=== PATIENT | female | born 1935 | race Hispanic/Latino ===

== ENCOUNTER 2019-05-05 21:36 | Observation (INO) | payer OTHER ==
--- OUTSIDE RECORDS SUMMARY | 2019-05-05 21:39 | XMS REPORT ---
:1935 Author Organization eClinicalWorks Care Team Providers Name Role Phone Jordan Butcher Provider Role Unavailable Allergies No Known Allergies Problems Problem Type Condition Code Onset Dates Condition Status Problem Glaucoma of right eye, unspecified H40.9 Active glaucoma type Problem Essential (primary) hypertension I10 Active Problem Bilateral hearing loss, unspecified H91.93 Active hearing loss type Assessment Bilateral impacted cerumen H61.23 Active Problem Mixed hyperlipidemia E78.2 Active Problem History of stroke Z86.73 Active Medications Medication Code Code Instructions Start End Status Dosage System Date Date Shirley Aspirin EC ND 38124701928 81 MG Orally Active 1 tablet Low Dose Once a day Lisinopril ND 21445533715 20 MG Orally Active 1 tablet Once a day Atorvastatin ND 24672194606 20 MG Orally Active 1 tablet Calcium Once a day Fluconazole [facility] 68753990899 150 MG Orally May 24May Active 1 tablet Once a day 2017 Results No Known Results Summary Purpose eClinicalWorks Submission
--- OUTSIDE RECORDS SUMMARY | 2019-05-05 21:39 | XMS REPORT ---
:1935 Author Organization eClinicalWorks Care Team Providers Name Role Phone Jordan Butcher Provider Role Unavailable Allergies, Adverse Reactions, Alerts Substance Reaction Event Type N.K.D.A. Info Not Available Non Drug Allergy Problems Problem Type Condition Code Onset Dates [...] Start End Status Dosage System Date Date Lomotil [facility] 12432187967 2.5-0.025 MG Oct 19, Oct 29, Active 1 tablet as Orally Four 2017 2017 needed times a day Acidophilus [facility] 01085814270 - Orally daily Oct 19, Dec 18, Active as directed Probiotic Blend 2017 2018 Lisinopril [facility] 77781572645 20 MG Orally Active 1 tablet Once a day Atorvastatin [facility] 68401269000 20 MG Orally Active 1 tablet Calcium Once a day Shirley Aspirin EC [facility] 58986978595 81 MG Orally Active 1 tablet Low Dose Once a day Results No Known Results Summary Purpose eClinicalWorks Submission
--- OUTSIDE RECORDS SUMMARY | 2019-05-05 21:39 | XMS REPORT ---
:1935 Author Organization eClinicalWorks Care Team Providers Name Role Phone Jordan Butcher Provider Role Unavailable Allergies, Adverse Reactions, Alerts Substance Reaction Event Type N.K.D.A. Info Not Available Non Drug Allergy Problems Problem Type Condition Code Onset Dates Condition Status Assessment Vaginal itching N89.8 Active Assessment Essential (primary) hypertension I10 Active Assessment Bilateral impacted cerumen H61.23 Active Problem Mixed hyperlipidemia E78.2 Active Problem History of stroke Z86.73 Active Problem Essential (primary) hypertension I10 Active Assessment History of stroke Z86.73 Active Assessment Mixed hyperlipidemia E78.2 Active Problem Glaucoma of right eye, unspecified H40.9 Active glaucoma type Medications Medication Code Code Instructions Start End Status Dosage System Date Date Atorvastatin [facility] 38470556794 20 MG Orally Active 1 tablet Calcium Once a day Shirley Aspirin EC ND 98315711690 81 MG Orally Active 1 tablet Low Dose Once a day Lisinopril ND 95375531545 20 MG Orally Active 1 tablet Once a day Fluconazole ND 83840915365 150 MG Orally May 24May Active 1 tablet Once a day 2017 Debrox [facility] 08465725719 6.5 % Otic May 24May Active 5 drops Twice a day 2017 affected ear Results No Known Results Summary Purpose eClinicalWorks Submission
--- OUTSIDE RECORDS SUMMARY | 2019-05-05 21:39 | XMS REPORT ---
:1935 Author Organization eClinicalWorks Care Team Providers Name Role Phone Jordan Butcher Provider Role Unavailable Allergies No Known Allergies Problems Problem Type Condition Code Onset Dates Condition Status Problem Mixed hyperlipidemia E78.2 Active Problem History of stroke Z86.73 Active Problem Essential (primary) hypertension I10 Active Assessment Viral upper respiratory tract J06.9 Active infection Problem Glaucoma of right eye, unspecified H40.9 Active glaucoma type Medications Medication Code Code Instructions Start End Status Dosage System Date Date Shirley Aspirin EC ND 73531922168 81 MG Orally Active 1 tablet Low Dose Once a day Lisinopril ND 89057236672 20 MG Orally Active 1 tablet Once a day Atorvastatin ND 24508430781 20 MG Orally Active 1 tablet Calcium Once a day Results No Known Results Summary Purpose eClinicalWorks Submission
--- OUTSIDE RECORDS SUMMARY | 2019-05-05 21:39 | XMS REPORT ---
[...] unspecified H91.93 Active hearing loss type Assessment Medicare annual wellness visit, Z00.00 Active initial Problem Mixed hyperlipidemia E78.2 Active Problem History of stroke Z86.73 Active Medications Medication Code Code Instructions Start End Status Dosage System Date Date Atorvastatin [facility] 62403145509 20 MG Orally Active 1 tablet Calcium Once a day Shirley Aspirin EC ND 74292447373 81 MG Orally Active 1 tablet Low Dose Once a day Lisinopril ND 36728926482 20 MG Orally Active 1 tablet Once a day Results No Known Results Summary Purpose eClinicalWorks Submission
--- OUTSIDE RECORDS SUMMARY | 2019-05-05 21:39 | XMS REPORT ---
:1935 Author Organization eClinicalWorks Care Team Providers Name Role Phone Jordan Butcher Provider Role Unavailable Allergies, Adverse Reactions, Alerts Substance Reaction Event Type N.K.D.A. Info Not Available Non Drug Allergy Problems Problem Type Condition Code Onset Dates Condition Status Assessment Mixed hyperlipidemia E78.2 Active Assessment Medicare annual wellness visit, Z00.00 Active subsequent Assessment Encounter for screening for Z13.820 Active osteoporosis Assessment Encounter for screening mammogram Z12.31 Active for breast cancer Assessment Essential (primary) hypertension I10 Active Problem Essential (primary) hypertension I10 Active Problem Mixed hyperlipidemia E78.2 Active Problem Bilateral hearing loss, unspecified H91.93 Active hearing loss type Problem Screening for osteoporosis Z13.820 Active Problem Screening for breast cancer Z12.31 Active Problem History of stroke Z86.73 Active Problem Glaucoma of right eye, unspecified H40.9 Active glaucoma type Medications Medication Code Code Instructions Start End Status Dosage System Date Date Shirley Aspirin EC ND 24429765355 81 MG Orally Active 1 tablet Low Dose Once a day Atorvastatin ND 92972749807 20 MG Orally Active 1 tablet Calcium Once a day Lisinopril ND 23043235738 20 MG Orally Active 1 tablet Once a day Results No Known Results Summary Purpose eClinicalWorks Submission
--- OUTSIDE RECORDS SUMMARY | 2019-05-05 21:39 | XMS REPORT ---
:1935 Author Organization eClinicalWorks Care Team Providers Name Role Phone Jordan Butcher Provider Role Unavailable Allergies No Known Allergies Problems Problem Type Condition Code Onset Dates Condition Status Assessment Bilateral hearing loss, unspecified H91.93 Active hearing loss type Assessment Mixed hyperlipidemia E78.2 Active Assessment Essential (primary) hypertension I10 Active Problem Glaucoma of right eye, unspecified H40.9 Active glaucoma type Problem Essential (primary) hypertension I10 Active Problem Bilateral hearing loss, unspecified H91.93 Active hearing loss type Assessment History of stroke Z86.73 Active Problem Mixed hyperlipidemia E78.2 Active Problem History of stroke Z86.73 Active Medications Medication Code Code Instructions Start End Status Dosage System Date Date Lisinopril [facility] 35085861033 20 MG Orally Active 1 tablet Once a day Atorvastatin [facility] 38822715625 20 MG Orally Active 1 tablet Calcium Once a day Shirley Aspirin EC [facility] 57722691829 81 MG Orally Active 1 tablet Low Dose Once a day Results No Known Results Summary Purpose eClinicalWorks Submission
--- OUTSIDE RECORDS SUMMARY | 2019-05-05 21:39 | XMS REPORT ---
[...] unspecified H91.93 Active hearing loss type Assessment Acute midline low back pain, with M54.5 Active sciatica presence unspecified Problem Mixed hyperlipidemia E78.2 Active Problem History of stroke Z86.73 Active Medications Medication Code Code Instructions Start End Status Dosage System Date Date Shirley Aspirin EC ND 79120205167 81 MG Orally Active 1 tablet Low Dose Once a day Atorvastatin ND 60259005014 20 MG Orally Active 1 tablet Calcium Once a day Acidophilus ND 60413860544 - Orally daily Oct 19, Dec 18, Active as directed Probiotic Blend 2017 2018 Diclofenac ND 07975445424 50 MG Orally Nov 28, Dec 28, Active 1 tablet Sodium Twice a day 2018 2018 with food or milk Lisinopril [facility] 17554240259 20 MG Orally Active 1 tablet Once a day Results Name Result Date Reference Range Unit Abnormality Flag Lumbar Spine 3 Views Summary Purpose eClinicalWorks Submission
--- OUTSIDE RECORDS SUMMARY | 2019-05-05 21:39 | XMS REPORT ---
[...] Start End Status Dosage System Date Date Acidophilus [facility] 97275399357 - Orally daily Oct 19Dec 18, Active as directed Probiotic Blend 2017 2018 Lisinopril [facility] 46594449041 20 MG Orally Active 1 tablet Once a day Cipro ND 54359363848 500 MG/5ML Oct 19Oct 24, Active 2.5 ml (10%) Orally 2017 2017 every 12 hrs Shirley Aspirin EC ND 61589794058 81 MG Orally Active 1 tablet Low Dose Once a day Lomotil ND 64973263722 2.5-0.025 MG Oct 19Oct 29, Active 1 tablet as Orally Four 2017 2017 needed times a day Atorvastatin ND 17325444080 20 MG Orally Active 1 tablet Calcium Once a day Debrox [facility] 70272177872 6.5 % Otic Oct 19Oct 23, Active 5 drops Twice a day 2017 2018 into affected ear Results No Known Results Summary Purpose eClinicalWorks Submission
--- OUTSIDE RECORDS SUMMARY | 2019-05-05 21:39 | XMS REPORT ---
:1935 Author Organization eClinicalWorks Care Team Providers Name Role Phone Jordan Butcher Provider Role Unavailable Allergies No Known Allergies Problems Problem Type Condition Code Onset Dates Condition Status Problem Mixed hyperlipidemia E78.2 Active Problem History of stroke Z86.73 Active Problem Essential (primary) hypertension I10 Active Assessment Bilateral impacted cerumen H61.23 Active Problem Glaucoma of right eye, unspecified H40.9 Active glaucoma type Medications Medication Code Code Instructions Start End Date Status Dosage System Date Debrox [facility] 65850306957 6.5 % Otic Twice May 24, May 28, Active 5 drops into a day 2017 2017 affected ear Results No Known Results Summary Purpose eClinicalWorks Submission
--- OUTSIDE RECORDS SUMMARY | 2019-05-05 21:39 | XMS REPORT ---
:1935 Author Organization eClinicalWorks Care Team Providers Name Role Phone Jordan Butcher Provider Role Unavailable Allergies No Known Allergies Problems Problem Type Condition Code Onset Dates Condition Status Problem Mixed hyperlipidemia E78.2 Active Problem History of stroke Z86.73 Active Problem Essential (primary) hypertension I10 Active Assessment Bilateral impacted cerumen H61.23 Active Assessment Vaginal itching N89.8 Active Problem Glaucoma of right eye, unspecified H40.9 Active glaucoma type Medications Medication Code Code Instructions Start End Date Status Dosage System Date Debrox [facility] 40633849526 6.5 % Otic Twice May 24, May 28, Active 5 drops a day 2017 2017 into affected ear Fluconazole ND 43348816789 150 MG Orally May 24, June 03, Active 1 tablet Once a day 2017 2017 Results No Known Results Summary Purpose eClinicalWorks Submission
--- OUTSIDE RECORDS SUMMARY | 2019-05-05 21:39 | XMS REPORT ---
:1935 Author Organization eClinicalWorks Care Team Providers Name Role Phone Jordan Butcher Provider Role Unavailable Allergies No Known Allergies Problems Problem Type Condition Code Onset Dates Condition Status Problem Essential (primary) hypertension I10 Active Problem [...] Dosage System Date Date Shirley Aspirin EC [facility] 19767471188 81 MG Orally Active 1 tablet Low Dose Once a day Lisinopril [facility] 53970412248 20 MG Orally Active 1 tablet Once a day Atorvastatin [facility] 13763865795 20 MG Orally Active 1 tablet Calcium Once a day Results No Known Results Summary Purpose eClinicalWorks Submission
[2019-05-05 22:42] LABS: Absolute Lymphocytes (CBC) 1.7 K/uL (0.7-4.9); Basophils % 0.7 % (0-1.3); Eosinophils % 5.1 % (0-4.4); Hematocrit 32.3 % (36.0-45.0); Lymphocytes % 24.4 % (15.3-44.8); MPV 9.1 fL (7.6-11.3); Monocytes % 10.2 % (3.3-12.3); RBC Red Blood Cell Count 3.72 M/uL (3.86-4.86)
[2019-05-05 22:46] LABS: Protime INR 0.99
--- NOTE | 2019-05-05 23:00 | ER ---
Nurse's Notes [facility] Name: Ramandeep Renner Age: 84 yrs Sex: Female : 1935 Arrival Date: 05/05/2019 Time: 21:37 Bed 16 Private MD: Ludy Herrera F Diagnosis: Other chest pain;Essential (primary) hypertension Presentation: 05/05 21:58 Presenting complaint: Patient states: she has been having chest pain all day which bb started earlier today and started radiating down her left arm and she was experiencing shortness of breath. Transition of care: patient was not received from another setting of care. Onset of symptoms was May 05, 2019. Risk Assessment: Do you want to hurt yourself or someone else? Patient reports no desire to harm self or others. Initial Sepsis Screen: Does the patient meet any 2 criteria? No. Patient's initial sepsis screen is negative. Does the patient have a suspected source of infection? No. Patient's initial sepsis screen is negative. Care prior to arrival: None. 21:58 Method Of Arrival: Ambulatory bb 21:58 Acuity: WILFRIDO 3 bb Triage Assessment: 22:00 General: Appears in no apparent distress. uncomfortable, slender, Behavior is calm, bb cooperative. Pain: Complains of pain in chest Pain radiates to left arm Pain currently is 5 out of 10 on a pain scale. Neuro: Level of Consciousness is awake, alert, obeys commands, Oriented to person, place, time, situation. Cardiovascular: Reports chest pain, shortness of breath, Heart tones S1 S2 present Capillary refill < 3 seconds Patient's skin is warm and dry. Pulses are all present. Edema is absent. Rhythm is sinus rhythm. Respiratory: Respiratory effort is even, unlabored, Respiratory pattern is regular, Breath sounds are clear bilaterally. GI: Abdomen is non-distended. Derm: Skin is fragile, is thin, Skin is dry, Skin is pink, Skin temperature is warm. Musculoskeletal: Circulation, motion, and sensation intact. Historical: - Allergies: 22:00 PENICILLINS; bb - Home Meds: 22:00 aspirin 81 mg Oral chew 1 tab once daily [Active]; lisinopril 20 mg Oral tab 1 tab once bb daily [Active]; atorvastatin 20 mg oral tab 1 tab once daily [Active]; - PMHx: 22:00 CVA; hemorrhoids; Hypertension; PE; RENAL CYST; bb - PSHx: 22:00 Cholecystectomy; perforated colon surgery; Hysterectomy; Knee surgery; bb - Immunization history:: Adult Immunizations up to date. - Social history:: Smoking status: Patient/guardian denies using tobacco. - Ebola Screening: : No symptoms or risks identified at this time. - Family history:: not pertinent. Screenin:03 Abuse screen: Denies threats or abuse. Nutritional screening: No deficits noted. bb Tuberculosis screening: No symptoms or risk factors identified. Fall Risk None identified. Assessment: 22:03 Reassessment: No changes from previously documented assessment. see triage assessment. bb 22:30 Pain: Pain began 10am this morning. ca1 23:30 Reassessment: Patient appears in no apparent distress at this time. Patient and/or ca1 family updated on plan of care and expected duration. Pain level reassessed. Patient is alert, oriented x 3, equal unlabored respirations, skin warm/dry/pink. 05/06 00:32 Reassessment: Patient appears in no apparent distress at this time. Patient is alert, ca1 oriented x 3, equal unlabored respirations, skin warm/dry/pink. Pain: Denies pain. Vital Signs: 05/05 22:00 BP 150 / 70; Pulse 68; Resp 14 S; Temp 98.3; Pulse Ox 100% on R/A; Weight 55.79 kg (R); bb Height 5 ft. 3 in. (160.02 cm) (R); Pain 5/10; 23:15 BP 143 / 72; Pulse 75; Resp 16 S; Temp 98.1(O); Pulse Ox 100% on R/A; ca1 05/06 00:30 BP 132 / 81; Pulse 75; Resp 17 S; Temp 98(O); Pulse Ox 100% on R/A; ca1 05/05 22:00 Body Mass Index 21.79 (55.79 kg, 160.02 cm) bb ED Course: 05/05 21:37 Patient arrived in ED. am2 21:38 John Jean Baptiste MD is Private Physician. am2 21:38 Ludy Herrera MD is Private Physician. am2 21:59 Triage completed. bb 22:00 Arm band placed on Patient placed in an exam room, on a stretcher, on equipment monitor phototypesetting, bb on pulse oximetry. EKG completed in triage. Results shown to MD. Family accompanied patient. 22:03 Patient has correct armband on for positive identification. Bed in low position. Call bb light in reach. Side rails up X 1. Adult w/ patient. site monitor on. Pulse ox on. NIBP on. Warm blanket given. 22:03 Patient maintains SpO2 saturation greater than 95% on room air. bb 22:12 Yonatan Smith MD is Attending Physician. [facility] 22:17 Bina Goodman, ANTONIO is Primary Nurse. ca1 22:30 Inserted saline lock: 20 gauge in left antecubital area, using aseptic technique. Blood ca1 collected. 22:46 XRAY Chest (1 view) In Process Unspecified. [facility] 22:59 Ludy Herrera MD is Hospitalizing Provider. [facility] 22:59 Notified ED physician of a critical lab result(s). D-dimer 718. Dr Smith notified. 05/06 00:30 No provider procedures requiring assistance completed. Patient admitted, IV remains in ca1 place. Administered Medications: 05/05 22:30 Drug: NS 0.9% 1000 ml Route: IV; Rate: 125 ml/hr; Site: left antecubital; ca1 05/06 00:41 Follow up: IV Status: Infusion continued upon admission ca1 05/05 22:30 Drug: Aspirin 162 mg Route: PO; ca1 05/06 00:40 Follow up: Response: No adverse reaction ca1 05/05 23:00 Drug: Lovenox 1 mg/kg Route: Sub-Q; Site: right lower abdomen; ca1 05/06 00:36 Follow up: Response: No adverse reaction ca1 05/05 23:00 Drug: Lopressor 25 mg Route: PO; ca1 05/06 00:36 Follow up: Response: No adverse reaction ca1 Outcome: 05/05 22:59 Decision to Hospitalize by Provider. [facility] 05/06 00:30 Admitted to Med/surg accompanied by nurse, via wheelchair, room 223, with chart, Report ca1 called to Kimberlee Chase RN Condition: stable Instructed on the need for admit. 00:43 Patient left the ED. ca1 Signatures: Dispatcher [employer] [facility] Yonatan Smith MD MD cha Ballard, Brenda, RN RN bb Patel, Bina Frias RN RN ca1 Corrections: (The following items were deleted from the chart) 00:33 00:31 Pain: Pain began ca1 ca1
--- NOTE | 2019-05-05 23:00 | EDPHYS ---
Physician Documentation [facility] Name: Ramandeep Renner Age: 84 yrs Sex: Female : 1935 Arrival Date: 05/05/2019 Time: 21:37 Bed 16 Private MD: Ludy Herrera F ED Physician Yonatan Smith HPI: 05/05 22:56 This 84 yrs old Female presents to ER via Ambulatory with complaints of Chest joe Pain > 30 y/o. 22:56 The patient or guardian reports chest pain that is located primarily in the substernal joe area, anterior chest wall, left. Onset: this morning. The pain radiates to Associated signs and symptoms: The patient has no apparent associated signs or symptoms. The chest pain is described as a heaviness, a pressure. Duration: The patient or guardian reports multiple episodes, with no pattern. Modifying factors: The symptoms are alleviated by nothing. the symptoms are aggravated by nothing. Severity of pain: At its worst the pain was mild in the emergency department the pain is unchanged. The patient has not experienced similar symptoms in the past. Historical: - Allergies: 22:00 PENICILLINS; bb - Home Meds: 22:00 aspirin 81 mg Oral chew 1 tab once daily [Active]; lisinopril 20 mg Oral tab 1 tab once bb daily [Active]; atorvastatin 20 mg oral tab 1 tab once daily [Active]; - PMHx: 22:00 CVA; hemorrhoids; Hypertension; PE; RENAL CYST; bb - PSHx: 22:00 Cholecystectomy; perforated colon surgery; Hysterectomy; Knee surgery; bb - Immunization history:: Adult Immunizations up to date. - Social history:: Smoking status: Patient/guardian denies using tobacco. - Ebola Screening: : No symptoms or risks identified at this time. - Family history:: not pertinent. ROS: 22:56 Constitutional: Negative for fever, chills, and weight loss, Eyes: Negative for injury, joe pain, redness, and discharge, ENT: Negative for injury, pain, and discharge, Neck: Negative for injury, pain, and swelling, Respiratory: Negative for shortness of breath, cough, wheezing, and pleuritic chest pain, Abdomen/GI: Negative for abdominal pain, nausea, vomiting, diarrhea, and constipation, Back: Negative for injury and pain, : Negative for injury, bleeding, discharge, and swelling, MS/Extremity: Negative for injury and deformity, Skin: Negative for injury, rash, and discoloration, Neuro: Negative for headache, weakness, numbness, tingling, and seizure, Psych: Negative for depression, anxiety, suicide ideation, homicidal ideation, and hallucinations, Allergy/Immunology: Negative for hives, rash, and allergies, Endocrine: Negative for neck swelling, polydipsia, polyuria, polyphagia, and marked weight changes, Hematologic/Lymphatic: Negative for swollen nodes, abnormal bleeding, and unusual bruising. 22:56 Cardiovascular: Positive for chest pain, of the chest. Exam: 22:56 Constitutional: This is a well developed, well nourished patient who is awake, alert, joe and in no acute distress. Head/Face: Normocephalic, atraumatic. Eyes: Pupils equal round and reactive to light, extra-ocular motions intact. Lids and lashes normal. Conjunctiva and sclera are non-icteric and not injected. Cornea within normal limits. Periorbital areas with no swelling, redness, or edema. ENT: Nares patent. No nasal discharge, no septal abnormalities noted. Tympanic membranes are normal and external auditory canals are clear. Oropharynx with no redness, swelling, or masses, exudates, or evidence of obstruction, uvula midline. Mucous membranes moist. Neck: Trachea midline, no thyromegaly or masses palpated, and no cervical lymphadenopathy. Supple, full range of motion without nuchal rigidity, or vertebral point tenderness. No Meningismus. Chest/axilla: Normal chest wall appearance and motion. Nontender with no deformity. No lesions are appreciated. Cardiovascular: Regular rate and rhythm with a normal S1 and S2. No gallops, murmurs, or rubs. Normal PMI, no JVD. No pulse deficits. Respiratory: Lungs have equal breath sounds bilaterally, clear to auscultation and percussion. No rales, rhonchi or wheezes noted. No increased work of breathing, no retractions or nasal flaring. Abdomen/GI: Soft, non-tender, with normal bowel sounds. No distension or tympany. No guarding or rebound. No evidence of tenderness throughout. Back: No spinal tenderness. No costovertebral tenderness. Full range of motion. Female : Normal external genitalia. Skin: Warm, dry with normal turgor. Normal color with no rashes, no lesions, and no evidence of cellulitis. MS/ Extremity: Pulses equal, no cyanosis. Neurovascular intact. Full, normal range of motion. Neuro: Awake and alert, GCS 15, oriented to person, place, time, and situation. Cranial nerves II-XII grossly intact. Motor strength 5/5 in all extremities. Sensory grossly intact. Cerebellar exam normal. Normal gait. Psych: Awake, alert, with orientation to person, place and time. Behavior, mood, and affect are within normal limits. Vital Signs: 22:00 BP 150 / 70; Pulse 68; Resp 14 S; Temp 98.3; Pulse Ox 100% on R/A; Weight 55.79 kg (R); bb Height 5 ft. 3 in. (160.02 cm) (R); Pain 5/10; 23:15 BP 143 / 72; Pulse 75; Resp 16 S; Temp 98.1(O); Pulse Ox 100% on R/A; ca1 05/06 00:30 BP 132 / 81; Pulse 75; Resp 17 S; Temp 98(O); Pulse Ox 100% on R/A; ca1 05/05 22:00 Body Mass Index 21.79 (55.79 kg, 160.02 cm) bb MDM: 05/05 22:12 Patient medically screened. [facility] 22:58 Data reviewed: vital signs, nurses notes, lab test result(s), EKG, radiologic studies. [facility] 05/05 22:13 Order name: Basic Metabolic Panel [facility] 05/05 22:13 Order name: CBC with Diff [facility] 05/05 22:13 Order name: LFT's; Complete Time: 23:11 [facility] 05/05 22:13 Order name: Magnesium; Complete Time: 23:11 [facility] 05/05 22:13 Order name: NT PRO-BNP; Complete Time: 23:11 [facility] 05/05 22:13 Order name: PT-INR; Complete Time: 22:55 [facility] 05/05 22:13 Order name: Troponin (emerg Dept Use Only); Complete Time: 23:11 [facility] 05/05 22:13 Order name: XRAY Chest (1 view) [facility] 05/05 22:13 Order name: Lipase; Complete Time: 23:11 [facility] 05/05 22:13 Order name: Urine Culture [facility] 05/05 22:13 Order name: D-Dimer; Complete Time: 22:55 [facility] 05/05 22:15 Order name: Basic Metabolic Panel; Complete Time: 23:11 [facility] 05/05 22:15 Order name: CBC with Automated Diff; Complete Time: 22:55 [facility] 05/05 22:55 Order name: US Extremity Venous W Compression Rod [facility] 05/05 22:13 Order name: EKG; Complete Time: 22:16 [facility] 05/05 22:13 Order name: Cardiac monitoring; Complete Time: 00:13 [facility] 05/05 22:13 Order name: EKG - Nurse/Tech; Complete Time: 00:13 [facility] 05/05 22:13 Order name: IV Saline Lock; Complete Time: 00:13 [facility] 05/05 22:13 Order name: Labs collected and sent; Complete Time: 00:13 [facility] 05/05 22:13 Order name: O2 Per Protocol; Complete Time: 00:13 [facility] 05/05 22:13 Order name: O2 Sat Monitoring; Complete Time: 00:13 [facility] 05/05 22:13 Order name: Urine Dipstick-Ancillary (obtain specimen); Complete Time: 00:41 [facility] 05/05 22:55 Order name: CT Chest For PE Angio [facility] 05/05 23:06 Order name: CONS Physician Consult EDMS Administered Medications: 22:30 Drug: NS 0.9% 1000 ml Route: IV; Rate: 125 ml/hr; Site: left antecubital; ca1 / 00:41 Follow up: IV Status: Infusion continued upon admission ca1 05/05 22:30 Drug: Aspirin 162 mg Route: PO; ca1 05/06 00:40 Follow up: Response: No adverse reaction [facility] 05/05 23:00 Drug: Lovenox 1 mg/kg Route: Sub-Q; Site: right lower abdomen; ca1 05/06 00:36 Follow up: Response: No adverse reaction [facility] 05/05 23:00 Drug: Lopressor 25 mg Route: PO; ca1 05/06 00:36 Follow up: Response: No adverse reaction ca1 Disposition: 05/05/19 22:59 Hospitalization ordered by Ludy Herrera for Observation. Preliminary diagnosis are Other chest pain, Essential (primary) hypertension. - Bed requested for Telemetry/MedSurg (observation). - Status is Observation. ca1 - Condition is Fair. - Problem is new. - Symptoms have improved. UTI on Admission? No Signatures: Dispatcher [employer] EDYonatan Hammer MD MD cha Ballard, Brenda, RN RN Gema Lopez, ANTONIO RN Bina Goodman RN RN ca1 Corrections: (The following items were deleted from the chart) 05/05 23:30 22:59 Hospitalization Ordered by Ludy Herrera MD for Observation. Preliminary cg diagnosis is Other chest pain; Essential (primary) hypertension. Bed requested for Telemetry/MedSurg (observation). Status is Observation. Condition is Fair. Problem is new. Symptoms have improved. UTI on Admission? No. [facility] 05/06 00:43 05/05 23:30 05/05/2019 22:59 Hospitalization Ordered by Ludy Herrera MD for ca1 Observation. Preliminary diagnosis is Other chest pain; Essential (primary) hypertension. Bed requested for Telemetry/MedSurg (observation). Status is Observation. Condition is Fair. Problem is new. Symptoms have improved. UTI on Admission? No. cg
[2019-05-05 23:01] LABS: ALT/SGPT 22 U/L (12-78); AST/SGOT 24 U/L (15-37); Albumin 3.3 g/dL (3.4-5.0); Alkaline Phosphatase 122 U/L (45-117); BUN Blood Urea Nitrogen 10 mg/dL (7-18); Bicarbonate 26 mmol/L (21-32); Bilirubin Direct < 0.1 mg/dL (0-0.2); Bilirubin Total 0.3 mg/dL (0.2-1.0); Glucose Level 104 mg/dL (74-106); Lipase 188 U/L (73-393); Magnesium 2.2 mg/dL (1.8-2.4); NT PRO-BNP 95 pg/mL (<450); Potassium 4.4 mmol/L (3.5-5.1); Protein, Total 7.1 g/dL (6.4-8.2); Sodium Level 140 mmol/L (136-145); Troponin (Emerg Dept Use Only) < 0.02 ng/mL (0.0-0.045)
[2019-05-05] MEDS ORDERED: ASPIRIN EC 81 MG TAB PO ONE (23:19)
[2019-05-05] MEDS ORDERED: ENOXAPARIN 60 MG/0.6 ML SQ ONE (23:20)
[2019-05-05] MEDS ORDERED: METOPROLOL TAR 25 MG TAB ONE (23:20)
[2019-05-05] MEDS ORDERED: NA CHLORIDE 0.9% 1,000 ML ONE (23:20)
[2019-05-06] MEDS ORDERED: ACETAMINOPHEN 500 MG TAB PO PRN (00:34)
[2019-05-06] MEDS ORDERED: ONDANSETRON 4 MG/2 ML VIAL IV PRN (00:34)
[2019-05-06] MEDS: METOPROLOL TAR 25 MG TAB PO SCH ×2 (06:22→17:17)
[2019-05-06 06:59] LABS: Absolute Lymphocytes (CBC) 1.5 K/uL (0.7-4.9); Basophils % 0.5 % (0-1.3); Eosinophils % 4.4 % (0-4.4); Hematocrit 32.1 % (36.0-45.0); Lymphocytes % 24.4 % (15.3-44.8); Monocytes % 9.1 % (3.3-12.3); RBC Red Blood Cell Count 3.67 M/uL (3.86-4.86)
[2019-05-06 07:21] LABS: BUN Blood Urea Nitrogen 10 mg/dL (7-18); Bicarbonate 27 mmol/L (21-32); Glucose Level 89 mg/dL (74-106); Potassium 4.2 mmol/L (3.5-5.1); Sodium Level 141 mmol/L (136-145); Troponin I < 0.02 ng/mL (0.0-0.045)
[2019-05-06] MEDS ORDERED: PNEUMOCOCCAL VACCINE 0.5 ML IMVAC ONE (08:00)
--- NOTE | 2019-05-06 08:24 | RAD REPORT ---
EXAM DESCRIPTION: Nuno Single View05/05/2019 10:45 pm CLINICAL HISTORY: Chest pain COMPARISON: 2017 FINDINGS: The lungs appear clear of acute infiltrate. The heart is borderline enlarged IMPRESSION: No acute abnormalities displayed
--- NOTE | 2019-05-06 08:24 | RAD REPORT ---
EXAM DESCRIPTION: Nuno Single View05/06/2019 6:28 am CLINICAL HISTORY: Chest pain COMPARISON: May 05, 2019 FINDINGS: The lungs appear clear of acute infiltrate. The heart is borderline enlarged IMPRESSION: No acute abnormalities displayed
--- NOTE | 2019-05-06 09:07 | EKG ---
Test Date: 2019-05-06 Test Time: 08:01:23 Web Manager: KAREN MEASUREMENT RESULTS: Intervals: Rate: 53 TN: 178 QRSD: 76 QT: 446 QTc: 418 [place]: P: 44 TN: 178 QRS: 25 T: 61 INTERPRETIVE STATEMENTS: Sinus bradycardia Otherwise normal ECG Compared to ECG 05/05/2019 21:49:03 Sinus rhythm no longer present Electronically Signed On 05-06-19 09:06:34 CDT by Silverio Bhatt
--- NOTE | 2019-05-06 09:08 | EKG ---
Test Date: 2019-05-05 Test Time: 21:49:03 Tongue Presser: COLT MEASUREMENT RESULTS: Intervals: Rate: 73 OK: 126 QRSD: 76 QT: 378 QTc: 416 [place]: P: 28 OK: 126 QRS: 12 T: 51 INTERPRETIVE STATEMENTS: Normal sinus rhythm Normal ECG Compared to ECG 07/08/2017 09:15:30 ST (T wave) deviation no longer present Electronically Signed On 05-06-19 09:07:18 CDT by Silverio Bhatt
[2019-05-06] MEDS: ASPIRIN EC 81 MG TAB PO SCH (09:09)
[2019-05-06] MEDS: LISINOPRIL 20 MG TAB PO SCH (09:10)
[2019-05-06] MEDS: ENOXAPARIN 60 MG/0.6 ML SQ SCH ×2 (09:10→21:13)
--- NOTE | 2019-05-06 10:28 | RAD REPORT ---
EXAM DESCRIPTION: CT - Chest For Pe Angio - 05/06/2019 12:12 am CLINICAL HISTORY: 84 years Female Chest pain; Dyspnea TECHNIQUE: Contiguous axial images obtained through the chest were obtained from the thoracic inlet to the level of the upper abdomen during the pulmonary arterial phase of intravenous contrast adminis tration. Coronal, sagittal, and bilateral oblique reformatted images provided. This CT exam was performed according to our departmental dose-optimization program, which includes on e or more of the following dose reduction techniques: automated exposure control, adjustment of the m A and/or kV according to patient size, and/or use of iterative reconstruction technique. COMPARISON: Comparison is made to the prior examination dated 09/21/2017. FINDINGS: There is no pulmonary embolus. The heart is normal in size without pericardial effusion. There is extensive atherosclerosis without thoracic aortic aneurysm or dissection. No mediastinal hemorrhage. No lymphadenopathy in the chest.. Again seen is nodular scarring in the lung apices. Patchy air trapping and atelectasis throughout bot h lungs. The central airways are patent. No pleural effusion or pneumothorax. Stable dystrophic calcification and cysts in the liver bilateral renal cysts again seen. Prior cholec ystectomy. No acute fracture or aggressive osseous lesion. IMPRESSION: No pulmonary embolus. No acute cardiopulmonary findings. Stable chronic findings as described. Electronically signed by: Jacklyn Mg MD 05/06/2019 12:09 AM CDT Due to temporary technical issues with the PACS/Fluency reporting system, reports are being signed by the in house radiologist as a courtesy to ensure prompt reporting. The interpreting radiologist is f ully responsible for the content of the report.
[2019-05-06] MEDS ORDERED: REGADENOSON 0.4 MG/5 ML SYR IV ONE (10:29)
--- NOTE | 2019-05-06 14:07 | CON ---
History Of Present Illness: Ms. Renner is 84. She came to the hospital because of chest pain. Th e chest pain was very atypical. She points to it with a finger and it lasted for 12 hours and since being here in the hospital, she has had normal enzymes and normal EKGs. The patient has never had my ocardial infarction before. Three years ago, she had a stroke. There was no vascular intervention a fter the stroke. Chest pain seemed to go away when she slept. She has a history of gallbladder surg maite, history of stroke. She does not have diabetes. She has hypertension and dyslipidemia. She shawn es lisinopril, atorvastatin, and aspirin. Allergies: SHE IS ALLERGIC TO PENICILLINS. Social History: She used tobacco until 3 years ago before that she has a sporadic smoker. Physical Examination: General: She is 5 feet 3 inches, 124 pounds. HEENT: Normal. Lungs: Clear. Cardiac exam: Normal. Abdomen: Soft. Extremities: Normal. Normal pulses. Electrocardiogram shows sinus rhythm. It is completely normal EKG. I will recommend the patient do a pharmacologic nuclear stress test and echo. MESFIN/KATELIN Voice ID: [id number] Report ID: [id number]
--- NOTE | 2019-05-06 14:44 | RAD REPORT ---
EXAM DESCRIPTION: NM - Rest Stress Cardiac Imaging - 05/06/2019 2:39 pm CLINICAL HISTORY: Chest pain. COMPARISON: None. TECHNIQUE: The patient was administered approximately 10mCi of Tc 99m Sestamibi prior to resting SPE CT imaging of the heart. The patient was then administered approximately 30 mCi of Tc 99m Sestamibi f ollowing exercise or pharmacologic stress. Multiplanar SPECT images were reviewed. FINDINGS: There is uniformity of radiotracer uptake involving the entire left ventricular myocardiu m on rest and stress images. The left ventricular ejection fraction equals 76% IMPRESSION: Negative for a myocardial perfusion defect
--- NOTE | 2019-05-06 16:01 | ECHO ---
HEIGHT: 5 ft 3 in WEIGHT: 124 lb 9.6 oz DATE OF STUDY: 05/06/[address]: Yonatan Smith MD 2-DIMENSIONAL: YES M.MODE: YES DOPPLER: YES COLOR FLOW: YES TDS: NO PORTABLE: NO DEFINITY: NO BUBBLE STUDY: NO DIAGNOSIS: CHEST PAIN CARDIAC HISTORY: CATHERIZATION: NO SURGERY: NO PROSTHETIC VALVE: NO PACEMAKER: NO MEASUREMENTS (cm) DIASTOLIC (NORMALS) SYSTOLIC (NORMALS) IVSd 1.0 (0.6-1.2) LA Diam 3.2 (1.9-4.0) LVEF 77% LVIDd 3.9 (3.5-5.7) LVIDs 2.1 (2.0-3.5) %FS 45% LVPWd 1.0 (0.6-1.2) Ao Diam 3.1 (2.0-3.7) 2 DIMENSIONAL ASSESSMENT: RIGHT ATRIUM: NORMAL LEFT ATRIUM: NORMAL RIGHT VENTRICLE: NORMAL LEFT VENTRICLE: NORMAL TRICUSPID VALVE: NORMAL MITRAL VALVE: NORMAL PULMONIC VALVE: NORMAL AORTIC VALVE: NORMAL PERICARDIAL EFFUSION: NONE AORTIC ROOT: NORMAL LEFT VENTRICULAR WALL MOTION: DOPPLER/COLOR FLOW: TRACE MITRAL AND TRICUSPID REGURGITATION. NORMAL RIGHT VENTRICULAR SYSTOLIC PRESSURE. COMMENTS: NORMAL 2D ECHOCARDIOGRAM. TRACE MITRAL AND TRICUSPID REGURGITATION. TECHNOLOGIST: Mani RODRIGUEZ
--- NOTE | 2019-05-06 16:42 | RAD REPORT ---
EXAM DESCRIPTION: US - Extrem Venous W Compress Rod - 05/06/2019 3:36 pm CLINICAL HISTORY: PAIN Bilateral leg edema and swelling. COMPARISON: <Comparisons> TECHNIQUE: Real-time sonographic interrogation of the left and right lower extremity deep venous sys tems was performed. FINDINGS: Normal compressibility, flow augmentation, phasic flow and spontaneous flow is identified in both the left and right lower extremity deep venous systems. IMPRESSION: No sonographic evidence of left or right lower extremity deep venous thrombosis.
--- NOTE | 2019-05-06 16:47 | TREADPHA ---
DX: CHEST PAIN Date of Study: 05/06/19 Ht: 5 3 Wt: 124 lb 9.6 oz Consulting Physician: DARINEL MEDICATIONS: TYLENOL, ASPIRIN, LIPITOR, LOVENOX, PRINIVIL, LOPRESSOR. HISTORY: 84 YEAR FEMALE WITH COMPLAINTS OF CHEST PAIN. HISTORY: CVA, PE, RENAL CYST, HYPERTENSION, HEMOROIDS, NON-SMOKER, NON-DRINKER. PHYSICIAL EXAMINATION: RESTING B.P.: 182/75 RESTING H.R.: 68 RESTING EKG: NORMAL PROTOCOL: LEXISCAN EXERCISE TIME: 3:30 B.P. AT PEAK STRESS: 170/60 IMPRESSION: LEXISCAN INJECTED, FOLLOWED BY CARDIOLITE PER PROTOCOL, SEE NUCLEAR MEDICINE REPORT. NO SUPRAVENTRICULAR TACHYCARDIA, NO VENTRICULAR TACHYCARDIA, NO PREMATURE ATRIAL COMPLEXS, AND NO PREMATURE VENTRICULAR COMPLEXS. PATIENT REPORTED NO CHEST PAIN. NON-DIAGNOSTIC ELECTROCARDIOGRAM WITH LEXISCAN STRESS.
[2019-05-06] MEDS ORDERED: ATORVASTATIN 20 MG TAB PO SCH (21:00)
[2019-05-07] MEDS: METOPROLOL TAR 25 MG TAB PO SCH (05:17)
--- NOTE | 2019-05-07 06:31 | DS ---
History Of Present Illness: An 84-year-old female who presented to the emergency room with a complai nt of chest pain in the substernal area that started with the patient at home. It was active for abo ut 12 hours and so she decided to come to the emergency room. Chest pain had no radiation. Not asso ciated with symptoms of nausea or vomiting. Review of Systems: Cardiovascular: No palpitations. No dizziness. Respiratory: No complaint. Gastrointestinal: No complaint. Skeletomuscular: No complaint. Genitourinary: No complaint. Neurological: No complaint. Past Medical History: 1.Severe pulmonary hypertension. 2. in the past. 3.History of pulmonary embolism. 4.Hemorrhagic adrenal cyst. 5.Cholecystectomy. 6.Perforated colon surgery. 7.Knee surgery. Social History: No smoking, alcohol, or IV drug abuse history. Family History: Noncontributory. Medications: Include aspirin 81 mg p.o. daily, Lipitor 20 mg p.o. daily, and lisinopril 20 mg p.o. d aily. Allergies: PENICILLIN. Physical Examination: Vital Signs: Blood pressure 135/65, pulse 60, temperature 97.2. Heart: Regular rate and rhythm. Chest: Clear to auscultation. Abdomen: Soft, nontender. No hepatosplenomegaly. Bowel sounds normoactive. Extremities: No edema. No cyanosis. Peripheral pulses are felt. Neurologic: Alert, oriented, nonfocal. Grossly intact. Imaging: The patient's chest x-ray showed no acute pathology. EKG in normal sinus rhythm. Chest CT , no pulmonary embolus. Labs: CBC in office with hemoglobin 10.7, hematocrit 32.1, and platelets 239. D-dimer 718. Client Support Associate ry had been noted; BUN 10, creatinine 0.84, and GFR 64. Assessment And Plan: Chest pain, atypical. The patient is being admitted. Draw serial cardiac enzy mes. Troponin second set was less than 0.02. We will put the patient also on aspirin and consult Ca rdiology. We will continue her home medicines for chronic medical illnesses. The patient also has b een put on metoprolol beta-lakia pending Cardiology assessment and recommendation. Continue above treatment. MFS/MODL Voice ID: [id number] Report ID: [id number]
[2019-05-07] MEDS: LISINOPRIL 20 MG TAB PO SCH (10:07)
[2019-05-07] MEDS: ENOXAPARIN 60 MG/0.6 ML SQ SCH (10:08)
[2019-05-07] MEDS: ASPIRIN EC 81 MG TAB PO SCH (10:08)
--- NOTE | 2019-05-07 12:20 | PN ---
Date of Progress Note: 05/07/2019 Ms. Renner was admitted by Dr. Herrera on 05/05/2019 for chest pain and hypertension. Echocardiogr am and Lexiscan were done yesterday. These were reviewed this morning. Echocardiogram reports addi l wall motion, normal ejection fraction and no effusion. Lexiscan showed no ischemia. There was no reported chest pain. No telemetry changes. Blood pressure is better controlled. She can go home wh enever it is okay with Dr. Herrera. We will be happy to see her in the office in the next 2-4 weeks. CHENCHO/KATELIN Voice ID: [id number] Report ID: [id number]
== END 2019-05-07 16:31 | disposition home or self-care (01) ==
LOC: ER 21:36 → ERHOLD 23:31 → 2ND 05-06 00:29
PROVIDERS: ADMIT Internal Medicine; ATTEND Internal Medicine
DX: R07.89 Other chest pain (principal); I10 Essential (primary) hypertension; I27.20 Pulmonary hypertension, unspecified; Z88.0 Allergy status to penicillin
CPT/HCPCS: 96361; 93005 ×2; 93017; 93306; 87088; 85025 ×2; 87086; 80048 ×2; 36415; 83735; 85610; 85379; 80076; 84484 ×3; 83690; 83880; 71275; 71045 ×2; 93970; 78452; 96360; 96372; 99285; Q9967; J1650 ×4; J2785; J7030; A9500; G0378 ×2; 90670

== ENCOUNTER 2019-10-24 22:07 | Emergency (ER) | payer OTHER ==
--- OUTSIDE RECORDS SUMMARY | 2019-10-24 22:08 | XMS REPORT ---
:1935 Author Organization [employer] Care Team Providers Name Role Phone Surjit Quinton Provider Role Unavailable Allergies, Adverse Reactions, Alerts Substance Reaction Event Type N.K.D.A. 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 08395026048 2.5 MG Orally Active 1 tablet Besylate Once a day Atorvastatin ND 91381732992 20 MG Orally Active 1 tablet Calcium Once a day Lisinopril [facility] 16863896756 20 MG Orally Active 1 tablet Once a day Shirley Aspirin EC [facility] 32302382796 81 MG Orally Active 1 tablet Low Dose Once a day Results No Known Results Summary Purpose [employer] Submission
[2019-10-24 23:10] LABS: Urine Appearance CLOUDY; Urine Bilirubin NEGATIVE (NEG); Urine Blood 3+ (NEG); Urine Color YELLOW; Urine Glucose NEGATIVE (NEG); Urine Protein 1+ (NEG); Urine Specific Gravity <=1.005 (1.005-1.030); Urine Urobilinogen 0.2 mg/dL (0.2-1.0)
[2019-10-24 23:33] LABS: Urine Bacteria <20 /HPF (<20); Urine Culture Reflex Order NOT NEEDED; Urine RBC 20-50 /HPF (NONE SEEN)
[2019-10-24 23:38] LABS: Absolute Lymphocytes (CBC) 1.5 K/uL (0.7-4.9); Basophils % 0.3 % (0-1.3); Hematocrit 32.4 % (36.0-45.0); Lymphocytes % 14.7 % (15.3-44.8); MPV 8.7 fL (7.6-11.3); RBC Red Blood Cell Count 3.68 M/uL (3.86-4.86)
[2019-10-24] MEDS ORDERED: CEFTRIAXONE/SWI 1gm 1 GM/10 ML SYR ONE (23:58)
[2019-10-24] MEDS ORDERED: NA CHLORIDE 0.9% 500 ML ONE (23:58)
[2019-10-24] MEDS ORDERED: MORPHINE 2 MG/ML SYR ONE (23:58)
[2019-10-24] MEDS ORDERED: ONDANSETRON 4 MG/2 ML VIAL ONE (23:58)
[2019-10-25 00:03] LABS: ALT/SGPT 21 U/L (12-78); AST/SGOT 20 U/L (15-37); Albumin 3.4 g/dL (3.4-5.0); Alkaline Phosphatase 118 U/L (45-117); BUN Blood Urea Nitrogen 12 mg/dL (7-18); Bicarbonate 28 mmol/L (21-32); Bilirubin Direct < 0.1 mg/dL (0-0.2); Bilirubin Total 0.3 mg/dL (0.2-1.0); Glucose Level 116 mg/dL (74-106); Lipase 162 U/L (73-393); Potassium 4.4 mmol/L (3.5-5.1); Protein, Total 7.3 g/dL (6.4-8.2); Sodium Level 141 mmol/L (136-145)
[2019-10-25] MEDS ORDERED: CIPROFLOXACIN HCL 500 MG TAB ONE (00:11)
--- NOTE | 2019-10-25 02:27 | EDPHYS ---
Physician Documentation [facility] Name: Ramandeep Renner Age: 84 yrs Sex: Female : 1935 Arrival Date: 10/24/2019 Time: 22:08 Bed 16 Private MD: LENORE Physician Yonatan Smith HPI: 10/24 23:15 This 84 yrs old Female presents to ER via Ambulatory with complaints of joe Urinary Problem. 23:15 The patient presents with abdominal pain in the lower abdomen. Onset: The joe symptoms/episode began/occurred 1 day(s) ago. The patient presents with pelvic pain, that is located in/on the pelvis, urinary symptoms, dysuria, frequency, hematuria, urgency. Onset: The symptoms/episode began/occurred 2 day(s) ago. Modifying factors: The symptoms are alleviated by nothing, the symptoms are aggravated by nothing. Associated signs and symptoms: The patient has no apparent associated signs or symptoms. Severity of symptoms: At their worst the symptoms were mild, in the emergency department the symptoms. 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 - Social history:: Smoking status: unknown. - Ebola Screening: : Patient negative for fever greater than or equal to 101.5 degrees Fahrenheit, and additional compatible Ebola Virus Disease symptoms. - Family history:: not pertinent. ROS: 23:15 Constitutional: Negative for fever, chills, and weight loss, Eyes: Negative for injury, joe pain, redness, and discharge, ENT: Negative for injury, pain, and discharge, Neck: Negative for injury, pain, and swelling, Cardiovascular: Negative for chest pain, palpitations, and edema, Respiratory: Negative for shortness of breath, cough, wheezing, and pleuritic chest pain, Back: Negative for injury and pain, MS/Extremity: Negative for injury and deformity, Skin: Negative for injury, rash, and discoloration, Neuro: Negative for headache, weakness, numbness, tingling, and seizure, Psych: Negative for depression, anxiety, suicide ideation, homicidal ideation, and hallucinations, Allergy/Immunology: Negative for hives, rash, and allergies, Endocrine: Negative for neck swelling, polydipsia, polyuria, polyphagia, and marked weight changes, Hematologic/Lymphatic: Negative for swollen nodes, abnormal bleeding, and unusual bruising. 23:15 Abdomen/GI: Positive for abdominal pain, of the suprapubic area, right lower quadrant and left lower quadrant. 23:15 : Positive for urinary symptoms, of the suprapubic area. Exam: 23:15 Constitutional: This is a well developed, well nourished patient who is awake, alert, joe and in no acute distress. Head/Face: Normocephalic, atraumatic. Eyes: Pupils equal round and reactive to light, extra-ocular motions intact. Lids and lashes normal. Conjunctiva and sclera are non-icteric and not injected. Cornea within normal limits. Periorbital areas with no swelling, redness, or edema. ENT: Nares patent. No nasal discharge, no septal abnormalities noted. Tympanic membranes are normal and external auditory canals are clear. Oropharynx with no redness, swelling, or masses, exudates, or evidence of obstruction, uvula midline. Mucous membranes moist. Neck: Trachea midline, no thyromegaly or masses palpated, and no cervical lymphadenopathy. Supple, full range of motion without nuchal rigidity, or vertebral point tenderness. No Meningismus. Chest/axilla: Normal chest wall appearance and motion. Nontender with no deformity. No lesions are appreciated. Cardiovascular: Regular rate and rhythm with a normal S1 and S2. No gallops, murmurs, or rubs. Normal PMI, no JVD. No pulse deficits. Respiratory: Lungs have equal breath sounds bilaterally, clear to auscultation and percussion. No rales, rhonchi or wheezes noted. No increased work of breathing, no retractions or nasal flaring. Back: No spinal tenderness. No costovertebral tenderness. Full range of motion. Skin: Warm, dry with normal turgor. Normal color with no rashes, no lesions, and no evidence of cellulitis. MS/ Extremity: Pulses equal, no cyanosis. Neurovascular intact. Full, normal range of motion. Neuro: Awake and alert, GCS 15, oriented to person, place, time, and situation. Cranial nerves II-XII grossly intact. Motor strength 5/5 in all extremities. Sensory grossly intact. Cerebellar exam normal. Normal gait. Psych: Awake, alert, with orientation to person, place and time. Behavior, mood, and affect are within normal limits. 23:15 Abdomen/GI: Inspection: distension, Bowel sounds: normal, Liver: no appreciated palpable abnormalities, Hernia: not appreciated. Vital Signs: 22:21 BP 184 / 71; Pulse 76; Resp 18; Temp 98.0; Pulse Ox 100% on R/A; Weight 61.69 kg; aa1 Height 5 ft. 3 in. (160.02 cm); Pain 10/; 10/25 02:30 BP 137 / 61; Pulse 72; Resp 19 S; Pulse Ox 98% on R/A; jd3 03:00 BP 126 / 58; Pulse 73; Resp 17 S; Pulse Ox 99% on R/A; jd3 10/24 22:21 Body Mass Index 24.09 (61.69 kg, 160.02 cm) aa1 MDM: 10/24 22:39 Patient medically screened. [facility] 23:18 Data reviewed: vital signs, nurses notes, lab test result(s), radiologic studies, CT joe scan. 10/24 22:26 Order name: Urine Culture ar5 10/24 23:07 Order name: Urinalysis W/Microscopic; Complete Time: 23:55 EDSD 10/24 23:14 Order name: Basic Metabolic Panel; Complete Time: 00:17 [facility] 10/24 23:14 Order name: CBC with Diff; Complete Time: 23:55 [facility] 10/24 23:14 Order name: Creatinine for Radiology; Complete Time: 00:17 [facility] 10/24 23:14 Order name: Hepatic Function; Complete Time: 00:17 [facility] 10/24 23:14 Order name: Lipase; Complete Time: 00:17 [facility] 10/24 23:19 Order name: CT Stone Protocol [facility] 10/24 23:14 Order name: IV Saline Lock; Complete Time: 23:27 [facility] 10/24 23:14 Order name: Labs collected and sent; Complete Time: 23:27 [facility] Administered Medications: 10/25 00:00 Drug: NS 0.9% 500 ml Route: IV; Rate: bolus; Site: left antecubital; 02:57 Follow up: Response: No adverse reaction; IV Status: Completed infusion jd3 00:03 Drug: morphine 2 mg Route: IVP; Site: left antecubital; 00:50 Follow up: Response: No adverse reaction jd3 00:05 Drug: Zofran 4 mg Route: IVP; Site: left antecubital; 00:50 Follow up: Response: No adverse reaction jd3 00:07 Drug: Rocephin 1 grams Route: IV; Rate: per protocol; Site: left antecubital; 00:10 Follow up: Response: No adverse reaction; IV Status: Completed infusion jd3 00:08 Drug: Cipro 500 mg Route: PO; 02:54 Follow up: Response: No adverse reaction jd3 Disposition: 10/25/19 02:25 Discharged to Home. Impression: Dysuria, Urinary tract infection, site not specified, Abdominal tenderness. - Condition is Stable. - Discharge Instructions: Abdominal Pain, Adult, Dysuria, Urinary Tract Infection, Adult, Urinary Tract Infection, Adult, [id number], Abdominal Pain, Adult, [id number]. - Prescriptions for Cipro 250 mg Oral Tablet - take 1 tablet by ORAL route every 12 hours; 14 tablet. Pyridium 200 mg Oral Tablet - take 1 tablet by ORAL route every 8 hours for 3 days; 9 tablet. Bactrim DS 800- 160 mg Oral Tablet - take 1 tablet by ORAL route every 12 hours for 3 days; 6 tablet. - Medication Reconciliation Form, Thank You Letter, Antibiotic Education, Prescription Opioid Use form. - Follow up: Private Physician; When: 48 Hours; Reason: Recheck today's complaints, Re-evaluation by your physician. - Problem is new. - Symptoms have improved. Signatures: Dispatcher [employer] Ciara Nelson, ANTONIO RN aa1 Yonatan Smith MD MD cha Habalo, Jerzy Roland RN RN jd3 Corrections: (The following items were deleted from the chart) 10/24 23:06 22:27 URINALYSIS+U.LAB.BRZ ordered. EDMS EDMS 23: 22:27 UA MICROSCOPIC+U.LAB.BRZ ordered. EDSD EDMS 10/25 03:01 02:25 10/25/2019 02:25 Discharged to Home. Impression: Dysuria; Urinary tract jd3 infection, site not specified; Abdominal tenderness. Condition is Stable. Discharge Instructions: Dysuria, Urinary Tract Infection, Adult, Urinary Tract Infection, Adult, [id number]. Prescriptions for Cipro 250 mg Oral Tablet - take 1 tablet by ORAL route every 12 hours; 14 tablet, Pyridium 200 mg Oral Tablet - take 1 tablet by ORAL route every 8 hours for 3 days; 9 tablet, Bactrim DS 800-160 mg Oral Tablet - take 1 tablet by ORAL route every 12 hours for 3 days; 6 tablet. and Forms are Medication Reconciliation Form, Thank You Letter, Antibiotic Education, Prescription Opioid Use. Follow up: Private Physician; When: 48 Hours; Reason: Recheck today's complaints, Re-evaluation by your physician. Problem is new. Symptoms have improved. joe
--- NOTE | 2019-10-25 02:27 | ER ---
Nurse's Notes [facility] Name: Ramandeep Renner Age: 84 yrs Sex: Female : 1935 Arrival Date: 10/24/2019 Time: 22:08 Bed 16 Private MD: Diagnosis: Dysuria;Urinary tract infection, site not specified;Abdominal tenderness Presentation: 10/24 22:18 Presenting complaint: Patient states: burning with urination this morning when she woke aa1 which had resolved during the day but then states this evening the pain came back when she went to go to the restroom. Transition of care: patient was not received from another setting of care. Onset of symptoms was October 24, 2019. Risk Assessment: Do you want to hurt yourself or someone else? Patient reports no desire to harm self or others. Initial Sepsis Screen: Does the patient meet any 2 criteria? No. Patient's initial sepsis screen is negative. Does the patient have a suspected source of infection? Yes: Dysuria/Frequency/Urgency/UTI. Care prior to arrival: None. 22:18 Method Of Arrival: Ambulatory aa1 22:18 Acuity: WILFRIDO 3 aa1 Triage Assessment: 22:21 General: Appears in no apparent distress. comfortable, Behavior is calm, cooperative, aa1 appropriate for age. 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 - Social history:: Smoking status: unknown. - Ebola Screening: : Patient negative for fever greater than or equal to 101.5 degrees Fahrenheit, and additional compatible Ebola Virus Disease symptoms. - Family history:: not pertinent. Screenin:29 Abuse screen: Denies threats or abuse. Nutritional screening: No deficits noted. jd3 Tuberculosis screening: No symptoms or risk factors identified. Fall Risk Ambulatory Aid- None/Bed Rest/Nurse Assist (0 pts). Gait- Normal/Bed Rest/Wheelchair (0 pts) Mental Status- Oriented to own ability (0 pts). Total Marcum Fall Scale indicates No Risk (0-24 pts). Assessment: 22:27 General: Appears in no apparent distress. uncomfortable, Behavior is calm, cooperative, jd3 appropriate for age. Pain: Complains of pain in burning with urination Quality of pain is described as burning. Neuro: Level of Consciousness is awake, alert, obeys commands, Oriented to person, place, time, situation. Cardiovascular: Capillary refill < 3 seconds Patient's skin is warm and dry. Respiratory: Airway is patent Respiratory effort is even, unlabored, Respiratory pattern is regular, symmetrical. GI: No signs and/or symptoms were reported involving the gastrointestinal system. Patient currently denies diarrhea, nausea, vomiting. : Reports burning with urination, urinary frequency. EENT: No signs and/or symptoms were reported regarding the EENT system. Derm: Skin is intact, Skin is dry, Skin is normal, Skin temperature is warm. Musculoskeletal: Circulation, motion, and sensation intact. Range of motion: intact in all extremities. 23:45 Reassessment: Patient appears in no apparent distress at this time. No changes from jd3 previously documented assessment. Patient and/or family updated on plan of care and expected duration. Pain level reassessed. Patient is alert, oriented x 3, equal unlabored respirations, skin warm/dry/pink. 12/06 00:50 Reassessment: Patient appears in no apparent distress at this time. No changes from jd3 previously documented assessment. Patient and/or family updated on plan of care and expected duration. Pain level reassessed. Patient is alert, oriented x 3, equal unlabored respirations, skin warm/dry/pink. 01:45 Reassessment: Patient appears in no apparent distress at this time. No changes from jd3 previously documented assessment. Patient and/or family updated on plan of care and expected duration. Pain level reassessed. Patient is alert, oriented x 3, equal unlabored respirations, skin warm/dry/pink. awaiting CT scan. 01:45 Reassessment: Patient appears in no apparent distress at this time. Patient and/or jd3 family updated on plan of care and expected duration. Pain level reassessed. Patient is alert, oriented x 3, equal unlabored respirations, skin warm/dry/pink. 03:00 Reassessment: Patient appears in no apparent distress at this time. Patient and/or jd3 family updated on plan of care and expected duration. Pain level reassessed. Patient is alert, oriented x 3, equal unlabored respirations, skin warm/dry/pink. Patient states feeling better. Vital Signs: 10/24 22:21 BP 184 / 71; Pulse 76; Resp 18; Temp 98.0; Pulse Ox 100% on R/A; Weight 61.69 kg; aa1 Height 5 ft. 3 in. (160.02 cm); Pain 10/10; 10/25 02:30 BP 137 / 61; Pulse 72; Resp 19 S; Pulse Ox 98% on R/A; jd3 03:00 BP 126 / 58; Pulse 73; Resp 17 S; Pulse Ox 99% on R/A; jd3 10/24 22:21 Body Mass Index 24.09 (61.69 kg, 160.02 cm) aa1 ED Course: 10/24 22:08 Patient arrived in ED. as 22:20 Triage completed. aa1 22:21 Arm band placed on right wrist. Patient placed in an exam room, on a stretcher. aa1 22:27 Jerzy Guzman, RN is Primary Nurse. jd3 22:30 Patient has correct armband on for positive identification. Bed in low position. Call jd3 light in reach. Side rails up X 1. Adult w/ patient. 22:39 Yonatan Smith MD is Attending Physician. joe 23:20 Inserted saline lock: 22 gauge in left antecubital area, using aseptic technique. Blood wh collected. 10/25 01:58 CT Stone Protocol In Process Unspecified. EDMS 02:30 No provider procedures requiring assistance completed. jd3 02:54 IV discontinued, intact, bleeding controlled, No redness/swelling at site. Pressure jd3 dressing applied. Administered Medications: 00:00 Drug: NS 0.9% 500 ml Route: IV; Rate: bolus; Site: left antecubital; wh 02:57 Follow up: Response: No adverse reaction; IV Status: Completed infusion jd3 00:03 Drug: morphine 2 mg Route: IVP; Site: left antecubital; wh 00:50 Follow up: Response: No adverse reaction jd3 00:05 Drug: Zofran 4 mg Route: IVP; Site: left antecubital; 00:50 Follow up: Response: No adverse reaction jd3 00:07 Drug: Rocephin 1 grams Route: IV; Rate: per protocol; Site: left antecubital; 00:10 Follow up: Response: No adverse reaction; IV Status: Completed infusion jd3 00:08 Drug: Cipro 500 mg Route: PO; 02:54 Follow up: Response: No adverse reaction jd3 Outcome: 02:25 Discharge ordered by MD. diaz 02:53 Discharged to home ambulatory, with family. jd3 02:53 Condition: stable 02:53 Discharge instructions given to patient, family, Instructed on discharge instructions, follow up and referral plans. medication usage, Demonstrated understanding of instructions, follow-up care, medications, Prescriptions given X 3. 03:01 Patient left the ED. jd3 Addendum: 10/28/2019 13:06 Addendum: Culture Results: Positive urine culture. No further action required. Bacteria b d sensitive to prescribed antibiotic. Signatures: Dispatcher [employer] EDMS Beverly Manning Alissa, RN RN aa1 Yonatan Smith MD MD cha Martinez, Amelia as Habalo, Winsy wh Davies, Jonathon RN RN jd3
[2019-10-25 04:32] VITALS: TEMP 98
[2019-10-25 04:35] VITALS: BP 126/58; O2SAT 99
--- NOTE | 2019-10-25 13:06 | RAD REPORT ---
EXAM DESCRIPTION: CT Abdomen and Pelvis Without Intravenous Contrast CLINICAL HISTORY: The patient is 84 years old and is Female; Abdominal distention;Abd pain TECHNIQUE: Axial computed tomography images of the abdomen and pelvis without intravenous contrast. Sagittal and coronal reformatted images were created and reviewed. This CT exam was performed usi ng one or more of the following dose reduction techniques: automated exposure control, adjustment o f the mA and/or kV according to patient size, and/or use of iterative reconstruction technique. COMPARISON: No relevant prior studies available. FINDINGS: LUNG BASES: Unremarkable. No mass. No consolidation. ABDOMEN: LIVER: Cysts are present within the liver, the largest of which measures approximately 3.2 cm. C oarse calcifications are present within the left hepatic lobe. GALLBLADDER AND BILE DUCTS: Surgical clips are present in the right upper quadrant, consistent w ith previous cholecystectomy. PANCREAS: The pancreas is atrophic. No ductal dilation. SPLEEN: Unremarkable. ADRENALS: Unremarkable. No mass. KIDNEYS AND URETERS: A large exophytic left renal cyst measuring 3 cm is present. There is no hy dronephrosis or hydroureter of either kidney. No obstructing renal or ureteral calculus is. STOMACH AND BOWEL: Stool is present throughout the colon. No evidence of bowel obstruction. No s ignificant bowel wall thickening. Colonic diverticulosis is noted, without associated inflammatory ch anges to suggest diverticulitis. The stomach is minimally distended with food contents. The small b owel is normal in caliber. PELVIS: APPENDIX: The appendix is normal in caliber without surrounding inflammation. BLADDER: The bladder is not well distended. REPRODUCTIVE: The patient is status post hysterectomy. ABDOMEN and PELVIS: INTRAPERITONEAL SPACE: Unremarkable. No free air. No significant fluid collection. BONES/JOINTS: Suggestion of multiple synovial cysts at the level of the sacrum are present. Th ere are degenerative changes of the bones. SOFT TISSUES: The soft tissues are normal. VASCULATURE: Extensive atherosclerosis of the vasculature is present. The vessels are normal in caliber. No abdominal aortic aneurysm. LYMPH NODES: Unremarkable. No enlarged lymph nodes. IMPRESSION: Colonic diverticulosis without evidence of diverticulitis. Electronically signed by: Sadie Webb MD 10/25/2019 2:17 AM [employer] Due to temporary technical issues with the PACS/Fluency reporting system, reports are being signed by the in house radiologist as a courtesy to ensure prompt reporting. The interpreting radiologist is elo ully responsible for the content of the report.
== END 2019-10-25 03:01 | disposition home or self-care (01) ==
LOC: ER 22:07
DX: N39.0 Urinary tract infection, site not specified (principal); R10.819 Abdominal tenderness, unspecified site; I10 Essential (primary) hypertension; Z79.82 Long term (current) use of aspirin; Z88.0 Allergy status to penicillin; Z86.73 Personal history of transient ischemic attack (TIA), and cerebral infarction without residual deficits
CPT/HCPCS: 96361; 87088; 85025; 81001; 87086; 80048; 36415; 80076; 87077; 87186; 83690; 76377; 74176; 96375; 96374; 99284; J2270; J0696; J7040; J2405

== ENCOUNTER 2019-10-27 13:08 | Emergency (ER) | payer OTHER ==
--- OUTSIDE RECORDS SUMMARY | 2019-10-27 13:10 | XMS REPORT ---
[...] End Status Dosage System Date Date Amlodipine [facility] 97367566444 2.5 MG Orally Active 1 tablet Besylate Once a day Atorvastatin ND 85490499390 20 MG Orally Active 1 tablet Calcium Once a day Lisinopril [facility] [id number] 20 MG Orally Active 1 tablet Once a day Shirley Aspirin EC [facility] [id number] 81 MG Orally Active 1 tablet Low Dose Once a day Results No Known Results Summary Purpose eClinicalWorks Submission
[2019-10-27] MEDS ORDERED: ONDANSETRON 4 MG/2 ML VIAL ONE ×2 (13:48→15:49)
[2019-10-27 14:03] LABS: Absolute Lymphocytes (CBC) 0.6 K/uL (0.7-4.9); Basophils % 0.4 % (0-1.3); Hematocrit 31.6 % (36.0-45.0); Lymphocytes % 8.9 % (15.3-44.8); MPV 8.9 fL (7.6-11.3); RBC Red Blood Cell Count 3.65 M/uL (3.86-4.86)
[2019-10-27 14:25] LABS: Albumin 3.6 g/dL (3.4-5.0); Bilirubin Direct 0.1 mg/dL (0-0.2); Bilirubin Total 0.3 mg/dL (0.2-1.0); Potassium 4.2 mmol/L (3.5-5.1); Protein, Total 7.3 g/dL (6.4-8.2)
[2019-10-27 15:04] LABS: Urine Blood TRACE (NEG); Urine Glucose TRACE (NEG); Urine Protein 1+ (NEG); Urine pH 5.5 (5.0-7.0)
[2019-10-27 15:07] LABS: Urine RBC <5 /HPF (NONE SEEN)
[2019-10-27 15:08] LABS: Urine Bacteria 20-50 /HPF (<20); Urine Culture Reflex Order NOT NEEDED
--- NOTE | 2019-10-27 16:03 | RAD REPORT ---
EXAM DESCRIPTION: RAD - Abdomen 1 View (KUB) - 10/27/2019 2:25 pm CLINICAL HISTORY: ABD PAIN COMPARISON: No comparisons FINDINGS: Moderately large stool volume fills but does not dilate the entire colon. No small bowel d ilatation. No free air or pneumatosis. Surgical clips are seen in the right mid abdomen with cholecys tectomy clips in the right upper quadrant. No significant bony findings IMPRESSION: Moderately large stool volume filling but not dilating the entire colon.
--- NOTE | 2019-10-27 16:30 | ER ---
Nurse's Notes [facility] Name: Ramandeep Renner Age: 84 yrs Sex: Female : 1935 Arrival Date: 10/27/2019 Time: 13:10 Bed 26 Private MD: Diagnosis: Constipation;Nausea and vomiting Presentation: 10/27 13:14 Presenting complaint: Patient states: Was seen a couple days ago for urinary problems, sg well now that I have that situated I have been having some problems going number 2. Transition of care: patient was not received from another setting of care. Onset of symptoms was October 27, 2019. Risk Assessment: Do you want to hurt yourself or someone else? Patient reports no desire to harm self or others. Initial Sepsis Screen: Does the patient meet any 2 criteria? No. Patient's initial sepsis screen is negative. Does the patient have a suspected source of infection? No. Patient's initial sepsis screen is negative. Care prior to arrival: None. 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 - Social history:: Smoking status: Patient/guardian denies using tobacco. - Ebola Screening: : Patient negative for fever greater than or equal to 101.5 degrees Fahrenheit, and additional compatible Ebola Virus Disease symptoms Patient denies exposure to infectious person Patient denies travel to an Ebola-affected area in the 21 days before illness onset No symptoms or risks identified at this time. Screenin:54 Abuse screen: Denies threats or abuse. Nutritional screening: No deficits noted. sr5 Tuberculosis screening: No symptoms or risk factors identified. Fall Risk No fall in past 12 months (0 pts). Secondary diagnosis (15 points) IV access (20 points). Ambulatory Aid- None/Bed Rest/Nurse Assist (0 pts). Gait- Normal/Bed Rest/Wheelchair (0 pts) Mental Status- Oriented to own ability (0 pts). Total Marcum Fall Scale indicates Low Risk Score (25-44 pts). Assessment: 17:00 General: Appears in no apparent distress. Pain: Denies pain. Neuro: No deficits noted. sr5 Cardiovascular: No deficits noted. Respiratory: No deficits noted. GI: Abdomen is flat, non-distended, Bowel sounds present X 4 quads. Abd is soft and non tender. : Reports urgency, urinary frequency. EENT: No signs and/or symptoms were reported regarding the EENT system. Derm: No signs and/or symptoms reported regarding the dermatologic system. Musculoskeletal: No signs and/or symptoms reported regarding the musculoskeletal system. Vital Signs: 13:54 BP 110 / 52; Pulse 73; Resp 16; Temp 97.9; Pulse Ox 96% on R/A; Weight 59.42 kg (R); sr5 Height 5 ft. 3 in. (160.02 cm) (R); Pain 0/10; 17:00 BP 123 / 55; Pulse 66; Resp 14; Temp 98.0; Pulse Ox 97% on R/A; Pain 0/10; sr5 13:54 Body Mass Index 23.21 (59.42 kg, 160.02 cm) sr5 ED Course: 13:10 Patient arrived in ED. mr 13:10 Dixon Hackett MD is Attending Physician. kdr 13:13 Cedric Mccray RN is Primary Nurse. sr5 13:15 Triage completed. sg 13:15 Arm band placed on. sg 13:51 Missed attempt(s): 22 gauge in right antecubital area. lt1 13:51 Initial lab(s) drawn, by me, sent to lab. Inserted saline lock: 20 gauge in left lt1 antecubital area, using aseptic technique. 13:54 Patient has correct armband on for positive identification. Placed in gown. Bed in low sr5 position. Call light in reach. Side rails up X 1. Pulse ox on. NIBP on. Warm blanket given. 14:25 Abdomen 1 View (KUB) XRAY In Process Unspecified. EDMS 14:45 Straight cath inserted, using sterile technique, 15 FR Returned carmita urine. Patient lt1 tolerated well. 15:04 Urine Microscopic Only Sent. lt1 15:04 Urine Culture Sent. lt1 17:00 No provider procedures requiring assistance completed. IV discontinued, intact, sr5 bleeding controlled, No redness/swelling at site. Pressure dressing applied. Administered Medications: 13:53 Drug: Zofran 4 mg Route: IVP; Site: left antecubital; sr5 14:50 Follow up: Response: Nausea is decreased sr5 15:37 Follow up: Response: Nausea is decreased sr5 15:51 Drug: Zofran 2 mg Route: IVP; Site: left antecubital; sr5 16:04 Follow up: Response: Nausea is decreased sr5 17:02 Follow up: Response: Nausea is decreased sr5 Outcome: 16:29 Discharge ordered by . kdr 17:00 Discharged to home with family. sr5 17:00 Condition: good 17:00 Discharge instructions given to patient, Instructed on discharge instructions, follow up and referral plans. medication usage, Demonstrated understanding of instructions, follow-up care, medications, Prescriptions given X 2. 17:03 Patient left the ED. sr5 Signatures: Dispatcher [employer] EDMS Dionte Bell RN RN sg Rittger, Kevin, MD MD kdr Rivera, Mary mr Resecker, Sam RN ANTONIO sr5 Zhanna Stevenson [facility]
--- NOTE | 2019-10-27 16:30 | EDPHYS ---
Physician Documentation [facility] Name: Ramandeep Renner Age: 84 yrs Sex: Female : 1935 Arrival Date: 10/27/2019 Time: 13:10 Bed 26 Private MD: ED Physician Dixon Hackett HPI: 10/27 16:04 This 84 yrs old Female presents to ER via Ambulatory with complaints of kdr Urinary Problem, Constipation. 16:04 The patient presents with. kdr 16:04 The patient presents with abdominal pain that is diffuse, Concerned that she may be kdr constipated. Was seen here two day ago and put on abx (Cipro/Bactrim) which she states she has been taking as directed. She still has minor UTI s/s. Onset: The symptoms/episode began/occurred gradually, 2 day(s) ago. The symptoms do not radiate. Associated signs and symptoms: Pertinent positives: nausea and vomiting, constipation. The symptoms are described as achy, crampy, vague, waxing/waning. Modifying factors: The symptoms are alleviated by nothing, the symptoms are aggravated by nothing. Severity of pain: At its worst the pain was mild in the emergency department the pain is unchanged. The patient has not experienced similar symptoms in the past. The patient has been recently seen at the [facility] Emergency Department, this week. 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 - Social history:: Smoking status: Patient/guardian denies using tobacco. - Ebola Screening: : Patient negative for fever greater than or equal to 101.5 degrees Fahrenheit, and additional compatible Ebola Virus Disease symptoms Patient denies exposure to infectious person Patient denies travel to an Ebola-affected area in the 21 days before illness onset No symptoms or risks identified at this time. ROS: 16:04 Constitutional: Negative for fever, chills, and weight loss, Eyes: Negative for injury, kdr pain, redness, and discharge, ENT: Negative for injury, pain, and discharge, Neck: Negative for injury, pain, and swelling, Cardiovascular: Negative for chest pain, palpitations, and edema, Respiratory: Negative for shortness of breath, cough, wheezing, and pleuritic chest pain, Back: Negative for injury and pain, MS/Extremity: Negative for injury and deformity, Skin: Negative for injury, rash, and discoloration, Neuro: Negative for headache, weakness, numbness, tingling, and seizure activity. Psych: Negative for depression, anxiety, suicide ideation, homicidal ideation, and hallucinations, Allergy/Immunology: Negative for hives, rash, and allergies, Endocrine: Negative for neck swelling, polydipsia, polyuria, polyphagia, and marked weight changes, Hematologic/Lymphatic: Negative for swollen nodes, abnormal bleeding, and unusual bruising. 16:04 Abdomen/GI: Positive for abdominal pain, nausea and vomiting, nausea, constipation, Negative for black/tarry stool, rectal pain, rectal bleeding, bowel incontinence. Exam: 16:04 Constitutional: This is a well developed, well nourished patient who is awake, alert, kdr and in no acute distress. Head/Face: Normocephalic, atraumatic. Eyes: Pupils equal round and reactive to light, extra-ocular motions intact. Lids and lashes normal. Conjunctiva and sclera are non-icteric and not injected. Cornea within normal limits. Periorbital areas with no swelling, redness, or edema. Neck: Trachea midline, no thyromegaly or masses palpated, and no cervical lymphadenopathy. Supple, full range of motion without nuchal rigidity, or vertebral point tenderness. No Meningismus. Chest/axilla: Normal chest wall appearance and motion. Nontender with no deformity. No lesions are appreciated. Cardiovascular: Regular rate and rhythm with a normal S1 and S2. No gallops, murmurs, or rubs. Normal PMI, no JVD. No pulse deficits. Respiratory: Lungs have equal breath sounds bilaterally, clear to auscultation and percussion. No rales, rhonchi or wheezes noted. No increased work of breathing, no retractions or nasal flaring. Abdomen/GI: Soft, non-tender, with normal bowel sounds. No distension or tympany. No guarding or rebound. No evidence of tenderness throughout. Back: No spinal tenderness. No costovertebral tenderness. Full range of motion. Skin: Warm, dry with normal turgor. Normal color with no rashes, no lesions, and no evidence of cellulitis. MS/ Extremity: Pulses equal, no cyanosis. Neurovascular intact. Full, normal range of motion. Neuro: Awake and alert, GCS 15, oriented to person, place, time, and situation. Cranial nerves II-XII grossly intact. Motor strength 5/5 in all extremities. Sensory grossly intact. Cerebellar exam normal. Normal gait. Psych: Awake, alert, with orientation to person, place and time. Behavior, mood, and affect are within normal limits. Vital Signs: 13:54 BP 110 / 52; Pulse 73; Resp 16; Temp 97.9; Pulse Ox 96% on R/A; Weight 59.42 kg (R); sr5 Height 5 ft. 3 in. (160.02 cm) (R); Pain 0/10; 17:00 BP 123 / 55; Pulse 66; Resp 14; Temp 98.0; Pulse Ox 97% on R/A; Pain 0/10; sr5 13:54 Body Mass Index 23.21 (59.42 kg, 160.02 cm) sr5 MDM: 16:04 Data reviewed: vital signs, lab test result(s), radiologic studies. Counseling: I had a kdr detailed discussion with the patient and/or guardian regarding: the historical points, exam findings, and any diagnostic results supporting the discharge/admit diagnosis, lab results, radiology results, the need for outpatient follow up. 16:29 Patient medically screened. [facility] 10/27 13:36 Order name: Basic Metabolic Panel; Complete Time: 14:42 [facility] 10/27 13:36 Order name: CBC with Diff; Complete Time: 14:42 [facility] 10/27 13:36 Order name: Creatinine for Radiology; Complete Time: 14:42 [facility] 10/27 13:36 Order name: Hepatic Function; Complete Time: 14:42 [facility] 10/27 13:36 Order name: Lipase; Complete Time: 14:42 [facility] 10/27 14:50 Order name: Urine Microscopic Only; Complete Time: 15:57 5 10/27 13:36 Order name: IV Saline Lock; Complete Time: 13:51 [facility] 10/27 13:36 Order name: Labs collected and sent; Complete Time: 13:51 [facility] 10/27 13:36 Order name: Urine Dipstick-Ancillary (obtain specimen); Complete Time: 15:04 [facility] 10/27 13:36 Order name: Abdomen 1 View (KUB) XRAY; Complete Time: 16:28 kdr 10/27 14:50 Order name: Urine Culture sr5 10/27 14:54 Order name: Urine Dipstick--Ancillary (enter results); Complete Time: 15:57 eb Administered Medications: 13:53 Drug: Zofran 4 mg Route: IVP; Site: left antecubital; sr5 14:50 Follow up: Response: Nausea is decreased sr5 15:37 Follow up: Response: Nausea is decreased sr5 15:51 Drug: Zofran 2 mg Route: IVP; Site: left antecubital; sr5 16:04 Follow up: Response: Nausea is decreased sr5 17:02 Follow up: Response: Nausea is decreased sr5 Disposition: 10/27/19 16:29 Discharged to Home. Impression: Constipation, Nausea and vomiting. - Condition is Stable. - Discharge Instructions: Constipation, Adult, [id number], Nausea and Vomiting, Adult, [id number]. - Prescriptions for Zofran 4 mg Oral Tablet - take 1 tablet by ORAL route every 12 hours As needed; 12 tablet. Miralax 17 gram/dose Oral - take 1 packet by ORAL route once daily As needed dilute powder in 8 ounces of water or juice; 1 box. - Medication Reconciliation Form, Thank You Letter form. - Follow up: Private Physician; When: 2 - 3 days; Reason: If symptoms return, Further diagnostic work-up, Recheck today's complaints, Continuance of care, Re-evaluation by your physician. - Problem is new. - Symptoms are unchanged. Signatures: Dispatcher [employer] EDNE Dionte Bell RN RN Dixon Hackett MD MD [facility] Cedric Mccray RN RN sr5 Corrections: (The following items were deleted from the chart) 17:03 16:29 10/27/2019 16:29 Discharged to Home. Impression: Constipation; Nausea and sr5 vomiting. Condition is Stable. Forms are Medication Reconciliation Form, Thank You Letter, Antibiotic Education, Prescription Opioid Use. Follow up: Private Physician; When: 2 - 3 days; Reason: If symptoms return, Further diagnostic work-up, Recheck today's complaints, Continuance of care, Re-evaluation by your physician. Problem is new. Symptoms are unchanged. kdr
[2019-10-27 18:43] VITALS: BP 123/55; TEMP 98; O2SAT 97
== END 2019-10-27 17:03 | disposition home or self-care (01) ==
LOC: ER 13:08
DX: K59.00 Constipation, unspecified (principal); R11.2 Nausea with vomiting, unspecified; I10 Essential (primary) hypertension; Z88.0 Allergy status to penicillin
CPT/HCPCS: 85025; 87086; 80048; 36415; 80076; 83690; 74018; 51702; 96374; 99284; J2405 ×2; 81003; 81015; 87088

== ENCOUNTER 2019-12-06 17:48 | Emergency (ER) | payer OTHER ==
--- OUTSIDE RECORDS SUMMARY | 2019-12-06 17:50 | XMS REPORT ---
:1935 Author Organization [employer] Care Team Providers Name Role Phone Surjit Quinton Provider Role Unavailable Allergies No Known Allergies [...] eye, unspecified H40.9 Active glaucoma type Medications No Known Medications Results No Known Results Summary Purpose [employer] Submission
--- OUTSIDE RECORDS SUMMARY | 2019-12-06 17:50 | XMS REPORT ---
[...] End Status Dosage System Date Date Amlodipine [facility] 24295641563 2.5 MG Orally Active 1 tablet Besylate Once a day Atorvastatin ND 51440657398 20 MG Orally Active 1 tablet Calcium Once a day Lisinopril [facility] 66107119255 20 MG Orally Active 1 tablet Once a day Sihrley Aspirin EC [facility] 84287263603 81 MG Orally Active 1 tablet Low Dose Once a day Results No Known Results Summary Purpose eClinicalWorks Submission
--- NOTE | 2019-12-06 19:06 | RAD REPORT ---
EXAM DESCRIPTION: CT - Head Brain Wo Cont - 12/06/2019 6:43 pm CLINICAL HISTORY: Right-sided face and hand numbness, dizziness, history of CVA COMPARISON: July 2017 TECHNIQUE: Axial 5 mm thick images of the head were obtained without IV contrast. All CT scans are performed using dose optimization technique as appropriate and may include automated exposure control or mA/KV adjustment according to patient size. FINDINGS: No intracranial hemorrhage, mass, edema or shift of mid-line structures. No acute cortical based infarction. No cortical edema or sulcal effacement. Atrophy and chronic ischemic changes match comparison. Arterial tree calcifications are present. No abnormal extra-axial fluid collections. Richard tricles are normal. Mastoid air cells and visualized portions of the paranasal sinuses are clear. No acute bony findings. IMPRESSION: Negative non-contrast CT head examination for acute findings. Mild to moderate atrophy and chronic ischemic changes are present similar to comparison. Chronic ischemic changes can mask nonhemorrhagic acute infarction. MR brain followup can be obtained if there is ongoing concern for acute ischemia.
[2019-12-06 19:12] LABS: Absolute Lymphocytes (CBC) 1.4 K/uL (0.7-4.9); Basophils % 0.3 % (0-1.3); Hematocrit 34.3 % (36.0-45.0); Lymphocytes % 16.6 % (15.3-44.8); MPV 8.7 fL (7.6-11.3); RBC Red Blood Cell Count 3.93 M/uL (3.86-4.86)
[2019-12-06 19:13] LABS: Protime INR 1.09
[2019-12-06 19:31] LABS: ALT/SGPT 21 U/L (12-78); AST/SGOT 21 U/L (15-37); Albumin 3.5 g/dL (3.4-5.0); Alkaline Phosphatase 119 U/L (45-117); BUN Blood Urea Nitrogen 6 mg/dL (7-18); Bicarbonate 25 mmol/L (21-32); Bilirubin Direct 0.1 mg/dL (0-0.2); Bilirubin Total 0.4 mg/dL (0.2-1.0); Glucose Level 102 mg/dL (74-106); Magnesium 2.1 mg/dL (1.8-2.4); NT PRO-BNP 159 pg/mL (<450); Potassium 3.8 mmol/L (3.5-5.1); Protein, Total 7.3 g/dL (6.4-8.2); Sodium Level 136 mmol/L (136-145); Troponin (Emerg Dept Use Only) < 0.02 ng/mL (0.0-0.045)
[2019-12-06 19:57] LABS: Urine Blood TRACE (NEG); Urine Glucose NEGATIVE (NEG); Urine Protein NEGATIVE (NEG); Urine Specific Gravity 1.015 (1.005-1.030); Urine pH 7.5 (5.0-7.0)
--- NOTE | 2019-12-06 20:29 | RAD REPORT ---
EXAM DESCRIPTION: CT - Head angio - 12/06/2019 7:53 pm CLINICAL HISTORY: DIZZINESSright hand and face numbness TECHNIQUE: During dynamic enhancement using nonionic IV contrast, axial 1 millimeter thick images of the head were obtained. Sagittal and axial reconstruction images were generated using MIP technique and reviewed. All CT scans are performed using dose optimization technique as appropriate and may include automated exposure control or mA/KV adjustment according to patient size. COMPARISON: CT head same date FINDINGS: No aneurysm or vascular malformation identified. Major venous sinuses are patent. No stenosis, named branch occlusion, vasculitis or other significant vascular finding identifiable. N o significant asymmetry between the right and left vascular distributions. IMPRESSION: Negative CT angio head examination for acute or significant finding.
--- NOTE | 2019-12-06 20:32 | RAD REPORT ---
EXAM DESCRIPTION: CT - Neck Angio - 12/06/2019 7:53 pm CLINICAL HISTORY: dizziness, right hand and face numbness TECHNIQUE: During dynamic enhancement using nonionic IV contrast, axial 2 mm thick images of the nec k were obtained. Sagittal and axial reconstruction images were generated using MIP technique and revi ewed. All CT scans are performed using dose optimization technique as appropriate and may include automated exposure control or mA/KV adjustment according to patient size. COMPARISON: CT head same date FINDINGS: No aneurysm or vascular malformation identified. No carotid or vertebral dissection. Aortic arch is bovine configuration. No origins stenosis. No vertebral artery origins stenoses. Verte bral arteries are codominant with no significant atherosclerotic change. Right common carotid artery is quite tortuous. Atherosclerotic changes are present in each carotid bulb. Approximately 20% stenos is seen at the left proximal internal carotid artery. No basilar artery abnormality. IMPRESSION: Mild atherosclerotic changes are present in the carotid vasculature. No loops significa nt stenosis, dissection or significant vascular finding.
--- NOTE | 2019-12-06 20:49 | RAD REPORT ---
EXAM DESCRIPTION: RAD - Chest Single View - 12/06/2019 6:41 pm CLINICAL HISTORY: Dizziness, shortness of breath COMPARISON: April 2019 TECHNIQUE: AP portable chest image was obtained 1835 hour . FINDINGS: Chronic interstitial lung disease is present. No focal infiltrate or consolidation. Mild e hieu or infiltrate can be masked. Heart and vasculature are normal. No measurable pleural effusion and no pneumothorax. No acute bony abnormality seen. No acute aortic findings suspected. IMPRESSION: Chronic interstitial lung disease potentially masking interstitial edema and infiltrate.
[2019-12-06] MEDS ORDERED: MECLIZINE HCL 12.5 MG TAB ONE (21:01)
[2019-12-06] MEDS ORDERED: ONDANSETRON 4 MG/2 ML VIAL ONE (21:01)
--- NOTE | 2019-12-06 21:45 | EDPHYS ---
Physician Documentation [facility] Name: Ramandeep Renner Age: 84 yrs Sex: Female : 1935 Arrival Date: 12/06/2019 Time: 17:48 Bed 26 Private MD: ED Physician Yonatan Smith HPI: 12/06 18:08 This 84 yrs old Female presents to ER via EMS with complaints of Dizziness. jmm 18:08 The patient presents with dizziness. Onset: The symptoms/episode began/occurred jm acutely, today. Context: occurred at home. Modifying factors: The symptoms are alleviated by holding head still, the symptoms are aggravated by movement of head, standing up, changing position. Associated signs and symptoms: Pertinent positives: tingling, Pertinent negatives: chest pain. This is an 84 year old female with a history of CVA, HTN, PE that presents to the ED with complaints of dizziness which began after standing up in her home around 10 am today. Symptoms resolved when the patient is not moving or ambulating. Patient states she is nausea during the episodes. Denies unilateral weakness. . Historical: - Allergies: 18:03 PENICILLINS; ls4 - Home Meds: 18:03 amlodipine 2.5 mg tab 1 tab once daily [Active]; aspirin 81 mg Oral chew 1 tab once ls4 daily [Active]; atorvastatin 20 mg Oral tab 1 tab once daily [Active]; lisinopril 20 mg Oral tab 1 tab once daily [Active]; - PMHx: 18:03 CVA; hemorrhoids; Hypertension; PE; RENAL CYST; ls4 - Immunization history:: Adult Immunizations up to date. - Social history:: Smoking status: Patient denies any tobacco usage or history of. - Ebola Screening: : No symptoms or risks identified at this time. ROS: 18:08 Constitutional: Negative for fever, chills, and weight loss, Eyes: Negative for injury, jmm pain, redness, and discharge, Cardiovascular: Negative for chest pain, palpitations, and edema, Respiratory: Negative for shortness of breath, cough, wheezing, and pleuritic chest pain. 18:08 Neuro: Positive for dizziness. 18:08 All other systems are negative. Exam: 18:08 Constitutional: This is a well developed, well nourished patient who is awake, alert, jmm and in no acute distress. Head/Face: atraumatic. Eyes: EOMI, no conjunctival erythema appreciated ENT: Moist Mucus Membranes Neck: Trachea midline, Supple Chest/axilla: Normal chest wall appearance and motion. Cardiovascular: Regular rate and rhythm. No edema appreciated Respiratory: Normal respirations, no respiratory distress appreciated Abdomen/GI: Non distended, soft Back: Normal ROM Skin: General appearance color normal MS/ Extremity: Moves all extremities, no obvious deformities appreciated, no edema noted to the lower extremities 18:08 Neuro: Orientation: is normal, Mentation: is normal, Memory: is normal, Cerebellar function: normal finger to nose testing, heel to ruffin testing is normal. 18:08 Psych: Behavior/mood is pleasant, cooperative. Vital Signs: 18:03 BP 172 / 81; Pulse 79; Resp 16; Temp 98.1; Pulse Ox 99% on R/A; Pain 3/10; ls4 20:00 BP 138 / 66; Pulse 67; Resp 14; Temp 98.0; Pulse Ox 99% on R/A; Pain 3/10; ls4 21:47 BP 133 / 60; Pulse 68; Resp 16; Pulse Ox 98% on R/A; Pain 3/10; ls4 MDM: 18:08 Patient medically screened. joe 21:42 Data reviewed: vital signs, nurses notes. Counseling: I had a detailed discussion with julia the patient and/or guardian regarding: the historical points, exam findings, and any diagnostic results supporting the discharge/admit diagnosis, lab results, radiology results, the need for outpatient follow up, to return to the emergency department if symptoms worsen or persist or if there are any questions or concerns that arise at home. ED course: Patient is able to ambulate in the ED after medication. CTA negative for acute changes. I do not currently suspect CVA or VBI. Patient advised to follow up with neuro and otherwise given strict return precautions. Patient understood and agrees with the plan of care. . 12/06 18:29 Order name: Basic Metabolic Panel; Complete Time: 19:35 [facility] 12/06 18:29 Order name: CBC with Diff; Complete Time: 19:15 [facility] 12/06 18:29 Order name: LFT's; Complete Time: 19:35 [facility] 12/06 18:29 Order name: Magnesium; Complete Time: 19:35 [facility] 12/06 18:29 Order name: NT PRO-BNP; Complete Time: 19:35 [facility] 12/06 18:29 Order name: PT-INR; Complete Time: 19:15 [facility] 12/06 18:29 Order name: Troponin (emerg Dept Use Only); Complete Time: 19:35 [facility] 12/06 18:29 Order name: XRAY Chest (1 view); Complete Time: 21:05 [facility] 12/06 18:29 Order name: CT Head Brain wo Cont; Complete Time: 19:15 [facility] 12/06 19:17 Order name: CT Head Angio; Complete Time: 20:47 [facility] 12/06 19:17 Order name: CT Neck Angio; Complete Time: 20:47 [facility] 12/06 19:55 Order name: Urine Dipstick--Ancillary (enter results) ar5 12/06 18:29 Order name: EKG; Complete Time: 18:31 [facility] 12/06 18:29 Order name: Cardiac monitoring; Complete Time: 19:09 [facility] 12/06 18:29 Order name: EKG - Nurse/Tech; Complete Time: 19:09 [facility] 12/06 18:29 Order name: IV Saline Lock; Complete Time: 19:09 [facility] 12/06 18:29 Order name: Labs collected and sent; Complete Time: 19:09 [facility] 12/06 18:29 Order name: O2 Per Protocol; Complete Time: 19:09 [facility] 12/06 18:29 Order name: O2 Sat Monitoring; Complete Time: 19:09 [facility] 12/06 21:03 Order name: Misc. Order: ambulate patient; Complete Time: 21:39 jmm Administered Medications: 20:30 Drug: Meclizine 25 mg Route: PO; ls4 21:00 Follow up: Response: No adverse reaction; Marked relief of symptoms ls4 21:45 Drug: Zofran 4 mg Route: IVP; Site: right antecubital; ls4 22:00 Follow up: Response: No adverse reaction; Marked relief of symptoms ls4 Disposition: 12/06/19 21:44 Discharged to Home. Impression: Vertigo. - Condition is Stable. - Discharge Instructions: Benign Positional Vertigo, Vertigo. - Prescriptions for Meclizine 25 mg Oral Tablet - take 1 tablet by ORAL route every 8 hours As needed; 30 tablet. - Medication Reconciliation Form, Thank You Letter, Antibiotic Education, Prescription Opioid Use form. - Follow up: Private Physician; When: 2 - 3 days; Reason: Recheck today's complaints, Continuance of care, Re-evaluation by your physician. Addendum: 12/08/2019 10:00 Co-signature as Attending Physician, Yonatan Smith MD I agree with the assessment and c ruffin plan of care. Signatures: Dispatcher [employer] EDYonatan Hammer MD MD cha Mickail, Joel, PA PA Fartun Renteria, RN RN ls4 Corrections: (The following items were deleted from the chart) 12/06 22:07 21:44 12/06/2019 21:44 Discharged to Home. Impression: Vertigo. Condition is Stable. ls4 Forms are Medication Reconciliation Form, Thank You Letter, Antibiotic Education, Prescription Opioid Use. Follow up: Private Physician; When: 2 - 3 days; Reason: Recheck today's complaints, Continuance of care, Re-evaluation by your physician. julia
--- NOTE | 2019-12-06 21:45 | ER ---
Nurse's Notes [facility] Name: Ramandeep Renner Age: 84 yrs Sex: Female : 1935 Arrival Date: 12/06/2019 Time: 17:48 Bed 26 Private MD: Diagnosis: Vertigo Presentation: 12/06 17:54 Presenting complaint: EMS states: PT DAUGHTER STATES THAT PATIENT HAD SOME DIZZINESS AT ls4 10 AM ABD AROUND 11 AM PT HAD SOME NUMBNESS OF HER FACE AND RIGHT HAND. PT SYMPTOMS ARE RESOLVED, BUT PATIENT WAS TIRED AND STAYED IN BED ALL DAY. Transition of care: patient was not received from another setting of care. Onset of symptoms was December 06, 2019 at 10:00. Risk Assessment: Do you want to hurt yourself or someone else? Patient reports no desire to harm self or others. Initial Sepsis Screen: Does the patient meet any 2 criteria? No. Patient's initial sepsis screen is negative. Does the patient have a suspected source of infection? No. Patient's initial sepsis screen is negative. Care prior to arrival: Medication(s) given: Normal saline infusion, 300 ML IV initiated. 20 GA, in the right antecubital area. 17:54 Method Of Arrival: EMS: [facility] ls4 17:54 Acuity: WILFRIDO 3 ls4 Triage Assessment: 18:03 General: Appears in no apparent distress. Behavior is calm, cooperative. Pain: Denies ls4 pain. 12/07 18:03 Neuro: Level of Consciousness is awake, alert, obeys commands, Oriented to person, ls4 place, time, situation, Appropriate for age Rn Embedded are equal bilaterally Moves all extremities. Gait is steady, Speech is normal, Facial symmetry appears normal, Pupils are PERRLA, Intact Reports Denies weakness blurred vision dizziness, difficulty swallowing, paresthesias numbness headache photophobia diplopia. Cardiovascular: No deficits noted. Respiratory: No deficits noted. GI: No deficits noted. : No deficits noted. Derm: No deficits noted. Musculoskeletal: No deficits noted. Historical: - Allergies: 12/06 18:03 PENICILLINS; ls4 - Home Meds: 18:03 amlodipine 2.5 mg tab 1 tab once daily [Active]; aspirin 81 mg Oral chew 1 tab once ls4 daily [Active]; atorvastatin 20 mg Oral tab 1 tab once daily [Active]; lisinopril 20 mg Oral tab 1 tab once daily [Active]; - PMHx: 18:03 CVA; hemorrhoids; Hypertension; PE; RENAL CYST; ls4 - Immunization history:: Adult Immunizations up to date. - Social history:: Smoking status: Patient denies any tobacco usage or history of. - Ebola Screening: : No symptoms or risks identified at this time. Screenin:22 Abuse screen: Denies threats or abuse. Denies injuries from another. Nutritional ls4 screening: No deficits noted. Tuberculosis screening: No symptoms or risk factors identified. Fall Risk None identified. Assessment: 18:07 General: Appears in no apparent distress. comfortable. Pain: Denies pain. Neuro: Level ls4 of Consciousness is awake, alert, obeys commands, Oriented to person, place, time, situation, Rn Embedded are equal bilaterally Moves all extremities. Gait is steady, Speech is normal, Facial symmetry appears normal, Pupils are PERRLA, Intact Reports dizziness, since 10 AM. Cardiovascular: Denies chest pain, diaphoresis, lightheadedness, nausea, palpitations, shortness of breath, syncope, vomiting, Heart tones S1 S2 Capillary refill < 3 seconds Clubbing of nail beds is absent JVD is absent Patient's skin is warm and dry. Chest pain is denied. Respiratory: Airway is patent Respiratory effort is even, unlabored, Respiratory pattern is regular, Breath sounds are clear. GI: No deficits noted. Derm: No deficits noted. Musculoskeletal: No deficits noted. 19:00 Reassessment: Patient appears in no apparent distress at this time. Patient is alert, ls4 oriented x 3, equal unlabored respirations, skin warm/dry/pink. 20:00 Reassessment: Patient appears in no apparent distress at this time. Patient is alert, ls4 oriented x 3, equal unlabored respirations, skin warm/dry/pink. 21:00 Reassessment: Patient appears in no apparent distress at this time. Patient is alert, ls4 oriented x 3, equal unlabored respirations, skin warm/dry/pink. Patient denies pain at this time. Vital Signs: 18:03 BP 172 / 81; Pulse 79; Resp 16; Temp 98.1; Pulse Ox 99% on R/A; Pain 3/10; ls4 20:00 BP 138 / 66; Pulse 67; Resp 14; Temp 98.0; Pulse Ox 99% on R/A; Pain 3/10; ls4 21:47 BP 133 / 60; Pulse 68; Resp 16; Pulse Ox 98% on R/A; Pain 3/10; ls4 ED Course: 17:48 Patient arrived in ED. rg4 17:54 Fartun Ashby, RN is Primary Nurse. ls4 18:00 Kenny Thompson PA is PHCP. jm 18:01 Yonatan Smith MD is Attending Physician. jm 18:01 Triage completed. ls4 18:03 Arm band placed on right wrist. ls4 18:22 Patient has correct armband on for positive identification. Placed in gown. Bed in low ls4 position. Call light in reach. Side rails up X 1. desk monitor on. Pulse ox on. NIBP on. Warm blanket given. Pillow given. Diet: Patient is NPO. 18:22 No provider procedures requiring assistance completed. Maintain EMS IV. Dressing ls4 intact. Good blood return noted. Site clean \T\ dry. Gauge \T\ site: 20 LEFT AC . 18:30 Initial lab(s) drawn, by me, sent to lab. ls4 18:43 XRAY Chest (1 view) In Process Unspecified. EDMS 18:44 CT Head Brain wo Cont In Process Unspecified. EDMS 19:53 CT Head Angio In Process Unspecified. EDMS 19:53 CT Neck Angio In Process Unspecified. EDMS 21:48 Assisted to bathroom. ls4 21:51 Patient did not have IV access during this emergency room visit. ls4 Administered Medications: 20:30 Drug: Meclizine 25 mg Route: PO; ls4 21:00 Follow up: Response: No adverse reaction; Marked relief of symptoms ls4 21:45 Drug: Zofran 4 mg Route: IVP; Site: right antecubital; ls4 22:00 Follow up: Response: No adverse reaction; Marked relief of symptoms ls4 Outcome: 21:44 Discharge ordered by . [facility] 21:49 Discharged to home ambulatory. ls4 21:49 Condition: good 21:49 Discharge instructions given to patient, family, Instructed on discharge instructions, follow up and referral plans. Demonstrated understanding of instructions, follow-up care, medications, Prescriptions given X 22:07 Patient left the ED. ls4 Signatures: Dispatcher [employer] EDMS Mickail, Kenny, PA PA jmm Dave, Delaney rg4 Fartun Ashby RN RN ls4 Corrections: (The following items were deleted from the chart) 12/07 21:00 Response: No adverse reaction; Marked relief of symptoms ls4 ls4 22:00 Response: No adverse reaction; Marked relief of symptoms ls4 ls4
[2019-12-06 23:34] VITALS: TEMP 98
[2019-12-06 23:35] VITALS: BP 133/60; O2SAT 98
--- NOTE | 2019-12-08 14:03 | EKG ---
Test Date: 2019-12-06 Test Time: 19:17:37 Processing Tech: LUL MEASUREMENT RESULTS: Intervals: Rate: 70 GA: 144 QRSD: 72 QT: 402 QTc: 434 [place]: P: 43 GA: 144 QRS: 8 T: 42 INTERPRETIVE STATEMENTS: Normal sinus rhythm Normal ECG Compared to ECG 05/06/2019 08:01:23 Sinus bradycardia no longer present Electronically Signed On 12-08-19 13:59:34 SLUICE TENDER by Peter Cope
== END 2019-12-06 22:07 | disposition home or self-care (01) ==
LOC: ER 17:48
DX: R42 Dizziness and giddiness (principal); I10 Essential (primary) hypertension; Z79.82 Long term (current) use of aspirin; Z88.0 Allergy status to penicillin; Z86.73 Personal history of transient ischemic attack (TIA), and cerebral infarction without residual deficits
CPT/HCPCS: 93005; 85025; 80048; 36415; 83735; 85610; 80076; 81003; 84484; 83880; 70450; 70496; 70498; 71045; 96374; 99284; Q9967; J2405; J8597

== ENCOUNTER 2020-03-30 14:18 | Emergency (ER) | payer OTHER ==
--- OUTSIDE RECORDS SUMMARY | 2020-03-30 14:54 | XMS REPORT ---
:1935 Author Organization eClinicalWorks Care Team Providers Name Role Phone Flor Eddyh Provider Role Unavailable Allergies, Adverse Reactions, Alerts Substance Reaction Event Type N.K.D.A. 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 Assessment Bilateral hearing loss, unspecified H91.93 Active hearing loss type Assessment History of stroke Z86.73 Active Problem Essential (primary) hypertension I10 Active Problem Mixed hyperlipidemia E78.2 Active Problem Bilateral hearing loss, unspecified H91.93 Active hearing loss type Problem Screening for osteoporosis Z13.820 A ctive Problem Screening for breast cancer Z12.31 Active Problem History of stroke Z86.73 Active Problem Glaucoma of right eye, 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
--- OUTSIDE RECORDS SUMMARY | 2020-03-30 14:54 | XMS REPORT ---
:1935 Author Organization [employer]Works Care Team Providers Name Role Phone Surjit Quinton Provider Role Unavailable Allergies No Known Allergies Problems Problem Type Condition Code Onset Dates Condition Statu s Problem Essential (primary) hypertension I10 Active Problem [...]
--- OUTSIDE RECORDS SUMMARY | 2020-03-30 14:54 | XMS REPORT ---
:1935 Author Organization [facility] t Address [address] [place] [address] Care Team Providers Name Role Phone Unavailable Unavailable Unavailable Problems Condition Condition Condition Status Onset Resolution Last Treatin g Comments Name Details Category Date Date Treatment Clinician Date Essential Essential Problem Active (primary) (primary) hypertensio hypertensio n n Mixed Mixed Diagnosis Active hyperlipide hyperlipide stuart stuart History of History of Diagnosis Active stroke stroke Glaucoma of Glaucoma of Diagnosis Active right eye, right eye, unspecified unspecified glaucoma glaucoma type type Bilateral Bilateral Diagnosis Active hearing hearing loss, loss, unspecified unspecified hearing hearing loss type loss type Screening Screening Problem Active for for osteoporosi osteoporosi s s Screening Screening Problem Active for breast for breast cancer cancer Constipatio Constipatio Diagnosis Active n, n, unspecified unspecified constipatio constipatio n type n type Medicare Medicare Diagnosis Active annual annual wellness wellness visit, visit, subsequent subsequent Allergies, Adverse Reactions, Alerts This patient has no known allergies or adverse reactions. Medications Ordered Filled Start Stop Current Ordering Indication Dosage Frequency Signature Comments Components Medication Medication Date Date Medication? Clinician (SIG) Name Name Shirley Shirley Yes Quinton 1 tablet Aspirin EC Aspirin EC Eddy Low Dose Low Dose Atorvastati Atorvastati Yes Quinton 1 table t n Calcium n Calcium Eddy Lisinopril Lisinopril Yes Quinton 1 tablet Eddy Amlodipine Amlodipine Yes Quinton 1 tablet Besylate Besylate Eddy Encounters Start End Encounter Admission Attending Care Care Encounter Date/Time Date/Time Type Type Clinicians Facility Department ID 2019-12-19 2019-12-19 [facility] [id number] 09:30:00 09:30:00 [facility] 2019-10-31 2019-10-31 [facility] [id number] 16:21:00 16:21:00 [facility] 2019-09-17 2019-09-17 [facility] [id number] 09:00:00 09:00:[address] [facility] 2019-08-06 2019-08-06 [facility] [id number] 09:30:00 09:30:00 [facility] 2019-02-04 2019-02-04 [facility] [id number] 10:00:00 10:00:00 [facility] 2019-02-04 2019-02-04 [facility] [id number] 09:45:00 09:45:00 [facility] 2018-11-28 2018-11-28 [facility] [id number] 13:15:00 13:15:00 [facility] 2018-10-26 2018-10-26 [facility] [id number] 15:00:00 15:00:00 [facility] 2018-10-22 2018-10-22 [facility] [id number] 15:00:00 15:00:00 [facility] 2018-06-26 2018-06-26 [facility] [id number] 09:00:00 09:00:00 [facility] 2018-06-13 2018-06-13 [facility] [id number] 14:45:00 14:45:00 [facility] 2018-06-04 2018-06-04 [facility] [id number] 13:00:00 13:00:00 [facility] 2018-06-01 2018-06-01 [facility] [id number] 13:30:00 13:30:00 [facility] 2018-05-28 2018-05-28 [facility] [id number] 13:23:00 13:23:00 [facility] 2018-05-28 2018-05-28 [facility] [id number] 08:40:00 08:40:00 [facility] 2018-05-24 2018-05-24 [facility] [id number] 10:30:00 10:30:00 [facility] Medicine
--- OUTSIDE RECORDS SUMMARY | 2020-03-30 14:54 | XMS REPORT ---
:1935 Author Organization eClinicalWorks Care Team Providers Name Role Phone Surjit Quinton Provider Role Unavailable Allergies, Adverse Reactions, Alerts Substance Reaction Event Type N.K.D.A. 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 Problem Screening for osteoporosis Z13.820 A ctive Problem Mixed hyperlipidemia E78.2 Active Problem History of stroke Z86.73 Active Assessment Bilateral hearing loss, unspecified H91.93 Active hearing loss type Assessment History of stroke Z86.73 Active Assessment Constipation, unspecified K59.00 Ac tive constipation type Assessment Mixed hyperlipidemia E78.2 Active Assessment Glaucoma of right eye, 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
[2020-03-30] MEDS ORDERED: NA CHLORIDE 0.9% 500 ML ONE (15:33)
[2020-03-30] MEDS ORDERED: MORPHINE 2 MG/ML SYR ONE (15:33)
[2020-03-30] MEDS ORDERED: ONDANSETRON 4 MG/2 ML VIAL ONE (15:33)
[2020-03-30 15:54] LABS: Urine Bacteria NONE SEEN /HPF (<20); Urine Culture Reflex Order NOT NEEDED
[2020-03-30 15:57] LABS: Albumin 3.6 g/dL (3.4-5.0); Bilirubin Direct 0.1 mg/dL (0-0.2); Bilirubin Total 0.4 mg/dL (0.2-1.0); Potassium 4.2 mmol/L (3.5-5.1); Protein, Total 8.3 g/dL (6.4-8.2)
[2020-03-30 16:02] LABS: Urine Blood 1+ (NEG); Urine Glucose NEGATIVE (NEG); Urine Protein 1+ (NEG); Urine pH 7.5 (5.0-7.0)
[2020-03-30 16:09] LABS: Absolute Lymphocytes (CBC) 1.2 K/uL (0.7-4.9); Basophils % 0.2 % (0-1.3); Hematocrit 34.5 % (36.0-45.0); Lymphocytes % 7.4 % (15.3-44.8); MPV 9.1 fL (7.6-11.3); RBC Red Blood Cell Count 3.93 M/uL (3.86-4.86)
--- NOTE | 2020-03-30 17:54 | RAD REPORT ---
EXAM DESCRIPTION: CT - Abdomen Pelvis W Contrast - 03/30/2020 5:16 pm CLINICAL HISTORY: Abdominal pain COMPARISON: 2016 TECHNIQUE: Computed axial tomography of the abdomen pelvis was obtained. 100 cc Isovue-300 was admin istered intravenously. Oral contrast was not requested which limits evaluation of bowel. All CT scans are performed using dose optimization technique as appropriate and may include automated exposure control or mA/KV adjustment according to patient size. FINDINGS: Hepatic cysts. Cholecystectomy. Duodenal diverticulum. Splenic granulomata. The pancreas and adrenals are unremarkable. Bilateral renal cysts. 4.7 centimeters cyst extending off of the upper pole has enlarged. Prominence of an extrarenal right renal pelvis unchanged. Colonic diverticulosis. Mild stranding adjacent to the distal sigmoid colon. 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
--- NOTE | 2020-03-30 18:05 | ER ---
Nurse's Notes [facility] Name: Ramandeep Renner Age: 85 yrs Sex: Female : 1935 Arrival Date: 03/30/2020 Time: 14:19 Bed 8 Private MD: Diagnosis: Diverticulitis of intestine, part unspecified, without perforation or abscess without bleeding Presentation: 03/30 14:30 Chief complaint: Patient states: Abdominal pain since yesterday, worse today. Pain ca1 radiating to the back. Denies N/V/diarrhea. Denies urinary symptoms. Coronavirus screen: Proceed with normal triage. Patient denies a cough. Patient denies shortness of breath or difficulty breathing. Patient denies measured and/or subjective temperature greater than 100.4F prior to today's visit. Patient denies travel on a cruise ship or to a country the [facility] currently lists as an affected area. Patient denies contact with known and/or suspected case of COVID-19. Ebola Screen: Patient negative for fever greater than or equal to 101.5 degrees Fahrenheit, and additional compatible Ebola Virus Disease symptoms Patient denies exposure to infectious person. Patient denies travel to an Ebola-affected area in the 21 days before illness onset. No symptoms or risks identified at this time. Initial Sepsis Screen: Does the patient meet any 2 criteria? No. Patient's initial sepsis screen is negative. Does the patient have a suspected source of infection? No. Patient's initial sepsis screen is negative. Risk Assessment: Do you want to hurt yourself or someone else? Patient reports no desire to harm self or others. Onset of symptoms was March 30, 2020. 14:30 Method Of Arrival: Wheelchair ca1 14:30 Acuity: WILFRIDO 3 ca1 Historical: - Allergies: 14:33 PENICILLINS; ca1 - PMHx: 14:33 CVA; hemorrhoids; Hypertension; PE; RENAL CYST; ca1 - Immunization history:: Adult Immunizations up to date, Pneumococcal vaccine is up to date. - Social history:: Smoking status: Patient denies any tobacco usage or history of. Screenin:15 Abuse screen: Denies threats or abuse. Denies injuries from another. Nutritional sv screening: No deficits noted. Tuberculosis screening: No symptoms or risk factors identified. Fall Risk None identified. Assessment: 15:15 General: Appears in no apparent distress. uncomfortable, Behavior is calm, cooperative, sv appropriate for age. Pain: Complains of pain in left lower quadrant and right lower quadrant and suprapubic area Pain currently is 8 out of 10 on a pain scale. Neuro: Level of Consciousness is awake, alert, obeys commands, Oriented to person, place, time, situation, Moves all extremities. Full function Gait is steady. Respiratory: Airway is patent Respiratory effort is even, unlabored, Respiratory pattern is regular, symmetrical. GI: Abdomen is round Abd is soft X 4 quads Abdomen is tender to palpation in right lower quadrant and left lower quadrant. Derm: Skin is normal. 16:00 Reassessment: Patient appears in no apparent distress at this time. No changes from sv previously documented assessment. Patient and/or family updated on plan of care and expected duration. Pain level reassessed. Patient is alert, oriented x 3, equal unlabored respirations, skin warm/dry/pink. 17:05 Reassessment: Patient appears in no apparent distress at this time. No changes from sv previously documented assessment. Patient and/or family updated on plan of care and expected duration. Pain level reassessed. Patient is alert, oriented x 3, equal unlabored respirations, skin warm/dry/pink. 19:23 Reassessment: Patient and/or family updated on plan of care and expected duration. Pain ea level reassessed. Patient is alert, oriented x 3, equal unlabored respirations, skin warm/dry/pink. Discharge instruction given to patient, verbalized the understanding of instruction. Pt left ED via wheelchair, assisted to private vehicle with family per ED staff Patient states feeling better. Vital Signs: 14:30 BP 137 / 93; Pulse 95; Resp 17 S; Temp 98.7(TE); Pulse Ox 97% on R/A; Weight 54.43 kg ca1 (R); Height 5 ft. 3 in. (160.02 cm) (R); Pain 8/10; 15:35 BP 136 / 64; Pulse 75; Resp 16; Pulse Ox 98% ; sv 16:00 Pain 3/10; sv 16:09 BP 131 / 59; Pulse 72; Resp 16; Pulse Ox 96% ; sv 16:30 BP 142 / 63; Pulse 75; Resp 16; Pulse Ox 98% ; sv 19:20 BP 160 / 66; Pulse 83; Resp 18; Pulse Ox 99% on R/A; ea 19:20 Temp 97.8; rr5 14:30 Body Mass Index 21.26 (54.43 kg, 160.02 cm) ca1 ED Course: 14:19 Patient arrived in ED. as 14:32 Triage completed. ca1 14:33 Arm band placed on right wrist. ca1 14:46 Patient has correct armband on for positive identification. Placed in gown. Bed in low ca1 position. Call light in reach. Side rails up X 1. Pulse ox on. NIBP on. Warm blanket given. 14:54 Laura Guillen, ANTONIO is Primary Nurse. sv 14:57 Lizbeth Tavera FNP-C is PHCP. kb 14:57 Yonatan Smith MD is Attending Physician. kb 15:05 Inserted saline lock: 20 gauge in right forearm, using aseptic technique. Blood sv collected. Flushed right forearm with 5 ml normal saline. 16:[address] Scan. sv 17:17 CT Abd/Pelvis - IV Contrast Only In Process Unspecified. EDMS 19:09 Primary Nurse role handed off by Laura Guillen RN sv 19:19 No provider procedures requiring assistance completed. IV discontinued, intact, ea bleeding controlled, No redness/swelling at site. Pressure dressing applied. Administered Medications: 15:34 Drug: morphine 2 mg {Note: rass1.} Route: IVP; Site: right forearm; sv 16:00 Follow up: Pain 3/10 Adult; Response: No adverse reaction; Pain is decreased; RASS: sv Alert and Calm (0) 15:34 Drug: Zofran (Ondansetron) 4 mg Route: IVP; Site: right forearm; sv 16:00 Follow up: Response: No adverse reaction sv 15:35 Drug: NS 0.9% 500 ml Route: IV; Rate: bolus; Site: right forearm; sv 16:30 Follow up: Response: No adverse reaction; IV Status: Completed infusion; IV Intake: sv 500ml 18:55 Drug: Flagyl 500 mg Route: PO; bp 19:21 Follow up: Response: No adverse reaction ea 18:55 Drug: Cipro 500 mg Route: PO; bp 19:21 Follow up: Response: No adverse reaction ea Intake: 16:30 IV: 500ml; Total: 500ml. sv Outcome: 18:04 Discharge ordered by . kb 19:22 Condition: stable ea 19:22 Discharge instructions given to patient, Instructed on discharge instructions, follow up and referral plans. medication usage, Demonstrated understanding of instructions, follow-up care, medications, Prescriptions given X 2. 19:23 Discharged to home via wheelchair, with family. ea 19:24 Patient left the ED. ea Signatures: Dispatcher [employer] EDNC Lizbeth Tavera, NAJMA-C AVIAN KEEPER-Laura Pickering, RN RN Bernie Giang Elena RN RN Maverick Wright, RN RN Alfredo Summers, RN RN rr5 Bina Goodman RN RN ca1
--- NOTE | 2020-03-30 18:05 | EDPHYS ---
Physician Documentation [facility] Name: Ramandepe Renner Age: 85 yrs Sex: Female : 1935 Arrival Date: 03/30/2020 Time: 14:19 Bed 8 Private MD: ED Physician Yonatan Smith HPI: 03/30 15:06 This 85 yrs old Female presents to ER via Wheelchair with complaints of kb Abdominal Pain, Back Pain. 15:06 The patient presents with abdominal pain in the lower abdomen. Onset: The kb symptoms/episode began/occurred yesterday. The symptoms radiate to back. Associated signs and symptoms: Pertinent negatives: nausea, vomiting, and diarrhea, dysuria, fever. The symptoms are described as constant. Modifying factors: The symptoms are alleviated by nothing, the symptoms are aggravated by pressure. Severity of pain: At its worst the pain was moderate in the emergency department the pain is unchanged. The patient has not experienced similar symptoms in the past. The patient has not recently seen a physician. Pt reports she woke up yesterday morning with lower abd pain. States pain has been constant. Denies n/v/d. Able to tolerate PO intake. Denies fever. . Historical: - Allergies: 14:33 PENICILLINS; ca1 - PMHx: 14:33 CVA; hemorrhoids; Hypertension; PE; RENAL CYST; ca1 - Immunization history:: Adult Immunizations up to date, Pneumococcal vaccine is up to date. - Social history:: Smoking status: Patient denies any tobacco usage or history of. ROS: 15:04 Constitutional: Negative for fever, chills, and weight loss, Neck: Negative for injury, kb pain, and swelling, Cardiovascular: Negative for chest pain, palpitations, and edema, Respiratory: Negative for shortness of breath, cough, wheezing, and pleuritic chest pain, Back: Negative for injury and pain, MS/Extremity: Negative for injury and deformity, Skin: Negative for injury, rash, and discoloration, Neuro: Negative for headache, weakness, numbness, tingling, and seizure. 15:04 Abdomen/GI: Positive for abdominal pain, Negative for nausea, vomiting, and diarrhea. Exam: 15:04 Constitutional: This is a well developed, well nourished patient who is awake, alert, kb and in no acute distress. Head/Face: Normocephalic, atraumatic. Chest/axilla: Normal chest wall appearance and motion. Nontender with no deformity. No lesions are appreciated. Cardiovascular: Regular rate and rhythm with a normal S1 and S2. No gallops, murmurs, or rubs. Normal PMI, no JVD. No pulse deficits. Respiratory: Lungs have equal breath sounds bilaterally, clear to auscultation and percussion. No rales, rhonchi or wheezes noted. No increased work of breathing, no retractions or nasal flaring. Back: No spinal tenderness. No costovertebral tenderness. Full range of motion. Skin: Warm, dry with normal turgor. Normal color with no rashes, no lesions, and no evidence of cellulitis. MS/ Extremity: Pulses equal, no cyanosis. Neurovascular intact. Full, normal range of motion. Neuro: Awake and alert, GCS 15, oriented to person, place, time, and situation. Cranial nerves II-XII grossly intact. Motor strength 5/5 in all extremities. Sensory grossly intact. Cerebellar exam normal. Normal gait. 15:04 Abdomen/GI: Inspection: abdomen appears normal, Bowel sounds: normal, in all quadrants, Palpation: soft, in all quadrants, moderate abdominal tenderness, in the suprapubic area, right lower quadrant and left lower quadrant. Vital Signs: 14:30 BP 137 / 93; Pulse 95; Resp 17 S; Temp 98.7(TE); Pulse Ox 97% on R/A; Weight 54.43 kg ca1 (R); Height 5 ft. 3 in. (160.02 cm) (R); Pain 8/10; 15:35 BP 136 / 64; Pulse 75; Resp 16; Pulse Ox 98% ; sv 16:00 Pain 3/10; sv 16:09 BP 131 / 59; Pulse 72; Resp 16; Pulse Ox 96% ; sv 16:30 BP 142 / 63; Pulse 75; Resp 16; Pulse Ox 98% ; sv 19:20 BP 160 / 66; Pulse 83; Resp 18; Pulse Ox 99% on R/A; ea 19:20 Temp 97.8; rr5 14:30 Body Mass Index 21.26 (54.43 kg, 160.02 cm) ca1 MDM: 14:58 Patient medically screened. kb 15:04 Data reviewed: vital signs, nurses notes. Data interpreted: Pulse oximetry: on room air kb is 97 %. Interpretation: normal. 18:02 Counseling: I had a detailed discussion with the patient and/or guardian regarding: the kb historical points, exam findings, and any diagnostic results supporting the discharge/admit diagnosis, lab results, radiology results, the need for outpatient follow up, a family practitioner, to return to the emergency department if symptoms worsen or persist or if there are any questions or concerns that arise at home. ED course: Pt able to tolerate po intake. Educated to take antibiotics as prescribed and to follow up with PCP. Educated to return if symptoms worsen or if she is unable to tolerate antibiotics. Verbal understanding received. . 03/30 14:58 Order name: Basic Metabolic Panel; Complete Time: 16:01 kb 03/30 14:58 Order name: CBC with Diff; Complete Time: 16:12 kb 03/30 14:58 Order name: Hepatic Function; Complete Time: 16:01 kb 03/30 14:58 Order name: Lipase; Complete Time: 16:01 kb 03/30 15:02 Order name: Urine Microscopic Only; Complete Time: 15:56 kb 03/30 15:23 Order name: Urine Dipstick--Ancillary (enter results); Complete Time: 16:04 em1 03/30 14:58 Order name: IV Saline Lock; Complete Time: 15:23 kb 03/30 14:58 Order name: Labs collected and sent; Complete Time: 15:23 kb 03/30 16:01 Order name: CT Abd/Pelvis - IV Contrast Only; Complete Time: 17:59 kb 03/30 15:02 Order name: Urine Dipstick-Ancillary (obtain specimen); Complete Time: 15:22 kb Administered Medications: 15:34 Drug: morphine 2 mg {Note: rass1.} Route: IVP; Site: right forearm; sv 16:00 Follow up: Pain 3/10 Adult; Response: No adverse reaction; Pain is decreased; RASS: sv Alert and Calm (0) 15:34 Drug: Zofran (Ondansetron) 4 mg Route: IVP; Site: right forearm; sv 16:00 Follow up: Response: No adverse reaction sv 15:35 Drug: NS 0.9% 500 ml Route: IV; Rate: bolus; Site: right forearm; sv 16:30 Follow up: Response: No adverse reaction; IV Status: Completed infusion; IV Intake: sv 500ml 18:55 Drug: Flagyl 500 mg Route: PO; bp 19:21 Follow up: Response: No adverse reaction ea 18:55 Drug: Cipro 500 mg Route: PO; bp 19:21 Follow up: Response: No adverse reaction ea Disposition: 20:12 Co-signature as Attending Physician, Yonatan Smith MD I agree with the assessment and joe plan of care. Disposition: 03/30/20 18:04 Discharged to Home. Impression: Diverticulitis of intestine, part unspecified, without perforation or abscess without bleeding. - Condition is Stable. - Discharge Instructions: Diverticulitis, [id number]. - Prescriptions for Flagyl 500 mg Oral Tablet - take 1 tablet by ORAL route every 8 hours for 10 days; 30 tablet. Cipro 500 mg Oral Tablet - take 1 tablet by ORAL route every 12 hours for 10 days; 20 tablet. - Medication Reconciliation Form, Thank You Letter, Antibiotic Education, Prescription Opioid Use form. - Follow up: Emergency Department; When: As needed; Reason: Worsening of condition. Follow up: Private Physician; When: 2 - 3 days; Reason: Recheck today's complaints, Continuance of care, Re-evaluation by your physician. Signatures: Dispatcher [employer] EDMS Lizbeth Tavera, NAJMA-C PROJECT SUPERINTENDENT-Laura Pickering, RN Yonatan Donald MD MD cha Antunez, Elena, RN Maverick Bernal ea, RN Bina Snow RN ANTONIO ca1 Corrections: (The following items were deleted from the chart) 19:24 18:04 03/30/2020 18:04 Discharged to Home. Impression: Diverticulitis of intestine, ea part unspecified, without perforation or abscess without bleeding. Condition is Stable. Forms are Medication Reconciliation Form, Thank You Letter, Antibiotic Education, Prescription Opioid Use. Follow up: Emergency Department; When: As needed; Reason: Worsening of condition. Follow up: Private Physician; When: 2 - 3 days; Reason: Recheck today's complaints, Continuance of care, Re-evaluation by your physician. kb
[2020-03-30] MEDS ORDERED: metroNIDAZOLE 500 MG TABLET ONE (19:01)
[2020-03-30] MEDS ORDERED: CIPROFLOXACIN HCL 500 MG TAB ONE (19:01)
[2020-03-30 19:48] VITALS: BP 160/66; TEMP 97.8; O2SAT 99
== END 2020-03-30 19:24 | disposition home or self-care (01) ==
LOC: ER 14:18
DX: K57.92 Diverticulitis of intestine, part unspecified, without perforation or abscess without bleeding (principal); I10 Essential (primary) hypertension; Z88.0 Allergy status to penicillin; Z86.73 Personal history of transient ischemic attack (TIA), and cerebral infarction without residual deficits
CPT/HCPCS: 96361; 85025; 80048; 36415; 80076; 83690; 74177; 96375; 96374; 99284; Q9967; J2270; J7040; J2405; 81003; 81015

== ENCOUNTER 2020-09-29 13:36 | Emergency (ER) | payer OTHER ==
--- OUTSIDE RECORDS SUMMARY | 2020-09-29 13:38 | XMS REPORT | Continuity of Care Document ---
:1935 Author Organization [facility] t Address [address] 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 Rupali kes - emia emia [facility] History of History of Diagnosis Active [facility] stroke stroke [facility] Glaucoma 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, eye, Memoria unspecifie unspecifie l d glaucoma d glaucoma Ou tpati type type ent Clinics Bilateral Bilateral Diagnosis Active [facility] hearing hearing [facility] - loss, loss, Memoria unspecifie unspecifie l d hearing d hearing Outp ati loss type loss type ent Clinics Screening Screening Problem Active [facility] for for [facility] - osteoporos osteoporos Me moria is is l Outpati ent Clinics Screening Screening Problem Active [facility] for breast for breast Rupali kes - cancer cancer [facility] Outpat[facility] ent Clinics Constipati Constipati Diagnosis Active [facility] on, on, [facility] - unspecifie unspecifie Me moria d d l constipati constipati Ou tpati on type on type ent Clinics Anemia, Anemia, Diagnosis Active [facility] unspecifie unspecifie Rupali kes - d type d type [facility] Allergies, Adverse Reactions, Alerts This patient has no known allergies or adverse reactions. Medications Ordered Filled Start Stop Current Ordering Indication Dosage Frequency Signature Comments Components Source Medication Medication Date Date Medication? Clinician (SIG) Name Name Shirley Shirley Yes [place] [address] [facility] Aspirin EC Aspirin EC Eddy Rupali kes - Low Dose Low Dose [facility]ics Atorvastati Atorvastati Yes [place] [address] [facility] n Calcium n Calcium [facility] Outpati ent Clinics Lisinopril Lisinopril Yes [place] [address] [facility] Outpati ent Clinics Amlodipine Amlodipine Yes [place] [address] [facility] Besylate Besylate [facility] Outpat[facility] ent Clinics Prilosec Prilosec Yes [place] not [facility] OTC OTC [facility] defined [facility] Procedures This patient has no known procedures. Encounters Start End Encounter Admission Attending Care Care Encounter Source Date/Time Date/Time Type Type Clinicians Facility Department ID 2020-06-17 2020-06-17 [facility] [id number] [facility] 09:30:00 09:30:00 [employer] [facility] Clin[facility] 2020-03-30 2020-03-30 [facility] [id number] [facility] 13:58:00 13:58:00 [employer] [facility] Out[facility] Clin[facility] 2019-12-19 2019-12-19 [facility] [id number] [facility] 09:30:00 09:30:00 [employer] [facility] Out[facility] Clin[facility] 2019-10-31 2019-10-31 [facility] [id number] [facility] 16:21:00 16:21:00 [employer] [facility] Out[facility] Clin[facility] 2019-09-17 2019-09-17 [facility] [id number] [facility] 09:00:00 09:00:00 [employer] [facility] Out[facility] Clinics 2019-08-06 2019-08-06 [facility] [id number] [facility] 09[facility]30:00 09:30:00 [employer] [facility] Medicine Outpati ent Clinics 2019-02-04 2019-02-04 [facility] [id number] [facility] 10[facility]00:00 10:00:00 [facility] [employer] [facility] Outpat[facility] ent Clinics 2019-02-04 2019-02-04 [facility] [id number] [facility] 09:45:00 09:45:00 [facility] Medicine l Medicine Outpati ent Clinics 2018-11-28 2018-11-28 [facility] [id number] [facility] 13[facility]15:00 13:15:00 [facility] Medicine l Medicine Outpati ent Clinics 2018-10-26 2018-10-26 [facility] [id number] [facility] 15[facility]00:00 15:00:00 [facility] Medicine l Medicine Outpati ent Clinics 2018-10-22 2018-10-22 [facility] [id number] [facility] 15[facility]00:00 15:00:00 t [facility] Medicine l Medicine Outpati ent Clinics 2018-06-26 2018-06-26 [facility] [id number] [facility] 09:00:00 09:00:00 [facility] Medicine l Medicine Outpati ent Clinics 2018-06-13 2018-06-13 [facility] [id number] [facility] 14:45:00 14:45:00 t [facility] Medicine l Medicine Outpati ent Clinics 2018-06-04 2018-06-04 [facility] [id number] [facility] 13:00:00 13:00:00 [facility] Medicine l Medicine Outpati ent Clinics 2018-06-01 2018-06-01 [facility] [id number] [facility] 13:30:00 13:30:00 [facility] Medicine l Medicine Outpati ent Clinics 2018-05-28 2018-05-28 [facility] [id number] [address] 13:23:00 13:23:00 [facility] Medicine l Medicine Outpati ent Clinics 2018-05-28 2018-05-28 [facility] [id number] [facility] 08:40:00 08:40:00 [facility] 2018-05-24 2018-05-24 Outpatient Keyla Montoya [id number] [facility] 10:30:00 10:30:00 [facility] ent Clinics Results This patient has no known results.
[2020-09-29] MEDS ORDERED: HYDROCODONE/APAP 5/325 MG TAB ONE (14:06)
[2020-09-29] MEDS ORDERED: MECLIZINE HCL 12.5 MG TAB ONE (14:07)
--- NOTE | 2020-09-29 15:15 | RAD REPORT ---
EXAM DESCRIPTION: RAD - Wrist Right 2 View - 09/29/2020 2:33 pm CLINICAL HISTORY: Right wrist pain status post injury FINDINGS: Comminuted fracture involves distal radius with marked displacement of fracture fragments. Fracture line extends into proximal radial diaphysis. Ulnar styloid fracture
[2020-09-29] MEDS ORDERED: FENTANYL CITR 100 MCG/2 ML ONE (15:24)
[2020-09-29] MEDS ORDERED: MIDAZOLAM HCL 2 MG/2 ML INJ ONE (15:40)
[2020-09-29] MEDS ORDERED: ETOMIDATE 20 MG/10 ML VIAL IV ONE (15:41)
[2020-09-29] MEDS ORDERED: NA CHLORIDE 0.9% 1,000 ML ONE (16:34)
--- NOTE | 2020-09-29 17:43 | RAD REPORT ---
EXAM DESCRIPTION: RAD - Wrist Right 2 View - 09/29/2020 5:18 pm CLINICAL HISTORY: Radial fracture FINDINGS: A splint immobilizes previously described fractures distal radius ulna. Much better alignm ent of the fracture fragments
--- NOTE | 2020-09-29 17:55 | ER ---
Nurse's Notes [facility] Name: Ramandeep Renner Age: 85 yrs Sex: Female : 1935 Arrival Date: 09/29/2020 Time: 13:37 Bed 8 Private MD: Diagnosis: Displaced Comminuted fracture distal right radius;Displaced fracture of right ulna styloid process;Fall on same level from slipping, tripping and stumbling Presentation: 09/29 13:43 Chief complaint: Patient states: I got dizzy and fell, I tried to catch myself with my ca1 R hand. 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 Pain, swelling and obvious deformity on R wrist. States, "I have been having this dizzy spells for a long time". Denies LOC. Denies hitting head. Coronavirus screen: Client denies travel out of the [place] in the last 14 days. At this time, the client does not indicate any symptoms associated with coronavirus-19. Coronavirus screen: Client denies travel out of the [place] in the last 14 days. Ebola Screen: Patient negative for fever greater than or equal to 101.5 degrees Fahrenheit, and additional compatible Ebola Virus Disease symptoms Patient denies exposure to infectious person. Patient denies travel to an Ebola-affected area in the 21 days before illness onset. No symptoms or risks identified at this time. Initial Sepsis Screen: Does the patient meet any 2 criteria? No. Patient's initial sepsis screen is negative. Does the patient have a suspected source of infection? No. Patient's initial sepsis screen is negative. Risk Assessment: Do you want to hurt yourself or someone else? Patient reports no desire to harm self or others. Onset of symptoms was September 29, 2020. 13:43 Method Of Arrival: Wheelchair ca1 13:43 Acuity: WILFRIDO 3 ca1 15:17 Care prior to arrival: None. Mechanism of Injury: Fall from standing position. Trauma ph event details: Injury occurred in the [facility], Injury occurred: at home. 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 - Social history:: Smoking status: Patient denies any tobacco usage or history of. - Immunization history: Last tetanus immunization: unknown. Screenin:15 Abuse screen: Denies threats or abuse. Denies injuries from another. Nutritional ph screening: No deficits noted. Tuberculosis screening: No symptoms or risk factors identified. Fall Risk Fall in past 12 months (25 points). No secondary diagnosis (0 pts). IV access (20 points). Ambulatory Aid- None/Bed Rest/Nurse Assist (0 pts). Gait- Normal/Bed Rest/Wheelchair (0 pts) Mental Status- Oriented to own ability (0 pts). Total Marcum Fall Scale indicates High Risk Score (45 or more points). Fall prevention measures have been instituted. Side Rails Up X 2 Placed Close to Nursing Station Frequent Obs/Assessments Occuring As available patient and family educated on Fall Prevention Program and Strategies. Primary Survey: 15:15 NO uncontrolled hemorrhage observed. A: The patient is alert. Airway: patent, No ph supplemental oxygen in use on arrival. Oral cavity: clear, Trachea midline. Breathing/Chest: Respiratory pattern: no respiratory pattern noted, Respiratory effort: spontaneous, unlabored, Breath sounds: clear, Chest inspection: symmetrical rise and fall of the chest. Circulation: Skin color: pink, Skin temperature: warm, dry. Disability Alert. Exposure/Environment: All clothing and personal items were removed. Forensic evidence collection is not deemed to be indicated at this time. Items placed in patient belonging bag. 18:35 Reassessment Airway Airway Patent Breathing/Chest Respiratory pattern Regular ph Respiratory effort Spontaneous Unlabored Circulation Color [place] Temperature Warm Dry Disability Alert. Assessment: 15:14 General: Appears in no apparent distress. uncomfortable, well groomed, Behavior is ph calm, cooperative, appropriate for age. Pain: Complains of pain in dorsal aspect of right forearm and right wrist. Neuro: Level of Consciousness is awake, alert, obeys commands, Oriented to person, place, time, situation. Cardiovascular: Capillary refill < 3 seconds in bilateral fingers Patient's skin is warm and dry. Respiratory: Airway is patent Respiratory effort is even, unlabored, Respiratory pattern is regular, symmetrical. Derm: Skin is intact, Skin is pink, warm \\T\\ dry. Musculoskeletal: Circulation, motion, and sensation intact. Range of motion: intact in all extremities. 16:25 Reassessment: Dr Smith and Yonatan Quiñones at bedside for conscious sedation and ph reduction of R wrist fx, see flowsheet for vitals. 17:20 Reassessment: Patient appears in no apparent distress at this time. Patient and/or ph family updated on plan of care and expected duration. Pain level reassessed. Patient is alert, oriented x 3, equal unlabored respirations, skin warm/dry/pink. Pt awake and alert, awaiting repeat xray, daughter at bedside. 18:32 Reassessment: Patient appears in no apparent distress at this time. Patient and/or ph family updated on plan of care and expected duration. Pain level reassessed. Patient is alert, oriented x 3, equal unlabored respirations, skin warm/dry/pink. Pt d/c home w/ daughter, instructed to follow up w/ orthopedic doctor. Vital Signs: 13:43 BP 134 / 90; Pulse 72; Resp 16 S; Temp 97.3(TE); Pulse Ox 100% on R/A; Weight 54.43 kg ca1 (R); Height 5 ft. 2 in. (157.48 cm) (R); Pain 8/10; 16:30 BP 123 / 56; Pulse 75; Resp 18; Pulse Ox 98% on R/A; ph 17:30 BP 132 / 57; Pulse 69; Resp 16; Pulse Ox 100% on R/A; ph 18:30 BP 127 / 53; Pulse 69; Resp 16; Temp 97.1; Pulse Ox 100% on R/A; ph 13:43 Body Mass Index 21.95 (54.43 kg, 157.48 cm) ca1 Switchback Coma Score: 15:17 Eye Response: spontaneous(4). Verbal Response: oriented(5). Motor Response: obeys ph commands(6). Total: 15. 16:30 Eye Response: spontaneous(4). Verbal Response: oriented(5). Motor Response: obeys ph commands(6). Total: 15. 17:30 Eye Response: spontaneous(4). Verbal Response: oriented(5). Motor Response: obeys ph commands(6). Total: 15. Trauma Score (Adult): 15:17 Eye Response: spontaneous(1); Verbal Response: oriented(1); Motor Response: obeys ph commands(2); Systolic BP: > 89 mm Hg(4); Respiratory Rate: 10 to 29 per min(4); Bc Score: 15; Trauma Score: 12 16:30 Eye Response: spontaneous(1); Verbal Response: oriented(1); Motor Response: obeys ph commands(2); Systolic BP: > 89 mm Hg(4); Respiratory Rate: 10 to 29 per min(4); Switchback Score: 15; Trauma Score: 12 17:30 Eye Response: spontaneous(1); Verbal Response: oriented(1); Motor Response: obeys ph commands(2); Systolic BP: > 89 mm Hg(4); Respiratory Rate: 10 to 29 per min(4); Switchback Score: 15; Trauma Score: 12 ED Course: 13:37 Patient arrived in ED. mr 13:46 Triage completed. ca1 13:47 Arm band placed on. Affected limb iced. Affected limb elevated. ca1 14:32 Wrist Right 2 View In Process Unspecified. EDMS 14:57 Yonatan Quiñones PA is PHCP. cp 14:57 Yonatan Smith MD is Attending Physician. cp 15:01 Maverick Olsen, RN is Primary Nurse. bp 15:16 Patient maintains SpO2 saturation greater than 95% on room air. Thermoregulation: warm ph blanket given to patient. 15:18 Patient has correct armband on for positive identification. Bed in low position. Call ph light in reach. Side rails up X 1. public speaking professor on. Pulse ox on. NIBP on. 15:34 Dorothea Colbert, RN is Primary Nurse. ph 16:40 Assist provider with fracture care of right wrist Fracture is closed. Obvious deformity jp3 is noted. Performed by Yonatan Smith MD Reduced with physical manipulation. Immobilized with preformed splint. 17:18 Wrist Right 2 View In Process Unspecified. EDMS 17:51 Russ Rajan MD is Referral Physician. cp 18:36 IV discontinued, intact, bleeding controlled, No redness/swelling at site. Pressure ph dressing applied. Administered Medications: 13:53 Drug: Meclizine 25 mg Route: PO; ca1 15:07 Follow up: Response: No adverse reaction ph 13:55 Drug: [place] 5 mg-325 mg 1 tabs {Note: rass 0.} Route: PO; ca1 15:07 Follow up: Response: No adverse reaction ph 15:14 Drug: fentaNYL (PF) 25 mcg Route: IVP; Site: left forearm; ph 15:45 Follow up: Response: No adverse reaction; Pain is decreased; RASS: Alert and Calm (0) ph 16:23 Drug: Versed 2 mg Route: IVP; Site: left forearm; ph 16:35 Follow up: Response: No adverse reaction; RASS: Moderate sedation (-3) ph 16:23 Drug: Versed 2 mg Route: IVP; Site: left forearm; ph 16:35 Follow up: Response: No adverse reaction; RASS: Moderate sedation (-3) ph 16:25 Drug: Etomidate 10 mg {Note: per Dr Smith.} Route: IVP; Site: left forearm; ph 16:45 Follow up: Response: No adverse reaction; RASS: Moderate sedation (-3) ph Intake: 15:17 PO: 0ml; Total: 0ml. ph Output: 15:17 Urine: 0ml; Total: 0ml. ph Outcome: 17:54 Discharge ordered by MD. cp 18:36 Discharged to home via wheelchair, with family. ph 18:36 Condition: good 18:36 Discharge instructions given to patient, family, Instructed on discharge instructions, follow up and referral plans. medication usage, Demonstrated understanding of instructions, follow-up care, medications, Prescriptions given X 2. 18:36 Patient's length of stay was not longer than 2 hours. ph 18:38 Patient left the ED. ph Signatures: Dispatcher [employer] Maurene Mcmahon Patricia, RN RN ph Yonatan Quiñones PA PA cp Peltier, Brian, RN RN Brandon Salazar jp3 Bina Goodman RN RN ca1
--- NOTE | 2020-09-29 17:55 | EDPHYS ---
Physician Documentation [facility] Name: Ramandeep Renner Age: 85 yrs Sex: Female : 1935 Arrival Date: 09/29/2020 Time: 13:37 Bed 8 Private MD: ED Physician Yonatan Smith HPI: 09/29 15:00 This 85 yrs old Female presents to ER via Wheelchair with complaints of Fall cp Injury, Wrist Injury. 15:00 Details of fall: The patient fell from an upright position, while walking. Onset: The cp symptoms/episode began/occurred just prior to arrival. Associated injuries: The patient sustained right wrist, decreased range of motion, deformity, painful injury. Patient reports becoming dizzy and losing her balance while walking which caused her to fall with outstretched right hand to ground. Historical: - Allergies: 13:47 PENICILLINS; ca1 - Home Meds: 13:47 aspirin 81 mg Oral chew 1 tab once daily [Active]; ca1 - PMHx: 13:47 CVA; hemorrhoids; Hypertension; PE; RENAL CYST; ca1 - PSHx: 13:47 Colon Surgery; ca1 - Immunization history:: Adult Immunizations up to date, Flu vaccine is not up to date. - Social history:: Smoking status: Patient denies any tobacco usage or history of. - Immunization history: Last tetanus immunization: unknown. ROS: 15:05 Constitutional: Negative for body aches, chills, fever, poor PO intake. cp 15:05 Eyes: Negative for injury, pain, redness, and discharge. cp 15:05 Neck: Negative for pain with movement, pain at rest, stiffness. 15:05 Cardiovascular: Negative for chest pain, edema, palpitations. 15:05 Respiratory: Negative for cough, shortness of breath, wheezing. 15:05 Abdomen/GI: Negative for abdominal pain, nausea, vomiting, and diarrhea. 15:05 Back: Negative for pain at rest, pain with movement. 15:05 MS/extremity: Positive for injury or acute deformity, decreased range of motion, pain, swelling, tenderness, of the right wrist. 15:05 Neuro: Negative for altered mental status, headache, loss of consciousness, syncope, near syncope, weakness. 15:05 All other systems are negative. Exam: 15:10 Constitutional: The patient appears in no acute distress, alert, awake, cp non-diaphoretic, non-toxic, well developed, well nourished, uncomfortable. 15:10 Head/Face: Normocephalic, atraumatic. cp 15:10 Eyes: Periorbital structures: appear normal, Conjunctiva: normal, no exudate, no injection, Lids and lashes: appear normal, bilaterally. 15:10 ENT: External ear(s): are unremarkable, Nose: is normal, Mouth: Lips: moist, Oral mucosa: moist, Posterior pharynx: Airway: no evidence of obstruction, patent. 15:10 Neck: ROM/movement: is normal, is supple, without pain, no range of motions limitations. 15:10 Chest/axilla: Inspection: normal, Palpation: is normal, no crepitus, no tenderness. 15:10 Cardiovascular: Rate: normal, Rhythm: regular, Pulses: Pulses are 2+ in right radial artery and left radial artery. Edema: is not appreciated, JVD: is not appreciated. 15:10 Respiratory: the patient does not display signs of respiratory distress, Respirations: normal, no use of accessory muscles, no retractions, labored breathing, is not present, Breath sounds: are clear throughout, no decreased breath sounds. 15:10 Abdomen/GI: Inspection: abdomen appears normal, Palpation: abdomen is soft and non-tender, in all quadrants. 15:10 Back: pain, is absent, ROM is normal. 15:10 Musculoskeletal/extremity: Extremities: grossly normal except: noted in the right wrist: decreased ROM, deformity, pain, swelling, tenderness, the right wrist and right wrist Sensation intact. 15:10 Neuro: Orientation: to person, place \T\ time. Mentation: is normal. Vital Signs: 13:43 BP 134 / 90; Pulse 72; Resp 16 S; Temp 97.3(TE); Pulse Ox 100% on R/A; Weight 54.43 kg ca1 (R); Height 5 ft. 2 in. (157.48 cm) (R); Pain 8/10; 16:30 BP 123 / 56; Pulse 75; Resp 18; Pulse Ox 98% on R/A; ph 17:30 BP 132 / 57; Pulse 69; Resp 16; Pulse Ox 100% on R/A; ph 18:30 BP 127 / 53; Pulse 69; Resp 16; Temp 97.1; Pulse Ox 100% on R/A; ph 13:43 Body Mass Index 21.95 (54.43 kg, 157.48 cm) ca1 Bc Coma Score: 15:17 Eye Response: spontaneous(4). Verbal Response: oriented(5). Motor Response: obeys ph commands(6). Total: 15. 16:30 Eye Response: spontaneous(4). Verbal Response: oriented(5). Motor Response: obeys ph commands(6). Total: 15. 17:30 Eye Response: spontaneous(4). Verbal Response: oriented(5). Motor Response: obeys ph commands(6). Total: 15. Trauma Score (Adult): 15:17 Eye Response: spontaneous(1); Verbal Response: oriented(1); Motor Response: obeys ph commands(2); Systolic BP: > 89 mm Hg(4); Respiratory Rate: 10 to 29 per min(4); [place] Score: 15; Trauma Score: 12 16:30 Eye Response: spontaneous(1); Verbal Response: oriented(1); Motor Response: obeys ph commands(2); Systolic BP: > 89 mm Hg(4); Respiratory Rate: 10 to 29 per min(4); [place] Score: 15; Trauma Score: 12 17:30 Eye Response: spontaneous(1); Verbal Response: oriented(1); Motor Response: obeys ph commands(2); Systolic BP: > 89 mm Hg(4); Respiratory Rate: 10 to 29 per min(4); [place] Score: 15; Trauma Score: 12 Procedures: 17:45 Reduction: of the right wrist, using manipulation, Immobilized with sling, Patient cp tolerated well. Post reduction film - reveals improved alignment. 17:45 Moderate sedation: Pre-procedure assessment: Airway assessment: able to hyperextend cp neck, able to maintain airway, can open mouth without difficulty, Monitoring during procedure: cardiac cath rn, continuous pulse oximetry, nurse at bedside at all times, Medications employed: Etomidate, 10 mg(s), Versed, 4 mg(s), Post-procedure assessment: the patient is moderately sedated, a reversal agent was not used. MDM: 14:58 Patient medically screened. cp 15:00 Differential diagnosis: contusion, fracture, multiple trauma. cp 17:53 Data reviewed: vital signs, nurses notes, radiologic studies, plain films, I have cp discussed the patient's presentation/case with the attending Emergency Department Physician; and as a result, I will discharge patient. 09/29 14:29 Order name: Wrist Right 2 View; Complete Time: 17:50 EDMS 09/29 17:16 Order name: Wrist Right 2 View; Complete Time: 17:50 EDMS 09/29 14:59 Order name: IV; Complete Time: 15:14 cp 09/29 17:13 Order name: Sling; Complete Time: 17:55 cp Administered Medications: 13:53 Drug: Meclizine 25 mg Route: PO; ca1 15:07 Follow up: Response: No adverse reaction ph 13:55 Drug: [place] 5 mg-325 mg 1 tabs {Note: rass 0.} Route: PO; ca1 15:07 Follow up: Response: No adverse reaction ph 15:14 Drug: fentaNYL (PF) 25 mcg Route: IVP; Site: left forearm; ph 15:45 Follow up: Response: No adverse reaction; Pain is decreased; RASS: Alert and Calm (0) ph 16:23 Drug: Versed 2 mg Route: IVP; Site: left forearm; ph 16:35 Follow up: Response: No adverse reaction; RASS: Moderate sedation (-3) ph 16:23 Drug: Versed 2 mg Route: IVP; Site: left forearm; ph 16:35 Follow up: Response: No adverse reaction; RASS: Moderate sedation (-3) ph 16:25 Drug: Etomidate 10 mg {Note: per Dr Smith.} Route: IVP; Site: left forearm; ph 16:45 Follow up: Response: No adverse reaction; RASS: Moderate sedation (-3) ph Disposition: 09/30 06:58 Co-signature as Attending Physician, Yonatan Smith MD I agree with the assessment and joe plan of care. Disposition: 09/29/20 17:54 Discharged to Home. Impression: Displaced Comminuted fracture distal right radius, Displaced fracture of right ulna styloid process, Fall on same level from slipping, tripping and stumbling. - Condition is Stable. - Discharge Instructions: Fall Prevention in the Home, Wrist Fracture Treated With Immobilization. - Prescriptions for Tylenol- Codeine #3 300-30 mg Oral Tablet - take 2 tablets by ORAL route every 6 hours As needed; 20 tablet. - Medication Reconciliation Form, Thank You Letter, Antibiotic Education, Prescription Opioid Use form. - Follow up: Russ Rajan MD; When: 2 - 3 days; Reason: right wrist fracture. - Problem is new. - Symptoms have improved. Signatures: Dispatcher [employer] EDYonatan Hammer MD MD cha Hall, Patricia RN RN Yonatan Leggett PA PA cp Acob, Cheryl, RN RN ca1 Corrections: (The following items were deleted from the chart) 09/29 14:29 13:51 Forearm Right+RAD.RAD.BRZ ordered. EDTX EDMS 14:29 13:52 Wrist Right 3 View+RAD.RAD.BRZ ordered. EDTX EDMS 17:16 16:34 Wrist Right 3 View+RAD.RAD.BRZ ordered. EDTX EDMS 18:38 17:54 09/29/2020 17:54 Discharged to Home. Impression: Displaced Comminuted fracture ph distal right radius; Displaced fracture of right ulna styloid process; Fall on same level from slipping, tripping and stumbling. Condition is Stable. Forms are Medication Reconciliation Form, Thank You Letter, Antibiotic Education, Prescription Opioid Use. Follow up: Dr. Russ Rajan; When: 2 - 3 days; Reason: right wrist fracture. Problem is new. Symptoms have improved. cp
[2020-09-29 20:49] VITALS: O2SAT 100
[2020-09-29 20:50] VITALS: BP 127/53; TEMP 97.1
== END 2020-09-29 18:38 | disposition home or self-care (01) ==
LOC: ER 13:36
PROC: 0PSHXZZ Reposition Right Radius, External Approach (ICD-10-PCS; principal; 2020-09-29)
PROC: 0PSKXZZ Reposition Right Ulna, External Approach (ICD-10-PCS; 2020-09-29)
DX: S52.501A Unspecified fracture of the lower end of right radius, initial encounter for closed fracture (principal); S52.611A Displaced fracture of right ulna styloid process, initial encounter for closed fracture; W01.0XXA Fall on same level from slipping, tripping and stumbling without subsequent striking against object, initial encounter; Y93.01 Activity, walking, marching and hiking; Y92.009 Unspecified place in unspecified non-institutional (private) residence as the place of occurrence of the external cause; I10 Essential (primary) hypertension; Z86.73 Personal history of transient ischemic attack (TIA), and cerebral infarction without residual deficits
CPT/HCPCS: 73100 ×2; 96375; 96374; 99285; 25415; J2250; J3010; J7030

== ENCOUNTER 2021-06-27 10:51 | Emergency (ER) | payer OTHER ==
--- OUTSIDE RECORDS SUMMARY | 2021-06-27 10:53 | XMS REPORT | Continuity of Care Document ---
:1935 Author Organization [facility] t Address [address] [place] [address] Care Team Providers Name Role Phone Esteban ALVAREZ, L Attending Clinician Unavailable Kenneth TAVARES, S Attending Clinician Lida TAVARES Attending Clinician Mary TAVARES Attending Clinician Lida TAVARES Admitting Clinician Problems This patient has no known problems. Allergies, Adverse Reactions, Alerts This patient has no known allergies or adverse reactions. Medications Ordered Filled Start Stop Current Ordering Indication Dosage Frequency Signature Comments Components Source Medication Medication Date Date Medication? Clinician (SIG) Name Name Shirley Shirley Yes [place] [address] [facility] Asp[facility]in EC Aspirin EC Edd[facility] Rupali kes - Low Dose [facility] Atorvastati Atorvastati Yes [place] [address] [facility] n Calcium n Calcium [facility] Lisinopril Lisinopril Yes [place] [address] [facility] Amlodipine Amlodipine Yes [place] [address] [facility] Besylate Besylate [facility] Prilosec Prilosec Yes [facility] not [facility] Procedures This patient has no known procedures. Encounters Start End Encounter Admission Attending Care Care Encounter Source Date/Time Date/Time Type Type Clinicians Facility Department ID 2021-06-22 2021-06-22 Outpatient [facility] [id number] 2021-06-07 2021-06-07 [facility] [id number] [facility] 2021-02-23 2021-02-23 [facility] [id number] [facility] 2021-01-28 2021-01-28 [facility] [id number] [facility] 2021-01-19 2021-01-19 [facility] [id number] [facility] 2020-12-17 2020-12-17 [facility] [id number] [facility] 2020-12-14 2020-12-14 [facility] [id number] [facility] 2020-11-25 2020-11-25 [facility] [id number] [facility] 2020-11-25 2020-11-25 [facility] [id number] [facility] 2020-11-16 2020-11-16 [facility] [id number] [facility] 2020-10-29 2020-10-29 [facility] [id number] [facility] 2020-10-22 2020-10-22 [facility] [id number] [facility] 2020-10-13 2020-10-13 [facility] [id number] [facility] 2020-10-12 2020-10-12 Transition Nader Orellana [id number] 00:00:00 00:00:00 of Care Nataliya Gamboay [id number] [place] [id number] [facility] 2020-10-05 2020-10-10 [facility] [id number] 23:37:00 12:00:00 Encounter [facility] [id number] EzFrank paulino Clear [id number] [place] [id number] [place] [address] ([facility]) 2020-10-05 2020-10-05 Outpatient [facility] [id number] [facility] 2020-06-17 2020-06-17 [facility] [id number] [facility] 09[facility]30:00 09:30:00 [place] - [facility] Outpat[facility] ent Clinics 2020-03-30 2020-03-30 [facility] [id number] [facility] 13:58:00 13:58:[address] [employer] s - Drive [facility] Outpat[facility] ent Clinics 2019-12-19 2019-12-19 [facility] [id number] [facility] 09:30:00 09:30:[address] [employer] [address] - Drive [facility] Medicine Outpat[facility] ent Clinics 2019-10-31 2019-10-31 [facility] [id number] [address] 16:21:00 16:21:[address] Luke [address] - Drive [facility] Medicine Medicine Outpati ent Clinics 2019-09-17 2019-09-17 [facility] [id number] [address] 09:00:00 09:00:[address] Luke [address] - Drive [facility] Medicine l Medicine Outpati ent Clinics 2019-08-06 2019-08-06 [facility] [id number] 09:30:00 09:30:[address] [facility] [address] [facility] [address] [facility] Medicine l Medicine Outpati ent Clinics 2019-02-04 2019-02-04 [facility] [id number] [address] 10:00:00 10:00:[address] [facility] [facility] [address] [facility] Medicine Medicine Outpati ent Clinics 2019-02-04 2019-02-04 [facility] [id number] 09:45:00 09:45:[address] [facility] Medicine Medicine Outpati ent Clinics 2018-11-28 2018-11-28 [facility] [id number] [facility] 13:15:00 13:15:[address] [facility] Medicine Medicine Outpati ent Clinics 2018-10-26 2018-10-26 [facility] [id number] [address] 15:00:00 15:00:[address] [facility] Medicine Medicine Outpati ent Clinics 2018-10-22 2018-10-22 [facility] [id number] [address] 15:00:00 15:00:00 t [facility] [address] [facility] Medicine l Medicine Outpati ent Clinics 2018-06-26 2018-06-26 [facility] [id number] [address] 09:00:00 09:00:00 [facility] Medicine l Medicine Outpati ent Clinics 2018-06-13 2018-06-13 [facility] [id number] 14:45:00 14:45:[address] [facility] Medicine l Medicine Outpati ent Clinics 2018-06-04 2018-06-04 [facility] [id number] 13:00:00 13:00:00 [facility] Medicine Outpati ent Clinics 2018-06-01 2018-06-01 [facility] [id number] 13:30:00 13:30:00 [facility] Medicine Outpati ent Clinics 2018-05-28 2018-05-28 [facility] [id number] [address] 13:23:00 13:23:00 [facility] Medicine Outpati ent Clinics 2018-05-28 2018-05-28 [facility] [id number] 08:40:00 08:40:00 [facility] Medicine Outpati ent Clinics 2018-05-24 2018-05-24 [facility] [id number] 10:30:00 10:30:00 [facility] Medicine Outpat[facility] Clinics Results This patient has no known results.
[2021-06-27 11:51] LABS: Urine Blood 3+ (Negative); Urine Glucose Negative (Negative); Urine Protein Trace (Negative); Urine Specific Gravity 1.015 (1.005-1.030); Urine pH 7.5 (5.0-7.0)
--- NOTE | 2021-06-27 12:29 | ER ---
Nurse's Notes [facility] Name: Ramandeep Renner Age: 86 yrs Sex: Female : 1935 Arrival Date: 06/27/2021 Time: 10:54 Bed 7 Private MD: Diagnosis: UTI/ Urinary tract infection, site not specified Presentation: 06/27 11:36 Chief complaint: Patient states: has a urine infection, has urinary frequency started iw yesterday , no vomiting or fever. Coronavirus screen: At this time, the client does not indicate any symptoms associated with coronavirus-19. Ebola Screen: Patient negative for fever greater than or equal to 101.5 degrees Fahrenheit, and additional compatible Ebola Virus Disease symptoms Patient denies exposure to infectious person. Patient denies travel to an Ebola-affected area in the 21 days before illness onset. No symptoms or risks identified at this time. Initial Sepsis Screen: Does the patient meet any 2 criteria? No. Patient's initial sepsis screen is negative. Does the patient have a suspected source of infection? No. Patient's initial sepsis screen is negative. Risk Assessment: Do you want to hurt yourself or someone else? Patient reports no desire to harm self or others. Onset of symptoms was June 26, 2021. 11:36 Method Of Arrival: Ambulatory iw 11:36 Acuity: WILFRIDO 4 iw Triage Assessment: 12:50 General: Behavior is calm. zb Historical: - Allergies: 11:37 PENICILLINS; iw - Home Meds: 11:37 amlodipine 2.5 mg tab 1 tab once daily [Active]; aspirin 81 mg Oral chew 1 tab once iw daily [Active]; atorvastatin 20 mg Oral tab 1 tab once daily [Active]; lisinopril 20 mg Oral tab 1 tab once daily [Active]; - PMHx: 11:37 CVA; hemorrhoids; Hypertension; PE; RENAL CYST; iw - Immunization history:: Client reports having NOT received the Covid vaccine. - Social history:: Smoking status: Patient denies any tobacco usage or history of. Screenin:50 Abuse screen: Denies threats or abuse. Denies injuries from another. Nutritional zb screening: No deficits noted. Tuberculosis screening: No symptoms or risk factors identified. Fall Risk None identified. Assessment: 12:49 General: Appears in no apparent distress. Pain: Complains of pain in pelvis Pain zb currently is 8 out of 10 on a pain scale. Quality of pain is described as burning, aching. Neuro: Level of Consciousness is awake, alert, obeys commands, Oriented to person, place, time, situation. Cardiovascular: Patient's skin is warm and dry. Respiratory: Airway is patent Respiratory effort is even, unlabored, Respiratory pattern is regular, symmetrical. : Reports burning with urination, since yesterday urgency, urinary frequency. Derm: Skin is normal. Musculoskeletal: Range of motion: intact in all extremities. Vital Signs: 11:36 BP 140 / 56; Pulse 81; Resp 16; Temp 97.4; Pulse Ox 100% on R/A; iw ED Course: 10:54 Patient arrived in ED. as 11:37 Triage completed. iw 11:37 Arm band placed on. iw 12:20 Krystal Peralta RN is Primary Nurse. zb 12:22 Lizbeth Tavera [facility]-C [facility] kb 12:23 Yonatan Smith MD is Attending Physician. kb 12:50 Patient has correct armband on for positive identification. zb 12:50 No provider procedures requiring assistance completed. Patient did not have IV access zb during this emergency room visit. Administered Medications: 12:48 Drug: Pyridium (phenazopyridine) 100 mg Route: PO; zb 12:48 Follow up: Response: Medication administered at discharge. zb 12:48 Drug: Bactrim (trimethoprim-sulfamethoxazole) (160 mg-800 mg (DS) 1 tablet Route: PO; zb 12:48 Follow up: Response: Medication administered at discharge. zb Outcome: 12:29 Discharge ordered by . kb 12:50 Discharged to home ambulatory. zb 12:50 Condition: stable 12:50 Discharge instructions given to patient, Instructed on discharge instructions, follow up and referral plans. medication usage, Demonstrated understanding of instructions, follow-up care, medications, Prescriptions given X 2. 12:50 Patient left the ED. zb Signatures: Lizbeth Tavera FNP-C FNP-Bernie Padgett Irene, RN RN iw Krystal Peralta RN RN zb
--- NOTE | 2021-06-27 12:29 | EDPHYS ---
Physician Documentation [facility] Name: Ramandeep Renner Age: 86 yrs Sex: Female : 1935 Arrival Date: 06/27/2021 Time: 10:54 Bed 7 Private MD: ED Physician Yonatan Smith HPI: 06/27 13:39 This 86 yrs old Female presents to ER via Ambulatory with complaints of kb Urinary Problem. 13:39 The patient presents with urinary symptoms, dysuria, frequency. Modifying factors: The kb symptoms are alleviated by nothing, the symptoms are aggravated by urinating. The patient has not experienced similar symptoms in the past. The patient has not recently seen a physician. 13:43 Onset: The symptoms/episode began/occurred yesterday. Associated signs and symptoms: kb Pertinent positives: dysuria, urinary frequency, Pertinent negatives: constipation, cramping, diarrhea, dyspareunia, fever, hematuria, nausea, vaginal bleeding, vaginal discharge, vomiting. Severity of symptoms: At their worst the symptoms were mild, moderate, in the emergency department the symptoms are unchanged. Patient complains of dysuria, frequency, small amounts at a time.. Historical: - Allergies: 11:37 PENICILLINS; iw - Home Meds: 11:37 amlodipine 2.5 mg tab 1 tab once daily [Active]; aspirin 81 mg Oral chew 1 tab once iw daily [Active]; atorvastatin 20 mg Oral tab 1 tab once daily [Active]; lisinopril 20 mg Oral tab 1 tab once daily [Active]; - PMHx: 11:37 CVA; hemorrhoids; Hypertension; PE; RENAL CYST; iw - Immunization history:: Client reports having NOT received the Covid vaccine. - Social history:: Smoking status: Patient denies any tobacco usage or history of. ROS: 13:37 Constitutional: Negative for fever, chills, and weight loss. kb 13:37 : Positive for urinary symptoms, urinary frequency, small amounts, burning with urination. 13:37 All other systems are negative. Exam: 13:37 Constitutional: This is a well developed, well nourished patient who is awake, alert, kb and in no acute distress. Head/Face: Normocephalic, atraumatic. ENT: Moist Mucous membranes Cardiovascular: Regular rate and rhythm with a normal S1 and S2. No gallops, murmurs, or rubs. No pulse deficits. Respiratory: Respirations even and unlabored. No increased work of breathing, no retractions or nasal flaring. Abdomen/GI: Soft, non-tender. No distention Skin: Warm, dry with normal turgor. Normal color. MS/ Extremity: Pulses equal, no cyanosis. Neurovascular intact. Full, normal range of motion. Neuro: Awake and alert, GCS 15, oriented to person, place, time, and situation. Moves all extremities. Normal gait. Psych: Awake, alert, with orientation to person, place and time. Behavior, mood, and affect are within normal limits. Vital Signs: 11:36 BP 140 / 56; Pulse 81; Resp 16; Temp 97.4; Pulse Ox 100% on R/A; iw MDM: 12:23 Patient medically screened. kb 13:37 Data reviewed: vital signs, nurses notes. Data interpreted: Pulse oximetry: on room air kb is 100 %. Interpretation: normal. Counseling: I had a detailed discussion with the patient and/or guardian regarding: the historical points, exam findings, and any diagnostic results supporting the discharge/admit diagnosis, lab results, the need for outpatient follow up, a family practitioner, to return to the emergency department if symptoms worsen or persist or if there are any questions or concerns that arise at home. 06/27 11:51 Order name: Urine Dipstick-Ancillary; Complete Time: 12:10 EDWI 06/27 11:51 Order name: Urine Microscopic Only; Complete Time: 12:50 06/27 11:37 Order name: Urine Dipstick-Ancillary (obtain specimen); Complete Time: 11:51 06/27 12:49 Order name: Urine Culture EDMS Administered Medications: 12:48 Drug: Pyridium (phenazopyridine) 100 mg Route: PO; zb 12:48 Follow up: Response: Medication administered at discharge. zb 12:48 Drug: Bactrim (trimethoprim-sulfamethoxazole) (160 mg-800 mg (DS) 1 tablet Route: PO; zb 12:48 Follow up: Response: Medication administered at discharge. zb Disposition: 06/28 07:32 Co-signature as Attending Physician, Yonatan Smith MD I agree with the assessment and joe plan of care. Disposition Summary: 06/27/21 12:29 Discharge Ordered Location: Home kb Condition: Stable kb Diagnosis - UTI/ Urinary tract infection, site not specified kb Followup: kb - With: Emergency Department - When: As needed - Reason: Worsening of condition Followup: kb - With: Private Physician - When: 2 - 3 days - Reason: Recheck today's complaints, Continuance of care, Re-evaluation by your physician Discharge Instructions: - Discharge Summary Sheet kb - Urinary Tract Infection, Adult, [id number] kb Forms: - Medication Reconciliation Form kb - Thank You Letter kb - Antibiotic Education kb - Prescription Opioid Use kb Prescriptions: - Bactrim DS 800-160 mg Oral Tablet - take 1 tablet by ORAL route every 12 hours for 7 days; 14 tablet; Refills: 0, kb Product Selection Permitted - Pyridium 200 mg Oral Tablet - take 1 tablet by ORAL route every 8 hours for 3 days; 9 tablet; Refills: 0, kb Product Selection Permitted Signatures: Dispatcher [employer] Lizbeth Black FNP-C FNP-Yonatan Meyer MD MD cha Williams, Irene, RN Krystal Sanchez RN RN kim
[2021-06-27 12:48] LABS: Urine RBC <5 /HPF (NONE SEEN)
[2021-06-27 12:49] LABS: Urine Bacteria <20 /HPF (<20)
[2021-06-27] MEDS ORDERED: SMZ./TMP. 800/160 MG TABLET ONE (13:00)
[2021-06-27] MEDS ORDERED: PHENAZOPYRIDINE 100MG TAB PO ONE (13:00)
[2021-06-27 13:01] VITALS: BP 140/56; TEMP 97.4; O2SAT 100
== END 2021-06-27 12:50 | disposition home or self-care (01) ==
LOC: ER 10:51
DX: N39.0 Urinary tract infection, site not specified (principal); I10 Essential (primary) hypertension; Z79.82 Long term (current) use of aspirin; Z88.0 Allergy status to penicillin; Z86.711 Personal history of pulmonary embolism; Z86.73 Personal history of transient ischemic attack (TIA), and cerebral infarction without residual deficits
CPT/HCPCS: 81003; 81015; 87077; 87086; 87088; 87186; 99283

== ENCOUNTER 2021-07-22 15:09 | Emergency (ER) | payer OTHER ==
--- OUTSIDE RECORDS SUMMARY | 2021-07-22 15:12 | XMS REPORT | Continuity of Care Document ---
:1935 Author Organization [facility] t Address [address] [place] [address] Care Team Providers Name Role Phone Esteban [...] Date Date Medication? Clinician (SIG) Name Name Lisinopril Lisinopril Yes [place] [address] [facility] Amlodipine Amlodipine Yes [place] [address] [facility] Besylate Bes[facility] Prilosec Prilosec Yes [place] not [facility] Shirley Shirley Yes Qu[place] [address] [facility] Aspirin EC Aspirin EC Eddy Rupali kes - Low Dose Low Dose [facility] Atorvastati Atorvastati Yes [place] [address] [facility] n Calcium n Calcium [facility] Procedures This patient has no known procedures. Encounters Start End Encounter Admission Attending Care Care Encounter Source Date/Time Date/Time Type Type Clinicians Facility Department ID 2021-06-22 2021-06-22 Outpatient [facility] [id number] [facility] 2021-06-07 2021-06-07 Outpatient [facility] [id number] [facility] 2021-02-23 2021-02-23 Outpatient [facility] [id number] [facility] 2021-01-28 2021-01-28 Out[facility] [id number] [facility] 2021-01-19 2021-01-19 Outpatient [facility] [id number] [facility] 2020-12-17 2020-12-17 [facility] [id number] [facility] 2020-12-14 2020-12-14 Out[facility] [id number] [facility] 2020-11-25 2020-11-25 Outpatient [facility] [id number] [facility] 2020-11-25 2020-11-25 Outpatient [facility] [id number] [facility] 2020-11-16 2020-11-16 Out[facility] [id number] [facility] 2020-10-29 2020-10-29 Outpatient [facility] [id number] [facility] 2020-10-22 2020-10-22 Outpatient [facility] [id number] [facility] 2020-10-13 2020-10-13 Outpatient [facility] [id number] [facility] 2020-10-12 2020-10-12 Transition Nader Orellana [id number] 00:00:00 00:00:00 of Care Nataliya Gamboay [id number] [place] [id number] [facility] 2020-10-05 2020-10-10 [facility] [id number] 23:37:00 12:00:00 Encounter [facility] [id number] EzFrank paulino Clear [id number] [place] [id number] [place] [address] ([facility]) 2020-10-05 2020-10-05 Outpatient [facility] [id number] [facility] 2020-06-17 2020-06-17 [facility] [id number] [facility] 09:30:00 09:30:00 t Ashley Saf[address] s - Drive [facility] Medicine Outpati ent Clinics 2020-03-30 2020-03-30 [facility] [id number] [facility] 13:58:00 13:58:[address] [employer] s - Drive [facility] Medicine Outpati ent Clinics 2019-12-19 2019-12-19 [facility] [id number] [facility] 09:30:00 09:30:[address] [employer] s - Drive [facility] Medicine Outpati ent Clinics 2019-10-31 2019-10-31 [facility] [id number] [facility] 16:21:00 16:21:[address] Luke s - Drive [facility] Medicine Medicine Outpati ent Clinics 2019-09-17 2019-09-17 [facility] [id number] 09:00:00 09:00:[address] Luke s - Drive [facility] Medicine l Medicine Outpati ent Clinics 2019-08-06 2019-08-06 [facility] [id number] 09:30:00 09:30:[address] [facility] [address] [facility] [address] [facility] Medicine l Medicine Outpati ent Clinics 2019-02-04 2019-02-04 [facility] [id number] 10:00:00 10:00:[address] [facility] [address] [facility] [address] [facility] Medicine Medicine Outpati ent Clinics 2019-02-04 2019-02-04 [facility] [id number] 09:45:00 09:45:00 t [facility] Medicine Medicine Outpati ent Clinics 2018-11-28 2018-11-28 [facility] [id number] [facility] 13:15:00 13:15:00 t [facility] Medicine Medicine Outpati ent Clinics 2018-10-26 2018-10-26 [facility] [id number] [facility] 15:00:00 15:00:00 t [facility] Medicine Medicine Outpati ent Clinics 2018-10-22 2018-10-22 [facility] [id number] [facility] 15:00:00 15:00:00 t [facility] [address] [facility] Medicine l Medicine Outpati ent Clinics 2018-06-26 2018-06-26 [facility] [id number] 09:00:00 09:00:00 t [facility] Medicine l Medicine Outpati ent Clinics 2018-06-13 2018-06-13 [facility] [id number] 14:45:00 14:45:00 t [facility] Medicine l Medicine Outpati ent Clinics 2018-06-04 2018-06-04 [facility] [id number] 13:00:00 13:00:00 [facility] Medicine Outpati ent Clinics 2018-06-01 2018-06-01 [facility] [id number] [facility] 13:30:00 13:30:00 [facility] Medicine Outpati ent Clinics 2018-05-28 2018-05-28 [facility] [id number] 13:23:00 13:23:00 [facility] Medicine Outpati ent Clinics 2018-05-28 2018-05-28 [facility] [id number] 08:40:00 08:40:00 [facility] Medicine Outpati ent Clinics 2018-05-24 2018-05-24 [facility] [id number] [facility] 10:30:00 10:30:00 [facility] Medicine Outpati ent Clinics Results This patient has no known results.
--- NOTE | 2021-07-22 19:35 | ER ---
[facility]urse's Notes [facility] Name: Ramandeep Renner Age: 86 yrs Sex: Female : 1935 Arrival Date: 07/22/2021 Time: 15:14 Bed DIS11 Private MD: Diagnosis: Coronavirus infection, unspecified Presentation: 07/22 16:23 Chief complaint: Patient states: Headache, cough, abdominal pain x 1 day. Coronavirus kg screen: Vaccine status: Patient reports being unvaccinated. Client denies travel out of the [place] in the last 14 days. At this time, unable to obtain information related to travel outside the [place] cough unrelated to allergies, headache, Client presents with at least one sign or symptom that may indicate coronavirus-19. Standard/surgical mask placed on the client. Provider contacted for isolation considerations. Ebola Screen: Patient negative for fever greater than or equal to 101.5 degrees Fahrenheit, and additional compatible Ebola Virus Disease symptoms Patient denies exposure to infectious person. Patient denies travel to an Ebola-affected area in the 21 days before illness onset. Initial Sepsis Screen: Does the patient meet any 2 criteria? No. Patient's initial sepsis screen is negative. Does the patient have a suspected source of infection? No. Patient's initial sepsis screen is negative. Risk Assessment: Do you want to hurt yourself or someone else? Patient reports no desire to harm self or others. Onset of symptoms was July 21, 2021. 16:23 Method Of Arrival: Ambulatory kg 16:23 Acuity: WILFRIDO 4 kg Historical: - Allergies: 16:27 PENICILLINS; kg - Home Meds: 16:27 amlodipine 2.5 mg tab 1 tab once daily [Active]; aspirin 81 mg Oral chew 1 tab once kg daily [Active]; atorvastatin 20 mg Oral tab 1 tab once daily [Active]; lisinopril 20 mg Oral tab 1 tab once daily [Active]; - PMHx: 16:27 CVA; hemorrhoids; Hypertension; PE; RENAL CYST; kg - PSHx: 16:27 None; kg - Immunization history:: Adult Immunizations not up to date, Client reports having NOT received the Covid vaccine. - Social history:: Smoking status: . Screenin:28 Abuse screen: Denies threats or abuse. Denies injuries from another. Nutritional kg screening: No deficits noted. Tuberculosis screening: No symptoms or risk factors identified. Fall Risk None identified. Assessment: 19:12 Reassessment: Patient appears in no apparent distress at this time. No changes from ms4 previously documented assessment. Patient and/or family updated on plan of care and expected duration. Pain level reassessed. General: Appears in no apparent distress. Behavior is calm, cooperative. Pain: Denies pain. Neuro: No deficits noted. Cardiovascular: No deficits noted. Respiratory: Reports shortness of breath cough that is. GI: Reports lower abdominal pain. 19:24 General: Appears in no apparent distress. comfortable, Behavior is calm, cooperative. vg1 Pain: Denies pain. Neuro: Level of Consciousness is awake, alert, obeys commands, Oriented to person, place, time, situation. Respiratory: Reports cough that is dry, Airway is patent Respiratory effort is even, unlabored, Breath sounds are clear bilaterally. EENT: No signs and/or symptoms were reported regarding the EENT system. Derm: Skin is intact, is healthy with good turgor. Musculoskeletal: Circulation, motion, and sensation intact. Vital Signs: 16:23 BP 145 / 65; Pulse 90; Resp 17; Temp 98.1(TE); Pulse Ox 98% ; Weight 54.43 kg; Height 5 kg ft. 3 in. (160.02 cm); Pain 0/10; 19:25 BP 141 / 53; Pulse 88; Resp 18; Temp 98.9(O); Pulse Ox 100.% ; vg1 16:23 Body Mass Index 21.26 (54.43 kg, 160.02 cm) kg ED Course: 15:14 Patient arrived in ED. mr 16:27 Triage completed. kg 16:28 Patient has correct armband on for positive identification. kg 16:28 No provider procedures requiring assistance completed. kg 18:51 Kenny Thompson PA is PHCP. [facility] 18:51 Yonatan Smith MD is Attending Physician. jm 19:18 Vernell Acosta, ANTONIO is Primary Nurse. vg1 19:25 Arm band placed on. vg1 Administered Medications: No medications were administered Outcome: 19:35 Discharge ordered by MD. [facility] 19:45 Discharged to home ambulatory. vg1 19:45 Condition: stable 19:45 Discharge instructions given to patient, Instructed on discharge instructions, follow up and referral plans. medication usage, Demonstrated understanding of instructions, follow-up care, medications, Prescriptions given X 1. 19:45 Patient left the ED. vg1 Signatures: Kenny Thompson PA PA jmm Rivera, Mary mr Garcia, Vernell, RN RN vg1 Amirah Gross, RN RN kg Melanie Muhammad RN RN ms4
--- NOTE | 2021-07-22 19:36 | EDPHYS ---
Physician Documentation [facility] Name: Ramandeep Renner Age: 86 yrs Sex: Female : 1935 Arrival Date: 07/22/2021 Time: 15:14 Bed DIS11 Private MD: Yonatan Randall HPI: 07/22 19:33 This 86 yrs old Female presents to ER via Ambulatory with complaints of Cough, jmm Fever, Headache. 19:33 Onset: The symptoms/episode began/occurred gradually, 1 day(s) ago. Modifying factors: jmm The symptoms are alleviated by nothing, the symptoms are aggravated by nothing. Associated signs and symptoms: Pertinent positives: fever. 6-year-old female with a history of lung cancer, hypertension the presents emerged part with complaints of cough, congestion, fatigue beginning approximately 1 day ago. Patient states she is not immunized for coronavirus.. Historical: - Allergies: 16:27 PENICILLINS; kg - Home Meds: 16:27 amlodipine 2.5 mg tab 1 tab once daily [Active]; aspirin 81 mg Oral chew 1 tab once kg daily [Active]; atorvastatin 20 mg Oral tab 1 tab once daily [Active]; lisinopril 20 mg Oral tab 1 tab once daily [Active]; - PMHx: 16:27 CVA; hemorrhoids; Hypertension; PE; RENAL CYST; kg - PSHx: 16:27 None; kg - Immunization history:: Adult Immunizations not up to date, Client reports having NOT received the Covid vaccine. - Social history:: Smoking status: . ROS: 19:33 Constitutional: Positive for body aches, chills, fever. jmm 19:33 Respiratory: Positive for cough. 19:33 All other systems are negative. Exam: 19:33 Constitutional: This is a well developed, well nourished patient who is awake, alert, jmm and in no acute distress. Head/Face: atraumatic. Eyes: EOMI, no conjunctival erythema appreciated ENT: Moist Mucus Membranes Neck: Trachea midline, Supple Chest/axilla: Normal chest wall appearance and motion. Cardiovascular: Regular rate and rhythm. No edema appreciated Respiratory: Normal respirations, no respiratory distress appreciated Abdomen/GI: Non distended, soft Back: Normal ROM Skin: General appearance color normal MS/ Extremity: Moves all extremities, no obvious deformities appreciated, no edema noted to the lower extremities Neuro: Awake and alert, normal gait Psych: Behavior is normal, Mood is normal, Patient is cooperative and pleasant Vital Signs: 16:23 BP 145 / 65; Pulse 90; Resp 17; Temp 98.1(TE); Pulse Ox 98% ; Weight 54.43 kg; Height 5 kg ft. 3 in. (160.02 cm); Pain 0/10; 19:25 BP 141 / 53; Pulse 88; Resp 18; Temp 98.9(O); Pulse Ox 100.% ; vg1 16:23 Body Mass Index 21.26 (54.43 kg, 160.02 cm) kg MDM: 19:33 Patient medically screened. [facility] 19:33 Data reviewed: vital signs, nurses notes. Counseling: I had a detailed discussion with julia the patient and/or guardian regarding: the historical points, exam findings, and any diagnostic results supporting the discharge/admit diagnosis, lab results, the need for outpatient follow up, to return to the emergency department if symptoms worsen or persist or if there are any questions or concerns that arise at home. ED course: Patient is alert nontoxic in appearance in the ED. No signs of respiratory distress. Patient was offered monoclonal antibodies and currently has declined. Patient will consult further with her family and return to the ED if symptoms worsen.. 07/22 18:36 Order name: SARS-COV-2 RT PCR; Complete Time: 19:36 EDMS Administered Medications: No medications were administered Disposition: 07/23 08:19 Co-signature as Attending Physician, Yonatan Smith MD I agree with the assessment and joe plan of care. Disposition Summary: 07/22/21 19:35 Discharge Ordered Location: Home [facility] Condition: Stable [facility] Diagnosis - Coronavirus infection, unspecified [facility] Followup: [facility] - With: Private Physician - When: 2 - 3 days - Reason: Recheck today's complaints, Continuance of care, Re-evaluation by your physician Discharge Instructions: - Discharge Summary Sheet [facility] - COVID-19 [facility] Forms: - Medication Reconciliation Form [facility] - Thank You Letter [facility] - Antibiotic Education [facility] - Prescription Opioid Use [facility] Prescriptions: - ivermectin 3 mg Oral tablet - take 6 tablet by ORAL route as directed; 12 tablet; Refills: 0, Product [facility] Selection Permitted Signatures: Dispatcher [employer] EDMS Yonatan Smith MD MD cha Mickail, Joel, PA PA jmm Graham, Kristen, ANTONIO RN kg Corrections: (The following items were deleted from the chart) 07/22 17:35 16:29 CORONAVIRUS+BRZ ordered. EDMS EDMS
[2021-07-22 20:01] VITALS: O2SAT 98
[2021-07-22 20:03] VITALS: BP 141/53; TEMP 98.9
== END 2021-07-22 19:45 | disposition home or self-care (01) ==
LOC: ER 15:09
DX: U07.1 COVID-19 (principal); I10 Essential (primary) hypertension; Z79.82 Long term (current) use of aspirin; Z88.0 Allergy status to penicillin; Z86.73 Personal history of transient ischemic attack (TIA), and cerebral infarction without residual deficits
CPT/HCPCS: 99282; U0003

== ENCOUNTER 2021-07-30 14:08 | Emergency (ER) | payer OTHER ==
--- OUTSIDE RECORDS SUMMARY | 2021-07-30 14:11 | XMS REPORT | Continuity of Care Document ---
:1935 Author Organization [facility] t Address [address] [place] [address] Care Team Providers Name Role Phone Esteban [...] Date Date Medication? Clinician (SIG) Name Name Amlodipine Amlodipine Yes [place] [address] [facility] Besylate Besylate [facility] Prilosec Prilosec Yes [place] not [facility] Shirley Shirley Yes [place] [address] [facility] Aspirin EC Aspirin EC Eddy Rupali kes - Low Dose Low Dose [facility] Atorvastati Atorvastati Yes [place] 1 [...] Clinicians Facility Department ID 2021-06-22 2021-06-[address] [facility] [id number] [facility] 2021-06-07 2021-06-07 [facility] [id number] [facility] 2021-02-23 2021-02-23 [facility] [id number] [facility] 2021-01-28 2021-01-28 [facility] [id number] [facility] 2021-01-19 2021-01-19 [facility] [id number] [facility] 2020-12-17 2020-12-17 [facility] [id number] [facility] 2020-12-14 2020-12-14 [facility] [id number] [facility] 2020-11-25 2020-11-25 [facility] [id number] [facility] 2020-11-25 2020-11-25 [facility] [id number] [facility] 2020-11-16 2020-11-16 [facility] [id number] [facility] 2020-10-29 2020-10-[address] [facility] [id number] [facility] 2020-10-22 2020-10-[address] [facility] [id number] [facility] 2020-10-13 2020-10-[address] [facility] [id number] [facility] 2020-10-12 2020-10-12 Transition Nader Orellana [id number] 00:00:00 00:00:00 of Care Nataliya Gamboay [id number] [place] [id number] [facility] 2020-10-05 2020-10-10 [facility] [id number] 23:37:00 12:00:00 Encounter [facility] [id number] EzFrank paulino Clear [id number] [place] [id number] [place] [address] ([facility]) 2020-10-05 2020-10-05 Outpatient [facility] [id number] [facility] 2020-06-17 2020-06-17 [facility] [id number] [facility] 09[facility]30:00 09:30:00 [place] [facility] Outpati [facility] Clinics 2020-03-30 2020-03-30 [facility] [id number] [address] 13:58:00 13:58:[address] [place] - Drive [facility]pat[facility] Clinics 2019-12-19 2019-12-19 [facility] [id number] [facility] 09:30:00 09:30:[address] [place] - Drive [facility] Outpat[facility] Clinics 2019-10-31 2019-10-31 [facility] [id number] [facility] 16:21:00 16:21:[address] [place] [address] - Drive [facility] Medicine Medicine Outpati ent Clinics 2019-09-17 2019-09-17 [facility] [id number] [facility] 09:00:00 09:00:[address] [place] - Drive [facility] Medicine l Medicine Outpati ent Clinics 2019-08-06 2019-08-06 [facility] [id number] 09:30:00 09:30:[address] [facility] [address] [facility] [address] [facility] Medicine l Medicine Outpati ent Clinics 2019-02-04 2019-02-04 [facility] [id number] [address] 10[facility]00:00 10:00:[address] [facility] [address] [facility] [address] [facility] Medicine Medicine Outpati ent Clinics 2019-02-04 2019-02-04 [facility] [id number] 09[facility]45:00 09:45:00 t [facility] Medicine Medicine Outpati ent Clinics 2018-11-28 2018-11-28 [facility] [id number] 13:15:00 13:15:00 t [facility] Medicine Medicine Outpati ent Clinics 2018-10-26 2018-10-26 [facility] [id number] 15:00:00 15:00:00 t [facility] Medicine Medicine Outpati ent Clinics 2018-10-22 2018-10-22 [facility] [id number] [address] 15:00:00 15:00:[address] [facility] [address] [facility] Medicine l Medicine Outpati ent Clinics 2018-06-26 2018-06-26 [facility] [id number] 09:00:00 09:00:[address] [facility] [address] [facility] Medicine l Medicine Outpati ent Clinics 2018-06-13 2018-06-13 [facility] [id number] [address] 14:45:00 14:45:00 t [facility] Medicine l Medicine Outpati ent Clinics 2018-06-04 2018-06-04 [facility] [id number] 13:00:00 13:00:00 [facility] Medicine Outpati ent Clinics 2018-06-01 2018-06-01 [facility] [id number] 13:30:00 13:30:00 [facility] Medicine Outpati ent Clinics 2018-05-28 2018-05-28 [facility] [id number] 13:23:00 13:23:00 [facility] Medicine Outpati ent Clinics 2018-05-28 2018-05-28 [facility] [id number] 08:40:00 08:40:00 [facility] Medicine Outpati ent Clinics 2018-05-24 2018-05-24 [facility] [id number] 10:30:00 10:30:00 [facility] Medicine Outpati [facility] Clinics Results This patient has no known results.
[2021-07-30 15:08] LABS: Absolute Lymphocytes (CBC) 0.5 K/uL (0.7-4.9); Basophils % 0.4 % (0-1.3); Hematocrit 31.7 % (36.0-45.0); Lymphocytes % 16.4 % (15.3-44.8); MPV 8.1 fL (7.6-11.3); RBC Red Blood Cell Count 3.78 M/uL (3.86-4.86)
[2021-07-30 15:13] LABS: Protime INR 0.97
[2021-07-30 15:26] LABS: ALT/SGPT 62 U/L (12-78); AST/SGOT 82 U/L (15-37); Albumin 3.1 g/dL (3.4-5.0); Alkaline Phosphatase 110 U/L (45-117); BUN Blood Urea Nitrogen 10 mg/dL (7-18); Bicarbonate 23 mmol/L (21-32); Bilirubin Direct 0.1 mg/dL (0-0.2); Bilirubin Total 0.3 mg/dL (0.2-1.0); Ferritin 329.9 ng/mL (8-388); Glucose Level 155 mg/dL (74-106); Lipase 281 U/L (73-393); Potassium 4.4 mmol/L (3.5-5.1); Sodium Level 128 mmol/L (136-145); Troponin (Emerg Dept Use Only) < 0.02 ng/mL (0.0-0.045)
--- NOTE | 2021-07-30 15:52 | RAD REPORT ---
EXAM DESCRIPTION: RAD - Chest Single View - 07/30/2021 3:23 pm CLINICAL HISTORY: MALAISE COMPARISON: Portable November 2019 TECHNIQUE: AP portable chest image was obtained 07/30/2021 3:23 pm . FINDINGS: No peripheral mass or consolidation. Chronic interstitial lung pattern is noted. Findings are not substantially different. Severity of chronic disease could mask early superimposed edema or i nfiltrate. Failure or volume overload are not suspected. Heart and vasculature are normal. No measura ble pleural effusion and no pneumothorax. No acute bony abnormality seen. No acute aortic findings up spected. IMPRESSION: Chronic interstitial lung disease is present not substantially different from comparison . Severity of chronic disease could mask early edema or infiltrate.
[2021-07-30] MEDS ORDERED: ONDANSETRON 4 MG/2 ML VIAL ONE (19:23)
--- NOTE | 2021-07-30 21:02 | RAD REPORT ---
EXAM DESCRIPTION: CT - Chest For Pe Angio - 07/30/2021 8:42 pm CLINICAL HISTORY: DYSPNEA COMPARISON: Thorax W/ Con dated 07/19/2021; Chest Single View dated 07/30/2021 TECHNIQUE: Dynamically enhanced 3 mm thick images of the chest were obtained during administration o f approximately 150mL Isovue 370 IV contrast. Coronal and oblique MIP reconstruction images were gene rated and reviewed. Exam utilizes a protocol to evaluate the pulmonary arterial tree. All CT scans are performed using dose optimization technique as appropriate and may include automated exposure control or mA/KV adjustment according to patient size. FINDINGS: No pulmonary emboli are identified. The aorta as imaged shows no acute or suspicious finding. Patient has prominent aortic arterial wall atherosclerotic calcifications. No displaced calcification. No pericardial thickening or effusion. Subpleural biapical scarring changes are present similar to July 19. Small spiculated nodularity in the right middle lobe has not changed. Since the prior study the patient has developed bilateral lower lobe peripheral ground-glass opacitie s. Right middle lobe ground-glass opacification is present as well. There are minimal ground-glass op acities in each upper lobe. Pattern is well described in COVID-19 pneumonia. Non COVID viral infiltra pato and organizing pneumonia can have this appearance. No pleural effusion or pleural thickening. No mediastinal or hilar suspicious masses. No chest wall masses or abnormal axillary lymphadenopathy. IMPRESSION: No pulmonary emboli identified. Bilateral ground-glass lung parenchymal opacification suspicious for COVID-19 pneumonia.
[2021-07-30] MEDS ORDERED: NA CHLORIDE 0.9% 250 ML ONE (22:09)
[2021-07-30] MEDS ORDERED: CASIRIVIMAB/IMDEVIMAB 10 ML VIAL ONE ×2 (22:10→22:51)
[2021-07-31 00:54] LABS: Urine Blood Negative (Negative); Urine Glucose Negative (Negative); Urine Protein Negative (Negative)
--- NOTE | 2021-07-31 01:28 | ER ---
Nurse's Notes [facility] Name: Ramandeep Renner Age: 86 yrs Sex: Female : 1935 Arrival Date: 07/30/2021 Time: 14:13 Bed 30 Private MD: Diagnosis: Pneumonia due to SARS-associated coronavirus;SARS-associated coronavirus as the cause of diseases classified elsewhere Presentation: 07/30 14:24 Chief complaint: EMS states: COVID + X 6 days, today was feeling weak, no cough or iw fever, no SOB. Coronavirus screen: Client presents with at least one sign or symptom that may indicate coronavirus-19. Client reports previous positive COVID test result. Ebola Screen: Patient negative for fever greater than or equal to 101.5 degrees Fahrenheit, and additional compatible Ebola Virus Disease symptoms Patient denies exposure to infectious person. Patient denies travel to an Ebola-affected area in the 21 days before illness onset. No symptoms or risks identified at this time. Initial Sepsis Screen: Does the patient meet any 2 criteria? No. Patient's initial sepsis screen is negative. Does the patient have a suspected source of infection? No. Patient's initial sepsis screen is negative. Risk Assessment: Do you want to hurt yourself or someone else? Patient reports no desire to harm self or others. Onset of symptoms was July 30, 2021. 14:24 Method Of Arrival: EMS: [facility] iw 14:24 Acuity: WILFRIDO 3 iw 14:48 Note pt states she is feeling very weak, her legs are tingly and fells like she's going iw to fall. has been taking tylenol every 4 hours for fever, had diarrhea and vomited last night. Triage Assessment: 16:22 General: Appears in no apparent distress. comfortable, Behavior is calm, cooperative, kh1 appropriate for age. Pain: Complains of pain in generalized body aches. Historical: - Allergies: 14:25 PENICILLINS; iw - Home Meds: 14:25 amlodipine 2.5 mg tab 1 tab once daily [Active]; aspirin 81 mg Oral chew 1 tab once iw daily [Active]; atorvastatin 20 mg Oral tab 1 tab once daily [Active]; lisinopril 20 mg Oral tab 1 tab once daily [Active]; - PMHx: 14:25 CVA; hemorrhoids; Hypertension; PE; RENAL CYST; iw - Immunization history:: Adult Immunizations up to date, Client reports having NOT received the Covid vaccine. - Social history:: Patient/guardian denies using alcohol, street drugs, IV drugs, tobacco products, Smoking status: Patient denies any tobacco usage or history of. Screenin:24 Abuse screen: Denies threats or abuse. Nutritional screening: No deficits noted. kh1 Tuberculosis screening: No symptoms or risk factors identified. Fall Risk IV access (20 points). Assessment: 16:24 Neuro: No deficits noted. Cardiovascular: Reports shortness of breath, vomiting. kh1 Respiratory: Reports shortness of breath cough that is non-productive. GI: Reports diarrhea, nausea, vomiting, since yesterday. 22:00 Reassessment: Patient appears in no apparent distress at this time. cc4 22:15 Reassessment: Patient appears in no apparent distress at this time. cc4 23:10 Reassessment: Patient appears in no apparent distress at this time. No changes from cc4 previously documented assessment. 07/31 00:10 Reassessment: No changes from previously documented assessment. cc4 02:33 Reassessment: Patient appears in no apparent distress at this time. No changes from cc4 previously documented assessment. General: Appears in no apparent distress. Pain: Denies pain. Respiratory: Airway is patent. Vital Signs: 07/30 14:48 BP 103 / 83; Pulse 74; Resp 16; Temp 97.9; Pulse Ox 96% on R/A; Weight 55.34 kg; iw 16:22 BP 125 / 57; Pulse 70; Resp 20; Temp 98.0; Pulse Ox 96% on R/A; kh1 17:43 BP 156 / 60; Pulse 80; Resp 28; Temp 98.4(O); Pulse Ox 99% on R/A; 5 20:42 BP 128 / 61; Pulse 75; Resp 20; Temp 99; Pulse Ox 98% ; wr 20:52 BP 138 / 67; Pulse 87; Resp 18; Pulse Ox 93% on R/A; wr 22:00 BP 124 / 67; Pulse 85; Resp 12; Pulse Ox 98% on R/A; wr 22:15 BP 131 / 57; Pulse 82; Resp 16; Pulse Ox 97% on R/A; wr 23:10 BP 103 / 84; Pulse 78; Resp 18; Temp 99.4(O); Pulse Ox 97% on R/A; cc4 23:10 BP 103 / 84; Pulse 78; Resp 18; Temp 99.4; cc4 07/31 00:10 BP 119 / 54; Pulse 77; Resp 18; Temp 99.2(O); Pulse Ox 96% on R/A; cc4 00:10 BP 119 / 54; Pulse 78; Resp 16; Temp 99.2(O); Pulse Ox 96% on R/A; cc4 00:25 BP 116 / 58; Pulse 85; Resp 24; Temp 99.3; Pulse Ox 98% on R/A; cc4 01:40 BP 132 / 57; Pulse 85; Resp 22; Temp 100.0; Pulse Ox 97% on R/A; cc4 Vitals: 07/30 16:24 Cardiac Rhythm Assessment Regular Sinus rhythm. [facility] ED Course: 14:13 Patient arrived in ED. ja2 14:25 Triage completed. iw 14:49 Arm band placed on. iw 15:23 CXR XRAY In Process Unspecified. EDMS 16:11 Dixon Hackett MD is Attending Physician. kdr 16:22 Linnette Bhatt is Primary Nurse. kh1 16:24 Patient has correct armband on for positive identification. Bed in low position. Call [facility] light in reach. Side rails up X 1. 16:24 No provider procedures requiring assistance completed. [facility] 17:44 156/60 80 28 99% RA 98.4 oral V.S after walking. 5 20:41 CT Chest For PE Angio In Process Unspecified. EDMS 07/31 00:33 BMP Sent. cc4 01:25 Attending Physician role handed off by Dixon Hackett MD tw4 01:25 Placido Emery MD is Attending Physician. tw4 02:36 IV discontinued. cc4 Administered Medications: 07/30 22:00 Drug: Casirivimab ([id number]) (1 of 2) (EUA) 1200 mg Route: IV; Rate: calculated rate; cc4 Site: left antecubital; 23:10 Follow up: BP 103 / 84; Pulse 78 bpm; Resp 18 bpm; Temp 99.4 cc4 07/31 00:10 Follow up: BP 119 / 54; Pulse 78 bpm; Resp 16 bpm; Temp 99.2 Oral; Pulse Ox 96% RA cc4 01:40 Drug: Decadron - Dexamethasone 10 mg Route: IVP; Site: left antecubital; cc4 01:45 Drug: Acetaminophen 1000 mg Route: PO; cc4 Outcome: 07/30 20:42 Condition: stable wr 07/31 01:28 Discharge ordered by . tw4 02:35 Discharged to home with family. cc4 02:35 Condition: good 02:35 Discharge instructions given to Instructed on discharge instructions, follow up and referral plans. medication usage, Demonstrated understanding of instructions, medications. 02:38 Patient left the ED. cc4 Signatures: Dispatcher [employer] EDMS Dixon Hackett MD MD [facility] Patrizia Renner RN RN Andrews, Kimberlee Placido Garcia MD MD tw4 Miller, Linnette 1 Maria Dolores Izaguirre Christie cc4 Anna Erwin
--- NOTE | 2021-07-31 01:29 | EDPHYS ---
Physician Documentation [facility] Name: Ramandeep Renner Age: 86 yrs Sex: Female : 1935 Arrival Date: 07/30/2021 Time: 14:13 Bed 30 Private MD: ED Physician Placido Emery HPI: 07/30 16:50 This 86 yrs old Female presents to ER via EMS with complaints of Weakness, kdr COVID+. 16:51 Patient was diagnosed with Covid a week ago this last . The last 24 to 48 kdr hours, she has become increasingly weak and short of breath. On arrival her oxygen saturation was in the mid to high 90s on room air. Vital signs presently appear stable.. Onset: The symptoms/episode began/occurred gradually, 1 week(s) ago. Severity of symptoms: At their worst the symptoms were mild moderate in the emergency department the symptoms are unchanged. The patient has experienced a previous episode. The patient has been recently seen by a physician:. Historical: - Allergies: 14:25 PENICILLINS; iw - Home Meds: 14:25 amlodipine 2.5 mg tab 1 tab once daily [Active]; aspirin 81 mg Oral chew 1 tab once iw daily [Active]; atorvastatin 20 mg Oral tab 1 tab once daily [Active]; lisinopril 20 mg Oral tab 1 tab once daily [Active]; - PMHx: 14:25 CVA; hemorrhoids; Hypertension; PE; RENAL CYST; iw - Immunization history:: Adult Immunizations up to date, Client reports having NOT received the Covid vaccine. - Social history:: Patient/guardian denies using alcohol, street drugs, IV drugs, tobacco products, Smoking status: Patient denies any tobacco usage or history of. ROS: 16:51 Constitutional: Negative for fever, chills, and weight loss, Eyes: Negative for injury, kdr pain, redness, and discharge, ENT: Negative for injury, pain, and discharge, Neck: Negative for injury, pain, and swelling, Cardiovascular: Negative for chest pain, palpitations, and edema, Back: Negative for injury and pain, : Negative for injury, bleeding, discharge, and swelling, MS/Extremity: Negative for injury and deformity, Skin: Negative for injury, rash, and discoloration, Neuro: Negative for headache, weakness, numbness, tingling, and seizure activity. Psych: Negative for depression, anxiety, suicide ideation, homicidal ideation, and hallucinations, Allergy/Immunology: Negative for hives, rash, and allergies, Endocrine: Negative for neck swelling, polydipsia, polyuria, polyphagia, and marked weight changes, Hematologic/Lymphatic: Negative for swollen nodes, abnormal bleeding, and unusual bruising. 16:51 Respiratory: Positive for cough, with no reported sputum, dyspnea on exertion, shortness of breath, on exertion. 16:51 Abdomen/GI: Positive for nausea and vomiting, nausea, vomiting, and diarrhea. Exam: 16:51 Constitutional: This is a well developed, well nourished patient who is awake, alert, kdr and in no acute distress. Head/Face: Normocephalic, atraumatic. Eyes: Pupils equal round and reactive to light, extra-ocular motions intact. Lids and lashes normal. Conjunctiva and sclera are non-icteric and not injected. Cornea within normal limits. Periorbital areas with no swelling, redness, or edema. Neck: Trachea midline, no thyromegaly or masses palpated, and no cervical lymphadenopathy. Supple, full range of motion without nuchal rigidity, or vertebral point tenderness. No Meningismus. Chest/axilla: Normal chest wall appearance and motion. Nontender with no deformity. No lesions are appreciated. Cardiovascular: Regular rate and rhythm with a normal S1 and S2. No gallops, murmurs, or rubs. Normal PMI, no JVD. No pulse deficits. Abdomen/GI: Soft, non-tender, with normal bowel sounds. No distension or tympany. No guarding or rebound. No evidence of tenderness throughout. Back: No spinal tenderness. No costovertebral tenderness. Full range of motion. Skin: Warm, dry with normal turgor. Normal color with no rashes, no lesions, and no evidence of cellulitis. MS/ Extremity: Pulses equal, no cyanosis. Neurovascular intact. Full, normal range of motion. Neuro: Awake and alert, GCS 15, oriented to person, place, time, and situation. Cranial nerves II-XII grossly intact. Motor strength 5/5 in all extremities. Sensory grossly intact. Cerebellar exam normal. Normal gait. Psych: Awake, alert, with orientation to person, place and time. Behavior, mood, and affect are within normal limits. 16:51 Respiratory: the patient does not display signs of respiratory distress, Respirations: normal, Breath sounds: rales, that are mild, are heard in the left posterior lower lobe. Vital Signs: 14:48 BP 103 / 83; Pulse 74; Resp 16; Temp 97.9; Pulse Ox 96% on R/A; Weight 55.34 kg; iw 16:22 BP 125 / 57; Pulse 70; Resp 20; Temp 98.0; Pulse Ox 96% on R/A; kh1 17:43 BP 156 / 60; Pulse 80; Resp 28; Temp 98.4(O); Pulse Ox 99% on R/A; mh5 20:42 BP 128 / 61; Pulse 75; Resp 20; Temp 99; Pulse Ox 98% ; wr 20:52 BP 138 / 67; Pulse 87; Resp 18; Pulse Ox 93% on R/A; wr 22:00 BP 124 / 67; Pulse 85; Resp 12; Pulse Ox 98% on R/A; wr 22:15 BP 131 / 57; Pulse 82; Resp 16; Pulse Ox 97% on R/A; wr 23:10 BP 103 / 84; Pulse 78; Resp 18; Temp 99.4(O); Pulse Ox 97% on R/A; cc4 23:10 BP 103 / 84; Pulse 78; Resp 18; Temp 99.4; cc4 07/31 00:10 BP 119 / 54; Pulse 77; Resp 18; Temp 99.2(O); Pulse Ox 96% on R/A; cc4 00:10 BP 119 / 54; Pulse 78; Resp 16; Temp 99.2(O); Pulse Ox 96% on R/A; cc4 00:25 BP 116 / 58; Pulse 85; Resp 24; Temp 99.3; Pulse Ox 98% on R/A; cc4 01:40 BP 132 / 57; Pulse 85; Resp 22; Temp 100.0; Pulse Ox 97% on R/A; cc4 MDM: 07/30 16:51 Data reviewed: vital signs, nurses notes, lab test result(s), EKG, radiologic studies. kdr Counseling: I had a detailed discussion with the patient and/or guardian regarding: the historical points, exam findings, and any diagnostic results supporting the discharge/admit diagnosis, lab results, radiology results. 07/31 01:28 Patient medically screened. tw4 07/30 14:51 Order name: BMP; Complete Time: 00:55 07/30 14:51 Order name: C-Reactive Protein; Complete Time: 16:48 07/31 00:55 Interpretation: Abnormal: C-REACTIVE PROT 17.10. tw4 07/30 14:51 Order name: CBC with Diff; Complete Time: 16:48 07/30 21:56 Interpretation: Normal except: WBC 3.20; RBC 3.78; HGB 10.7; MCV 83.8; HCT 31.7; MN% tw4 12.6. 07/30 14:51 Order name: D-Dimer; Complete Time: 16:48 07/30 14:51 Order name: Ferritin; Complete Time: 16:48 07/30 14:51 Order name: LFT's; Complete Time: 16:48 07/30 14:51 Order name: Lipase; Complete Time: 16:48 07/30 14:51 Order name: PT-INR; Complete Time: 16:48 07/30 14:51 Order name: Procalcitonin; Complete Time: 16:48 07/30 14:51 Order name: Ptt, Activated; Complete Time: 16:48 07/30 14:51 Order name: Troponin (emerg Dept Use Only); Complete Time: 16:48 07/30 14:51 Order name: CXR XRAY; Complete Time: 16:48 07/30 14:51 Order name: Basic Metabolic Panel; Complete Time: 16:48 EDTX 07/31 00:53 Order name: Urine Dipstick-Ancillary; Complete Time: 00:55 EDTX 07/30 14:51 Order name: EKG; Complete Time: 14:51 07/30 14:51 Order name: IV Start; Complete Time: 00:32 07/30 14:51 Order name: Labs collected and sent; Complete Time: 00:32 07/30 14:51 Order name: O2 Sat Monitoring; Complete Time: 00:32 07/30 14:51 Order name: Urine Dipstick-Ancillary (obtain specimen) 07/30 16:50 Order name: Misc. Order: Ambulates the patient as vigorously as possible and record kdr vital signs ; Complete Time: 19:03 07/30 19:06 Order name: CT Chest For PE Angio; Complete Time: 21:53 kdr Administered Medications: 07/30 22:00 Drug: Casirivimab ([id number]) (1 of 2) (EUA) 1200 mg Route: IV; Rate: calculated rate; cc4 Site: left antecubital; 23:10 Follow up: BP 103 / 84; Pulse 78 bpm; Resp 18 bpm; Temp 99.4 cc4 07/31 00:10 Follow up: BP 119 / 54; Pulse 78 bpm; Resp 16 bpm; Temp 99.2 Oral; Pulse Ox 96% RA cc4 01:40 Drug: Decadron - Dexamethasone 10 mg Route: IVP; Site: left antecubital; cc4 01:45 Drug: Acetaminophen 1000 mg Route: PO; cc4 Disposition Summary: 07/31/21 01:28 Discharge Ordered Location: Home tw4 Problem: new tw4 Symptoms: have improved tw4 Condition: Stable tw4 Diagnosis - Pneumonia due to SARS-associated coronavirus tw4 - SARS-associated coronavirus as the cause of diseases classified elsewhere tw4 Followup: tw4 - With: Private Physician - When: Upon discharge from the Emergency Department - Reason: Recheck today's complaints, Continuance of care, Re-evaluation by your physician Discharge Instructions: - COVID-19 tw4 - Things to Know about the COVID-19 Pandemic - [facility] tw4 - Discharge Summary Sheet wr - 10 Things You Can Do to Manage Your COVID-19 Symptoms at Home - [facility] tw4 - COVID-19: Quarantine vs. Isolation - [facility] tw4 - Prevent the Spread of COVID-19 if You Are Sick - [place] [id number] Forms: - Medication Reconciliation Form tw4 - Thank You Letter tw4 - Antibiotic Education tw4 - Prescription Opioid Use tw4 - SBAR form wr Prescriptions: - NEBULIZER - inhale 1 application by INHALATION route 4 times per day; 1 Device; Refills: 0, tw4 Product Selection Permitted - Albuterol Sulfate 2.5 mg /3 mL (0.083 %) Inhalation Solution for Nebulization - inhale 1 unit by NEBULIZATION route every 8 hours As needed; 1 box; Refills: 0, tw4 Product Selection Permitted - Zithromax Z-Stan 250 mg Oral Tablet - take 1 tablet by ORAL route as directed for 5 days Day 1 - take two (2) tablets tw4 one time. Day 2, 3, 4 , 5 take one (1) tablet once daily.; 6 tablet; Refills: 0, Product Selection Permitted - Medrol (Stan) 4 mg Oral Tablets, Dose Pack - take 1 tablet by ORAL route as directed - follow package instructions; 1 packet; Refills: 0, Product Selection Permitted Signatures: Dispatcher [employer] Dixon Hussein MD MD kdr Patrizia Renner RN RN iw Placido Emery MD MD tw4 Linnette Bhatt [facility] Cathie Ho 4 Corrections: (The following items were deleted from the chart) 00:56 07/30 21:55 Abnormal. tw4 tw
[2021-07-31] MEDS ORDERED: dexAMETHasone 10 MG/ML VIAL ONE (01:59)
[2021-07-31] MEDS ORDERED: ACETAMINOPHEN 500 MG TAB ONE (02:04)
[2021-07-31 02:58] VITALS: BP 132/57; TEMP 100; O2SAT 97
== END 2021-07-31 02:38 | disposition home or self-care (01) ==
LOC: ER 14:08
DX: U07.1 COVID-19 (principal); J12.82 Pneumonia due to coronavirus disease 2019; I10 Essential (primary) hypertension; Z79.82 Long term (current) use of aspirin; Z88.0 Allergy status to penicillin; Z86.73 Personal history of transient ischemic attack (TIA), and cerebral infarction without residual deficits
CPT/HCPCS: 85025; 80048; 36415; 85610; 85379; 80076; 85730; 81003; 84484; 82728; 83690; 84145; 86140; 71275; 71045; 96375; 96374; 99284; Q9967; J1100; J7050; J2405

== ENCOUNTER 2021-08-03 14:51 | Emergency (ER) | payer OTHER ==
--- NOTE | 2021-08-03 15:07 | ER ---
Nurse's Notes [facility] Name: Ramandeep Renner Age: 86 yrs Sex: Female : 1935 Arrival Date: 08/03/2021 Time: 14:55 Bed 16 Private MD: Diagnosis: Coronavirus infection, unspecified Presentation: 08/03 15:08 Chief complaint: Patient states: states not feelin well per EMS. Coronavirus screen: [facility] Client presents with at least one sign or symptom that may indicate coronavirus-19. Standard/surgical mask placed on the client. Provider contacted for isolation considerations. Client reports previous positive COVID test result. Ebola Screen: No symptoms or risks identified at this time. Initial Sepsis Screen: Does the patient meet any 2 criteria? No. Patient's initial sepsis screen is negative. Risk Assessment: Do you want to hurt yourself or someone else? Patient reports no desire to harm self or others. Onset of symptoms is unknown. 15:08 Method Of Arrival: EMS: [place] [id number] 15:08 Acuity: WIL[facility]O 2 [facility] 15:21 Initial Sepsis Screen: Does the patient have a suspected source of infection? Yes: No. [facility] Patient's initial sepsis screen is negative. Triage Assessment: 15:17 General: Appears in no apparent distress. Behavior is calm, cooperative. Pain: Denies [facility] pain. - Immunization history:: Adult Immunizations up to date, Client reports having NOT received the Covid vaccine. - Social history:: Smoking status: Patient denies any tobacco usage or history of. Patient/guardian denies using alcohol, street drugs, tobacco products. Screenin:20 Abuse screen: Denies threats or abuse. Nutritional screening: No deficits noted. [facility] Tuberculosis screening: No symptoms or risk factors identified. Fall Risk IV access (20 points). Gait- Weak (10 pts.). Assessment: 15:19 Pain: Denies pain. Neuro: No deficits noted. Cardiovascular: Reports fast heart beat. [facility] 16:30 Reassessment: Patient appears in no apparent distress at this time. No changes from [facility] previously documented assessment. Patient and/or family updated on plan of care and expected duration. Pain level reassessed. Patient is alert, oriented x 3, equal unlabored respirations, skin warm/dry/pink. 17:30 Reassessment: Patient appears in no apparent distress at this time. No changes from kh1 previously documented assessment. Patient and/or family updated on plan of care and expected duration. Pain level reassessed. Patient is alert, oriented x 3, equal unlabored respirations, skin warm/dry/pink. Vital Signs: 15:08 BP 156 / 67; Pulse 93; Resp 18 S; Temp 98.0; Pulse Ox 96% ; kh1 15:17 BP 156 / 67; Pulse 93; Resp 18; Temp 98.0; Pulse Ox 96% on R/A; kh1 17:00 BP 132 / 69; Pulse 71; Resp 20; Temp 98.2; Pulse Ox 99% on R/A; kh1 19:36 BP 169 / 84; Pulse 89; Resp 15; Pulse Ox 96% on R/A; Pain 0/10; bc5 21:06 BP 158 / 79; Pulse 81; Resp 14; Pulse Ox 100% on R/A; Pain 1/10; bc5 ED Course: 14:55 Patient arrived in ED. ds1 15:02 Linnette Bhatt is Primary Nurse. kh1 15:04 Estrada Aguirre NP is PHCP. pm1 15:04 Yonatan Smith MD is Attending Physician. pm1 15:07 Primary Nurse role handed off by Linnette Bhatt jl7 15:07 Linnette Bahtt is Primary Nurse. kh1 15:10 Triage completed. kh1 15:11 Inserted saline lock: 20 gauge in right antecubital area, using aseptic technique. ap3 Blood collected. 15:19 Arm band placed on right wrist. Patient placed in an exam room. kh1 15:20 No provider procedures requiring assistance completed. kh1 15:21 Patient has correct armband on for positive identification. Placed in gown. Bed in low kh1 position. Call light in reach. Side rails up X 1. 15:37 XRAY Chest (1 view) In Process Unspecified. EDMS 15:39 Liver (Hepatic) Function Sent. kh1 15:39 CBC with Automated Diff Sent. kh1 15:39 Basic Metabolic Panel Sent. kh1 15:39 Ferritin Sent. kh1 15:39 CRP Sent. kh1 15:40 Magnesium Sent. kh1 15:40 NT PRO-BNP Sent. kh1 15:40 PT-INR Sent. kh1 15:40 Troponin (emerg Dept Use Only) Sent. kh1 16:15 Liver (Hepatic) Function Sent. ap3 16:15 CBC with Automated Diff Sent. ap3 16:15 Basic Metabolic Panel Sent. ap3 16:15 Ferritin Sent. ap3 16:15 CRP Sent. ap3 16:15 Magnesium Sent. ap3 16:15 NT PRO-BNP Sent. ap3 16:15 PT-INR Sent. ap3 16:15 Troponin (emerg Dept Use Only) Sent. ap3 18:39 Basic Metabolic Panel Sent. kh1 18:39 CBC with Diff Sent. kh1 18:39 LFT's Sent. kh1 21:06 IV discontinued, intact, No redness/swelling at site. bc5 Administered Medications: No medications were administered Outcome: 15:07 Discharge ordered by MD. kh1 15:07 Patient left the ED. kh1 19:36 Discharge ordered by MD. pm1 21:05 Discharged to home ambulatory, via wheelchair, with family. bc5 21:05 Condition: good 21:05 Discharge instructions given to patient, Instructed on discharge instructions, follow up and referral plans. Demonstrated understanding of instructions, follow-up care. 21:07 Patient left the ED. bc5 Signatures: Dispatcher [employer] [facility] Rene Amaris Estrada Gupta, POLICY OFFICER POLICY OFFICER pm1 Gurpreet Clemente, RN RN [email or web address] Tameka Walters RN RN [email or web address] Linnette Bhatt 1 Saranya Barrett, RN RN bc5
--- NOTE | 2021-08-03 15:50 | RAD REPORT ---
EXAM DESCRIPTION: RAD - Chest Single View - 08/03/2021 3:37 pm CLINICAL HISTORY: Weakness COMPARISON: Chest Single View dated 07/30/2021; Chest Single View dated 12/06/2019; Abdomen 1 View (KU B) dated 10/27/2019; Chest Single View dated 05/06/2019Chest Single View dated 07/30/2021; Chest Single View dated 12/06/2019; Abdomen 1 View (KUB) dated 10/27/2019; Chest Single View dated 05/06/2019; Chest For Pe Angio dated 07/30/2021 FINDINGS: Lines: None. Lungs: Mild increased ill-defined bilateral opacities. Pleural: No significant pleural effusions or pneumothorax. Cardiac: The heart size is within normal limits. Atherosclerosis . Bones: No acute fractures. Other: IMPRESSION: Mild increased airspace disease which remains concerning for multifocal pneumonia, inclu ding Covid-19.
[2021-08-03 15:59] LABS: ALT/SGPT 87 U/L (12-78); AST/SGOT 82 U/L (15-37); Albumin 3.3 g/dL (3.4-5.0); Alkaline Phosphatase 102 U/L (45-117); BUN Blood Urea Nitrogen 18 mg/dL (7-18); Bicarbonate 22 mmol/L (21-32); Bilirubin Direct 0.2 mg/dL (0-0.2); Bilirubin Total 0.5 mg/dL (0.2-1.0); Ferritin 339.6 ng/mL (8-388); Glucose Level 110 mg/dL (74-106); Magnesium 2.2 mg/dL (1.8-2.4); NT PRO-BNP 513 pg/mL (<450); Potassium 4.3 mmol/L (3.5-5.1); Protein, Total 7.5 g/dL (6.4-8.2); Sodium Level 133 mmol/L (136-145); Troponin (Emerg Dept Use Only) < 0.02 ng/mL (0.0-0.045)
[2021-08-03 16:09] LABS: Protime INR 0.92
[2021-08-03 16:21] LABS: C-Reactive Protein < 2.90 mg/L (<3.00)
[2021-08-03 16:39] LABS: Absolute Lymphocytes (CBC) 0.4 K/uL (0.7-4.9); Basophils % 0.1 % (0-1.3); Hematocrit 35.4 % (36.0-45.0); Lymphocytes % 3.8 % (15.3-44.8); MPV 7.9 fL (7.6-11.3); RBC Red Blood Cell Count 4.16 M/uL (3.86-4.86)
[2021-08-03 19:34] LABS: Urine Blood 1+ (Negative); Urine Glucose Negative (Negative); Urine Protein 2+ (Negative); Urine Specific Gravity 1.015 (1.005-1.030)
--- NOTE | 2021-08-03 19:37 | EDPHYS ---
Physician Documentation [facility] Name: Ramandeep Renner Age: 86 yrs Sex: Female : 1935 Arrival Date: 08/03/2021 Time: 14:55 Bed 16 Private MD: ED Physician Yonatan Smith HPI: 08/03 15:26 This 86 yrs old Female presents to ER via EMS with complaints of Generalized pm1 weakness. 15:26 The patient presents to the emergency department with weakness of the entire body, pm1 generalized weakness. Onset: The symptoms/episode began/occurred 1 week(s) ago. Context: Patient with diagnoses of Covid on 07/22/2021. Reevaluated on 07/30/2021 for generalized weakness and shortness of breath for 2 days. Patient was stable for discharge and was given Regeneron. Today the patient presents with generalized weakness and elevated blood pressure. Due to the elevated blood pressure patient states concern for possible heart attack. Patient without shortness of breath, chest pain, dizziness, headache, nausea, vomiting, and diaphoresis. Severity of symptoms: Pain is currently a 0 / 10. Patient's baseline: Neuro: alert and fully oriented, Motor: no deficits, Ambulation: walks without assistance. Current symptoms: Currently, the patient is not experiencing any symptoms. The patient has been recently seen by a physician: with similar presenting complaints, Diagnosed with continued Covid symptoms and given Regeneron and discharged home. - Immunization history:: Adult Immunizations up to date, Client reports having NOT received the Covid vaccine. - Social history:: Smoking status: Patient denies any tobacco usage or history of. Patient/guardian denies using alcohol, street drugs, tobacco products. ROS: 15:26 Constitutional: Negative for fever, chills, and weight loss, Eyes: Negative for injury, pm1 pain, redness, and discharge, ENT: Negative for injury, pain, and discharge, Neck: Negative for injury, pain, and swelling, Cardiovascular: Negative for chest pain, palpitations, and edema, Respiratory: Negative for shortness of breath, cough, wheezing, and pleuritic chest pain, Abdomen/GI: Negative for abdominal pain, nausea, vomiting, diarrhea, and constipation, Back: Negative for injury and pain, : Negative for injury, bleeding, discharge, and swelling, MS/Extremity: Negative for injury and deformity, Skin: Negative for injury, rash, and discoloration. 15:26 Neuro: Positive for Generalized weakness, Negative for dizziness, headache, numbness, tingling, Focal weakness. 15:26 All other systems are negative. Exam: 15:26 Constitutional: This is a well developed, well nourished patient who is awake, alert, pm1 and in no acute distress. Head/Face: Normocephalic, atraumatic. 15:26 Skin: Warm, dry with normal turgor. Normal color with no rashes, no lesions, and no evidence of cellulitis. MS/ Extremity: Pulses equal, no cyanosis. Neurovascular intact. Full, normal range of motion. 15:26 Eyes: Exam is negative for acute changes, Extraocular movements: intact throughout, Conjunctiva: no acute changes, no injection, Sclera: no acute changes, icterus, is not appreciated. 15:26 ENT: Mouth: no acute changes, Lips: normal, moist, Oral mucosa: normal, pink and intact, moist. 15:26 Cardiovascular: Exam negative for acute changes, Rate: normal, Rhythm: regular, Pulses: no pulse deficits are appreciated. 15:26 Respiratory: Exam negative for acute changes, respiratory distress, shortness of breath, Breath sounds: are clear throughout, no decreased breath sounds, no rales, rhonchi, no wheezing. 15:26 Abdomen/GI: Inspection: abdomen appears normal, Palpation: abdomen is soft and non-tender, in all quadrants. 15:26 Neuro: Exam negative for acute changes, Orientation: is normal, Mentation: is normal, Motor: is normal, moves all fours. Vital Signs: 15:08 BP 156 / 67; Pulse 93; Resp 18 S; Temp 98.0; Pulse Ox 96% ; kh1 15:17 BP 156 / 67; Pulse 93; Resp 18; Temp 98.0; Pulse Ox 96% on R/A; kh1 17:00 BP 132 / 69; Pulse 71; Resp 20; Temp 98.2; Pulse Ox 99% on R/A; kh1 19:36 BP 169 / 84; Pulse 89; Resp 15; Pulse Ox 96% on R/A; Pain 0/10; bc5 21:06 BP 158 / 79; Pulse 81; Resp 14; Pulse Ox 100% on R/A; Pain 1/10; bc5 MDM: 15:06 Patient medically screened. joe 18:03 Data reviewed: vital signs. Data interpreted: Pulse oximetry: on room air is 96 %. pm1 Interpretation: normal. Counseling: I had a detailed discussion with the patient and/or guardian regarding: the historical points, exam findings, and any diagnostic results supporting the discharge/admit diagnosis, lab results, radiology results. 18:03 ED course: Would like urine sample tested. pm1 18:03 ED course: Nontoxic-appearing patient with vital signs within normal limits diagnosed pm1 with Covid on 07/22/2021 and discharged home. Patient was given monoclonal antibodies on subsequent visit for similar complaints on 07/30/2021. Patient presenting today with complaints of elevated blood pressure and generalized weakness. No cough fever or shortness of breath. Chest x-ray shows shows mild Covid pneumonia. Patient made aware of this however she is not symptomatic or requiring any supplemental oxygen therapy and patient received Regeneron 4 days ago. Patient can therefore be discharged home and educated on recurrent precautions for Covid. 08/03 15:28 Order name: Basic Metabolic Panel pm1 08/03 15:28 Order name: CBC with Diff pm1 08/03 15:28 Order name: LFT's pm1 08/03 15:28 Order name: Magnesium; Complete Time: 17:02 pm1 08/03 15:28 Order name: NT PRO-BNP; Complete Time: 17:02 pm1 08/03 15:28 Order name: PT-INR; Complete Time: 17:02 pm1 08/03 15:28 Order name: Troponin (emerg Dept Use Only); Complete Time: 17:02 pm1 08/03 15:28 Order name: XRAY Chest (1 view); Complete Time: 15:53 pm1 08/03 15:28 Order name: CRP; Complete Time: 17:02 pm1 08/03 15:28 Order name: Ferritin; Complete Time: 17:02 pm1 08/03 15:28 Order name: Basic Metabolic Panel; Complete Time: 17:02 EDMS 08/03 15:28 Order name: CBC with Automated Diff; Complete Time: 17:02 EDMS 08/03 15:28 Order name: Liver (Hepatic) Function; Complete Time: 17:02 EDMS 08/03 19:34 Order name: Urine Dipstick-Ancillary; Complete Time: 19:36 EDVA 08/03 15:28 Order name: EKG; Complete Time: 15:29 pm1 08/03 15:28 Order name: Cardiac monitoring; Complete Time: 15:40 pm1 08/03 15:28 Order name: EKG - Nurse/Tech; Complete Time: 16:08 pm1 08/03 15:28 Order name: IV Saline Lock; Complete Time: 15:39 pm1 08/03 15:28 Order name: Labs collected and sent; Complete Time: 15:39 pm1 08/03 15:28 Order name: O2 Per Protocol; Complete Time: 15:40 pm1 08/03 15:28 Order name: O2 Sat Monitoring; Complete Time: 15:40 pm1 08/03 18:03 Order name: Urine Dipstick-Ancillary (obtain specimen) pm1 Administered Medications: No medications were administered Disposition: 08/04 06:43 Co-signature as Attending Physician, Yonatan Smith MD I agree with the assessment and jeo plan of care. Disposition Summary: 08/03/21 19:36 Discharge Ordered Location: Home(08/03/21 19:36) pm1 Problem: new pm1 Symptoms: have improved pm1 Condition: Stable(08/03/21 19:36) pm1 Diagnosis - Coronavirus infection, unspecified pm1 Followup: pm1 - With: Emergency Department - When: As needed - Reason: Worsening of condition Followup: pm1 - With: Private Physician - When: 2 - 3 days - Reason: Recheck today's complaints, Continuance of care, Re-evaluation by your physician Discharge Instructions: - Discharge Summary Sheet pm1 - COVID-19 pm1 - COVID-19 Frequently Asked Questions pm1 - 10 Things You Can Do to Manage Your COVID-19 Symptoms at Home - [facility] pm1 - COVID-19: Quarantine vs. Isolation - [facility] pm1 Forms: - Medication Reconciliation Form pm1 - Thank You Letter pm1 - Antibiotic Education pm1 - Prescription Opioid Use pm1 Signatures: Dispatcher [employer] Yonatan Frederick MD MD cha Marinas, Patrick, [employer] pm1 Linnette Bhatt [facility] Corrections: (The following items were deleted from the chart) 08/03 15:09 15:07 Home [facility] [email or web address] 15:09 15:07 Stable [facility]7 15:09 15:07 Chest pain, unspecified kh1 [email or web address]
[2021-08-03 21:44] VITALS: TEMP 98.2
[2021-08-03 21:47] VITALS: BP 158/79; O2SAT 100
--- NOTE | 2021-08-04 14:39 | EKG ---
Test Date: 2021-08-03 Test Time: 15:48:15 Software Quality Manager: NEENA MEASUREMENT RESULTS: Intervals: Rate: 84 [place]: 128 QRSD: 72 QT: 348 QTc: 411 [place]: P: 51 [place]: 128 QRS: 25 T: 57 INTERPRETIVE STATEMENTS: Normal sinus rhythm Normal ECG Compared to ECG 12/06/2019 19:17:37 No significant changes Electronically Signed On 08-04-21 14:38:27 CDT by Peter Cope
== END 2021-08-03 21:07 | disposition home or self-care (01) ==
LOC: ER 14:51
DX: U07.1 COVID-19 (principal)
CPT/HCPCS: 36415; 71045; 80048; 80076; 81003; 82728; 83735; 83880; 84484; 85025; 85610; 86140; 93005; 99284

== ENCOUNTER 2022-01-04 14:27 | Emergency (ER) | payer OTHER ==
--- OUTSIDE RECORDS SUMMARY | 2022-01-04 14:33 | XMS REPORT | Continuity of Care Document ---
:1935 Author Organization [facility] t Address [address] [place] [address] Care Team Providers Name Role Phone Tesha Eddy Attending Clinician Unavailable Wilda EDDY Attending Clinician Unavailable Esteban ALVAREZ, L Attending Clinician Unavailable Kenneth TAVARES S Attending Clinician Lida TAVARES Attending Clinician Mary TAVARES Attending Clinician Lida TAVARES Admitting Clinician Payers Payer Name Policy Type Policy Number Effective Date Expiration Date S priti [facility] [id number] 2020 DUAL COMPLETE HMO 00:00:00 [facility] [id number] 2016 MEDICAID 00:00:00 MEDICARE PART A \\T\\ [id number] 1999 B 00:00:00 MEDICAID [facility] [id number] 2011 00:00:00 Problems Condition Condition Condition Status Onset Resolution Last Treating Co mments Source Name Details Category Date Date Treatment Clinician Date NSTEMI NSTEMI Disease Active 2019-11 Univers (non-ST (non-ST 1-17 ity of elevated elevated 00:00: [place] myocardial myocardial 00 Me dical infarction infarction Br anch ) ) CVA CVA Disease Active 2019-11 Univers (cerebral (cerebral 1-17 ity of vascular vascular 00:00: [place] accident) accident) [address] [place] [address] HTN HTN Disease Active 2019-11 Univers (hypertens (hypertens 1-17 it y of ion) ion) 00:00: [place] 00 [facility] HLD HLD Disease Active 2019-11 Univers (hyperlipi (hyperlipi 1-17 it y of demia) demia) 00:00: [place] 00 [facility] Fever Fever Disease Active 2019-11 Univers 1-17 ity of 00:00: [place] 00 [facility] Urinary Urinary Disease Active 2019-11 Univers tract tract 1-17 ity of infection, infection, [place] site not site not 00 Medica l specified specified Bran ch Pulmonary Pulmonary Disease Active Uni vers emboli emboli 2-05 ity of 00:00: [place] 00 [facility] Chest pain Chest pain Disease Active U nivers 2-04 ity of 00:00: [address] Allergies, Adverse Reactions, Alerts Allergy Allergy Status Severity Reaction(s) Onset Inactive Treating Comm ents Source Name Type Date Date Clinician NO KNOWN Drug Active [facility] ALLERGIE Class ity of S [facility] Social History Social Habit Start Date Stop Date Quantity Comments Source [facility] Exposure to Not sure [facility] SARS-CoV-2 (event) [facility] Alcohol intake 2017-05-23 2017-05-23 Current University of 00:00:00 00:00:00 non-drinker of [facility] alcohol Branch (finding) Cigarettes smoked 2017-05-23 2017-05-23 Univers ity of current (pack per 00:00:00 00:00:00 [place] ) - Reported Branch Cigarette 2017-05-23 2017-05-23 University of pack-years 00:00:00 00:00:00 [facility] History of tobacco 2016-05-24 Smoker Univer sity of use 00:00:00 [facility] Smoking Status Start Date Stop Date Source Former smoker 2017-05-23 00:00:00 2017-05-23 00:00:00 Universi ty of [facility] Medications Ordered Filled Start Stop Current Ordering Indication Dosage Frequency Signature Comments Components Source Medication Medication Date Date Medication? Clinician (SIG) Name Name Psyllium 2019-11 Yes Take by Unive rs (METAMUCIL, -21 mouth. ity of SUGAR,) 1.7 18:27: [place] g Wafr 17 Medical Branch LATANOPROST 2019-[address] in U nivers OPHTHALMIC -21 each eye. ity of 18:27: [place] [address] Medical Branch rivaroxaban 2019-11 Yes Take by Un lillina (XARELTO) -21 mouth. ity of 20 mg 18:27: [place] tablet 17 Medical Branch OMEPRAZOLE 2019-11 Yes 20mg Take 20 mg U nivers MAGNESIUM -21 by mouth ity of (PRILOSEC 18:27: daily. [place] OTC ORAL) 17 Medical Branch Psyllium 2019-11 Yes Take by Unive rs (METAMUCIL, -21 mouth. ity of SUGAR,) 1.7 18:27: [place] g Hifr 17 Medical Branch LATANOPROST 2019-[address] in U nivers OPHTHALMIC -21 each eye. ity of 18:27: [place] [address] Medical Branch rivaroxaban 2019-11 Yes Take by Un lillian (XARELTO) -21 mouth. ity of 20 mg 18:27: [place] tablet Medical Branch OMEPRAZOLE 2019-11 Yes 20mg Take 20 mg U nivers MAGNESIUM -21 by mouth ity of (PRILOSEC 18:27: daily. [place] OTC ORAL) 17 Medical Branch cefdinir 2019-11 2020- No 300mg 300 mg, Univ ers (OMNICEF) 12-10 Oral, BID, ity of capsule 300 15:30: 13:59 10 doses, [place] mg 00 :00 First dose Medical on Sat Branch 10/10/20 at 0930, Last dose on Mon10/14/20 at 2000, FERMIN
Re ason for Anti-Infec tive: Documented Infection< br>Documen dagoberto Infection Site: Respirator y
Durat ion of Therapy: Other (see Comments) aspirin 81 2019-11 Yes [id number] 81mg Take 1 U nivers mg chewable 1-21 tablet by ity of tablet 00:00: mouth [place] 00 daily. Medical Branch cefdinir 2019-11 Yes [id number] 300mg Take 1 Un lillian 300 mg 1-21 capsule by ity of capsule 00:00: mouth 2 00 (two) Medical times Branch daily. azithromyci 2019- Yes [id number] 250mg Take 1 Univers n 250 mg 1-21 tablet by ity of tablet 00:00: mouth [place] 00 daily. Medical Take 500 Branch mg day 1, then 250 mg days 2 to 5. aspirin 81 2019- Yes [id number] 81mg Take 1 U nivers mg chewable 1-21 tablet by ity of tablet 00:00: mouth [place] 00 daily. Medical Branch cefdinir 2019-11 Yes [id number] 300mg Take 1 Un lillian 300 mg 1-21 capsule by ity of capsule 00:00: mouth 2 00 (two) Medical times Branch daily. azithromyci 2019-11 Yes [id number] 250mg Take 1 Univers n 250 mg 1-21 tablet by ity of tablet 00:00: mouth [place] 00 daily. Medical Take 500 Branch mg day 1, then 250 mg days 2 to 5. azithromyci 2019-11 2020- No [id number] 250mg Take 1 Univers n 250 mg 1-21 11-21 tablet by ity o f tablet 00:00: 00:00 mouth [place] 00 :00 daily. Medical Take 500 Branch mg day 1, then 250 mg days 2 to 5. tc 2019- 2020- No 42mCi 42 Univers 99m-tetrofo 1-20 11-20 millicurie i ty of smin 20:15: 18:10 , [place] ([facility]) 00 :00 Intravenou Medi macrina injection s, ONCE, 1 Bran ch 42 dose, Fri millicurie 10/09/20 at 1415, Routine tc 2019-11 2020- No 14mCi 14 Univers 99m-tetrofo 1-20 -20 millicurie i ty of smin 20:15: 16:50 , [place] ([facility]) 00 :00 Intravenou Medi macrina injection s, ONCE, 1 Bran ch 14 dose, Fri millicurie 10/09/20 at 1415, Routine Regadenoson 2019-11 2020- No .4mg 0.4 mg, Un lillian (LEXISCAN) 1-20 -20 Slow IV ity o f injection 19:30: 18:10 Push, [place] 0.4 mg 00 :00 ONCE, 1 Medical dose, Fri Branch 10/09/20 at 1330, Routine
city council member approving Restricted medication : GUILLERMO MICHAELSDWAYNE dexMEDEtomi 2019-11 Yes .2ug/kg 0.2-1.5 Univers dine 200 1-20 /h mcg/kg/hr ity of mcg in 0.9 17:13: ?49.9 kg Supa as % NaCl 50 42 (2.495-18. Medi macrina mL 7125 Branch (PRECEDEX) mL/hr, RTU IV rounded to infusion 2.5-18.71 mL/hr), IV Infusion, TITRATE, Sedation-R ASS score (0 to -1), Starting Mon10/09/20 at 1113
In itiate infusion at 0.2 mcg/kg/hr and titrate by 0.1 mcg/kg/hr every 30 minutes to goal sedation score. Maximum dose = 1.5 mcg/kg/hr. If goal not maintained at maximum allowed dose, contact prescriber .
atorvastati 2019-11 Yes [id number] 20mg Take 1 Univers n 20 mg 1-20 tablet by ity of tablet 00:00: mouth at [place] 00 bedtime. Medical Branch metoprolol 2019-11 Yes [id number] 25mg Take 1 U nivers tartrate 25 1-20 tablet by ity of mg tablet 00:00: mouth 2 [place] 00 (two) Medical times [place] daily. atorvastati 2019- Yes [id number] 20mg Take 1 Univers n 20 mg 1-20 tablet by ity of tablet 00:00: mouth at [place] 00 bedtime. Medical Branch metoprolol 2019-11 Yes [id number] 25mg Take 1 U nivers tartrate 25 1-20 tablet by ity of mg tablet 00:00: mouth 2 [place] 00 (two) Medical times [place] daily. azithromyci 2019- 2020- No [id number] 250mg Take 1 Univers n 250 mg 1-20 11-21 tablet by ity o f tablet 00:00: 00:00 mouth [place] 00 :00 daily. Medical Take 500 Branch mg day 1, then 250 mg days 2 to 5. atorvastati 2019-11 2020- No [id number] 20mg Take 1 Univers n 20 mg 1-20 11-20 tablet by ity of tablet 00:00: 00:00 mouth at [place] 00 :00 bedtime. Medical Branch metoprolol 2019-11 2020- No [id number] 25mg Take 1 Univers tartrate 25 12-09 tablet by it y of mg tablet 00:00: 00:00 mouth 2 [place] 00 :00 (two) Medical times Branch daily. metoprolol 2019-11 Yes 25mg 25 mg, Unive rs tartrate 1-19 Oral, BID, ity o f (LOPRESSOR) 19:00: First dose [place] tablet 25 00 on [place] Medical mg 10/08/20 Branch at 1300, Until Discontinu ed, Routine diltiazem 2019-11 Yes 2.5mg/h 2.5-15 Uni vers (CARDIZEM 1-19 mg/hr ity of IV) 125 mg 02:31: (2.5-15 [place] in D5W 18 mL/hr), IV Medical infusion Infusion, Branch TITRATE, Heart Rate less than 100, Starting Mon10/07/20 at 2030
In itiate infusion at 2.5 mg/hr. Titrate by 2.5 mg/hr every 5 minutes to 15 minutes as needed to achieve and maintain goal heart rate. Maximum dose = 15 mg/hr. If goal not maintained at maximum allowed dose, contact prescriber .
aspirin 2019-11 Yes 81mg 81 mg, Univers chewable 12-07 Oral, ity of tablet 81 15:00: DAILY, [place] mg 00 First dose Medical (after Branch last modificati on) on Mon10/07/20 at 0900, Until Discontinu ed, Routine azithromyci 2019-11- No 250mg 250 mg, U nivers n 12-07 Oral, ity of (ZITHROMAX) 15:00: 14:38 DAILY, 4 [place] tablet 250 00 :00 doses, Medical mg First dose Branch on Mon10/07/20 at 0900, Last dose on Mon10/10/20 at 0900, FERMIN
Re ason for Anti-Infec tive: Documented Infection< br>Documen dagoberto Infection Site: Respirator y
Durat ion of Therapy: Other (see Comments) cefTRIAXone 2019-11- No 2000mg 2,000 mg, Univers (ROCEPHIN) 18 - IV ity of 2,000 mg in 06:00: 15:24 Piggyback, [place] NaCl 0.9% 00 :27 Q24H ABX, Medic al (NS) 100 mL First dose Br anch MINI-BAG on Mon10/07/20 at 0000, Until Discontinu ed, 100 mL
Reas on for Anti-Infec tive: Documented Infection< br>Documen dagoberto Infection Site: Respirator y
Du ration of Therapy: 7 days atorvastati 2019-11 Yes 20mg 20 mg, Univ ers n (LIPITOR) 18 Oral, QHS, it y of tablet 20 03:00: [place] mg 00 on Medical 10/06/20 Branch at 2100, Until Discontinu ed, Routine latanoprost 2019-11 Yes 1[drp] 1 Drop, U nivers (XALATAN) 12-07 Both Eyes, ity of 0.005 % 03:00: QHS, First [place] ophthalmic 00 dose on Medica l drops 1 Mon Branch Drop 10/06/20 at 2100, Until Discontinu ed enoxaparin 2019-11- No 1mg/kg 50 mg Uni vers (LOVENOX) 12-06 (rounded ity o f injection 17:30: 17:30 [place] 49.9 [place] 50 mg 00 :00 mg = 1 Medical mg/kg Branch ?49.9 kg), Subcutaneo us, Q24H, 1 dose, First dose on Mon10/06/20 at 1130, Routine ondansetron 2019-11 Yes 4mg 4 mg, Slow Univers (ZOFRAN 12-06 IV Push, ity of (PF)) 15:14: Q6HPRN, [place] injection 4 22 Starting Medi macrina mg [facility] Branch 10/06/20 at 0914, Until Discontinu ed, Routine, Nausea and Vomiting (N/V) acetaminoph 2019-11 Yes 650mg 650 mg, Un lillian en 12-06 Oral, ity of (TYLENOL) 15:14: Q6HPRN, [place] tablet 650 13 Starting Medic al mg [facility] Branch 10/06/20 at 0914, Until Discontinu ed, Routine, Pain (scale 1-3) iohexol 2019-11 2020- No 100mL 100 mL, Unive rs (OMNIPAQUE 12-06 Intravenou it y of 350 10:15: 10:15 s, ONCE, 1 [place] BULK-100 00 :00 dose, Tue Medica l mL) 10/06/20 Branch injection at 0415, 100 mL Routine NaCl 0.9% 2019-11- No 500mL at 999 Univ ers (NS) bolus 12-06 mL/hr, 500 it y of infusion 10:15: 13:01 mL, IV [place] 500 mL 00 :00 Piggyback, Medical ONCE, 1 Branch dose, 10/06/20 at 0415, STAT pantoprazol 2019-11- No 40mg 40 mg, IV Univers e 12-06 Piggyback, ity of (PROTONIX) 09:45: 08:58 ONCE, 1 Supa as 40 mg in 00 :00 dose, Tue Medica l NaCl 0.9% 10/06/20 Branch (NS) 100 mL at 0345, MINI-BAG 100 mL ondansetron 2019-11- No 4mg 4 mg, Slow Univers (ZOFRAN 12-06 IV Push, ity of (PF)) 09:45: 08:44 ONCE, 1 [place] injection 4 00 :00 dose, Tue Med ical mg 10/06/20 Branch at 0345, FERMIN aspirin 81 2017-0 Yes 81mg Take 81 mg U nivers mg chewable 7-10 by mouth ity of tablet 00:00: weekly. [address] aspirin 81 2017-0 Yes 81mg Take 81 mg U nivers mg chewable 7-10 by mouth ity of tablet 00:00: weekly. [address] [place] Shirley Yes [place] 1 tablet [facility] [...] Besylate Besylate Eddy [facility] Prilosec Prilosec Yes [place] not [facility] OTC OTC Eddy defined [facility] Immunizations Ordered Filled Immunization Date Status Comments Sour e Immunization Name Name Td 2016-09-16 Completed University of 00:00:00 [place] [facility] Td 2016-09-16 Completed University 00:00:00 [facility] Vital Signs Vital Name Observation Time Observation Value Comments Source Systolic blood 2020-10-10 13:09:00 129 mm[Hg] Univer sity of pressure [facility] Branch Diastolic blood 2020-10-10 13:09:00 66 mm[Hg] Unive rsity of pressure [place] [facility] Heart rate 2020-10-10 13:09:00 82 /min Universi ty of [place] [facility] Body temperature 2020-10-10 13:09:00 36.94 Marleni Univ ersity of [facility] Branch Respiratory rate 2020-10-10 13:09:00 18 /min Univ ersity of [place] [facility] Oxygen saturation in 2020-10-10 13:09:00 97 /min University of Arterial blood by [place] [employer] macrina Pulse oximetry Branch Body weight 2020-10-10 10:00:00 55.611 kg Universi ty of [place] [facility] BMI 2020-10-10 10:00:00 21.72 kg/m2 Universi ty of [place] [facility] Body height 2020-10-06 05:46:00 160 cm Universi ty of [place] [facility] Systolic blood 2020-10-10 13:09:00 129 mm[Hg] Univer sity of pressure [facility] Branch Diastolic blood 2020-10-10 13:09:00 66 mm[Hg] Unive rsity of pressure [place] [facility] Heart rate 2020-10-10 13:09:00 82 /min Universi ty of [place] [facility] Body temperature 2020-10-10 13:09:00 36.94 Marleni Univ ersity of [place] [facility] Respiratory rate 2020-10-10 13:09:00 18 /min Univ ersity of [place] [facility] Oxygen saturation in 2020-10-10 13:09:00 97 /min University of Arterial blood by [place] [employer] macrina Pulse oximetry Branch Body weight 2020-10-10 10:00:00 55.611 kg Universi ty of [place] [facility] BMI 2020-10-10 10:00:00 21.72 kg/m2 Universi ty of [place] [facility] Body height 2020-10-06 05:46:00 160 cm Universi ty of [place] [facility] Procedures Procedure Date / Time Performing Clinician Source Performed NM MYOCARDIUM PERFUSION 2020-10-09 19:08:14 Cari Haider [facility] STRESS AND REST Medical Branch MAGNESIUM 2020-10-09 10:24:00 [facility] BASIC METABOLIC PANEL 2020-10-09 10:24:00 Mary [facility] (NA, K, CL, CO2, GLUCOSE, Medica l Branch BUN, CREATININE, CA) CBC WITH DIFF 2020-10-09 10:24:00 [facility] MAGNESIUM 2020-10-08 10:36:00 Carmelita, [facility] TROPONIN I 2020-10-08 10:36:00 Carmelita, [facility] BASIC METABOLIC PANEL 2020-10-08 10:36:00 brandee [facility] (NA, K, CL, CO2, GLUCOSE, Medica l Branch BUN, CREATININE, CA) CBC WITH DIFF 2020-10-08 10:36:00 Carmelita [facility] MRSA / MSSA SCREEN BY 2020-10-08 02:10:00 Carmelita [facility] PCR, NARES [facility] MAGNESIUM 2020-10-08 02:05:00 Carmelita, [facility] IONIZED CALCIUM 2020-10-08 02:05:00 Carmelita [facility] PNEUMOCOCCAL ANTIGEN 2020-10-07 16:51:00 [facility] 2020-10-07 11:18:00 [facility] BASIC METABOLIC PANEL 2020-10-07 11:18:[address] [facility] (NA, K, CL, CO2, GLUCOSE, Medica l Branch BUN, CREATININE, CA) CBC WITH DIFF 2020-10-07 11:18:00 Elliott [facility] TROPONIN I 2020-10-07 03:59:00 Elliott [facility] TROPONIN I 2020-10-06 21:44:00 Elliott [facility] COVID-19 (MOLECULAR 2020-10-06 19:02:00 Mason Zambrano [facility] TESTING [facility] NUCLEIC ACID AMPLIFICATION) LAB ONLY COVID 2020-10-06 19:02:00 Juan Manuel Mason [facility] INTERPRETATION [facility] TROPONIN I 2020-10-06 18:42:00 Elliott [facility] THYROID STIMULATING 2020-10-06 18:42:00 Elliott [facility] HORMONE [facility] LIPID PANEL ([id number])(TOTAL 2020-10-06 18:42:00 Elliott [facility] CHOLESTEROL, [facility] TRIGLYCERIDES, HDL) ECHO ROUTINE W/DOPPLER 2020-10-06 16:58:[address] [facility] COLOR [facility] URINALYSIS 2020-10-06 16:38:00 Elliott [facility] TROPONIN I 2020-10-06 12:41:00 Wally Cooper [facility] CT CHEST PULMONARY 2020-10-06 10:11:56 Wally Cooper [facility] ANGIOGRAM Medical Branch HB ECG ROUTINE & RHYTHM 2020-10-06 08:36:44 Wally Cooper [facility] URINALYSIS 2020-10-06 08:08:00 Wally Cooper [facility] URINE CULTURE 2020-10-06 08:08:00 Wally Cooper [facility] XR CHEST 1 VW 2020-10-06 07:40:24 Wally Cooper [facility] COVID-19 (ID NOW RAPID 2020-10-06 06:01:00 Wally Cooper [facility] TESTING) Medical Branch LAB ONLY COVID 2020-10-06 06:01:00 Wally Cooper [facility] INTERPRETATION [facility] LACTIC ACID WHOLE BLOOD 2020-10-06 05:57:00 Wally Cooper Uni [facility] BLOOD CULTURE SCREEN 2020-10-06 05:56:00 Wally Cooper [facility] TROPONIN I 2020-10-06 05:56:00 Wally Cooper [facility] COMP. METABOLIC PANEL 2020-10-06 05:56:00 Wally Cooper [facility] ([id number]) Medical Branch CBC WITH DIFF 2020-10-06 05:56:00 Wally Cooper [facility] PROTHROMBIN TIME / INR 2020-10-06 05:56:00 Wally Cooper [facility] ACTIVATED PARTIAL 2020-10-06 05:56:00 Wally Cooper [facility] THRMPLAS [facility] N-TERMINAL PRO-BNP 2020-10-06 05:56:00 Wally Cooper [facility] HB ECG ROUTINE & RHYTHM 2020-10-06 05:40:52 Wally Cooper [facility] NOTICE OF PRIVACY 2020-10-06 05:33:54 Doctor Soniya, [facility] PRACTICES [place] [facility] CONSENT/REFUSAL FOR 2020-10-06 05:33:27 Doctor Soniya, [facility] DIAGNOSIS AND TREATMENT [place] [facility] [place] EMERGENCY DEPARTMENT 2020-10-05 06:01:00 Doctor Soniya, [facility] DOCUMENTS [place] [facility] AGREEMENTS AUTHORIZATIONS 2020-10-05 06:01:00 Doctor Soniya, [facility] AND IRREVOCABLE [place] [facility] ASSIGNMENTS (FORM 2001) Encounters Start End Encounter Admission Attending Care Care Encounter Source Date/Time Date/Time Type Type Clinicians Facility Department ID 2021-12-15 Outpatient Eddy, [facility] 14:30:35 [place] [facility] 2021-12-15 [facility] 13[facility]33:18 [place] [facility] 2021-12-15 Outpatient Eddy, [facility] 13:27:45 [place] [id number] [facility] 2021-12-15 Outpatient Eddy, [facility] 13:19:20 [place] [id number] [facility] 2021-12-15 Outpatient Eddy, [facility] 12[facility]48:15 [place] [id number] [facility] 2021-12-15 Outpatient Eddy, [facility] 12:46:21 [place] [id number] [facility] 2021-12-15 Outpatient Eddy, [facility] 12:45:42 [place] [id number] [facility] 2021-12-15 Outpatient Eddy, [facility] 12:36:51 [place] [id number] [facility] 2021-12-15 Outpatient Eddy, [facility] 12:07:42 [place] [id number] [facility] 2021-12-15 Outpatient Eddy, [facility] 12:06:14 [place] [id number] [facility] 2021-12-15 Outpatient Eddy, [facility] 12:05:19 [place] [id number] [facility] 2021-12-15 Outpatient Eddy, [facility] 11:04:18 [place] [id number] [facility] 2021-12-15 Outpatient Eddy, [facility] 11:04:05 [place] [id number] [facility] 2021-12-15 Outpatient Eddy, [facility] 11:02:37 [place] [id number] [facility] 2021-11-23 2021-11-23 ambulatory [facility] [id number] [facility] 2021-11-23 2021-11-23 ambulatory [facility] [id number] [facility] 2021-09-17 2021-09-17 ambulatory [facility] [id number] [facility] 2021-09-16 2021-09-16 Outpatient [facility] [id number] [facility] 2021-07-31 2021-07-31 Outpatient Karlee [facility] [id number] Univers 11:00:00 11:00:00 SHUN miguel a [facility] 2021-06-22 2021-06-22 Outpatient [facility] [id number] [facility] 2021-06-07 2021-06-07 Outpatient [facility] [id number] [facility] 2021-02-23 2021-02-23 Outpatient [facility] [id number] [facility] 2021-01-28 2021-01-28 Outpatient [facility] [id number] [facility] 2021-01-19 2021-01-19 Outpatient [facility] [id number] [facility] 2020-12-17 2020-12-17 Outpatient [facility] [id number] [facility] 2020-12-14 2020-12-14 Outpatient [facility] [id number] [facility] 2020-11-25 2020-11-25 Outpatient [facility] [id number] [facility] 2020-11-25 2020-11-25 Outpatient [facility] [id number] [facility] 2020-11-16 2020-11-16 Outpatient [facility] [id number] [facility] 2020-10-29 2020-10-29 Outpatient [facility] [id number] [facility] 2020-10-22 2020-10-22 Outpatient [facility] [id number] [facility] 2020-10-13 2020-10-13 Outpatient [facility] [id number] [facility] 2020-10-12 2020-10-12 Transition Nader Orellana [id number] [facility] 00:00:00 00:00:00 of Care Nataliya L Reddy [id number] i ty [place] [id number] [place] [id number] [facility] 403 Branch 2020-10-12 2020-10-12 Transition Naedr Orellana [id number] 00:00:00 00:00:00 of Care Nataliya L Reddy [id number] [place] [id number] [facility] 2020-10-05 2020-10-10 [facility] [id number] [facility] 23:37:00 12:00:00 Encounter Lida, [facility] [id number] ity of [place] [id number] [place] [id number] [facility] 113 Branch ([facility]) 2020-10-05 2020-10-10 [facility] [id number] 23:37:00 12:00:00 Encounter [facility] [id number] Frank Hernandez [id number] [place] [id number] [facility] 113 ([facility]) 2020-10-05 2020-10-05 Emergency X [facility] ERT [id number] Univers 23:32:00 23:32:00 ity [facility] 2020-10-05 2020-10-05 Outpatient STLMLC STLMLC [id number] [facility] 2020-06-17 2020-06-17 [facility] [id number] [facility] 09:30:00 09:30:00 [place] [employer] s - Drive [facility] Medicine Outpati ent Clinics 2020-03-30 2020-03-30 [facility] [id number] 13:58:00 13:58:00 t [place] [employer] s - Drive [facility] Medicine Outpati ent Clinics 2019-12-19 2019-12-19 [facility] [id number] 09:30:00 09:30:00 [place] [employer] s - Drive [facility] Medicine Outpati ent Clinics 2019-10-31 2019-10-31 [facility] [id number] 16:21:00 16:21:00 t [place] [employer] s - Drive [facility] Medicine Outpati ent Clinics 2019-09-17 2019-09-17 [facility] [id number] [address] 09:00:00 09:00:00 t [place] [employer] s - Drive [facility] Medicine Outpati ent Clinics 2019-08-06 2019-08-06 [facility] [id number] [address] 09:30:00 09:30:[address] [facility] [address] Luke s - Road [facility] Medicine Outpati ent Clinics 2019-02-04 2019-02-04 [facility] [id number] [address] 10:00:00 10:00:[address] [facility] [address] [employer] s - Road [facility] Medicine l Medicine Outpati ent Clinics 2019-02-04 2019-02-04 [facility] [id number] 09:45:00 09:45:00 t [facility] Medicine Outpati ent Clinics 2018-11-28 2018-11-28 [facility] [id number] [address] 13:15:00 13:15:00 t [facility] Medicine Outpati ent Clinics 2018-10-26 2018-10-26 [facility] [id number] 15:00:00 15:00:00 t [facility] Medicine Outpati ent Clinics 2018-10-22 2018-10-22 [facility] [id number] 15:00:00 15:00:00 t [facility] Medicine Outpati ent Clinics 2018-06-26 2018-06-26 [facility] [id number] [address] 09:00:00 09:00:00 t [facility] Medicine Outpati ent Clinics 2018-06-13 2018-06-13 [facility] [id number] 14:45:00 14:45:00 t [facility] Medicine Outpati ent Clinics 2018-06-04 2018-06-04 [facility] [id number] 13:00:00 13:00:00 [facility] Medicine Outpati ent Clinics 2018-06-01 2018-06-01 [facility] [id number] [address] 13:30:00 13:30:00 t [facility] Medicine Outpati ent Clinics 2018-05-28 2018-05-28 [facility] [id number] [address] 13:23:00 13:23:00 t [facility] Medicine Outpati ent Clinics 2018-05-28 2018-05-28 [facility] [id number] 08:40:00 08:40:00 t [facility] Medicine Outpati ent Clinics 2018-05-24 2018-05-24 [facility] [id number] 10:30:00 10:30:00 [facility] Results Test Description Test Test Results Result Source Time Comments Comments LAB ONLY COVID 2020-09- COVID DMT [place] [address] InterpretationInterpre [facility] 20:53:00 tation/Recommendations Br anch : Molecular NAAT Test Results for Active Infection by SARS-CoV-2 Virus: This patient has tested negative for the SARS-CoV-2 virus that causes COVID-19 illness on two occasions. For approximately two-thirds of patients with a negative test result who were tested only once, the patient is truly negative and has not been infected with the SARS-CoV-2 virus. However, for those tested using a nasopharyngeal sample, each time the PCR test is performed there is approximately a [id number]-[id number] chance the patient had been infected and the result of the test is a "false negative". This occurs because the virus is predominantly in the lung and out of reach of the nasopharyngeal swab. Importantly, this patient has tested negative twice. Especially if there were minimal or no symptoms of the infection, this makes a false negative result less likely for this patient and much more likely that the patient has not been infected with the SARS-CoV-2 virus. If the patient continues to have persistent or worsening symptoms, a repeat NAAT test (PCR, Rapid ID Now, etc.) should be performed. Tests for IgM and/or IgG Antibodies to SARS-CoV-2 Virus: Testing for IgM and IgG antibodies 1-3 weeks after illness onset will indicate whether the patient has produced antibodies to the virus. At this time, it is not known if the production of antibodies indicates whether the patient is immune to future infections with the SARS-CoV-2 virus. ------ Interpretation Result Comments:These interpretation comments are based upon aggregate COVID-19 test results in [facility]. They apply to the following tests offered at [facility] and assume the acceptable specimen type(s) were used: A. Tests for the Identification of SARS-CoV-2 RNA (Molecular NAAT Tests): ? ? ?- SARS-CoV-2 PCR assays including Barrington Aptima, Barrington Fusion, Castillo RealTime, and Twiigg Xpert Xpress. ? ? ?- SARS-CoV-2 Rapid ID NOW by the ID NOW assay. ? B. Tests for the Identification of SARS-CoV-2 Antibodies: ? ? ?- Chemiluminescent immunoassays including Access SARS-CoV-2 IgM (DXI 600), SIM DigitalS Gibq-UYFB-DnN-2 IgG (Vitros 5600 and Vitros 3600), and Castillo SARS-CoV-2 IgG (ABSTRACTOR ?I System). These interpretations are autopopulated into [employer] based on computerized algorithms matching an interpretation code to the patient's set of test results, and a clinical pathologist evaluates the comments for accuracy. However, these comments do not consider testing a patient may have had outside of the [facility] system. If results for COVID-19 infection continue to be negative in the context of a suspected viral respiratory illness, it is possible the patient may have an infection with another respiratory virus. Influenza testing and a respiratory pathogen panel if clinically indicated may be beneficial in this setting. [facility] LABORATORY SERVICESCOVID [id number] NAAT (no units) ? ? Date ? Value ? 10/06/2020 ? Not Detected ? SARS-CoV-2 Rapid ID NOW (no units) ? ? Date ? Value ? 10/06/2020 ? Not Detected ? [facility] NM MYOCARDIUM 2020-09- Impression: Myocardial [employer] [facility] PERFUSION STRESS 20 perfusion imaging is [facility] AND REST 19:18:08 normal with no Branch inducible ischemia. Overallleft ventricular systolic function was normal without regional wall motionabnormalities. Jennifer Peoples MD Pharmacological myocardial perfusion imaging report Type: Technetium 99 labeled tetrofosmin rest/stress single isotope SPECTimaging with Ragadenoson pharmacological stress and gated SPECT imaging. Indication: 85 yo woman with shortness of breath, elevated troponin andparoxysmal atrial fibrillation. Procedure: Pharmacological stress test was performed with a bolus dose of 0.4 mg ofRagadenoson. The heart rate was 72 bpm at baseline and increased to 88 bpmduring the Regadenoson infusion. The blood pressure was 139/63 mmHg at restand remained stable to 134/55 mmHg, which is a normal response. Resting EKGrevealed NSR. There are no ST segment changes consistent with myocardialischemia. Gated myocardial perfusion imaging was performed at rest following theinjection of 14.00 millicuries of technetium labeled tetrofosmin. At peakpharmacologic effect, the patient was injected with 42.00 millicuries oftechnetium labeled tetrofosmin. Gated posted-stress tomographic imaging wasperformed. Findings: The overall quality of the study was adequate. SPECT images demonstrate homogeneous tracer distribution throughout themyocardium both at rest and stress. No perfusion defects are noted. Gated SPECT images demonstrate normal wall motion and myocardialthickening. Left ventricular ejection fraction was calculated to be 71% post-stress. [facility] [place] Results Inft User - 10/09/2020 1:19 PM CSTPharmacological myocardial perfusion imaging reportType: Technetium 99 labeled tetrofosmin rest/stress single isotope SPECTimaging with Ragadenoson pharmacological stress and gated SPECT imaging.Indication: 85 yo woman with shortness of breath, elevated troponin andparoxysmal atrial fibrillation. Procedure:Pharmacologi macrina stress test was performed with a bolus dose of 0.4 mg ofRagadenoson. The heart rate was 72 bpm at baseline and increased to 88 bpmduring the Regadenoson infusion. The blood pressure was 139/63 mmHg at restand remained stable to 134/55 mmHg, which is a normal response. Resting EKGrevealed NSR. There are no ST segment changes consistent with myocardialischemia.Gat ed myocardial perfusion imaging was performed at rest following theinjection of 14.00 millicuries of technetium labeled tetrofosmin. At peakpharmacologic effect, the patient was injected with 42.00 millicuries oftechnetium labeled tetrofosmin. Gated posted-stress tomographic imaging wasperformed.Findings: The overall quality of the study was adequate.SPECT images demonstrate homogeneous tracer distribution throughout themyocardium both at rest and stress. No perfusion defects are noted.Gated SPECT images demonstrate normal wall motion and myocardialthickening.L eft ventricular ejection fraction was calculated to be 71% post-stress.IMPRESSION Impression: Myocardial perfusion imaging is normal with no inducible ischemia. Overallleft ventricular systolic function was normal without regional wall motionabnormalities.Ra rolf Peoples MD BASIC METABOLIC PANEL (NA, K, CL, CO2, GLUCOSE, BUN, 2020-09 10:49:00 CREATININE, CA) Test Item Value Reference Range Interpretation Comme nts NA (test code = 1670013334) 133 mmol/L 135-145 L K (test code = 4563608266) 4.0 mmol/L 3.5-5 CL (test code = 3817747369) 102 mmol/L 98-108 CO2 TOTAL (test code = 0639958958) 23 mmol/L 23-31 AGAP (test code = 0351197458) 2-16 BUN (test code = 9375570176) 10 mg/dL 7-23 GLUCOSE (test code = 3604206472) 103 mg/dL 70-110 CREATININE (test code = 0.60 mg/dL 0.5-1.04 0470533068) CALCIUM (test code = 2096480427) 8.4 mg/dL 8.6-10.6 L eGFR Calculation (Non- mL/min/1.73m2 Cypriot) (test code = 6334255440) eGFR Calculation ( mL/min/1.73m2 Cypriot) (test code = 2231075700) ANI (test code = ANI) Association of Glomerular Filtration Rate (GFR) and Staging of Kidney Disease* + +-------- + ------+| GFR (mL/min/1.73 m2) ?| With Kidney Damage ?| ?Without Kidney Damage+ +-- + +| ?>90 ?| ?Stage one ?| ? Normal ?+ +------- + -------+| ?60-89 ?| ?Stage two ?| ? Decreased GFR ? + +-------- + ------+| ?30-59 ?| ?Stage three ?| ? Stage three ? + +-------- + ------+| ?15-29 ?| ?Stage four ? | ? Stage four ?+ +------- + -------+| ?<15 (or dialysis) ? ?| ?Stage five ? | ? Stage five ?+ +------- + -------+ *Each stage assumes the associated GFR level has been in effect for at least three months. ?Stages 1 to 5, with or without kidney disease, indicate chronic kidney disease. Notes: Determination of stages one and two (with eGFR >59mL/min/1.73 m2) requires estimation of kidney damage for at least three months as defined by structural or functional abnormalities of the kidney, manifested by either:Pathological abnormalities or Markers of kidney damage (including abnormalities in the composition of the blood or urine or abnormalities in imaging tests). Lab Interpretation (test code = Abnormal 41399-5) [facility] Test Item Value Reference Range Interpretation Comments MAGNESIUM (test code = 4264646883) 2.0 mg/dL 1.7-2.4 Lab Interpretation (test code = Normal 67221-3) [facility] WITH [id number] 10:32:00 Test Item Value Reference Range Interpretation Comments WBC (test code = See_Comment H [Automated 6690-2) message] The sy stem which generated this result transmitted reference range : 4.30 - 11.10 10*3/?L. The reference range was not used to interpret this result as normal/abnormal . RBC (test code = See_Comment L [Automated 789-8) message] The sy stem which generated this result transmitted reference range : 3.93 - 5.25 10*6/?L. The reference range was not used to interpret this result as normal/abnormal . HGB (test code = 8.9 g/dL 11.6-15 L 718-7) HCT (test code = 26.9 % 35.7-45.2 L 4544-3) MCV (test code = 82.3 fL 80.6-95.5 787-2) MCH (test code = 27.2 pg 25.9-32.8 785-6) MCHC (test code = 33.1 g/dL 31.6-35.1 786-4) RDW-SD (test code = 40.0 fL 39-49.9 98057-6) RDW-CV (test code = 13.2 % 12-15.5 788-0) PLT (test code = See_Comment [Automated 777-3) message] The sy stem which generated this result transmitted reference range : 166 - 358 10*3/ ?L. The reference r claudine was not used to interpret this result as normal/abnormal . MPV (test code = 9.9 fL 9.5-12.9 79833-4) NRBC/100 WBC (test See_Comment [Automat ed code = 4221682993) message] The system which generated this result transmitted reference range : 0.0 - 10.0 /100 WBCs. The refer ence range was not u sed to interpret th is result as normal/abnormal . NRBC x10^3 (test code <0.01 See_Comment [Auto mated = 3348264625) message] The s ystem which generated this result transmitted reference range : 10*3/?L. The reference range was not used to interpret this result as normal/abnormal . GRAN MAT (NEUT) % 75.4 % (test code = 770-8) IMM GRAN % (test code 0.40 % = 4159416024) LYMPH % (test code = 11.8 % 736-9) MONO % (test code = 11.6 % 5905-5) EOS % (test code = 0.7 % 713-8) BASO % (test code = 0.1 % 706-2) GRAN MAT x10^3(ANC) 8.46 10*3/uL 1.88-7.09 H (test code = 4105609135) IMM GRAN x10^3 (test 0.05 10*3/uL 0-0.06 code = 9737710050) LYMPH x10^3 (test code 1.32 10*3/uL 1.32-3.29 = 731-0) MONO x10^3 (test code 1.30 10*3/uL 0.33-0.92 H = 742-7) EOS x10^3 (test code = 0.08 10*3/uL 0.03-0.39 711-2) BASO x10^3 (test code <0.03 0.01-0.07 = 704-7) Lab Interpretation Abnormal (test code = 19029-5) [facility], [id number] 18:57:00 Test Item Value Reference Range Interpretation Comments MSSA Screen by PCR, Positive Negative A Nares (test code = 71665-8) MRSA/MSSA Positive? Yes No A (test code = 8712945323) ANI (test code = ANI) A positive test result does not necessarily indicate the presence of viable organism. Lab Interpretation (test Abnormal code = 70109-8) [facility] 14:26:00 Test Item Value Reference Range Interpretation Comments MAGNESIUM (test code = 7700955883) 2.0 mg/dL 1.7-2.4 Lab Interpretation (test code = Normal 95651-7) [facility] [id number] 11:05:00 Test Item Value Reference Range Interpretation Comments TROPONIN I (test 0.283 ng/mL See_Comment H [Automated code = 8679750074) message] The system which generated this result transmitted reference range : <=0.034. The reference range was not used to interpret this result as normal/abnormal . ANI (test code = Equal or Less than ANI) 0.034 ng/ml---Normal ?Note: Cardiac troponin begins to rise 3-4 hours after the onset of ischemia. Repeat in 4-6 hours if the sample was drawn within 3-4 hours of the onset of the symptom and found normal. Between 0.035 and 0.120 ng/mL--- Borderline. Questionable myocardial injury or necrosis ? ?Note: Serial measurement may be necessary to confirm or exclude the diagnosis of myocardial injury or necrosis; Clinical correlation (symptoms, EKGs, imaging studies, and others) required; Repeat in 4-6 hours if clinically indicated. ? Equal or Higher than 0.121 ng/mL---Abnormal. Myocardial Injury or Necrosis Likely ? Biotin has been reported to cause a negative bias, interpret results relative to patient's use of biotin. ? Lab Interpretation Abnormal (test code = 12704-4) [facility] (NA, K, CL, CO2, GLUCOSE, BUN, CREATININE, CA)2020-10-08 10:54:00 Test Item Value Reference Range Interpretation Comments NA (test code = 134 mmol/L 135-145 L 0749584996) K (test code = 3.9 mmol/L 3.5-5 2031527518) CL (test code = 102 mmol/L 98-108 6229518266) CO2 TOTAL (test code = 24 mmol/L 23-31 4563121652) AGAP (test code = 2-16 1837745665) BUN (test code = 8 mg/dL 7-23 6608824033) GLUCOSE (test code = 116 mg/dL 70-110 H 0961595103) CREATININE (test code = 0.58 mg/dL 0.5-1.04 0523122605) CALCIUM (test code = 8.2 mg/dL 8.6-10.6 L 9582575314) eGFR Calculation mL/min/1.73m2 (Non-) (test code = 4408858339) eGFR Calculation mL/min/1.73m2 () (test code = 5665147256) ANI (test code = ANI) Association of Glomerular Filtration Rate (GFR) and Staging of Kidney Disease* + --+ --+ ------+| GFR (mL/min/1.73 m2) ?| With Kidney Damage ?| ?Without Kidney Damage+ --------+ --------+ +| ?>90 ?| ?Stage one ?| ? Normal ?+ ---+ ---+ -------+| ?60-89 ?| ?Stage two ?| ? Decreased GFR ? + --+ --+ ------+| ?30-59 ?| ?Stage three ?| ? Stage three ? + --+ --+ ------+| ?15-29 ?| ?Stage four ? | ? Stage four ?+ ---+ ---+ -------+| ?<15 (or dialysis) ? ?| ?Stage five ? | ? Stage five ?+ ---+ ---+ -------+ *Each stage assumes the associated GFR level has been in effect for at least three months. ?Stages 1 to 5, with or without kidney disease, indicate chronic kidney disease. Notes: Determination of stages one and two (with eGFR >59mL/min/1.73 m2) requires estimation of kidney damage for at least three months as defined by structural or functional abnormalities of the kidney, manifested by either:Pathological abnormalities or Markers of kidney damage (including abnormalities in the composition of the blood or urine or abnormalities in imaging tests). Lab Interpretation Abnormal (test code = 58378-4) [facility] WITH [id number] 10:44:00 Test Item Value Reference Range Interpretation Comments WBC (test code = See_Comment H [Automated 6690-2) message] The sy stem which generated this result transmitted reference range : 4.30 - 11.10 10*3/?L. The reference range was not used to interpret this result as normal/abnormal . RBC (test code = See_Comment L [Automated 789-8) message] The sy stem which generated this result transmitted reference range : 3.93 - 5.25 10*6/?L. The reference range was not used to interpret this result as normal/abnormal . HGB (test code = 8.6 g/dL 11.6-15 L 718-7) HCT (test code = 26.2 % 35.7-45.2 L 4544-3) MCV (test code = 83.2 fL 80.6-95.5 787-2) MCH (test code = 27.3 pg 25.9-32.8 785-6) MCHC (test code = 32.8 g/dL 31.6-35.1 786-4) RDW-SD (test code = 40.4 fL 39-49.9 89539-4) RDW-CV (test code = 13.4 % 12-15.5 788-0) PLT (test code = See_Comment [Automated 777-3) message] The sy stem which generated this result transmitted reference range : 166 - 358 10*3/ ?L. The reference r claudine was not used to interpret this result as normal/abnormal . MPV (test code = 9.8 fL 9.5-12.9 33270-8) NRBC/100 WBC (test See_Comment [Automat ed code = 2261774148) message] The system which generated this result transmitted reference range : 0.0 - 10.0 /100 WBCs. The refer ence range was not u sed to interpret th is result as normal/abnormal . NRBC x10^3 (test code <0.01 See_Comment [Auto mated = 3030189302) message] The s ystem which generated this result transmitted reference range : 10*3/?L. The reference range was not used to interpret this result as normal/abnormal . GRAN MAT (NEUT) % 79.6 % (test code = 770-8) IMM GRAN % (test code 0.40 % = 0427871537) LYMPH % (test code = 7.5 % 736-9) MONO % (test code = 11.8 % 5905-5) EOS % (test code = 0.5 % 713-8) BASO % (test code = 0.2 % 706-2) GRAN MAT x10^3(ANC) 9.06 10*3/uL 1.88-7.09 H (test code = 5924949189) IMM GRAN x10^3 (test 0.05 10*3/uL 0-0.06 code = 2024945501) LYMPH x10^3 (test code 0.86 10*3/uL 1.32-3.29 L = 731-0) MONO x10^3 (test code 1.35 10*3/uL 0.33-0.92 H = 742-7) EOS x10^3 (test code = 0.06 10*3/uL 0.03-0.39 711-2) BASO x10^3 (test code <0.03 0.01-0.07 = 704-7) Lab Interpretation Abnormal (test code = 95355-7) [facility] [id number] 02:46:00 Test Item Value Reference Range Interpretation Comments IONIZED CA (test code = 4.50 mg/dL 4.5-5.3 6983007967) PH SERUM (test code = 9423517181) 7.35-7.45 Lab Interpretation (test code = Normal 11782-0) [facility] 02:34:00 Test Item Value Reference Range Interpretation Comments MAGNESIUM (test code = 0692291938) 2.0 mg/dL 1.7-2.4 Lab Interpretation (test code = Normal 23575-7) [facility] COVID-19 [id number] 00:48:00 Test Item Value Reference Range Interpretation Comments SARS-CoV-2 NAAT (test Not Detected Not Detected code = 73629-3) ANI (test code = ANI) Victrix Aptima SARS-CoV-2 Assay is a nucleic acid amplification test intended for the qualitative detection of RNA from SARS-CoV-2 from nasopharyngeal (ANTIQUE DEALER) specimens. ?It is used under Emergency Use Authorization (EUA) by FDA. A positive result is indicative of the presence of SARS-CoV-2 RNA. ?Clinical correlation with patient history and other diagnostic information is necessary to determine patient infection status. A negative (Not Detected) result does not preclude SARS-CoV-2 infection. ?Clinical correlation with patient history and other diagnostic information should be used in patient management decisions. Invalid: Unable to generate a valid test result on this specimen. ?Please submit a new specimen for repeat testing if clinically indicated. Lab Interpretation Normal (test code = 40758-8) [facility] URIN[facility] ANTIGEN [id number] 22:36:00 Test Item Value Reference Range Interpretation Comments Legionella Urinary Negative Negative Antigen (test code = 9546091569) ANI (test code = ANI) Negative for L. pneumophilia serogroup I antigen in urine suggesting no recent or current infection. Infection due to Legionella cannot be ruled out since other serogroups and species may cause disease. Furthermore, antigens may not be present in urine during early stage of infection, or the level of antigen present in urine may be below the detection limit of the test. Lab Interpretation (test Normal code = 09387-2) [facility] CenterPNEUMOCOCCAL [id number] 22:36:00 Test Item Value Reference Range Interpretation Comments S. pneumoniae antigen (test code = Negative Negative 4506353344) Lab Interpretation (test code = Normal 60495-8) [facility] Center[facility]rine [id number] 14:42:00 Test Item Value Reference Range Interpretation Comments URINE CULTURE (test 10,000 - 100,000 CFU/mL code = 630-4) mixed aerobic organisms - suggests endogenous microbial contamination [facility] [id number] 11:50:00 Test Item Value Reference Range Interpretation Comments TROPONIN I (test 0.721 ng/mL See_Comment H [Automated code = 2994489659) message] The system which generated this result transmitted reference range : <=0.034. The reference range was not used to interpret this result as normal/abnormal . ANI (test code = Equal or Less than ANI) 0.034 ng/ml---Normal ?Note: Cardiac troponin begins to rise 3-4 hours after the onset of ischemia. Repeat in 4-6 hours if the sample was drawn within 3-4 hours of the onset of the symptom and found normal. Between 0.035 and 0.120 ng/mL--- Borderline. Questionable myocardial injury or necrosis ? ?Note: Serial measurement may be necessary to confirm or exclude the diagnosis of myocardial injury or necrosis; Clinical correlation (symptoms, EKGs, imaging studies, and others) required; Repeat in 4-6 hours if clinically indicated. ? Equal or Higher than 0.121 ng/mL---Abnormal. Myocardial Injury or Necrosis Likely ? Biotin has been reported to cause a negative bias, interpret results relative to patient's use of biotin. ? Lab Interpretation Abnormal (test code = 94741-8) [facility] [facility] [id number] 11:39:00COVID DMT InterpretationInterpretation/Recommendations: Molecular NAAT Test Results for Active Infection by SARS-CoV-2 Virus: This result indicates that the patient has tested negative on one occasion for the SARS-CoV-2 virus that causes COVID-19 illness. The most likely interpretation for approximately two-thirds of patients with a negative test is that the patient is truly negative and has not beeninfected with the SARS-CoV-2 virus. However, for those tested using a nasopharyngeal sample, there is approximately a [id number] chance that the patient was infected and the result of the first test is a "false" negative. This occurs because the virus is predominantly in the lung and out of reach ofthe nasopharyngeal swab. If the patient continues to have persistent or worsening symptoms, a repeatNAAT test (PCR, Rapid ID Now, etc.) should be performed. Tests for IgM and/or IgG Antibodies to SARS-CoV-2 Virus: Testing for IgM and IgG antibodies 1-3 weeks after illness onset will indicate whetherthe patient has produced antibodies to the virus. At this time, it is not known if the production ofantibodies indicates whether the patient is immune to future infections with the SARS-CoV-2 virus.? ? Interpretation Result Comments:These interpretation comments are based upon aggregate COVID-19 test results pooled from [facility].They apply to the following tests offered at [facility] and assume the acceptable specimen type(s) were used: A. Tests for the Identification of SARS-CoV-2 RNA (Molecular NAAT Tests):SARS-CoV-2 PCR assays including Barrington Aptima, Barrington Fusion, Castillo RealTime, and Twiigg Xpert Xpress. SARS-CoV-2 Rapid ID NOW by the ID NOW assay.? B. Tests for the Identification of SARS-CoV-2 Antibodies: Chemiluminescent immunoassays including Access SARS-CoV-2 IgM (DXI 600), SIM DigitalS Wihc-SKPI-IxD-2 IgG (Vitros 5600 andVitros 3600), and Castillo SARS-CoV-2 IgG (ABSTRACTOR I System). ?These interpretations are autopopulated into [facility] based on computerized algorithms matching an interpretation code to the patient's set oftest results, and a clinical pathologist evaluates the comments for accuracy. However, these comments do not consider testing a patient may have had outside of the [facility] system. If results for COVID-19 infection continue to be negative in the context of a suspected viral respiratory illness, it is possible the patient may have an infection with another respiratory virus. Influenza testing and a respiratory pathogen panel if clinically indicated may be beneficial in this setting. If there continues torito a high degree of clinical suspicion for COVID-19 illness despite multiple negative tests on nasopharyngeal specimens, then it may be necessary to test the patient for the SARS-CoV-2 virus using lower respiratory tract samples (such as sputum, bronchoalveolar lavage fluid (BAL), tracheal aspirate, etc.). ?[facility] LABORATORY SERVICESCOVID YhmpnjtOUPN-NaZ-6 Rapid ID NOW (no units) ? ? Date ? Value ? 10/06/2020 ? Not Detected ? [facility] (NA, K, CL, CO2, GLUCOSE, BUN, CREATININE, CA)2020-10-07 11:37:00 Test Item Value Reference Range Interpretation Comments NA (test code = 133 mmol/L 135-145 L 3492820450) K (test code = 3.9 mmol/L 3.5-5 1959641054) CL (test code = 103 mmol/L 98-108 2132806247) CO2 TOTAL (test code = 21 mmol/L 23-31 L 5955553982) AGAP (test code = 2-16 1261741383) BUN (test code = 12 mg/dL 7-23 7653141720) GLUCOSE (test code = 89 mg/dL 70-110 7398214242) CREATININE (test code = 0.79 mg/dL 0.5-1.04 5813916992) CALCIUM (test code = 8.2 mg/dL 8.6-10.6 L 9424169242) eGFR Calculation mL/min/1.73m2 (Non-) (test code = 4083413349) eGFR Calculation mL/min/1.73m2 () (test code = 7038327521) ANI (test code = ANI) Association of Glomerular Filtration Rate (GFR) and Staging of Kidney Disease* + --+ --+ ------+| GFR (mL/min/1.73 m2) ?| With Kidney Damage ?| ?Without Kidney Damage+ --------+ --------+ +| ?>90 ?| ?Stage one ?| ? Normal ?+ ---+ ---+ -------+| ?60-89 ?| ?Stage two ?| ? Decreased GFR ? + --+ --+ ------+| ?30-59 ?| ?Stage three ?| ? Stage three ? + --+ --+ ------+| ?15-29 ?| ?Stage four ? | ? Stage four ?+ ---+ ---+ -------+| ?<15 (or dialysis) ? ?| ?Stage five ? | ? Stage five ?+ ---+ ---+ -------+ *Each stage assumes the associated GFR level has been in effect for at least three months. ?Stages 1 to 5, with or without kidney disease, indicate chronic kidney disease. Notes: Determination of stages one and two (with eGFR >59mL/min/1.73 m2) requires estimation of kidney damage for at least three months as defined by structural or functional abnormalities of the kidney, manifested by either:Pathological abnormalities or Markers of kidney damage (including abnormalities in the composition of the blood or urine or abnormalities in imaging tests). Lab Interpretation Abnormal (test code = 04811-1) [facility] with [id number] 11:30:00 Test Item Value Reference Range Interpretation Comments WBC (test code = See_Comment [Automated 3590-2) message] The sy stem which generated this result transmitted reference range : 4.30 - 11.10 10*3/?L. The reference range was not used to interpret this result as normal/abnormal . RBC (test code = See_Comment L [Automated 159-8) message] The sy stem which generated this result transmitted reference range : 3.93 - 5.25 10*6/?L. The reference range was not used to interpret this result as normal/abnormal . HGB (test code = 8.0 g/dL 11.6-15 L 718-7) HCT (test code = 25.0 % 35.7-45.2 L 4544-3) MCV (test code = 85.6 fL 80.6-95.5 787-2) MCH (test code = 27.4 pg 25.9-32.8 785-6) MCHC (test code = 32.0 g/dL 31.6-35.1 786-4) RDW-SD (test code = 41.6 fL 39-49.9 33354-1) RDW-CV (test code = 13.3 % 12-15.5 788-0) PLT (test code = See_Comment [Automated 777-3) message] The sy stem which generated this result transmitted reference range : 166 - 358 10*3/ ?L. The reference r claudine was not used to interpret this result as normal/abnormal . MPV (test code = 10.2 fL 9.5-12.9 76393-1) NRBC/100 WBC (test See_Comment [Automat ed code = 1508969961) message] The system which generated this result transmitted reference range : 0.0 - 10.0 /100 WBCs. The refer ence range was not u sed to interpret th is result as normal/abnormal . NRBC x10^3 (test code <0.01 See_Comment [Auto mated = 5281168305) message] The s ystem which generated this result transmitted reference range : 10*3/?L. The reference range was not used to interpret this result as normal/abnormal . GRAN MAT (NEUT) % 77.3 % (test code = 770-8) IMM GRAN % (test code 0.40 % = 2423371916) LYMPH % (test code = 9.9 % 736-9) MONO % (test code = 12.0 % 5905-5) EOS % (test code = 0.2 % 713-8) BASO % (test code = 0.2 % 706-2) GRAN MAT x10^3(ANC) 7.19 10*3/uL 1.88-7.09 H (test code = 7155416782) IMM GRAN x10^3 (test 0.04 10*3/uL 0-0.06 code = 6512089275) LYMPH x10^3 (test code 0.92 10*3/uL 1.32-3.29 L = 731-0) MONO x10^3 (test code 1.12 10*3/uL 0.33-0.92 H = 742-7) EOS x10^3 (test code = <0.03 0.03-0.39 L 711-2) BASO x10^3 (test code <0.03 0.01-0.07 = 704-7) Lab Interpretation Abnormal (test code = 32771-0) [facility] CenterSatnam [id number] 04:46:00 Test Item Value Reference Range Interpretation Comments TROPONIN I (test 0.943 ng/mL See_Comment H [Automated code = 6916379349) message] The system which generated this result transmitted reference range : <=0.034. The reference range was not used to interpret this result as normal/abnormal . ANI (test code = Equal or Less than ANI) 0.034 ng/ml---Normal ?Note: Cardiac troponin begins to rise 3-4 hours after the onset of ischemia. Repeat in 4-6 hours if the sample was drawn within 3-4 hours of the onset of the symptom and found normal. Between 0.035 and 0.120 ng/mL--- Borderline. Questionable myocardial injury or necrosis ? ?Note: Serial measurement may be necessary to confirm or exclude the diagnosis of myocardial injury or necrosis; Clinical correlation (symptoms, EKGs, imaging studies, and others) required; Repeat in 4-6 hours if clinically indicated. ? Equal or Higher than 0.121 ng/mL---Abnormal. Myocardial Injury or Necrosis Likely ? Biotin has been reported to cause a negative bias, interpret results relative to patient's use of biotin. ? Lab Interpretation Abnormal (test code = 99037-1) [facility] CenterTrjuan josé [id number] 22:17:00 Test Item Value Reference Range Interpretation Comments TROPONIN I (test 0.741 ng/mL See_Comment H [Automated code = 0432478999) message] The system which generated this result transmitted reference range : <=0.034. The reference range was not used to interpret this result as normal/abnormal . ANI (test code = Equal or Less than ANI) 0.034 ng/ml---Normal ?Note: Cardiac troponin begins to rise 3-4 hours after the onset of ischemia. Repeat in 4-6 hours if the sample was drawn within 3-4 hours of the onset of the symptom and found normal. Between 0.035 and 0.120 ng/mL--- Borderline. Questionable myocardial injury or necrosis ? ?Note: Serial measurement may be necessary to confirm or exclude the diagnosis of myocardial injury or necrosis; Clinical correlation (symptoms, EKGs, imaging studies, and others) required; Repeat in 4-6 hours if clinically indicated. ? Equal or Higher than 0.121 ng/mL---Abnormal. Myocardial Injury or Necrosis Likely ? Biotin has been reported to cause a negative bias, interpret results relative to patient's use of biotin. ? Lab Interpretation Abnormal (test code = 70704-6) [facility] CenterThyroid Stimulating Hormone (TSH)2020-10-06 19:34:00 Test Item Value Reference Range Interpretation Comments TSH (test code = See_Comment [Automated message] 5485869932) The system [employer] generated this result transmitted ref erence range: 0.45 - 4 .70 mIU/L. The refe rence range was not u sed to interpret this result as normal/abnor mal. Lab Interpretation (test Normal code = 77721-3) [facility] CenterTroponin [id number] 19:15:00 Test Item Value Reference Range Interpretation Comments TROPONIN I (test 0.621 ng/mL See_Comment H [Automated code = 5815964698) message] The system which generated this result transmitted reference range : <=0.034. The reference range was not used to interpret this result as normal/abnormal . ANI (test code = Equal or Less than ANI) 0.034 ng/ml---Normal ?Note: Cardiac troponin begins to rise 3-4 hours after the onset of ischemia. Repeat in 4-6 hours if the sample was drawn within 3-4 hours of the onset of the symptom and found normal. Between 0.035 and 0.120 ng/mL--- Borderline. Questionable myocardial injury or necrosis ? ?Note: Serial measurement may be necessary to confirm or exclude the diagnosis of myocardial injury or necrosis; Clinical correlation (symptoms, EKGs, imaging studies, and others) required; Repeat in 4-6 hours if clinically indicated. ? Equal or Higher than 0.121 ng/mL---Abnormal. Myocardial Injury or Necrosis Likely ? Biotin has been reported to cause a negative bias, interpret results relative to patient's use of biotin. ? Lab Interpretation Abnormal (test code = 45442-6) [facility] CenterLipid Panel (Total Cholesterol, Triglycerides, HDL)2020-10-06 19:03:00 Test Item Value Reference Range Interpretation Comments CHOL (test code = 99 mg/dL 120-200 L 6065656876) HDL (test code = 41 mg/dL >50 L 5148272985) HDLC RATIO (test code = See_Comment [Au tomated message] 4807971845) The system [employer] generated this result transmitted ref erence range: <=4.5. T he reference range was not used to int erpret this result as normal/abnormal . TRIG (test code = 64 mg/dL 30-170 7994388477) LDL CHOL (test code = 45 mg/dL See_Comment [Auto mated message] 77502-9) The system [employer] generated this result transmitted ref erence range: <=160. T he reference range was not used to int erpret this result as normal/abnormal . VLDL (test code = 13 mg/dL 5-60 5894196236) Lab Interpretation (test Abnormal code = 22428-3) [facility] CenterURINALYSIS2020-11-17 17:58:00 Test Item Value Reference Range Interpretation Comments APPEARANCE (test code = Clear Clear 3569837426) COLOR (test code = Straw Yellow A 9667053090) PH (test code = 4.8-8.0 7220116198) SP GRAVITY (test code = 1.003-1.030 6271419581) GLU U QUAL (test code = Normal Normal 8486759863) BLOOD (test code = 2+ Negative A 5178622010) KETONES (test code = Negative Negative 3950766731) PROTEIN (test code = Negative Negative 2887-8) UROBILIN (test code = Normal Normal 5562268302) BILIRUBIN (test code = Negative Negative 5975438734) NITRITE (test code = Negative Negative 5770170098) LEUK RAFY (test code = Negative Negative 3380028309) RBC/HPF (test code = See_Comment [Autom ated message] 2892966551) The system [employer] generated this result transmitted ref erence range: 0 - 3 HP F. The reference range was not used to int erpret this result as normal/abnormal . WBC/HPF (test code = <1 See_Comment [Autom ated message] 5562586773) The system [employer] generated this result transmitted ref erence range: 0 - 5 HP F. The reference range was not used to int erpret this result as normal/abnormal . BACTERIA (test code = Negative Negative 2755507629) SQ EPITH (test code = <1 See_Comment [Auto mated message] 7762513597) The system [employer] generated this result transmitted ref erence range: <=2 HPF. The reference range was not used to int erpret this result as normal/abnormal . Lab Interpretation (test Abnormal code = 39150-4) [facility] CenterCT CHEST PULMONARY [id number] 14:06:55 No acute pulmonary embolism Right middle lobe pulmonary nodules measuring up to 1 cm, new from priorexam and concerning for a neoplastic etiology. Recommend additionalinvestigation including CT PET imaging. Ill- defined right thyroid nodules measuring up to 1.5 cm, can be furtherevaluated with a thyroid ultrasound. Preliminary Report Dictated by Resident: Juancarlos Donis ?MD. Dylan, have reviewed this study and agree with theabove report. PROCEDURE: CT ANGIO CHEST WITH CONTRAST - PE PROTOCOL CLINICAL INDICATION: Shortness of breath Cough, Fever ?COMPARISON: 05/23/2017. TECHNIQUE: ?Helical CT was performed and reconstructed at 1.25 mm slicethickness from lung base to apices after the administration of 100 mLOmnipaque-350 intravenous contrast, without complication. ?Display field ofview: 40 cm. FINDINGS: PULMONARY ARTERIES:Enhancement is adequate, and there is no acute or chronic pulmonaryembolism. CHEST:Lower neck/thyroid: Ill-defined hypodensities throughout the right thyroidlobe measure up to 1.5 cm. Lungs: A spiculated 1 x 1 cm nodule in the right middle lobe is new fromprior exam (4:150). An adjacent noncalcified nodule measures 5 mm (4:147),also new from prior exam. Subpleural nodularities in the left upper lobemeasure up to 4 mm, close unchanged. Central airway: Unremarkable. Pleura: No pleural effusion, thickening or pneumothorax. T horacic aorta and great vessels: Normal in diameter. Common origin of thebrachiocephalic and left common carotid arteries. Moderate atheroscleroticdisease in the form of calcific and soft plaques are visualized throughoutthe aorta and its branches, with grossly unchanged plaque ulceration in thedescending aorta. Heart and pericardium: No detectable coronary arterial calcification.Unremarkable cardiacmorphology and pericardium. Lymph nodes: No enlarged thoracic lymph nodes. Mediastinum: Mediastinal lymph nodes are mildly prominent but measurewithin normal limits. Thoracic spine and chest wall: Unrem arkable, with normal thoracic vertebralbody heights. Other Lines/Tubes/Devices/Hardware: None Visualized upper abdomen: Stable, simple left hepatic cysts measuring up to3 cm. Multiple bilateral simple attenuating renal cysts measure up to 4.9cm in the left superior pole. A 1.7 cm cyst in the right interpolar regiondemonstrates increased attenuation and could represent a hemorrhagic orproteinaceous cysts. Diverticulosis of the hepatic flexure is seen withoutacute diverticulitis. The remainder of the visualized abdomen isunremarkable within the limitations of a CT PE protocol. [facility], Radiant Results Inft User - 10/06/2020 8:08 AM CSTPROCEDURE: CT ANGIO CHEST WITH CONTRAST - PE PROTOCOLCLINICAL INDICATION: Shortness of breath Cough, Fever COMPARISON: 05/23/2017.TECHNIQUE: Helical CT was performed and reconstructed at 1.25 mm slicethickness from lung base to apices after the administration of 100 mLOmnipaque-350 intravenous contrast, without complication. Display field ofview: 40 cm.FINDINGS:PULMONARY ARTERIES:Enhancement is adequate, and there is no acute or chronic pulmonaryembolism.CHEST:Lower neck/thyroid: Ill-defined hypodensities throughout the right thyroidlobe measure up to 1.5 cm.Lungs: A spiculated 1 x 1 cm nodule in the right middle lobe is new fromprior exam (4:150). An adjacent noncalcified nodule measures 5 mm (4:147),also new from prior exam. Subpleural nodularities in the left upper lobemeasure up to 4 mm, close unchanged.Central airway: Unremarkable.Pleura: No pleural effusion, thickening or pneumothorax.Thoracic aorta and great vessels: Normal in diameter. Common origin of thebrachiocephalic and left common carotid arteries. Moderate atheroscleroticdisease in the form of calcific and soft plaques are visualized throughoutthe aorta and its branches, with grossly unchanged plaque ulceration in thedescending aorta.Heart and pericardium: No detectable coronary arterial calcification.Unremarkable cardiac morphology and pericardium.Lymph nodes: No enlarged thoracic lymph nodes.Mediastinum: Mediastinal lymph nodes are mildly prominent but measurewithin normal limits.Thoracic spine and chest wall: Unremarkable, with normal thoracic vertebralbody heights.Other Lines/Tubes/Devices/Hardware: NoneVisualized upper abdomen: Stable, simple left hepatic cysts measuring up to3 cm. Multiple bilateral simple attenuating renal cysts measure up to 4.9cm in the left superior pole. A 1.7 cm cyst in the right interpolar regiondemonstrates increased attenuation and could represent a hemorrhagic orproteinaceous cysts. Diverticulosis of the hepatic flexure is seen withoutacute diverticulitis. The remainder of the visualized abdomen isunremarkable within thelimitations of a CT PE protocol. IMPRESSIONNo acute pulmonary embolismR ight middle lobe pulmonary nodules measuring up to 1 cm, new from priorexam and concerning for a neoplastic etiology. Recommend additionalinvestigation including CT PET imaging.Ill-defined right thyroid nodules measuring up to 1.5 cm, can be furtherevaluated with a thyroid ultrasound. Preliminary Report Dictated by Resident: Juancarlos Amador MD., have reviewed this study and agree with theabove report.[facility] 1 [id number] 13:59:33 No acute cardiopulmonary process. Preliminary Report Dictated by Resident: Lily Gudino Thisstudy was reviewed by Dr. Richardson in the morning. Minimal congestion issuspected in both lungs with underlying chronic changes of obstructive lungdisease. Findings could be secondary to bronchitis. I, Mauricio endrakumar ?Richardson, MD., have reviewed this study and agree with theabove report. EXAM: XR CHEST 1 VWHISTORY: Fever, Cough, SOB TECHNIQUE: AP view of the chest COMPARISON: 05/23/2017 FINDINGS: Mild vascular crowding is likely due to underinflation. The lungs areotherwise clear without focal consolidation. No pleural effusion or pneumothorax is identified. The heart size is normal. Calcifications of the aortic arch are noted. No acute bony abnormality. [facility], Radiant Results Inft User - 10/06/2020 8:00 AM CSTEXAM: XR CHEST 1 VWHISTORY: Fever, Cough, SOB TECHNIQUE: AP view of the chestCOMPARISON: 02/2017FINDINGS:Mild vascular crowding is likely due to underinflation. The lungs areotherwise clearwithout focal consolidation.No pleural effusion or pneumothorax is identified.The heart size is normal. Calcifications of the aortic arch are noted.No acute bony abnormality.IMPRESSIONNo acute cardiopul monary process.Preliminary Report Dictated by Resident: Lily Denney study was reviewed byDr. Richardson in the morning. Minimal congestion issuspected in both lungs with underlying chronic changes of obstructive lungdisease. Findings could be secondary to bronchitis.I, Juancarlos Richardson MD., have reviewed this study and agree with theabove report.[facility] TROPONIN [id number] 13:12:00 Test Item Value Reference Range Interpretation Comments TROPONIN I (test 0.718 ng/mL See_Comment H [Automated code = 3033296732) message] The system which generated this result transmitted reference range : <=0.034. The reference range was not used to interpret this result as normal/abnormal . ANI (test code = Equal or Less than ANI) 0.034 ng/ml---Normal ?Note: Cardiac troponin begins to rise 3-4 hours after the onset of ischemia. Repeat in 4-6 hours if the sample was drawn within 3-4 hours of the onset of the symptom and found normal. Between 0.035 and 0.120 ng/mL--- Borderline. Questionable myocardial injury or necrosis ? ?Note: Serial measurement may be necessary to confirm or exclude the diagnosis of myocardial injury or necrosis; Clinical correlation (symptoms, EKGs, imaging studies, and others) required; Repeat in 4-6 hours if clinically indicated. ? Equal or Higher than 0.121 ng/mL---Abnormal. Myocardial Injury or Necrosis Likely ? Biotin has been reported to cause a negative bias, interpret results relative to patient's use of biotin. ? Lab Interpretation Abnormal (test code = 78310-1) [facility] CenterUrinalysis2020-11-17 08:31:00 Test Item Value Reference Range Interpretation Comments APPEARANCE (test code = Clear Clear 8442490377) COLOR (test code = Yellow Yellow 4770689400) PH (test code = 4.8-8.0 3466602984) SP GRAVITY (test code = 1.003-1.030 4070238730) GLU U QUAL (test code = Normal Normal 4278366646) BLOOD (test code = 2+ Negative A 4162586851) KETONES (test code = Negative Negative 5737360526) PROTEIN (test code = 100 mg/dL Negative A 2887-8) UROBILIN (test code = Normal Normal 5568293959) BILIRUBIN (test code = Negative Negative 2621390094) NITRITE (test code = Negative Negative 3598829898) LEUK RAFY (test code = Negative Negative 6517450934) RBC/HPF (test code = See_Comment H [Autom ated message] 2586580099) The system [employer] generated this result transmit dagoberto reference range : 0 - 3 HPF. The refe rence range was not u sed to interpret th is result as normal/abnormal . WBC/HPF (test code = See_Comment [Autom ated message] 8926664172) The system [employer] generated this result transmit dagoberto reference range : 0 - 5 HPF. The refe rence range was not u sed to interpret th is result as normal/abnormal . BACTERIA (test code = Moderate Negative A 5555022222) MUCOUS (test code = Slight Negative LPF A 5689722404) SQ EPITH (test code = HPF 9724510387) Lab Interpretation (test Abnormal code = 75054-6) [facility] CenterN-TERMINAL [id number] 07:31:00 Test Item Value Reference Range Interpretation Comments NT-proBNP (test code 352 pg/mL See_Comment [Autom ated = 9112917400) message] The system which generated this result transmitted reference range : <=450. The reference range was not used to interpret this result as normal/abnormal . ANI (test code = ANI) Biotin has been reported to cause a negative bias, interpret results relative to patient's use of biotin. Lab Interpretation Normal (test code = 32218-0) [facility] CenteraPTT2020-11-17 07:17:00 Test Item Value Reference Range Interpretation Comments APTT Patient (test See_Comment H [Automat ed code = 3173-2) message] The system which generated this result transmitted reference range : 23 - 38 Seconds . The reference range was not used to interpr et this result as normal/abnormal . ANI (test code = ANI) The [facility] patient population mean normal value for aPTT is 30 seconds. Lab Interpretation Abnormal (test code = 82607-3) [facility] / [id number] 07:15:00 Test Item Value Reference Range Interpretation Comments PROTIME PATIENT (test See_Comment [Auto mated message] code = 5964-2) The system wh ich generated this result transmitted ref erence range: 12.0 - 1 4.7 Seconds. The re ference range was not u sed to interpret this result as normal/abnor mal. INR (test code = 6301-6) Nor mal INR <1.1; Warfarin Therap eutic range 2.0 to 3. 0 or 2.5 to 3.5, dep ending upon the indica tions. Lab Interpretation (test Normal code = 48908-7) [facility] ([facility] NOW RAPID TESTING)2020-10-06 06:51:00 Test Item Value Reference Range Interpretation Comments SARS-CoV-2 Rapid ID NOW Not Detected Not Detected (test code = 50969-8) ANI (test code = ANI) ID NOW COVID-19 Assay is an isothermal nucleic acid amplification test intended for the qualitative detection of nucleic acid from SARS-CoV-2 viral RNA in nasopharyngeal ([employer]) specimens. It is used under Emergency Use Authorization (EUA) by FDA. The limit of detection (LOD) of the assay is 125 Genome Equivalents/mL. A positive result is indicative of the presence of SARS-CoV-2 RNA. ?Clinical correlation with patient history and other diagnostic information is necessary to determine patient infection status. A negative (Not Detected) result does not preclude SARS-CoV-2 infection. In patients with clinical symptoms and other tests that are consistent with SARS-CoV-2 infection, negative results should be treated as presumptive negative and a new specimen should be tested with alternative PCR molecular test. Invalid: Please collect a new specimen for repeat patient testing if clinically indicated. Lab Interpretation Normal (test code = 89839-4) [facility]TR[facility] [id number] 06:46:00 Test Item Value Reference Range Interpretation Comments TROPONIN I (test 0.122 ng/mL See_Comment H [Automated code = 2697937253) message] The system which generated this result transmitted reference range : <=0.034. The reference range was not used to interpret this result as normal/abnormal . ANI (test code = Equal or Less than ANI) 0.034 ng/ml---Normal ?Note: Cardiac troponin begins to rise 3-4 hours after the onset of ischemia. Repeat in 4-6 hours if the sample was drawn within 3-4 hours of the onset of the symptom and found normal. Between 0.035 and 0.120 ng/mL--- Borderline. Questionable myocardial injury or necrosis ? ?Note: Serial measurement may be necessary to confirm or exclude the diagnosis of myocardial injury or necrosis; Clinical correlation (symptoms, EKGs, imaging studies, and others) required; Repeat in 4-6 hours if clinically indicated. ? Equal or Higher than 0.121 ng/mL---Abnormal. Myocardial Injury or Necrosis Likely ? Biotin has been reported to cause a negative bias, interpret results relative to patient's use of biotin. ? Lab Interpretation Abnormal (test code = 63028-1) [facility]COM[facility] (20450)2020-10-06 06:34:00 Test Item Value Reference Range Interpretation Comments NA (test code = 123 mmol/L 135-145 L 4349507635) K (test code = 4.7 mmol/L 3.5-5 7289841741) CL (test code = 92 mmol/L 98-108 L 5842479973) CO2 TOTAL (test code = 23 mmol/L 23-31 1671971359) AGAP (test code = 2-16 0846850629) BUN (test code = 11 mg/dL 7-23 3289525716) GLUCOSE (test code = 125 mg/dL 70-110 H 9677639582) CREATININE (test code = 0.78 mg/dL 0.5-1.04 1516480853) TOTAL BILI (test code = 0.7 mg/dL 0.1-1.6 9684521369) CALCIUM (test code = 8.3 mg/dL 8.6-10.6 L 8670706926) T PROTEIN (test code = 6.7 g/dL 6.3-8.2 9272779063) ALBUMIN (test code = 3.6 g/dL 3.5-5 3258951060) ALK PHOS (test code = 107 U/L 34-122 5170662864) ALTv (test code = 21 U/L 5-35 1742-6) AST(SGOT) (test code = 32 U/L 13-40 8227234035) eGFR Calculation mL/min/1.73m2 (Non-) (test code = 5929026443) eGFR Calculation mL/min/1.73m2 () (test code = 8173769428) ANI (test code = ANI) Association of Glomerular Filtration Rate (GFR) and Staging of Kidney Disease* + --+ --+ ------+| GFR (mL/min/1.73 m2) ?| With Kidney Damage ?| ?Without Kidney Damage+ --------+ --------+ +| ?>90 ?| ?Stage one ?| ? Normal ?+ ---+ ---+ -------+| ?60-89 ?| ?Stage two ?| ? Decreased GFR ? + --+ --+ ------+| ?30-59 ?| ?Stage three ?| ? Stage three ? + --+ --+ ------+| ?15-29 ?| ?Stage four ? | ? Stage four ?+ ---+ ---+ -------+| ?<15 (or dialysis) ? ?| ?Stage five ? | ? Stage five ?+ ---+ ---+ -------+ *Each stage assumes the associated GFR level has been in effect for at least three months. ?Stages 1 to 5, with or without kidney disease, indicate chronic kidney disease. Notes: Determination of stages one and two (with eGFR >59mL/min/1.73 m2) requires estimation of kidney damage for at least three months as defined by structural or functional abnormalities of the kidney, manifested by either:Pathological abnormalities or Markers of kidney damage (including abnormalities in the composition of the blood or urine or abnormalities in imaging tests). Lab Interpretation Abnormal (test code = 60979-9) [facility] with [id number] 06:12:00 Test Item Value Reference Range Interpretation Comments WBC (test code = See_Comment H [Automated 9690-2) message] The system which generated this result transmit dagoberto reference range : 4.30 - 11.10 10*3/?L. The reference range was not used to interpret this result as normal/abnormal . RBC (test code = See_Comment L [Automated 789-8) message] The system which generated this result transmit dagoberto reference range : 3.93 - 5.25 10*6/?L. The reference range was not used to interpret this result as normal/abnormal . HGB (test code = 8.3 g/dL 11.6-15 L 718-7) HCT (test code = 25.5 % 35.7-45.2 L 4544-3) MCV (test code = 83.3 fL 80.6-95.5 787-2) MCH (test code = 27.1 pg 25.9-32.8 785-6) MCHC (test code = 32.5 g/dL 31.6-35.1 786-4) RDW-SD (test code = 38.7 fL 39-49.9 L 97441-1) RDW-CV (test code = 12.7 % 12-15.5 788-0) PLT (test code = See_Comment [Automated 777-3) message] The system which generated this result transmit dagoberto reference range : 166 - 358 10*3/ ?L. The reference range was not u sed to interpret th is result as normal/abnormal . MPV (test code = 10.3 fL 9.5-12.9 74665-9) NRBC/100 WBC (test See_Comment [Automat ed code = 4955761874) message] The system which generated this result transmit dagoberto reference range : 0.0 - 10.0 /100 WBCs. The reference range was not used to interpret this result as normal/abnormal . NRBC x10^3 (test code <0.01 See_Comment [Auto mated = 2255718847) message] The system which generated this result transmit dagoberto reference range : 10*3/?L. The reference range was not used to interpret this result as normal/abnormal . GRAN MAT (NEUT) % 93.9 % (test code = 770-8) IMM GRAN % (test code 0.70 % = 6931011166) LYMPH % (test code = 2.2 % 736-9) MONO % (test code = 3.0 % 5905-5) EOS % (test code = 0.1 % 713-8) BASO % (test code = 0.1 % 706-2) GRAN MAT x10^3(ANC) 13.92 10*3/uL 1.88-7.09 H (test code = 2101362399) IMM GRAN x10^3 (test 0.10 10*3/uL 0-0.06 H code = 0650934499) LYMPH x10^3 (test code 0.32 10*3/uL 1.32-3.29 L = 731-0) MONO x10^3 (test code 0.44 10*3/uL 0.33-0.92 = 742-7) EOS x10^3 (test code = <0.03 0.03-0.39 L 711-2) BASO x10^3 (test code <0.03 0.01-0.07 = 704-7) Lab Interpretation Abnormal (test code = 62466-0) [facility] CenterL[facility] Acid Whole [id number] 06:05:00 Test Item Value Reference Range Interpretation Comments LACTIC ACID (test code = 1.81 mmol/L 3530577695) [facility]
[2022-01-04 15:35] LABS: Urine Blood 2+ (Negative); Urine Glucose Negative (Negative); Urine Protein Trace (Negative); Urine pH 6.5 (5.0-7.0)
[2022-01-04 15:44] LABS: Absolute Lymphocytes (CBC) 1.5 K/uL (0.7-4.9); Hematocrit 35.8 % (36.0-45.0); Lymphocytes % 22.3 % (15.3-44.8); MPV 8.2 fL (7.6-11.3); Protime INR 1.05; RBC Red Blood Cell Count 4.21 M/uL (3.86-4.86)
[2022-01-04 16:05] LABS: Albumin 3.4 g/dL (3.4-5.0); Bilirubin Direct 0.1 mg/dL (0-0.2); Bilirubin Total 0.3 mg/dL (0.2-1.0); Magnesium 2.1 mg/dL (1.8-2.4); Potassium 3.7 mmol/L (3.5-5.1); Troponin High Sensitivity 6.3 pg/mL (<58.9)
--- NOTE | 2022-01-04 16:05 | RAD REPORT ---
EXAM DESCRIPTION: Nuno Single View01/04/2022 3:39 pm CLINICAL HISTORY: Chest pain COMPARISON: July 21, 2021 FINDINGS: Moderate patchy opacities right lung. Mild left lung opacities. Heart is normal size IMPRESSION: Moderate patchy predominantly right lung opacities probably pneumonia
[2022-01-04 16:10] LABS: Urine Bacteria <20 /HPF (<20)
--- NOTE | 2022-01-04 17:17 | RAD REPORT ---
EXAM DESCRIPTION: CT - Chest For Pe Angio - 01/04/2022 5:01 pm CLINICAL HISTORY: Chest pain COMPARISON: 2020 TECHNIQUE: Dynamically enhanced axial 3 mm thick images of the chest were obtained during administra tion of <100> mL Isovue 370 IV contrast. Coronal and oblique reconstruction images were generated and reviewed. Exam utilizes a protocol for optimal evaluation of pulmonary arterial tree. Maximum intensity projections 3D imaging was utilized All CT scans are performed using dose optimization technique as appropriate and may include automated exposure control or mA/KV adjustment according to patient size. FINDINGS: A pulmonary embolus is not seen. A thoracic aortic aneurysm is not noted. A pleural effusion is not seen. A pericardial effusion is not seen. Mild to moderate patchy right lung opacities. Ulcerating plaque descending thoracic aorta IMPRESSION: Negative for a pulmonary embolism. Mild to moderate patchy right right lung opacities may represent pneumonitis or pneumonia
[2022-01-04] MEDS ORDERED: KETOROLAC 30 MG/ML INJ ONE (17:50)
--- NOTE | 2022-01-04 18:07 | EDPHYS ---
Physician Documentation [facility] Name: Ramandeep Renner Age: 86 yrs Sex: Female : 1935 Arrival Date: 01/04/2022 Time: 14:32 Bed 11 Private MD: Quinton Eddy ED Physician Jadiel Lux HPI: 01/04 15:15 This 86 yrs old Female presents to ER via Ambulatory with complaints of Rib cp pain. 15:15 The patient or guardian reports chest pain that is located primarily in the anterior cp chest wall, right side below right breast. Onset: yesterday, and became worse this morning. The pain does not radiate. Duration: The patient or guardian reports a single episode, that is still ongoing, and worsening. Modifying factors: the symptoms are aggravated by deep breath, movement. 15:15 Associated signs and symptoms: Pertinent negatives: abdominal pain, cough, diaphoresis, cp dizziness, lower extremity pain, lower extremity swelling, shortness of breath, vomiting, fever. 15:15 The chest pain is described as sharp. cp Historical: - Allergies: 14:46 No Known Allergies; ap3 - Home Meds: 14:46 list not available at this time [Active]; ap3 - PMHx: 14:46 stroke; Hypertensive disorder; Hypercholesterolemia; ap3 14:48 lung cancer-June 2021; ap3 - Immunization history:: Client reports receiving the 2nd dose of the Covid vaccine, Pneumococcal vaccine is not up to date, Flu vaccine is not up to date. - Social history:: Smoking status: Patient denies any tobacco usage or history of. ROS: 15:20 Constitutional: Negative for body aches, chills, fever, poor PO intake. cp 15:20 Eyes: Negative for injury, pain, redness, and discharge. cp 15:20 Cardiovascular: Positive for chest pain, of the right anterior chest wall below right breast, Negative for edema, palpitations. 15:20 Respiratory: Negative for cough, shortness of breath, wheezing. 15:20 Abdomen/GI: Negative for abdominal pain, nausea, vomiting, and diarrhea. 15:20 Back: Negative for pain at rest, pain with movement. Exam: 15:25 Constitutional: The patient appears in no acute distress, alert, awake, cp non-diaphoretic, non-toxic, well developed, well nourished. 15:25 Head/Face: Normocephalic, atraumatic. cp 15:25 Eyes: Periorbital structures: appear normal, Conjunctiva: normal, no exudate, no injection, Sclera: no appreciated abnormality, Lids and lashes: appear normal, bilaterally. 15:25 ENT: External ear(s): are unremarkable, Nose: is normal, Mouth: Lips: moist, Oral mucosa: moist, Posterior pharynx: Airway: no evidence of obstruction, patent. 15:25 Neck: ROM/movement: is normal, is supple, without pain, no range of motions limitations. 15:25 Chest/axilla: Inspection: normal, Palpation: crepitus, is not appreciated, tenderness, that is moderate, of the right lower anterior chest wall below right breast. 15:25 Cardiovascular: Rate: normal, Rhythm: regular, Edema: is not appreciated, JVD: is not appreciated. 15:25 Respiratory: the patient does not display signs of respiratory distress, Respirations: normal, no use of accessory muscles, no retractions, labored breathing, is not present, Breath sounds: bronchial sounds, that are mild, are heard diffusely, decreased breath sounds, are not appreciated, stridor, is not appreciated, wheezing: is not appreciated. 15:25 Abdomen/GI: Inspection: abdomen appears normal, Palpation: abdomen is soft and non-tender, in all quadrants, rebound tenderness, is not appreciated, voluntary guarding, is not appreciated, involuntary guarding, is not appreciated. 15:25 Back: pain, is absent, ROM is normal. 15:28 ECG was reviewed by the Attending Physician. cp Vital Signs: 14:43 BP 136 / 61; Pulse 86; Resp 16; Temp 98.0; Pulse Ox 98% on R/A; Weight 58.97 kg; Height ap3 5 ft. (152.40 cm); Pain 4/10; 15:11 BP 147 / 65 RA; Pulse 84; Resp 18 S; Pulse Ox 97% on R/A; jg9 16:30 BP 147 / 64; Pulse 73 RA; Resp 17; Pulse Ox 99% on R/A; jg9 17:15 BP 150 / 63; Pulse 80; Resp 20 S; Pulse Ox 98% on R/A; jg9 18:20 BP 150 / 67; Pulse 73; Resp 17 S; Pulse Ox 97% on R/A; jg9 19:30 BP 148 / 53; Pulse 78; Resp 18; Pulse Ox 99% on R/A; mk 14:43 Body Mass Index 25.39 (58.97 kg, 152.40 cm) ap3 Bc Coma Score: 19:30 Eye Response: spontaneous(4). Verbal Response: oriented(5). Motor Response: obeys mk commands(6). Total: 15. MDM: 15:10 Patient medically screened. cp 15:45 Differential diagnosis: acute pericarditis, chest wall pain, cholecystitis, cp Cholelithiasis costochondritis, pancreatitis, pericarditis, pleurisy, pneumonia, pneumothorax, pulmonary embolus, stable angina, unstable angina. 18:05 Data reviewed: vital signs, nurses notes, lab test result(s), radiologic studies, CT cp scan, plain films, and as a result, I will discharge patient. 18:05 Test interpretation: by ED physician or midlevel provider: ECG, plain radiologic cp studies. 18:05 Data interpreted: Pulse oximetry: on room air is 98 %. Interpretation: normal. ED cp course: VSS. Patient appears nontoxic and no signs of respiratory distress. Will discharge to home for continued monitoring. 01/04 15:12 Order name: Basic Metabolic Panel cp 01/04 15:12 Order name: CBC with Diff cp 01/04 15:12 Order name: LFT's; Complete Time: 16:30 cp 01/04 16:30 Interpretation: Normal except: ALK 146; GLOB 4.6; A/G 0.7. cp 01/04 15:12 Order name: Magnesium; Complete Time: 16:30 cp 01/04 15:12 Order name: NT PRO-BNP; Complete Time: 16:30 cp 01/04 15:12 Order name: PT-INR; Complete Time: 16:30 cp 01/04 15:12 Order name: Troponin HS; Complete Time: 16:30 cp 01/04 15:12 Order name: XRAY Chest (1 view); Complete Time: 16:30 cp 01/04 15:12 Order name: Lipase; Complete Time: 16:30 cp 01/04 15:12 Order name: Urine Microscopic Only; Complete Time: 16:30 cp 01/04 17:18 Interpretation: Normal except: URBC 5-10. cp 02/15 15:12 Order name: Basic Metabolic Panel; Complete Time: 16:30 EDMS 01/04 17:18 Interpretation: Normal except: CL 108; GLUC 112; GFR 62. cp 01/04 15:12 Order name: CBC with Automated Diff; Complete Time: 16:30 EDMS 01/04 17:37 Interpretation: Normal except: HGB 11.6; HCT 35.8. cp 01/04 15:34 Order name: Urine Dipstick-Ancillary; Complete Time: 16:30 EDMS 01/04 16:33 Order name: COVID-19/FLU A+B (Document "Date of Onset" if Symptomatic) cp 01/04 15:12 Order name: EKG; Complete Time: 15:13 cp 01/04 15:12 Order name: Cardiac monitoring; Complete Time: 15:35 cp 01/04 15:12 Order name: EKG - Nurse/Tech; Complete Time: 15:35 cp 01/04 15:12 Order name: IV Saline Lock; Complete Time: 15:35 cp 01/04 15:12 Order name: Labs collected and sent; Complete Time: 15:35 cp 01/04 15:12 Order name: O2 Sat Monitoring; Complete Time: 15:35 cp 01/04 15:12 Order name: Urine Dipstick-Ancillary (obtain specimen); Complete Time: 15:35 cp 01/04 16:31 Order name: CT Chest For PE Angio; Complete Time: 17:36 cp EC:28 Rate is 81 beats/min. Rhythm is regular. DE interval is normal. QRS interval is normal. cp QT interval is normal. T waves are Inverted in lead aVR. Interpreted by me. Reviewed by me. Administered Medications: 17:52 Drug: Ketorolac 15 mg {Note: RASS-0.} Route: IVP; Site: right forearm; jg9 18:22 Follow up: Response: No adverse reaction; Pain is decreased; RASS: Alert and Calm (0) j9 18:12 Drug: LevaQUIN (levofloxacin) 500 mg Route: PO; jg9 18:22 Follow up: Response: No adverse reaction jg9 Disposition Summary: 01/04/22 18:06 Discharge Ordered Location: Home cp Problem: new cp Symptoms: have improved cp Condition: Stable cp Diagnosis - Other pneumonia, unspecified organism cp Followup: cp - With: Private Physician - When: 2 - 3 days - Reason: Recheck today's complaints Discharge Instructions: - Discharge Summary Sheet cp - Community-Acquired Pneumonia, Adult cp Forms: - Medication Reconciliation Form cp - Thank You Letter cp - Antibiotic Education cp - Prescription Opioid Use cp Prescriptions: - levofloxacin 500 mg Oral Tablet - take 1 tablet by ORAL route once daily for 7 days start evening of 01-05-2022; 6 cp tablet; Refills: 0, Product Selection Permitted - Ibuprofen 600 mg Oral Tablet - take 1 tablet by ORAL route every 8 hours As needed take with food; 30 tablet; cp Refills: 0, Product Selection Permitted Addendum: 01/07/2022 07:03 Co-signature as Attending Physician, Jadiel Lux MD I agree with the assessment and r n plan of care. Attestation: The patient's history, exam findings, diagnostics, and a summary of any interventions or procedures was reviewed in detail with Yonatan DOMINGUEZ. Signatures: Dispatcher [employer] EDJadiel Mendiola MD MD rn Page, Corey, PA PA cp Prokisch, Amanda RN RN ap3 Kristie Carroll RN RN jg9
--- NOTE | 2022-01-04 18:07 | ER ---
Nurse's Notes [facility] Name: Ramandeep Renner Age: 86 yrs Sex: Female : 1935 Arrival Date: 01/04/2022 Time: 14:32 Bed 11 Private MD: Quinton Eddy Diagnosis: Other pneumonia, unspecified organism Presentation: 01/04 14:43 Chief complaint: Patient states: she began having right sided rib pain yesterday. At ap3 first it was intermittent, however today she reports it being more constant. Patient denies having this feeling before. Coronavirus screen: At this time, the client does not indicate any symptoms associated with coronavirus-19. Ebola Screen: No symptoms or risks identified at this time. Initial Sepsis Screen: Does the patient meet any 2 criteria? No. Patient's initial sepsis screen is negative. Does the patient have a suspected source of infection? No. Patient's initial sepsis screen is negative. Risk Assessment: Do you want to hurt yourself or someone else? Patient reports no desire to harm self or others. Onset of symptoms was January 03, 2022. 14:43 Method Of Arrival: Ambulatory ap3 14:43 Acuity: WILFRIDO 3 ap3 Triage Assessment: 14:49 General: Appears in no apparent distress. uncomfortable, Behavior is calm, cooperative, ap3 appropriate for age. Pain: Complains of pain in ribs area under right breast Pain began 1 day ago. Neuro: Level of Consciousness is awake, alert, obeys commands, Oriented to person, place, time, situation, Appropriate for age Speech is normal. Cardiovascular: Patient's skin is warm and dry. Respiratory: Airway is patent Respiratory effort is even, unlabored, Respiratory pattern is regular, symmetrical. Historical: - Allergies: 14:46 No Known Allergies; ap3 - Home Meds: 14:46 list not available at this time [Active]; ap3 - PMHx: 14:46 stroke; Hypertensive disorder; Hypercholesterolemia; ap3 14:48 lung cancer-June 2021; ap3 - Immunization history:: Client reports receiving the 2nd dose of the Covid vaccine, Pneumococcal vaccine is not up to date, Flu vaccine is not up to date. - Social history:: Smoking status: Patient denies any tobacco usage or history of. Screenin:49 Abuse screen: Denies threats or abuse. Nutritional screening: No deficits noted. ap3 Tuberculosis screening: No symptoms or risk factors identified. 15:12 Fall Risk None identified. 9 Assessment: 15:09 General: Appears uncomfortable, Behavior is calm. Pain: Complains of pain in abdomen-r jg9 rib area. Respiratory: Reports cough that is non-productive, intermittent. 15:10 Reassessment: Patient reports hx of lung ca in r lobe, last radiation tx was in June j9 2020, patient pain started yesterday at 0600 and it was intermittent but today the pain is constant, worse with breathing. 15:40 Musculoskeletal: Reports pain in chest-r rib pain since 0600 on 01/03/2022 worsening jg9 since onset Pain is 4 out of 10 on a pain scale. Denies. 16:38 Reassessment: No changes from previously documented assessment. 9 18:57 Reassessment: called lab about pending COVID test results, advised that the [place] [facility] and they were re-running the test and it would be about another 45 min for the results. 19:38 General: Appears in no apparent distress. Behavior is calm, cooperative. Pain: Denies mk pain. Neuro: Level of Consciousness is awake, alert, obeys commands, Oriented to person, place, time, situation, Moves all extremities. Gait is steady, Speech is normal, Facial symmetry appears normal. Cardiovascular: Heart tones S1 S2 Pulses are 3+ in right radial artery, right dorsalis pedis artery, left radial artery and left dorsalis pedis artery Rhythm is sinus rhythm. Respiratory: Airway is patent Trachea midline Respiratory effort is even, unlabored, Respiratory pattern is regular, symmetrical, Breath sounds are clear in right upper lobe, left upper lobe, left posterior upper lobe, right posterior upper lobe, left posterior lower lobe, right posterior middle lobe and right posterior lower lobe. GI: Abdomen is flat, non-distended, Bowel sounds present X 4 quads. : No signs and/or symptoms were reported regarding the genitourinary system. Derm: Skin is intact, is healthy with good turgor, Skin is dry, Skin is pink, warm \T\ dry. Skin temperature is warm. Musculoskeletal: Circulation, motion, and sensation intact. Capillary refill < 3 seconds, in bilateral fingers. toes. Range of motion: intact in all extremities. Vital Signs: 14:43 BP 136 / 61; Pulse 86; Resp 16; Temp 98.0; Pulse Ox 98% on R/A; Weight 58.97 kg; Height ap3 5 ft. (152.40 cm); Pain 4/10; 15:11 BP 147 / 65 RA; Pulse 84; Resp 18 S; Pulse Ox 97% on R/A; jg9 16:30 BP 147 / 64; Pulse 73 RA; Resp 17; Pulse Ox 99% on R/A; jg9 17:15 BP 150 / 63; Pulse 80; Resp 20 S; Pulse Ox 98% on R/A; jg9 18:20 BP 150 / 67; Pulse 73; Resp 17 S; Pulse Ox 97% on R/A; jg9 19:30 BP 148 / 53; Pulse 78; Resp 18; Pulse Ox 99% on R/A; mk 14:43 Body Mass Index 25.39 (58.97 kg, 152.40 cm) ap3 Bc Coma Score: 19:30 Eye Response: spontaneous(4). Verbal Response: oriented(5). Motor Response: obeys mk commands(6). Total: 15. ED Course: 14:32 Patient arrived in ED. mr 14:32 Quinton Eddy DO is Private Physician. mr 14:46 Triage completed. ap3 14:50 Arm band placed on right wrist. ap3 14:56 Yonatan Quiñones PA is PHCP. cp 14:56 Jadiel Lux MD is Attending Physician. cp 15:02 Kristie Carroll, ANTONIO is Primary Nurse. jg9 15:12 Patient has correct armband on for positive identification. Call light in reach. jg9 15:25 Inserted saline lock: 22 gauge in right forearm, using aseptic technique. Blood jg9 collected. 15:38 XRAY Chest (1 view) In Process Unspecified. EDMS 16:08 Basic Metabolic Panel Sent. jg9 16:08 CBC with Diff Sent. jg9 16:09 No apparent distress. Resting quietly. Awaiting lab results. jg9 16:38 No apparent distress. Resting quietly. Awaiting radiology results. Awaiting disposition.jg9 17:01 CT Chest For PE Angio In Process Unspecified. EDMS 17:18 No apparent distress. Resting quietly. reading a book. Awaiting radiology results. jg9 18:12 No apparent distress. Awaiting: Patient is discharged but wants to want on the results jg9 of her COVID test. 19:03 Primary Nurse role handed off by Kristie Carroll, RN mw2 19:07 Deanne Samano, RN is Primary Nurse. 19:46 No provider procedures requiring assistance completed. IV discontinued, intact, mk bleeding controlled, No redness/swelling at site. Pressure dressing applied. Administered Medications: 17:52 Drug: Ketorolac 15 mg {Note: RASS-0.} Route: IVP; Site: right forearm; jg9 18:22 Follow up: Response: No adverse reaction; Pain is decreased; RASS: Alert and Calm (0) jg9 18:12 Drug: LevaQUIN (levofloxacin) 500 mg Route: PO; jg9 18:22 Follow up: Response: No adverse reaction jg9 Outcome: 18:06 Discharge ordered by . trish 19:47 Discharged to home 19:47 Condition: stable 19:47 Discharge instructions given to patient, Instructed on discharge instructions, Prescriptions given X 2. 19:55 Patient left the ED. Signatures: Dispatcher [employer] EDTX Donato Maureen galdamez Yonatan Quiñones PA PA cp Prokisch, Amanda, RN RN [email or web address] Severiano Patel mw2 Kristie Carroll, RN RN jg9 Deanne Samano, ANTONIO ALVAREZ
[2022-01-04] MEDS ORDERED: levoFLOXacin 500 MG TAB ONE (18:10)
[2022-01-04 19:33] LABS: SARS-COV-2 RT PCR NEGATIVE (NEGATIVE)
[2022-01-04 20:52] VITALS: TEMP 98
[2022-01-04 21:01] VITALS: BP 148/53; O2SAT 99
--- NOTE | 2022-01-05 11:16 | EKG ---
Test Date: 2022-01-04 Test Time: 15:20:21 Channel Program Manager: JANIS MEASUREMENT RESULTS: Intervals: Rate: 81 PA: 140 QRSD: 78 QT: 366 QTc: 425 [place]: P: 43 PA: 140 QRS: -3 T: 25 INTERPRETIVE STATEMENTS: Normal sinus rhythm Minimal voltage criteria for LVH, may be normal variant Inferior infarct, age undetermined Abnormal ECG Compared to ECG 08/03/2021 15:48:15 Left ventricular hypertrophy now present Myocardial infarct finding now present Electronically Signed On 01-05-22 11:13:46 TIN WORKER by Peter Cope
== END 2022-01-04 19:55 | disposition home or self-care (01) ==
LOC: ER 14:27
DX: J18.9 Pneumonia, unspecified organism (principal); I10 Essential (primary) hypertension; Z86.73 Personal history of transient ischemic attack (TIA), and cerebral infarction without residual deficits; Z20.822 Contact with and (suspected) exposure to COVID-19
CPT/HCPCS: 93005; 85025; 80048; 36415; 83735; 85610; 80076; 84484; 83690; 83880; 0240U; 71275; 71045; 96374; 99284; Q9967; 81003; 81015

== ENCOUNTER 2022-01-22 10:00 | Emergency (ER) | payer OTHER ==
--- OUTSIDE RECORDS SUMMARY | 2022-01-22 10:05 | XMS REPORT | Continuity of Care Document ---
:1935 Author Organization [facility] t Address [address] [place] [address] Care Team Providers Name Role Phone Tesha Eddy Attending Clinician Unavailable HOWARD, Wilda Attending Clinician Unavailable Esteban ALVAREZ, L Attending Clinician Unavailable Kenneth TAVARES, S Attending Clinician Lida TAVARES Attending Clinician Mary TAVARES Attending Clinician Lida TAVARES Admitting Clinician Payers Payer Name Policy Type Policy Number Effective Date Expiration Date [facility] [id number] 2020 DUAL COMPLETE HMO 00:00:00 [facility] [id number] 2016 MEDICAID 00:00:00 MEDICARE PART A \\T\\ [id number] 1999 B 00:00:00 MEDICAID [facility] [id number] 2011 00:00:00 Problems Condition Condition Condition Status Onset Resolution Last Treating Co mments Source Name Details Category Date Date Treatment Clinician Date NSTEMI NSTEMI Disease Active 2019-11 Univers (non-ST (non-ST 1-17 ity of elevated elevated 00:00: [place] myocardial myocardial 00 Me dical infarction infarction Br anch ) ) CVA CVA Disease Active 2019-11 Univers (cerebral (cerebral 1-17 ity of vascular vascular 00:00: [place] accident) accident) [address] [place] [address] HTN HTN Disease Active 2019-11 Univers (hypertens (hypertens 1-17 it y of ion) ion) 00:00: [place] 00 [facility] HLD HLD Disease Active 2019-11 Univers (hyperlipi (hyperlipi -17 it y of demia) demia) 00:00: [place] 00 [facility] Fever Fever Disease Active 2019-11 Univers 1-17 ity of 00:00: [place] 00 [facility] Urinary Urinary Disease Active 2019-11 Univers tract tract -17 ity of infection, [place], [place] site [place] site not 00 Medica l specified specified Bran ch Pulmonary Pulmonary Disease Active Uni vers emboli emboli 2-05 ity of 00:00: [place] 00 [facility] Chest pain Chest pain Disease Active U nivers 2-04 ity of 00:00: [address] Allergies, Adverse Reactions, Alerts Allergy Allergy Status Severity Reaction(s) Onset Inactive Treating Comm ents Source Name Type Date Date Clinician NO KNOWN Drug Active [facility] ALLERGIE Class ity of S [facility] Social History Social Habit Start Date Stop Date Quantity Comments Source Sex Assigned At Universit y of [facility] Exposure to Not sure [facility] SARS-CoV-2 (event) [facility] Alcohol intake 2017-05-23 2017-05-23 Current University of 00:00:00 00:00:00 non-drinker of [facility] alcohol Branch (finding) Cigarettes smoked 2017-05-23 2017-05-23 [facility] ity of current (pack per 00:00:00 00:00:00 ) - Reported Branch Cigarette 2017-05-23 2017-05-23 University of pack-years 00:00:00 00:00:00 [facility] History of tobacco 2016-05-24 Smoker Univer sity of use 00:00:00 [facility] Smoking Status Start Date Stop Date Source Former smoker 2017-05-23 00:00:00 2017-05-23 00:00:[address] [facility] Medications Ordered Filled Start Stop Current Ordering Indication Dosage Frequency Signature Comments Components Source Medication Medication Date Date Medication? Clinician (SIG) Name Name Psyllium 2019-11 Yes Take by Unive rs (METAMUCIL, 1-21 mouth. ity of SUGAR,) 1.7 18:27: [place] g Wafr 17 Medical Branch LATANOPROST 2019-[address] in U nivers OPHTHALMIC 1-21 each eye. ity of 18:27: [place] [address] Medical Branch rivaroxaban 2019-11 Yes Take by Un lillian (XARELTO) -21 mouth. ity of 20 mg 18:27: [place] tablet 17 Medical Branch OMEPRAZOLE 2019-11 Yes 20mg Take 20 mg U nivers MAGNESIUM -21 by mouth ity of (PRILOSEC 18:27: daily. [place] OTC ORAL) 17 Medical Branch Psyllium 2019-11 Yes Take by Unive rs (METAMUCIL, 1-21 mouth. ity of SUGAR,) 1.7 18:27: [place] g Wafr 17 [facility] Branch LATANOPROST 2019-[address] in U nivers OPHTHALMIC -21 each eye. ity of 18:27: [address] Branch rivaroxaban 2019-11 Yes Take by Un lillian (XARELTO) 1-21 mouth. ity of 20 mg 18:27: [place] tablet Medical Branch OMEPRAZOLE 2019-11 Yes 20mg Take 20 mg U nivers MAGNESIUM -21 by mouth ity of (PRILOSEC 18:27: daily. [place] OTC ORAL) [address] [place] [address] Branch cefdinir 2019-11 2020- No 300mg 300 mg, Univ ers (OMNICEF) 12-10 Oral, BID, ity of capsule 300 15:30: 13:59 10 doses, [place] mg 00 :00 First dose Medical on [facility] Branch 10/10/20 at 0930, Last dose on 10/14/20 at 2000, FERMIN
Re ason for Anti-Infec tive: Documented Infection< br>Documen dagoberto Infection Site: Respirator y
Durat ion of Therapy: Other (see Comments) aspirin 81 2019-11 Yes [id number] 81mg Take 1 U nivers mg chewable 1-21 tablet by ity of tablet 00:00: mouth [place] 00 daily. Medical Branch cefdinir 2019-11 Yes [id number] 300mg Take 1 Un lillian 300 mg 1-21 capsule by ity of capsule 00:00: mouth 2 [place] 00 (two) Medical times Branch daily. azithromyci 2019-11 Yes [id number] 250mg Take 1 Univers n 250 mg 1-21 tablet by ity of tablet 00:00: mouth [place] 00 daily. Medical Take 500 Branch mg day 1, then 250 mg days 2 to 5. aspirin 81 2019- Yes [id number] 81mg Take 1 U nivers mg chewable 1-21 tablet by ity of tablet 00:00: mouth [place] 00 daily. Medical Branch cefdinir 2019-11 Yes [id number] 300mg Take 1 Un lillian 300 mg 1-21 capsule by ity of capsule 00:00: mouth 2 [place] 00 (two) Medical times Branch daily. azithromyci 2019-11 Yes [id number] 250mg Take 1 Univers n 250 mg 1-21 tablet by ity of tablet 00:00: mouth [place] 00 daily. Medical Take 500 Branch mg day 1, then 250 mg days 2 to 5. azithromyci 2019-11 2020- No [id number] 250mg Take 1 Univers n 250 mg 1-21 11-21 tablet by ity o f tablet 00:00: 00:00 mouth [place] 00 :00 daily. Medical Take 500 Branch mg day 1, then 250 mg days 2 to 5. tc 2019-2019- No 42mCi 42 Univers 99m-tetrofo 1-20 11-20 millicurie i ty of smin 20:15: 18:10 , [place] ([facility]) 00 :00 Intravenou Medi macrina injection s, ONCE, 1 Bran ch 42 dose, Fri millicurie 10/09/20 at 1415, Routine tc 2019-11 2020- No 14mCi 14 Univers 99m-tetrofo 1-20 11-20 millicurie i ty of smin 20:15: 16:50 , [place] ([facility]) 00 :00 Intravenou Medi macrina injection s, ONCE, 1 Bran ch 14 dose, Fri millicurie 10/09/20 at 1415, Routine Regadenoson 2019-11- No .4mg 0.4 mg, Un lillian (LEXISCAN) 1-20 -20 Slow IV ity o f injection 19:30: 18:10 Push, [place] 0.4 mg 00 :00 ONCE, 1 Medical dose, Fri Branch 10/09/20 at 1330, Routine
meat team member approving Restricted medication : JESSE MICHAELS dexMEDEtomi 2019-11 Yes .2ug/kg 0.2-1.5 Univers dine [...] dose, contact prescriber .
atorvastati 2019-11 Yes [id number] 20mg Take 1 Univers n 20 mg 1-20 tablet by ity of tablet 00:00: mouth at [place] 00 bedtime. Medical Branch metoprolol 2019-11 Yes [id number] 25mg Take 1 U nivers tartrate 25 1-20 tablet by ity of mg tablet 00:00: mouth 2 [place] 00 (two) Medical times [place] daily. atorvastati 2019-11 Yes [id number] 20mg Take 1 Univers n 20 mg 1-20 tablet by ity of tablet 00:00: mouth at [place] 00 bedtime. Medical Branch metoprolol 2019-11 Yes [id number] 25mg Take 1 U nivers tartrate 25 1-20 tablet by ity of mg tablet 00:00: mouth 2 [place] 00 (two) Medical times [place] daily. azithromyci 2019- 2020- No [id number] 250mg Take 1 Univers n 250 mg 1-20 11-21 tablet by ity o f tablet 00:00: 00:00 mouth [place] 00 :00 daily. Medical Take 500 Branch mg day 1, then 250 mg days 2 to 5. atorvastati 2019- 2020- No [id number] 20mg Take 1 Univers n 20 mg 1-20 11-20 tablet by ity of tablet 00:00: 00:00 mouth at [place] 00 :00 bedtime. Medical Branch metoprolol 2019-11 2020- No [id number] 25mg Take 1 Univers tartrate 25 12-09 [...] 2019-11 Yes 81mg 81 mg, Univers chewable 18 Oral, ity of tablet 81 15:00: DAILY, [...] [place] dose [place] mg 00 on Mon Medical 10/06/20 Branch at 2100, Until Discontinu ed, Routine latanoprost 2019-11 Yes 1[drp] 1 Drop, U nivers (XALATAN) 12-07 Both Eyes, ity of 0.005 % 03:00: QHS, [place] ophthalmic 00 dose on Medica l drops 1 Mon Branch Drop 10/06/20 at 2100, Until Discontinu ed enoxaparin 2019-11 2020- No 1mg/kg 50 mg Uni vers (LOVENOX) 12-06 (rounded ity o f injection 17:30: 17:30 [place] 49.9 [place] 50 mg 00 :00 mg = 1 Medical mg/kg Branch ?49.9 kg), Subcutaneo us, Q24H, 1 dose, First dose on Mon10/06/20 at 1130, Routine ondansetron 2019-11 Yes 4mg 4 mg, Slow Univers (ZOFRAN 12-06 IV Push, ity of (PF)) 15:14: Q6HPRN, [place] injection 4 22 Starting Medi macrina mg [facility] Branch 10/06/20 at 0914, Until Discontinu ed, Routine, Nausea and Vomiting (N/V) acetaminoph 2019-11 Yes 650mg 650 mg, Un lillian en 12-06 Oral, ity of (TYLENOL) 15:14: Q6HPRN, [place] tablet 650 13 Starting Medic al mg [facility] Branch 10/06/20 at 0914, Until Discontinu ed, [...] Branch dose, 10/06/20 at 0415, STAT pantoprazol 2019-11 No 40mg 40 mg, IV Univers e [...] 10/06/20 Branch at 0345, FERMIN aspirin 81 0 Yes 81mg Take 81 mg U nivers mg chewable 7-10 by mouth ity of tablet 00:00: weekly. [address] aspirin 81 [id number] Yes 81mg Take 81 mg U nivers mg chewable 7-10 by mouth ity of tablet 00:00: weekly. [address] [place] Yes [place] 1 tablet [...] [facility] Immunizations Ordered Filled Immunization Date Status Comments Sourc e Immunization Name Name Td 2016-09-16 Completed University 00:00:00 [facility] Branch Td 2016-09-16 Completed University 00:00:00 [facility] Vital Signs Vital Name Observation Time Observation Value Comments Source Systolic blood 2020-10-10 13:09:00 129 mm[Hg] Univer sity of pressure [facility] Branch Diastolic blood 2020-10-10 13:09:00 66 mm[Hg] Unive rsity of pressure [facility] Branch Heart rate 2020-10-10 13:09:00 82 /min Universi ty of [place] [facility] [place] Body temperature 2020-10-10 13:09:00 36.94 Marleni Univ ersity of [facility] Branch Respiratory rate 2020-10-10 13:09:00 18 /min Univ ersity of [place] [facility] Oxygen saturation in 2020-10-10 13:09:00 97 /min University of Arterial blood by [place] [employer] macrina Pulse oximetry Branch Body weight 2020-10-10 10:00:00 55.611 kg Universi ty of [place] [facility] BMI 2020-10-10 10:00:00 21.72 kg/m2 Universi ty of [place] [facility] Body height 2020-10-06 05:46:00 160 cm Universi ty of [place] [facility] Systolic blood 2020-10-10 13:09:00 129 mm[Hg] Univer sity of pressure [facility] Branch Diastolic blood 2020-10-10 13:09:00 66 mm[Hg] Unive rsity of pressure [facility] Branch Heart rate 2020-10-10 13:09:00 82 /min Universi ty of [place] [facility] Body temperature 2020-10-10 13:09:00 36.94 Marleni Univ ersity of [place] [facility] Respiratory rate 2020-10-10 13:09:00 18 /min Univ ersity of [place] [facility] Oxygen saturation in 2020-10-10 13:09:00 97 /min University of Arterial blood by [employer] macrina Pulse oximetry Branch Body weight 2020-10-10 10:00:00 55.611 kg Universi ty of [place] [facility] BMI 2020-10-10 10:00:00 21.72 kg/m2 Universi ty [facility] [place] [facility] Body height 2020-10-06 05:46:00 160 cm Universi ty of [place] [facility] Procedures Procedure Date / Time Performing Clinician Source Performed NM MYOCARDIUM PERFUSION 2020-10-09 19:08:14 Cari Haider [facility] STRESS AND REST Medical Branch MAGNESIUM 2020-10-09 10:24:00 [facility] BASIC METABOLIC PANEL 2020-10-09 10:24:00 [facility] ([facility], K, CL, CO2, GLUCOSE, Medica l Branch BUN, CREATININE, CA) CBC WITH DIFF 2020-10-09 10:24:00 [facility] MAGNESIUM 2020-10-08 10:36:00 Carmelita [facility] TROPONIN I 2020-10-08 10:36:00 Silvermed, [facility] BASIC METABOLIC PANEL 2020-10-08 10:36:00 brandee [facility] (NA, K, CL, CO2, GLUCOSE, Medica l Branch BUN, CREATININE, CA) CBC WITH DIFF 2020-10-08 10:36:00 Carmelita [facility] MRSA / MSSA SCREEN BY 2020-10-08 02:10:00 Carmelita [facility] PCR, NARES [facility] MAGNESIUM 2020-10-08 02:05:00 Ahbrandee, [facility] IONIZED CALCIUM 2020-10-08 02:05:00 Carmelita [facility] PNEUMOCOCCAL ANTIGEN 2020-10-07 16:51:00 Mason Zambrano [facility] TROPONIN I 2020-10-07 11:18:00 Mary [facility] BASIC METABOLIC PANEL 2020-10-07 11:18:00 [facility] (NA, K, CL, CO2, GLUCOSE, Medica l Branch BUN, CREATININE, CA) CBC WITH DIFF 2020-10-07 11:18:00 Elliott [facility] TROPONIN I 2020-10-07 03:59:00 Teqwimstephanie [facility] TROPONIN I 2020-10-06 21:44:00 Teqwimstephanie [facility] COVID-19 (MOLECULAR 2020-10-06 19:02:00 Mason Zambrano [facility] TESTING [facility] NUCLEIC ACID AMPLIFICATION) LAB ONLY COVID 2020-10-06 19:02:00 Mason Zambrano [facility] INTERPRETATION [facility] TROPONIN I 2020-10-06 18:42:00 Elliott [facility] THYROID STIMULATING 2020-10-06 18:42:00 Elliott [facility] HORMONE [facility] LIPID PANEL ([id number])(TOTAL 2020-10-06 18:42:00 Sincere Gallagher [facility] CHOLESTEROL, [facility] TRIGLYCERIDES, HDL) ECHO ROUTINE W/DOPPLER 2020-10-06 16:58:07 Elliott [facility] COLOR [facility] URINALYSIS 2020-10-06 16:38:00 Elliott [facility] TROPONIN I 2020-10-06 12:41:[address] [facility] CT CHEST PULMONARY 2020-10-06 10:11:56 Wally Cooper [facility] ANGIOGRAM Medical Branch HB ECG ROUTINE & RHYTHM 2020-10-06 08:36:44 Wally Cooper [facility] URINALYSIS 2020-10-06 08:08:[address] [facility] URINE CULTURE 2020-10-06 08:08:[address] [facility] XR CHEST 1 VW 2020-10-06 07:40:[address] [facility] COVID-19 (ID NOW RAPID 2020-10-06 06:01:00 Wally Cooper [facility] TESTING) Medical Branch LAB ONLY COVID 2020-10-06 06:01:00 Wally Cooper [facility] INTERPRETATION [facility] LACTIC ACID WHOLE BLOOD 2020-10-06 05:57:00 Wally Cooper [facility] BLOOD CULTURE SCREEN 2020-10-06 05:56:00 Wally Cooper [facility] TROPONIN I 2020-10-06 05:56:[address] [facility] COMP. METABOLIC PANEL 2020-10-06 05:56:00 Wally Cooper [facility] ([id number]) Medical Branch CBC WITH DIFF 2020-10-06 05:56:[address] [facility] PROTHROMBIN TIME / INR 2020-10-06 05:56:00 Wally Cooper [facility] ACTIVATED PARTIAL 2020-10-06 05:56:00 Wally Cooper [facility] THRMPLAS [facility] N-TERMINAL PRO-BNP 2020-10-06 05:56:00 Wally Cooper [facility] HB ECG ROUTINE & RHYTHM 2020-10-06 05:40:52 Wally Cooper [facility] NOTICE OF PRIVACY 2020-10-06 05:33:54 Doctor Soniya, [facility] PRACTICES [facility] CONSENT/REFUSAL FOR 2020-10-06 05:33:27 Doctor Soniya, [facility] DIAGNOSIS AND TREATMENT [place] [facility] EMERGENCY DEPARTMENT 2020-10-05 06:01:00 Doctor Soniya, [facility] DOCUMENTS [facility] AGREEMENTS AUTHORIZATIONS 2020-10-05 06:01:00 Doctor Soniya, [facility] AND IRREVOCABLE [facility] ASSIGNMENTS (FORM 2001) Encounters Start End Encounter Admission Attending Care Care Encounter Source Date/Time Date/Time Type Type Clinicians Facility Department ID 2021-12-15 Outpatient Eddy, [facility] 14:[facility]:35 [place] [facility] 2021-12-15 Outpatient Eddy, [facility] 13[facility]33:18 [place] [facility] 2021-12-15 Outpatient Eddy, [facility] 13:27:45 [place] [id number] [facility] 2021-12-15 Outpatient Eddy [facility] 13:19:20 [place] [id number] [facility] 2021-12-15 Outpatient Eddy, [facility] 12:48:15 [place] [id number] [facility] 2021-12-15 Outpatient Eddy, [facility] 12:46:21 [place] [id number] [facility] 2021-12-15 Outpatient Eddy, [facility] 12:45:42 [place] [id number] [facility] 2021-12-15 Outpatient Eddy, [facility] 12:36:51 [place] [id number] [facility] 2021-12-15 Outpatient Eddy, [facility] 12:07:42 [place] [id number] [facility] 2021-12-15 Outpatient Eddy, [facility] 12:06:14 [place] [id number] [facility] 2021-12-15 Outpatient Eddy, [facility] 12:05:19 [place] [id number] [facility] 2021-12-15 Outpatient Eddy, [facility] 11:04:18 [place] [id number] [facility] 2021-12-15 Outpatient Eddy, [facility] 11:04:05 [place] [id number] [facility] 2021-12-15 Outpatient Eddy, [facility] [id number] 11:02:37 [place] [id number] [facility] 2021-11-23 2021-11-23 ambulatory [facility] [id number] [facility] 2021-11-23 2021-11-23 ambulatory [facility] [id number] [facility] 2021-09-17 2021-09-17 ambulatory [facility] [id number] [facility] 2021-09-16 2021-09-16 Outpatient [facility] [id number] [facility] 2021-07-31 2021-07-31 Outpatient Karlee [facility] [id number] Univers 11:00:00 11:00:00 SHUN [facility] 2021-06-22 2021-06-22 Outpatient [facility] [id number] [facility] 2021-06-07 2021-06-07 Outpatient [facility] [id number] [facility] 2021-02-23 2021-02-23 Outpatient [facility] [id number] [facility] 2021-01-28 2021-01-28 Outpatient [facility] [id number] [facility] 2021-01-19 2021-01-19 Outpatient [facility] [id number] [facility] 2020-12-17 2020-12-17 Outpatient [facility] [id number] [facility] 2020-12-14 2020-12-14 Outpatient [facility] [id number] [facility] 2020-11-25 2020-11-25 Outpatient [facility] [id number] [facility] 2020-11-25 2020-11-25 [facility] [id number] [facility] 2020-11-16 2020-11-16 Outpatient [facility] [id number] [facility] 2020-10-29 2020-10-29 Outpatient [facility] [id number] [facility] 2020-10-22 2020-10-22 [facility] [id number] [facility]00 [facility] 2020-10-13 2020-10-13 [facility]patient [facility] [id number] [facility]00 [facility] 2020-10-12 2020-10-12 Transition Nader Orellana [id number] Univers 00:00:00 00:00:00 of Care Nataliya L Reddy [id number] i ty of [place] [id number] [place] [id number] [facility] 403 Branch 2020-10-12 2020-10-12 Transition Nader Orellana [id number] 00:00:00 00:00:00 of Care Nataliya L Reddy [id number] [place] [id number] [facility] 2020-10-05 2020-10-10 [facility] [id number] [facility] 23:37:00 12:00:00 [facility] [id number] ity of [place] [id number] [place] [id number] [facility] 113 Branch (CLC) 2020-10-05 2020-10-10 [facility] [id number] 23:37:00 12:00:00 Encounter [facility] [id number] Frank Hernandez [id number] [place] [address] [id number] [facility] 113 ([facility]) 2020-10-05 2020-10-05 Emergency X [facility] ERT [id number] Univers 23:32:00 23:32:00 ity [facility] 2020-10-05 2020-10-05 Outpatient [facility] [id number] [facility] 2020-06-17 2020-06-17 [facility] [id number] 09:30:00 09:30:00 [place] [address] [facility] l Medicine Outpati ent Clinics 2020-03-30 2020-03-30 [facility] [id number] 13:58:00 13:58:00 t [place] [address] Luke [address] - Drive [facility] l Medicine Outpati ent Clinics 2019-12-19 2019-12-19 [facility] [id number] 09:30:00 09:30:00 t [place] [address] - Drive [facility] l Medicine Outpati ent Clinics 2019-10-31 2019-10-31 [facility] [id number] 16:21:00 16:21:00 t [place] [address] Luke [address] - Drive [facility] l Medicine Outpati ent Clinics 2019-09-17 2019-09-17 [facility] [id number] 09:00:00 09:00:00 t [place] [address] - Drive [facility] l Medicine Outpati ent Clinics 2019-08-06 2019-08-06 [facility] [id number] 09:30:00 09:30:[address] [facility] [address] [place] [address] [facility] l Medicine Outpati ent Clinics 2019-02-04 2019-02-04 [facility] [id number] 10:00:00 10:00:[address] [facility] [address] [place] [address] [facility] Medicine l Medicine Outpati ent Clinics 2019-02-04 2019-02-04 [facility] [id number] 09:45:00 09:45:00 t [facility] Medicine Outpati ent Clinics 2018-11-28 2018-11-28 [facility] [id number] 13:15:00 13:15:00 t [facility] Medicine Outpati ent Clinics 2018-10-26 2018-10-26 [facility] [id number] 15:00:00 15:00:00 t [facility] Medicine Medicine Outpati ent Clinics 2018-10-22 2018-10-22 [facility] [id number] 15:00:00 15:00:00 t [facility] Medicine Outpati ent Clinics 2018-06-26 2018-06-26 [facility] [id number] 09:00:00 09:00:00 t [facility] Medicine Outpati ent Clinics 2018-06-13 2018-06-13 [facility] [id number] 14:45:00 14:45:00 [facility] Clinics 2018-06-04 2018-06-04 [facility] [id number] [address] 13:00:00 13:00:00 [facility] 2018-06-01 2018-06-01 [facility] [id number] 13:30:00 13:30:00 [facility] Clinics 2018-05-28 2018-05-28 [facility] [id number] [address] 13:23:00 13:23:00 [facility] Out[facility] Clinics 2018-05-28 2018-05-28 [facility] [id number] 08:40:00 08:40:00 [facility] Outpat[facility] Clinics 2018-05-24 2018-05-24 Outpatient Keyla Montoya 14 [id number] [facility] 10:30:00 10:30:[address] [facility] Results Test Description Test Test Results Result Source Time Comments Comments LAB ONLY COVID 2020-09- COVID DMT [place] [address] InterpretationInterpre [facility] 20:53:00 tation/Recommendations Br anch : Molecular NAAT [...] test is performed there is approximately a wlc-do-awzyg chance the patient had been infected and [...] based upon aggregate COVID-19 test results in [facility]. They apply to the following tests offered at [facility] and assume the acceptable specimen type(s) were used: A. Tests for the Identification of SARS-CoV-2 RNA (Molecular NAAT Tests): ? ? ?- SARS-CoV-2 PCR assays including [place] Aptima, [place] Fusion, Castillo RealTime, and Culture Jam Xpert Xpress. ? ? ?- SARS-CoV-2 Rapid ID NOW by the ID NOW assay. ? B. Tests for the Identification of SARS-CoV-2 Antibodies: ? ? ?- Chemiluminescent immunoassays including Access SARS-CoV-2 IgM (DXI 600), [employer] Jyua-IQWE-MgX-2 IgG (Vitros 5600 and Vitros 3600), and Castillo SARS-CoV-2 IgG (UNIVERSAL GRINDER TOOL ?I System). These interpretations are autopopulated into benchee based on computerized algorithms matching an interpretation code to the patient's set of test results, and a clinical pathologist evaluates the comments for accuracy. However, these comments do not consider testing a patient may have had outside of the [facility] system. If results for COVID-19 infection continue to be negative in the context of a suspected viral respiratory illness, it is possible the patient may have an infection with another respiratory virus. Influenza testing and a respiratory pathogen panel if clinically indicated may be beneficial in this setting. [facility] LABORATORY SERVICESCOVID AkjzievYKJE-FaO-9 NAAT (no units) ? ? Date ? Value ? 10/06/2020 ? Not Detected ? SARS-CoV-2 Rapid ID NOW (no units) ? ? Date ? Value ? 10/06/2020 ? Not Detected ? [facility] LABORATORY SERVICES NM MYOCARDIUM 2020-09- Impression: Myocardial [employer] PERFUSION STRESS 20 perfusion imaging is [facility] AND REST 19:18:08 normal with no Branch [...] fraction was calculated to be 71% post-stress. [facility] [place] Results Inft User - 10/09/2020 1:19 PM [...] Interpretation Comme nts NA (test code = 7485441848) 133 mmol/L 135-145 L K (test code = 0972396919) 4.0 mmol/L 3.5-5 CL (test code = 9621174892) 102 mmol/L 98-108 CO2 TOTAL (test code = 9731788335) 23 mmol/L 23-31 AGAP (test code = 8443680344) 2-16 BUN (test code = 6723625794) 10 mg/dL 7-23 GLUCOSE (test code = 1088067035) 103 mg/dL 70-110 CREATININE (test code = 0.60 mg/dL 0.5-1.04 1912492409) CALCIUM (test code = 1900786681) 8.4 mg/dL 8.6-10.6 L eGFR Calculation (Non- mL/min/1.73m2 Faroese) (test code = 5560885446) eGFR Calculation ( mL/min/1.73m2 Faroese) (test code = 5427513634) ANI (test code = ANI) Association of [...] tests). Lab Interpretation (test code = Abnormal 70601-2) [facility] 10:49:00 Test Item Value Reference Range Interpretation Comments MAGNESIUM (test code = 4076308847) 2.0 mg/dL 1.7-2.4 Lab Interpretation (test code = Normal 94515-5) [facility] WITH [id number] 10:32:00 Test Item Value Reference Range Interpretation [...] RDW-SD (test code = 40.0 fL 39-49.9 86553-3) RDW-CV (test code = 13.2 % 12-15.5 788-0) PLT (test code = See_Comment [Automated 777-3) message] The sy stem which generated this result transmitted reference range : 166 - 358 10*3/ ?L. The reference r claudine was not used to interpret this result as normal/abnormal . MPV (test code = 9.9 fL 9.5-12.9 64718-2) NRBC/100 WBC (test See_Comment [Automat ed code = 5800536712) message] The system which generated this result transmitted reference range : 0.0 - 10.0 /100 WBCs. The refer ence range was not u sed to interpret th is result as normal/abnormal . NRBC x10^3 (test code <0.01 See_Comment [Auto mated = 0461125138) message] The s ystem which generated this result transmitted reference range : 10*3/?L. The reference range was not used to interpret this result as normal/abnormal . GRAN MAT (NEUT) % 75.4 % (test code = 770-8) IMM GRAN % (test code 0.40 % = 3414420662) LYMPH % (test code = 11.8 % 736-9) MONO % (test code = 11.6 % 5905-5) EOS % (test code = 0.7 % 713-8) BASO % (test code = 0.1 % 706-2) GRAN MAT x10^3(ANC) 8.46 10*3/uL 1.88-7.09 H (test code = 3930331475) IMM GRAN x10^3 (test 0.05 10*3/uL 0-0.06 code = 6812813120) LYMPH x10^3 (test code 1.32 10*3/uL 1.32-3.29 = 731-0) MONO x10^3 (test code 1.30 10*3/uL 0.33-0.92 H = 742-7) EOS x10^3 (test code = 0.08 10*3/uL 0.03-0.39 711-2) BASO x10^3 (test code <0.03 0.01-0.07 = 704-7) Lab Interpretation Abnormal (test code = 16190-5) [facility] / MSSA SCREEN BY PCR, [id number] 18:57:00 Test Item Value Reference Range Interpretation Comments MSSA Screen by PCR, Positive Negative A Nares (test code = 77984-3) MRSA/MSSA Positive? Yes No A (test code = 2900720381) ANI (test code = ANI) A positive test result does not necessarily indicate the presence of viable organism. Lab Interpretation (test Abnormal code = 89093-9) [facility]2020-11-19 14:26:00 Test Item Value Reference Range Interpretation Comments MAGNESIUM (test code = 7122419494) 2.0 mg/dL 1.7-2.4 Lab Interpretation (test code = Normal 58851-7) [facility] [id number] 11:05:00 Test Item Value Reference Range Interpretation Comments TROPONIN I (test 0.283 ng/mL See_Comment H [Automated code = 7625254741) message] The system which generated this result transmitted reference range : <=0.034. The reference range was not used to interpret this result as normal/abnormal . ANI (test code = Equal or Less than NAI) 0.034 ng/ml---Normal ?Note: Cardiac troponin begins to [...] ? Lab Interpretation Abnormal (test code = 10224-2) [facility] (NA, K, CL, CO2, GLUCOSE, BUN, CREATININE, CA)2020-10-08 10:54:00 Test Item Value Reference Range Interpretation Comments NA (test code = 134 mmol/L 135-145 L 7709348481) K (test code = 3.9 mmol/L 3.5-5 9447226187) CL (test code = 102 mmol/L 98-108 6215165935) CO2 TOTAL (test code = 24 mmol/L 23-31 7325955358) AGAP (test code = 2-16 8026396553) BUN (test code = 8 mg/dL 7-23 1729958262) GLUCOSE (test code = 116 mg/dL 70-110 H 4953603215) CREATININE (test code = 0.58 mg/dL 0.5-1.04 7372851671) CALCIUM (test code = 8.2 mg/dL 8.6-10.6 L 7191525331) eGFR Calculation mL/min/1.73m2 (Non-) (test code = 9960468365) eGFR Calculation mL/min/1.73m2 () (test code = 1567920597) ANI (test code = ANI) Association of [...] tests). Lab Interpretation Abnormal (test code = 26475-6) [facility] WITH [id number] 10:44:00 Test Item Value Reference Range Interpretation [...] RDW-SD (test code = 40.4 fL 39-49.9 47858-2) RDW-CV (test code = 13.4 % 12-15.5 788-0) PLT (test code = See_Comment [Automated 777-3) message] The sy stem which generated this result transmitted reference range : 166 - 358 10*3/ ?L. The reference r claudine was not used to interpret this result as normal/abnormal . MPV (test code = 9.8 fL 9.5-12.9 87784-9) NRBC/100 WBC (test See_Comment [Automat ed code = 8816754956) message] The system which generated this result transmitted reference range : 0.0 - 10.0 /100 WBCs. The refer ence range was not u sed to interpret th is result as normal/abnormal . NRBC x10^3 (test code <0.01 See_Comment [Auto mated = 7499870368) message] The s ystem which generated this result transmitted reference range : 10*3/?L. The reference range was not used to interpret this result as normal/abnormal . GRAN MAT (NEUT) % 79.6 % (test code = 770-8) IMM GRAN % (test code 0.40 % = 9067943850) LYMPH % (test code = 7.5 % 736-9) MONO % (test code = 11.8 % 5905-5) EOS % (test code = 0.5 % 713-8) BASO % (test code = 0.2 % 706-2) GRAN MAT x10^3(ANC) 9.06 10*3/uL 1.88-7.09 H (test code = 1342011993) IMM GRAN x10^3 (test 0.05 10*3/uL 0-0.06 code = 2214220483) LYMPH x10^3 (test code 0.86 10*3/uL 1.32-3.29 L = 731-0) MONO x10^3 (test code 1.35 10*3/uL 0.33-0.92 H = 742-7) EOS x10^3 (test code = 0.06 10*3/uL 0.03-0.39 711-2) BASO x10^3 (test code <0.03 0.01-0.07 = 704-7) Lab Interpretation Abnormal (test code = 80332-4) [facility] HospitalIONIZED [id number] 02:46:00 Test Item Value Reference Range Interpretation Comments IONIZED CA (test code = 4.50 mg/dL 4.5-5.3 2809916040) PH SERUM (test code = 5135408437) 7.35-7.45 Lab Interpretation (test code = Normal 50677-8) [facility]2020-11-19 02:34:00 Test Item Value Reference Range Interpretation Comments MAGNESIUM (test code = 1974171861) 2.0 mg/dL 1.7-2.4 Lab Interpretation (test code = Normal 56181-8) [facility] HospitalCORON[facility]IRUS COVID-19 [id number] 00:48:00 Test Item Value Reference Range Interpretation Comments SARS-CoV-2 NAAT (test Not Detected Not Detected code = 09034-2) ANI (test code = ANI) [employer] Aptima SARS-CoV-2 Assay is a nucleic acid amplification test intended for the qualitative detection of RNA from SARS-CoV-2 from nasopharyngeal (INSURANCE SERVICE REPRESENTATIVE) specimens. ?It is used under Emergency Use [...] indicated. Lab Interpretation Normal (test code = 80723-8) [facility] HospitalLEGIONELLA URINARY ANTIGEN [id number] 22:36:00 Test Item Value Reference Range Interpretation Comments Legionella Urinary Negative Negative Antigen (test code = 3362072895) ANI (test code = ANI) Negative for [...] test. Lab Interpretation (test Normal code = 62111-8) [facility] HospitalPNEUMOCOCCAL [id number] 22:36:00 Test Item Value Reference Range Interpretation Comments S. pneumoniae antigen (test code = Negative Negative 6622209006) Lab Interpretation (test code = Normal 43794-7) [facility] HospitalUrine [id number] 14:42:00 Test Item Value Reference Range Interpretation Comments URINE CULTURE (test 10,000 - 100,000 CFU/mL code = 630-4) mixed aerobic organisms - suggests endogenous microbial contamination [facility] HospitalTROPONIN [id number] 11:50:00 Test Item Value Reference Range Interpretation Comments TROPONIN I (test 0.721 ng/mL See_Comment H [Automated code = 8703405231) message] The system which generated this result [...] ? Lab Interpretation Abnormal (test code = 16451-4) [facility] COVID [id number] 11:39:00COVID DMT InterpretationInterpretation/Recommendations: Molecular NAAT Test Results [...] a nasopharyngeal sample, there is approximately a obb-it-fybhb chance that the patient was infected and [...] upon aggregate COVID-19 test results pooled from [facility].They apply to the following tests offered at [facility] and assume the acceptable specimen type(s) were used: A. Tests for the Identification of SARS-CoV-2 RNA (Molecular NAAT Tests):SARS-CoV-2 PCR assays including [employer] Aptima, [place] Fusion, Castillo RealTime, and Culture Jam Xpert Xpress. SARS-CoV-2 Rapid ID NOW by the ID NOW assay.? B. Tests for the Identification of SARS-CoV-2 Antibodies: Chemiluminescent immunoassays including Access SARS-CoV-2 IgM (DXI 600), [employer] Oqdn-FTLW-UkH-2 IgG (Vitros 5600 andVitros 3600), and Castillo SARS-CoV-2 IgG (UNIVERSAL GRINDER TOOL I System). ?These interpretations are autopopulated into [facility] based on computerized algorithms matching an interpretation code to the patient's set oftest results, and a clinical pathologist evaluates the comments for accuracy. However, these comments do not consider testing a patient may have had outside of the [facility] system. If results for COVID-19 infection [...] bronchoalveolar lavage fluid (BAL), tracheal aspirate, etc.). ?[facility] LABORATORY SERVICESCOVID DjlbwldHRVW-HtZ-6 Rapid ID NOW (no units) ? ? Date ? Value ? 10/06/2020 ? Not Detected ? [facility] (NA, K, CL, CO2, GLUCOSE, BUN, CREATININE, CA)2020-10-07 11:37:00 Test Item Value Reference Range Interpretation Comments NA (test code = 133 mmol/L 135-145 L 6939486532) K (test code = 3.9 mmol/L 3.5-5 7562705754) CL (test code = 103 mmol/L 98-108 3301085681) CO2 TOTAL (test code = 21 mmol/L 23-31 L 9827729572) AGAP (test code = 2-16 0584204558) BUN (test code = 12 mg/dL 7-23 8219442695) GLUCOSE (test code = 89 mg/dL 70-110 6510695104) CREATININE (test code = 0.79 mg/dL 0.5-1.04 7652601503) CALCIUM (test code = 8.2 mg/dL 8.6-10.6 L 5737377594) eGFR Calculation mL/min/1.73m2 (Non-) (test code = 2356738404) eGFR Calculation mL/min/1.73m2 () (test code = 0615063495) ANI (test code = ANI) Association of [...] tests). Lab Interpretation Abnormal (test code = 66216-2) [facility] with [id number] 11:30:00 Test Item Value Reference Range Interpretation Comments WBC (test code = See_Comment [Automated 8090-2) message] The sy stem which generated this result transmitted reference range : 4.30 - 11.10 10*3/?L. The reference range was not used to interpret this result as normal/abnormal . RBC (test code = See_Comment L [Automated 879-8) message] The sy stem which generated this [...] RDW-SD (test code = 41.6 fL 39-49.9 87652-5) RDW-CV (test code = 13.3 % 12-15.5 788-0) PLT (test code = See_Comment [Automated 777-3) message] The sy stem which generated this result transmitted reference range : 166 - 358 10*3/ ?L. The reference r claudine was not used to interpret this result as normal/abnormal . MPV (test code = 10.2 fL 9.5-12.9 14638-7) NRBC/100 WBC (test See_Comment [Automat ed code = 5132526534) message] The system which generated this result transmitted reference range : 0.0 - 10.0 /100 WBCs. The refer ence range was not u sed to interpret th is result as normal/abnormal . NRBC x10^3 (test code <0.01 See_Comment [Auto mated = 2294105105) message] The s ystem which generated this result transmitted reference range : 10*3/?L. The reference range was not used to interpret this result as normal/abnormal . GRAN MAT (NEUT) % 77.3 % (test code = 770-8) IMM GRAN % (test code 0.40 % = 8154023525) LYMPH % (test code = 9.9 % 736-9) MONO % (test code = 12.0 % 5905-5) EOS % (test code = 0.2 % 713-8) BASO % (test code = 0.2 % 706-2) GRAN MAT x10^3(ANC) 7.19 10*3/uL 1.88-7.09 H (test code = 9126472444) IMM GRAN x10^3 (test 0.04 10*3/uL 0-0.06 code = 9538255790) LYMPH x10^3 (test code 0.92 10*3/uL 1.32-3.29 L = 731-0) MONO x10^3 (test code 1.12 10*3/uL 0.33-0.92 H = 742-7) EOS x10^3 (test code = <0.03 0.03-0.39 L 711-2) BASO x10^3 (test code <0.03 0.01-0.07 = 704-7) Lab Interpretation Abnormal (test code = 28906-8) [facility] HospitalSatnam [id number] 04:46:00 Test Item Value Reference Range Interpretation Comments TROPONIN I (test 0.943 ng/mL See_Comment H [Automated code = 9850727918) message] The system which generated this result [...] ? Lab Interpretation Abnormal (test code = 83207-0) [id number] 22:17:00 Test Item Value Reference Range Interpretation Comments TROPONIN I (test 0.741 ng/mL See_Comment H [Automated code = 7310225761) message] The system which generated this result [...] ? Lab Interpretation Abnormal (test code = 10934-6) [facility] HospitalThyroid Stimulating Hormone (TSH)2020-10-06 19:34:00 Test Item Value Reference Range Interpretation Comments TSH (test code = See_Comment [Automated message] 0177930839) The system [employer] generated this result transmitted ref erence range: 0.45 - 4 .70 mIU/L. The refe rence range was not u sed to interpret this result as normal/abnor mal. Lab Interpretation (test Normal code = 92197-1) [facility] HospitalTroponin [id number] 19:15:00 Test Item Value Reference Range Interpretation Comments TROPONIN I (test 0.621 ng/mL See_Comment H [Automated code = 9278616479) message] The system which generated this result [...] ? Lab Interpretation Abnormal (test code = 50698-3) [facility] HospitalLipid Panel (Total Cholesterol, Triglycerides, HDL)2020-10-06 19:03:00 Test Item Value Reference Range Interpretation Comments CHOL (test code = 99 mg/dL 120-200 L 8585109354) HDL (test code = 41 mg/dL >50 L 7418792500) HDLC RATIO (test code = See_Comment [Au tomated message] 4478873783) The system [employer] generated this result transmitted ref erence range: <=4.5. T he reference range was not used to int erpret this result as normal/abnormal . TRIG (test code = 64 mg/dL 30-170 4382317401) LDL CHOL (test code = 45 mg/dL See_Comment [Auto mated message] 01136-5) The system [employer] generated this result transmitted ref erence range: <=160. T he reference range was not used to int erpret this result as normal/abnormal . VLDL (test code = 13 mg/dL 5-60 7031398936) Lab Interpretation (test Abnormal code = 24626-4) [facility] HospitalURINALYSIS2020-11-17 17:58:00 Test Item Value Reference Range Interpretation Comments APPEARANCE (test code = Clear Clear 4003701833) COLOR (test code = Straw Yellow A 3570882708) PH (test code = 4.8-8.0 8776353268) SP GRAVITY (test code = 1.003-1.030 7167625853) GLU U QUAL (test code = Normal Normal 1017497754) BLOOD (test code = 2+ Negative A 8081557392) KETONES (test code = Negative Negative 0792493859) PROTEIN (test code = Negative Negative 2887-8) UROBILIN (test code = Normal Normal 3074286550) BILIRUBIN (test code = Negative Negative 4712856439) NITRITE (test code = Negative Negative 7797851978) LEUK RAFY (test code = Negative Negative 4422684668) RBC/HPF (test code = See_Comment [Autom ated message] 5511733586) The system [employer] generated this result transmitted ref erence range: 0 - 3 HP F. The reference range was not used to int erpret this result as normal/abnormal . WBC/HPF (test code = <1 See_Comment [Autom ated message] 3043639070) The system [employer] generated this result transmitted ref erence range: 0 - 5 HP F. The reference range was not used to int erpret this result as normal/abnormal . BACTERIA (test code = Negative Negative 7723789554) SQ EPITH (test code = <1 See_Comment [Auto mated message] 0769263854) The system [employer] generated this result transmitted ref erence range: <=2 HPF. The reference range was not used to int erpret this result as normal/abnormal . Lab Interpretation (test Abnormal code = 41789-5) [facility] HospitalCT CHEST PULMONARY [id number] 14:06:55 No acute pulmonary embolism Right middle [...] reviewed this study and agree with theabove report.[facility] 1 [id number] 13:59:33 No acute cardiopulmonary process. Preliminary Report Dictated by Resident: Lily Gudino Thisstudy was reviewed by Dr. Richardson in the morning. Minimal congestion issuspected in both lungs with underlying chronic changes of obstructive lungdisease. Findings could be secondary to bronchitis. Mauricio Maciel MD., have reviewed this study and agree [...] reviewed this study and agree with theabove report.[facility] TROPONIN [id number] 13:12:00 Test Item Value Reference Range Interpretation Comments TROPONIN I (test 0.718 ng/mL See_Comment H [Automated code = 7995207003) message] The system which generated this result [...] ? Lab Interpretation Abnormal (test code = 67070-1) [facility] HospitalUrinalysis2020-11-17 08:31:00 Test Item Value Reference Range Interpretation Comments APPEARANCE (test code = Clear Clear 4244838905) COLOR (test code = Yellow Yellow 0637791808) PH (test code = 4.8-8.0 9375601714) SP GRAVITY (test code = 1.003-1.030 6420761678) GLU U QUAL (test code = Normal Normal 6816841001) BLOOD (test code = 2+ Negative A 7802809576) KETONES (test code = Negative Negative 8284400380) PROTEIN (test code = 100 mg/dL Negative A 2887-8) UROBILIN (test code = Normal Normal 0988947577) BILIRUBIN (test code = Negative Negative 8539775034) NITRITE (test code = Negative Negative 3283684665) LEUK RAFY (test code = Negative Negative 7738529240) RBC/HPF (test code = See_Comment H [Autom ated message] 2179597021) The system [employer] generated this result transmit dagoberto reference range : 0 - 3 HPF. The refe rence range was not u sed to interpret th is result as normal/abnormal . WBC/HPF (test code = See_Comment [Autom ated message] 9520475195) The system [employer] generated this result transmit dagoberto reference range : 0 - 5 HPF. The refe rence range was not u sed to interpret th is result as normal/abnormal . BACTERIA (test code = Moderate Negative A 4089389778) MUCOUS (test code = Slight Negative LPF A 7834037610) SQ EPITH (test code = HPF 6007625210) Lab Interpretation (test Abnormal code = 94752-1) [facility] HospitalN-TERMINAL [id number] 07:31:00 Test Item Value Reference Range Interpretation Comments NT-proBNP (test code 352 pg/mL See_Comment [Autom ated = 4037160795) message] The system which generated this result transmitted reference range : <=450. The reference range was not used to interpret this result as normal/abnormal . ANI (test code = ANI) Biotin has been reported to cause a negative bias, interpret results relative to patient's use of biotin. Lab Interpretation Normal (test code = 36371-1) [facility] HospitalaPTT2020-11-17 07:17:00 Test Item Value Reference Range Interpretation Comments APTT Patient (test See_Comment H [Automat ed code = 3173-2) message] The system which generated this result transmitted reference range : 23 - 38 Seconds . The reference range was not used to interpr et this result as normal/abnormal . ANI (test code = ANI) The [facility] patient population mean normal value for aPTT is 30 seconds. Lab Interpretation Abnormal (test code = 48855-7) [facility] HospitalPROTHROMBIN TIME / [id number] 07:15:00 Test Item Value Reference Range Interpretation [...] tions. Lab Interpretation (test Normal code = 51186-8) [facility] HospitalCOVID-19 (ID NOW RAPID TESTING)2020-10-06 06:51:00 Test Item Value Reference Range Interpretation Comments SARS-CoV-2 Rapid ID NOW Not Detected Not Detected (test code = 10466-1) ANI (test code = ANI) ID NOW COVID-19 Assay is an isothermal nucleic acid amplification test intended for the qualitative detection of nucleic acid from SARS-CoV-2 viral RNA in nasopharyngeal (INSURANCE SERVICE REPRESENTATIVE) specimens. It is used under Emergency Use [...] indicated. Lab Interpretation Normal (test code = 15614-7) [facility] HospitalTR[facility]IN [id number] 06:46:00 Test Item Value Reference Range Interpretation Comments TROPONIN I (test 0.122 ng/mL See_Comment H [Automated code = 1713940258) message] The system which generated this result [...] ? Lab Interpretation Abnormal (test code = 09052-3) [facility]. Metabolic Panel (74923)2020-10-06 06:34:00 Test Item Value Reference Range Interpretation Comments NA (test code = 123 mmol/L 135-145 L 5740005316) K (test code = 4.7 mmol/L 3.5-5 0210152884) CL (test code = 92 mmol/L 98-108 L 1750614889) CO2 TOTAL (test code = 23 mmol/L 23-31 9463028613) AGAP (test code = 2-16 0312342590) BUN (test code = 11 mg/dL 7-23 3903423437) GLUCOSE (test code = 125 mg/dL 70-110 H 4554469470) CREATININE (test code = 0.78 mg/dL 0.5-1.04 8705603592) TOTAL BILI (test code = 0.7 mg/dL 0.1-1.7 7100863081) CALCIUM (test code = 8.3 mg/dL 8.6-10.6 L 2930479721) T PROTEIN (test code = 6.7 g/dL 6.3-8.2 2084880392) ALBUMIN (test code = 3.6 g/dL 3.5-5 2764551072) ALK PHOS (test code = 107 U/L 34-122 7077207476) ALTv (test code = 21 U/L 5-35 1742-6) AST(SGOT) (test code = 32 U/L 13-40 0603380536) eGFR Calculation mL/min/1.73m2 (Non-) (test code = 6164184999) eGFR Calculation mL/min/1.73m2 () (test code = 6779211699) AIN (test code = ANI) Association of Glomerular [...] tests). Lab Interpretation Abnormal (test code = 64714-8) [facility] with [id number] 06:12:00 Test Item Value Reference Range Interpretation Comments WBC (test code = See_Comment H [Automated 8990-2) message] The system which generated this result [...] (test code = 38.7 fL 39-49.9 L 46701-8) RDW-CV (test code = 12.7 % 12-15.5 788-0) PLT (test code = See_Comment [Automated 777-3) message] The system which generated this result transmit dagoberto reference range : 166 - 358 10*3/ ?L. The reference range was not u sed to interpret th is result as normal/abnormal . MPV (test code = 10.3 fL 9.5-12.9 19769-5) NRBC/100 WBC (test See_Comment [Automat ed code = 5015193994) message] The system which generated this result transmit dagoberto reference range : 0.0 - 10.0 /100 WBCs. The reference range was not used to interpret this result as normal/abnormal . NRBC x10^3 (test code <0.01 See_Comment [Auto mated = 4948254046) message] The system which generated this result transmit dagoberto reference range : 10*3/?L. The reference range was not used to interpret this result as normal/abnormal . GRAN MAT (NEUT) % 93.9 % (test code = 770-8) IMM GRAN % (test code 0.70 % = 1878624761) LYMPH % (test code = 2.2 % 736-9) MONO % (test code = 3.0 % 5905-5) EOS % (test code = 0.1 % 713-8) BASO % (test code = 0.1 % 706-2) GRAN MAT x10^3(ANC) 13.92 10*3/uL 1.88-7.09 H (test code = 1538042104) IMM GRAN x10^3 (test 0.10 10*3/uL 0-0.06 H code = 6442902879) LYMPH x10^3 (test code 0.32 10*3/uL 1.32-3.29 L = 731-0) MONO x10^3 (test code 0.44 10*3/uL 0.33-0.92 = 742-7) EOS x10^3 (test code = <0.03 0.03-0.39 L 711-2) BASO x10^3 (test code <0.03 0.01-0.07 = 704-7) Lab Interpretation Abnormal (test code = 40258-5) [facility] [id number] 06:05:00 Test Item Value Reference Range Interpretation Comments LACTIC ACID (test code = 1.81 mmol/L 7528157206) [facility]
--- NOTE | 2022-01-22 11:56 | RAD REPORT ---
EXAM DESCRIPTION: RAD - Abdomen 1 View (KUB) - 01/22/2022 11:40 am CLINICAL HISTORY: constipation, abdominal pain COMPARISON: Abdomen 1 View (KUB) dated 10/27/2019; Thorax Wo Con dated 01/13/2022 FINDINGS: Nonobstructive bowel gas pattern. No acute osseous abnormality. Moderate colonic stool. Pe ripheral vascular calcifications. Surgical clips in right upper quadrant and right lower quadrant. Po st treatment changes at the right lung base. IMPRESSION: Nonobstructive bowel gas pattern. Moderate foreman colonic stool burden.
[2022-01-22] MEDS ORDERED: FLEET ENEMA ADULT PR ONE (12:39)
--- NOTE | 2022-01-22 14:33 | EDPHYS ---
Physician Documentation [facility] Name: Ramandeep Renner Age: 86 yrs Sex: Female : 1935 Arrival Date: 01/22/2022 Time: 10:04 Bed 7 Private MD: ED Physician Jadiel Lux HPI: 01/22 10:31 This 86 yrs old Female presents to ER via Ambulatory with complaints of jmm Constipation. 10:31 Onset: The symptoms/episode began/occurred gradually, 3 day(s) ago. The symptoms do not jmm radiate. Associated signs and symptoms: Pertinent positives: constipation. The symptoms are described as crampy. Modifying factors: The symptoms are alleviated by nothing, the symptoms are aggravated by nothing. This is an 86 year old female with a history of htn, hlp that presents to the ED with complaints of constipation for the past 3 days. Denies vomiting or abdominal pain. . Historical: - Allergies: 10:37 No Known Allergies; ag7 - Home Meds: 10:38 amlodipine 2.5 mg tab once daily [Active]; Prilosec 20 mg Oral cpDR 1 cap [Active]; ag7 atorvastatin 20 mg oral tab 1 tab once daily [Active]; lisinopril 20 mg oral tab 1 tab once daily [Active]; 10:41 lantoprast 125 mcg/2ml [Active]; ag7 - PMHx: 10:41 Hypertensive disorder; Hypercholesterolemia; lung cancer remission; Bowel problem; ag7 Glaucoma; - Immunization history:: Adult Immunizations up to date. - Social history:: Smoking status: Patient denies any tobacco usage or history of. ROS: 10:31 Constitutional: Negative for fever, chills, and weight loss, Cardiovascular: Negative jmm for chest pain, palpitations, and edema, Respiratory: Negative for shortness of breath, cough, wheezing, and pleuritic chest pain. 10:31 Abdomen/GI: Positive for constipation. 10:31 All other systems are negative. Exam: 10:31 Constitutional: This is a well developed, well nourished patient who is awake, alert, jmm and in no acute distress. Head/Face: atraumatic. Eyes: EOMI, no conjunctival erythema appreciated ENT: Moist Mucus Membranes Neck: Trachea midline, Supple Chest/axilla: Normal chest wall appearance and motion. Cardiovascular: Regular rate and rhythm. No edema appreciated Respiratory: Normal respirations, no respiratory distress appreciated 10:31 MS/ Extremity: Moves all extremities, no obvious deformities appreciated, no edema noted to the lower extremities Neuro: Awake and alert Psych: Behavior is normal, Mood is normal, Patient is cooperative and pleasant 10:31 Abdomen/GI: Inspection: abdomen appears normal, Bowel sounds: normal, Palpation: abdomen is soft and non-tender, in all quadrants. Vital Signs: 10:33 BP 163 / 91; Pulse 94; Resp 16; Temp 97.2; Pulse Ox 97% on R/A; Height 5 ft. (152.40 ag7 cm); 11:51 BP 136 / 72; Pulse 88; Resp 17; Pulse Ox 97% on R/A; vg1 13:00 BP 144 / 68; Pulse 88; Resp 16; Pulse Ox 96% ; vg1 14:00 BP 142 / 70; Pulse 85; Resp 15; Pulse Ox 96% on R/A; vg1 MDM: 10:31 Patient medically screened. [facility] 14:30 Data reviewed: vital signs, nurses notes. Counseling: I had a detailed discussion with [facility] the patient and/or guardian regarding: the historical points, exam findings, and any diagnostic results supporting the discharge/admit diagnosis, lab results, radiology results, the need for outpatient follow up, to return to the emergency department if symptoms worsen or persist or if there are any questions or concerns that arise at home. 01/22 10:34 Order name: Abdomen 1 View (KUB) XRAY; Complete Time: 11:57 [facility] 01/22 10:33 Order name: Misc. Order: prune juice, apple juice butter PO; Complete Time: 10:35 [facility] Administered Medications: 12:59 Drug: Fleet Enema (sodium phosphate) 133 ml Route: LA; vg1 Disposition: 15:36 Co-signature as Attending Physician, Jadiel Lux MD I agree with the assessment and rn plan of care. Attestation: The patient's history, exam findings, diagnostics, and a summary of any interventions or procedures was reviewed in detail with Kenny DOMINGUEZ. Disposition Summary: 01/22/22 14:33 Discharge Ordered Location: Home [facility] Condition: Stable [facility] Diagnosis - Constipation [facility] Followup: [facility] - With: Rd Guerra MD - When: 2 - 3 days - Reason: Recheck today's complaints, Continuance of care, Re-evaluation by your physician Discharge Instructions: - Discharge Summary Sheet jmm - Constipation, Adult jm Forms: - Medication Reconciliation Form jm - Thank You Letter julia - Antibiotic Education julia - Prescription Opioid Use julia Prescriptions: - Miralax 17 gram Oral powder in packet - take 1 packet by ORAL route 2 times per day; 30 packet; Refills: 0, Product [facility] Selection Permitted Signatures: Dispatcher [employer] EDKenny Breen PA PA jmm Nieto, Roman, MD MD rn Dave, Vernell, RN RN vg1 Pattie Doan, RN RN ag7 Corrections: (The following items were deleted from the chart) 10:45 10:37 PMHx: stroke; ag7 ag7 10:45 10:37 PMHx: Hypertensive disorder; ag7 ag7 10:45 10:37 PMHx: Hypercholesterolemia; ag7 ag7 10:45 10:37 PMHx: lung cancer-June 2021; ag7 ag7
--- NOTE | 2022-01-22 14:33 | ER ---
Nurse's Notes [facility] Name: Ramandeep Renner Age: 86 yrs Sex: Female : 1935 Arrival Date: 01/22/2022 Time: 10:04 Bed 7 Private MD: Diagnosis: Constipation Presentation: 01/22 10:33 Chief complaint: Patient states: "The patient reports constipation really bad with ag7 little balls, started 3-4 days ago". Coronavirus screen: Vaccine status: Patient reports receiving the 2nd dose of the covid vaccine. Client denies travel out of the [place] in the last 14 days. Ebola Screen: No symptoms or risks identified at this time. Initial Sepsis Screen: Does the patient meet any 2 criteria? No. Patient's initial sepsis screen is negative. Initial Sepsis Screen: Does the patient have a suspected source of infection? No. Patient's initial sepsis screen is negative. Risk Assessment: Do you want to hurt yourself or someone else? Patient reports no desire to harm self or others. Onset of symptoms was January 18, 2022. 10:33 Method Of Arrival: Ambulatory ag7 10:33 Acuity: WILFRIDO 3 ag7 Historical: - Allergies: 10:37 No Known Allergies; ag7 - Home Meds: 10:38 amlodipine 2.5 mg tab once daily [Active]; Prilosec 20 mg Oral cpDR 1 cap [Active]; ag7 atorvastatin 20 mg oral tab 1 tab once daily [Active]; lisinopril 20 mg oral tab 1 tab once daily [Active]; 10:41 lantoprast 125 mcg/2ml [Active]; ag7 - PMHx: 10:41 Hypertensive disorder; Hypercholesterolemia; lung cancer remission; Bowel problem; ag7 Glaucoma; - Immunization history:: Adult Immunizations up to date. - Social history:: Smoking status: Patient denies any tobacco usage or history of. Screenin:34 Abuse screen: Denies threats or abuse. Nutritional screening: No deficits noted. vg1 Tuberculosis screening: No symptoms or risk factors identified. Fall Risk No fall in past 12 months (0 pts). No secondary diagnosis (0 pts). No IV (0 pts). Ambulatory Aid- None/Bed Rest/Nurse Assist (0 pts). Gait- Normal/Bed Rest/Wheelchair (0 pts) Mental Status- Oriented to own ability (0 pts). Total Marcum Fall Scale indicates No Risk (0-24 pts). Assessment: 10:29 General: Appears in no apparent distress. uncomfortable, Behavior is calm, cooperative. vg1 Pain: Denies pain. Neuro: Level of Consciousness is awake, alert, obeys commands, Oriented to person, place, time, situation. Cardiovascular: Patient's skin is warm and dry. Respiratory: Airway is patent Respiratory effort is even, unlabored. GI: Abdomen is round non-distended, Bowel sounds present X 4 quads. Abd is soft and non tender X 4 quads. Reports constipation, nausea, since 2-3 days Patient currently denies vomiting. : No signs and/or symptoms were reported regarding the genitourinary system. EENT: No signs and/or symptoms were reported regarding the EENT system. Derm: Skin is intact, Skin is pink, warm \\T\\ dry. Musculoskeletal: Circulation, motion, and sensation intact. 11:30 Reassessment: Patient appears in no apparent distress at this time. No changes from vg1 previously documented assessment. Patient and/or family updated on plan of care and expected duration. Pain level reassessed. Patient is alert, oriented x 3, equal unlabored respirations, skin warm/dry/pink. 12:30 Reassessment: Patient appears in no apparent distress at this time. No changes from vg1 previously documented assessment. Patient and/or family updated on plan of care and expected duration. Pain level reassessed. Patient is alert, oriented x 3, equal unlabored respirations, skin warm/dry/pink. 13:30 Reassessment: Patient appears in no apparent distress at this time. No changes from vg1 previously documented assessment. Patient is alert, oriented x 3, equal unlabored respirations, skin warm/dry/pink. 14:23 Reassessment: Patient appears in no apparent distress at this time. Patient and/or vg1 family updated on plan of care and expected duration. Pain level reassessed. Patient is alert, oriented x 3, equal unlabored respirations, skin warm/dry/pink. Patient denies pain at this time. Vital Signs: 10:33 BP 163 / 91; Pulse 94; Resp 16; Temp 97.2; Pulse Ox 97% on R/A; Height 5 ft. (152.40 ag7 cm); 11:51 BP 136 / 72; Pulse 88; Resp 17; Pulse Ox 97% on R/A; vg1 13:00 BP 144 / 68; Pulse 88; Resp 16; Pulse Ox 96% ; vg1 14:00 BP 142 / 70; Pulse 85; Resp 15; Pulse Ox 96% on R/A; vg1 ED Course: 10:04 Patient arrived in ED. as 10:20 Kenny Thompson PA is PHCP. [facility] 10:20 Jadiel Lux MD is Attending Physician. [facility] 10:22 Kristie Quintanilla, RN is Primary Nurse. jh6 10:34 Patient has correct armband on for positive identification. Bed in low position. Call vg1 light in reach. Side rails up X 1. 10:37 Triage completed. ag7 10:45 Arm band placed on. ag7 11:40 Abdomen 1 View (KUB) XRAY In Process Unspecified. EDMS 14:32 Rd Guerra MD is Referral Physician. [facility] 14:44 No provider procedures requiring assistance completed. Patient did not have IV access vg1 during this emergency room visit. Administered Medications: 12:59 Drug: Fleet Enema (sodium phosphate) 133 ml Route: ID; vg1 Outcome: 14:33 Discharge ordered by MD. [facility] 14:44 Discharged to home ambulatory. vg1 14:44 Condition: good 14:44 Discharge instructions given to patient, Instructed on discharge instructions, follow up and referral plans. medication usage, Demonstrated understanding of instructions, follow-up care, medications, Prescriptions given X 1. 14:44 Patient left the ED. vg1 Signatures: Dispatcher [employer] EDMS Kenny Thompson PA PA jmm Martinez, Amelia as Garcia, Victoria, RN RN vg1 Kristie Quintanilla, RN RN jh6 Pattie Doan, RN RN ag7 Corrections: (The following items were deleted from the chart) 10:45 10:37 PMHx: stroke; ag7 ag7 10:45 10:37 PMHx: Hypertensive disorder; ag7 ag7 10:45 10:37 PMHx: Hypercholesterolemia; ag7 ag7 10:45 10:37 PMHx: lung cancer-June 2021; ag7 ag7
[2022-01-22 15:18] VITALS: TEMP 97.2
[2022-01-22 15:21] VITALS: O2SAT 96
[2022-01-22 15:22] VITALS: BP 142/70
== END 2022-01-22 14:44 | disposition home or self-care (01) ==
LOC: ER 10:00
DX: K59.00 Constipation, unspecified (principal); I10 Essential (primary) hypertension
CPT/HCPCS: 74018; 99283

== ENCOUNTER 2022-04-05 08:50 | Emergency (ER) | payer OTHER ==
--- OUTSIDE RECORDS SUMMARY | 2022-04-05 08:56 | XMS REPORT | Continuity of Care Document ---
:1935 Author Organization [facility] t Address [address] [place] [address] Care Team Providers Name Role Phone Tesha Eddy Attending Clinician Unavailable HOWARD, Wilda Attending Clinician Unavailable Esteban ALVAREZ, L Attending Clinician Unavailable Kenneth TAVARES, S Attending Clinician Lida TAVARES Attending Clinician Mary TAVARES Attending Clinician Lida TAVARES Admitting Clinician Payers Payer Name Policy Type Policy Number Effective Date Expiration Date S [facility] [id number] 2020 DUAL COMPLETE HMO 00:00:00 [facility] [id number] 2016 MEDICAID 00:00:00 MEDICARE PART A \\T\\ [id number] 1999 B 00:00:00 MEDICAID [place] [facility] [id number] 2011 00:00:00 Problems Condition Condition Condition Status Onset Resolution Last Treating Co mments Source Name Details Category Date Date Treatment Clinician Date NSTEMI NSTEMI Disease Active 2019-11 Univers (non-ST (non-ST 1-17 ity of elevated elevated 00:00: [place] myocardial myocardial 00 Me dical infarction infarction Br anch ) ) CVA CVA Disease Active 2019-11 Univers (cerebral (cerebral 1-17 ity of vascular vascular 00:00: [place] accident) accident) [address] [place] [address] HTN HTN Disease Active 2019-11 Univers (hypertens (hypertens 1-17 it y of ion) ion) 00:00: [place] 00 [facility] HLD HLD Disease Active 2019-11 Univers (hyperlipi (hyperlipi -17 it y of demia) demia) 00:00: [place] 00 [facility] Fever Fever Disease Active 2019-11 Univers 1-17 ity of 00:00: [place] 00 [facility] Urinary Urinary Disease Active 2019-11 Univers tract tract -17 ity of infection[place] site not 00 Medica l specified specified Bran ch Pulmonary Pulmonary Disease Active Uni vers emboli emboli 2-05 ity of 00:00: [place] 00 [facility] Chest pain Chest pain Disease Active U nivers 2-04 ity of 00:00: [address] Allergies, Adverse Reactions, Alerts Allergy Allergy Status Severity Reaction(s) Onset Inactive Treating Comm ents Source Name Type Date Date Clinician NO KNOWN Drug Active [facility] ALLERGIE Class ity of S [facility] Social History Social Habit Start Date Stop Date Quantity Comments Source Sex Assigned At Universit y of [facility] Exposure to Not sure [facility] SARS-CoV-2 (event) [facility] Alcohol intake 2017-05-23 2017-05-23 Current University of 00:00:00 00:00:00 non-drinker of [facility] alcohol Branch (finding) Cigarettes smoked 2017-05-23 2017-05-23 [facility] ity of current (pack per 00:00:00 00:00:00 [place] ) - Reported Branch Cigarette 2017-05-23 2017-05-23 University of pack-years 00:00:00 00:00:00 [facility] History of tobacco 2016-05-24 Smoker Univer sity of use 00:00:00 [facility] Smoking Status Start Date Stop Date Source Former smoker 2017-05-23 00:00:00 2017-05-23 00:00:00 [facility] Medications Ordered Filled Start Stop Current Ordering Indication Dosage Frequency Signature Comments Components Source Medication Medication Date Date Medication? Clinician (SIG) Name Name Psyllium 2019-11 Yes Take by Unive rs (METAMUCIL, 1-21 mouth. ity of SUGAR,) 1.7 18:27: [place] g Wa[facility] 17 Medical Branch LATANOPROST 2019-[address] in U nivers OPHTHALMIC -21 each eye. ity of 18:27: [place] [address] Medical Branch rivaroxaban 2019-11 Yes Take by [...] OPHTHALMIC -21 each eye. ity of 18:27: [place] [address] Medical Branch rivaroxaban 2019-11 Yes Take by Un lillian (XARELTO) -21 mouth. ity of 20 mg 18:27: [place] tablet Medical Branch OMEPRAZOLE 2019-11 Yes 20mg Take 20 mg U nivers MAGNESIUM -21 by mouth ity of (PRILOSEC 18:27: daily. [place] OTC ORAL) Medical Branch cefdinir 2019-11 2020- No 300mg 300 mg, Univ ers (OMNICEF) -10-15 Oral, BID, ity of capsule 300 15:30: 13:59 10 doses, [place] mg 00 :00 First dose Medical on Sat Branch 10/10/20 at 0930, Last dose on 10/14/20 at 2000, FERMIN
Re ason for Anti-Infec tive: Documented Infection< br>Documen dagoberto Infection Site: Respirator y
Durat ion of Therapy: Other (see Comments) aspirin 81 2019-11 Yes [id number] 81mg Take 1 U nivers mg chewable 1-21 tablet by ity of tablet 00:00: mouth [place] 00 daily. Medical Branch cefdinir 2019-11 Yes [id number] 300mg Take 1 Un lillian 300 mg 1-21 capsule by ity of capsule 00:00: mouth 2 [place] 00 (two) Medical times Branch daily. azithromyci 2019- Yes [id number] 250mg Take 1 Univers n 250 mg 1-21 tablet by ity of tablet 00:00: mouth [place] 00 daily. Medical Take 500 Branch mg day 1, then 250 mg days 2 to 5. aspirin 81 2019- Yes [id number] 81mg Take 1 U nivers mg chewable 1-21 tablet by ity of tablet 00:00: mouth [place] 00 daily. Medical Branch cefdinir 2019- Yes [id number] 300mg Take 1 Un lillian 300 mg 1-21 capsule by ity of capsule 00:00: mouth 2 [place] 00 (two) Medical times Branch daily. azithromyci 2019-11 Yes [id number] 250mg Take 1 Univers n 250 mg 1-21 tablet by ity of tablet 00:00: mouth [place] 00 daily. Medical Take 500 Branch mg day 1, then 250 mg days 2 to 5. azithromyci 2019-11 2020- No [id number] 250mg Take 1 Univers n 250 mg 1-21 11-21 tablet by ity o f tablet 00:00: 00:00 mouth [place] 00 :00 daily. Medical Take 500 Branch mg day 1, then 250 mg days 2 to 5. tc 2019-2019- No 42mCi 42 Univers 99m-tetrofo 1-20 11-20 millicurie i ty of smin 20:15: 18:10 , [place] ([facility]) 00 :00 Intravenou Medi macrina injection s, ONCE, 1 Bran ch 42 dose, Fri millicurie 10/09/20 at 1415, Routine tc 2019-11 2020- No 14mCi 14 Univers 99m-tetrofo 1-20 11-20 millicurie i ty of smin 20:15: 16:50 , [place] ([facility]) 00 :00 Intravenou Medi macrina injection s, ONCE, 1 Bran ch 14 dose, Fri millicurie 10/09/20 at 1415, Routine Regadenoson 2019-11- No .4mg 0.4 mg, Un lillian (LEXISCAN) 1-20 -20 Slow IV ity o f injection 19:30: 18:10 Push, [place] 0.4 mg 00 :00 ONCE, 1 Medical dose, Fri Branch 10/09/20 at 1330, Routine
landscape crew member approving Restricted medication : GUILLERMO MICHAELSDWAYNE dexMEDEtomi 2019-11 Yes .2ug/kg 0.2-1.5 Univers dine 200 1-20 /h mcg/kg/hr ity of mcg in 0.9 17:13: ?49.9 kg Supa as % NaCl 50 42 (2.495-18. Medi macrina mL 7125 Branch (PRECEDEX) mL/hr, RTU IV rounded to infusion 2.5-18.71 mL/hr), IV Infusion, TITRATE, Sedation-R ASS score (0 to -1), Starting 10/09/20 at 1113
In itiate infusion at 0.2 mcg/kg/hr and titrate by 0.1 mcg/kg/hr every 30 minutes to goal sedation score. Maximum dose = 1.5 mcg/kg/hr. If goal not maintained at maximum allowed dose, contact prescriber .
atorvastati 2019-11 Yes [id number] 20mg Take 1 Univers n 20 mg 1-20 tablet by ity of tablet 00:00: mouth at [place] 00 bedtime. Medical Branch metoprolol 2019-11 Yes [id number] 25mg Take 1 U nivers tartrate 25 1-20 tablet by ity of mg tablet 00:00: mouth 2 [place] 00 (two) Medical times [place] daily. atorvastati 2019-11 Yes [id number] 20mg Take 1 Univers n 20 mg 1-20 tablet by ity of tablet 00:00: mouth at [place] 00 bedtime. Medical Branch metoprolol 2019-11 Yes [id number] 25mg Take 1 U nivers tartrate 25 1-20 tablet by ity of mg tablet 00:00: mouth 2 [place] 00 (two) Medical times [place] daily. azithromyci 2019- 2020- No [id number] 250mg Take 1 Univers n 250 mg 1-20 11-21 tablet by ity o f tablet 00:00: 00:00 mouth [place] 00 :00 daily. Medical Take 500 Branch mg day 1, then 250 mg days 2 to 5. atorvastati 2019-11 2020- No [id number] 20mg Take 1 Univers n 20 mg 1-20 11-20 tablet by ity of tablet 00:00: 00:00 mouth at [place] 00 :00 bedtime. Medical Branch metoprolol 2019-11 2020- No [id number] 25mg Take 1 Univers tartrate 25 12-09 [...] ity of 2,000 mg in 06:00: 15:24 [place], [place] NaCl 0.9% 00 :27 Q24H ABX, Medic al (NS) 100 mL First dose Br anch MINI-BAG on Mon10/07/20 at 0000, Until Discontinu ed, 100 mL
Reas on for Anti-Infec tive: Documented Infection< br>Documen dagoberto Infection Site: Respirator y
Du ration of Therapy: 7 days atorvastati 2019-11 Yes 20mg 20 mg, Univ ers n (LIPITOR) -18 Oral, QHS, it y of tablet 20 [...] IV Push, ity of (PF)) 15:14: Q6HPRN, [place] injection 4 22 Starting Medi macrina mg [facility] Branch 10/06/20 at 0914, Until Discontinu ed, Routine, Nausea and Vomiting (N/V) acetaminoph 2019-11 Yes 650mg 650 mg, Un lillian en 12-06 Oral, ity of (TYLENOL) 15:14: Q6HPRN, [place] tablet 650 13 Starting Medic al mg [facility] Branch 10/06/20 at 0914, Until Discontinu ed, [...] by mouth ity of tablet 00:00: weekly. [address] aspirin 81 [id number] Yes 81mg Take 81 mg U nivers mg chewable 7-10 by mouth ity of tablet 00:00: weekly. [address] [place] Yes Quintno 1 tablet Common Aspirin EC Aspirin EC Dedy Sp petty Low Dose Low Dose - [facility] Atorvastati Atorvastati Yes [place] 1 tablet Common n Calcium n Calcium Eddy Spir it [facility] Lisinopril Lisinopril Yes [place] 1 tablet Common Eddy [facility] Amlodipine Amlodipine Yes [place] 1 tablet Common Besylate Besylate [facility] Prilosec Prilosec Yes [place] not Commo n OTC OTC Eddy defined [facility] Immunizations Ordered Filled Immunization Date Status Comments Sourc e Immunization Name Name Td 2016-09-16 Completed University of 00:00:00 [facility] Td 2016-09-16 Completed University 00:00:00 [facility] Vital Signs Vital Name Observation Time Observation Value Comments Source Systolic blood 2020-10-10 13:09:00 129 mm[Hg] Univer sity of pressure [facility] Branch Diastolic blood 2020-10-10 13:09:00 66 mm[Hg] Unive rsity of pressure [facility] Branch Heart rate 2020-10-10 13:09:00 82 /min Universi ty of [place] Medical [place] Body temperature 2020-10-10 13:09:00 36.94 Marleni Univ ersity of [facility] Branch Respiratory rate 2020-10-10 13:09:00 18 /min Univ ersity of [place] [facility] Oxygen saturation in 2020-10-10 13:09:00 97 /min University of Arterial blood by [place] [employer] macrina Pulse oximetry Branch Body weight 2020-10-10 10:00:00 55.611 kg Universi ty of [place] [facility] [place] BMI 2020-10-10 10:00:00 21.72 kg/m2 Universi ty of [place] [facility] Body height 2020-10-06 05:46:00 160 cm Universi ty of [place] [facility] Systolic blood 2020-10-10 13:09:00 129 mm[Hg] Univer sity of pressure [facility] Diastolic blood 2020-10-10 13:09:00 66 mm[Hg] Unive rsity of pressure [facility] Heart rate 2020-10-10 13:09:00 82 /min Universi ty of [place] [facility] Body temperature 2020-10-10 13:09:00 36.94 Marleni Univ ersity of [place] [facility] Respiratory rate 2020-10-10 13:09:00 18 /min Univ ersity of [place] [facility] Oxygen saturation in 2020-10-10 13:09:00 97 /min University of Arterial blood by [place] [employer] macrina Pulse oximetry Branch Body weight 2020-10-10 10:00:00 55.611 kg Universi ty of [place] [facility] BMI 2020-10-10 10:00:00 21.72 kg/m2 Universi ty of [facility] Body height 2020-10-06 05:46:00 160 cm Universi ty of [place] [facility] Procedures Procedure Date / Time Performing Clinician Source Performed NM MYOCARDIUM PERFUSION 2020-10-09 19:08:14 Cari Haider [facility] STRESS AND REST Medical Branch MAGNESIUM 2020-10-09 10:24:00 Mary [facility] BASIC METABOLIC PANEL 2020-10-09 10:24:00 Mary [facility] (NA, K, CL, CO2, GLUCOSE, Medica l Branch BUN, CREATININE, CA) CBC WITH DIFF 2020-10-09 10:24:00 Mary [facility] MAGNESIUM 2020-10-08 10:36:00 Carmelita [facility] TROPONIN I 2020-10-08 10:36:00 [facility], [facility] BASIC METABOLIC PANEL 2020-10-08 10:36:00 brandee [facility] (NA, K, CL, CO2, GLUCOSE, Medica l Branch BUN, CREATININE, CA) CBC WITH DIFF 2020-10-08 10:36:00 Carmelita [facility] MRSA / MSSA SCREEN BY 2020-10-08 02:10:00 Carmelita [facility] PCR, [facility] MAGNESIUM 2020-10-08 02:05:00 Carmelita [facility] IONIZED CALCIUM 2020-10-08 02:05:00 Carmelita [facility] PNEUMOCOCCAL ANTIGEN 2020-10-07 16:51:00 Mason Zambrano [facility] TROPONIN I 2020-10-07 11:18:00 Mary [facility] BASIC METABOLIC PANEL 2020-10-07 11:18:00 Louis [facility] (NA, K, CL, CO2, GLUCOSE, Medica l Branch BUN, CREATININE, CA) CBC WITH DIFF 2020-10-07 11:18:00 Elliott [facility] TROPONIN I 2020-10-07 03:59:00 Elliott [facility] TROPONIN I 2020-10-06 21:44:00 Louis [facility] COVID-19 (MOLECULAR 2020-10-06 19:02:00 [facility] NUCLEIC ACID AMPLIFICATION) LAB ONLY COVID 2020-10-06 19:02:00 Mason Zambrano [facility] INTERPRETATION [facility] TROPONIN I 2020-10-06 18:42:00 Elliott [facility] THYROID STIMULATING 2020-10-06 18:42:00 Elliott [facility] HORMONE [facility] LIPID PANEL ([id number])(TOTAL 2020-10-06 18:42:00 Sincere Gallagher [facility] CHOLESTEROL, [facility] TRIGLYCERIDES, HDL) ECHO ROUTINE W/DOPPLER 2020-10-06 16:58:07 Elliott [facility] COLOR [facility] URINALYSIS 2020-10-06 16:38:00 Louis [facility] TROPONIN I 2020-10-06 12:41:00 Wally Cooper [facility] CT CHEST PULMONARY 2020-10-06 10:11:56 Wally Cooper [facility] ANGIOGRAM Medical Branch HB ECG ROUTINE & RHYTHM 2020-10-06 08:36:44 Wally Cooper [facility] URINALYSIS 2020-10-06 08:08:00 Wally Cooper [facility] URINE CULTURE 2020-10-06 08:08:00 Wally Cooper [facility] XR CHEST 1 VW 2020-10-06 07:40:24 Wally Cooper [facility] COVID-19 (ID NOW RAPID 2020-10-06 06:01:00 Wally Cooper [facility] TESTING) Medical Branch LAB ONLY COVID 2020-10-06 06:01:00 Wally Cooper [facility] INTERPRETATION [facility] LACTIC ACID WHOLE BLOOD 2020-10-06 05:57:00 Wally Cooper [facility] BLOOD CULTURE SCREEN 2020-10-06 05:56:00 Wally Cooper [facility] TROPONIN I 2020-10-06 05:56:00 Wally Cooper [facility] [place] [facility] COMP. METABOLIC PANEL 2020-10-06 05:56:00 Wally Cooper [facility] ([id number]) Medical Branch CBC WITH DIFF 2020-10-06 05:56:00 Wally Cooper [facility] PROTHROMBIN TIME / INR 2020-10-06 05:56:00 Wally Cooper [facility] ACTIVATED PARTIAL 2020-10-06 05:56:00 Wally Cooper [facility] THRMPLAS PABLO [facility] N-TERMINAL PRO-BNP 2020-10-06 05:56:00 Wally Cooper [facility] HB ECG ROUTINE & RHYTHM 2020-10-06 05:40:52 Wally Cooper [facility] NOTICE OF PRIVACY 2020-10-06 05:33:54 Doctor Soniya, [facility] PRACTICES [facility] CONSENT/REFUSAL FOR 2020-10-06 05:33:27 Doctor Soniya, [facility] DIAGNOSIS AND TREATMENT [facility] EMERGENCY DEPARTMENT 2020-10-05 06:01:00 Doctor Soniya, [facility] DOCUMENTS [facility] AGREEMENTS AUTHORIZATIONS 2020-10-05 06:01:00 Doctor Soniya, [facility] AND IRREVOCABLE [facility] [place] ASSIGNMENTS (FORM 2001) Encounters Start End Encounter Admission Attending Care Care Encounter Source Date/Time Date/Time Type Type Clinicians Facility Department ID 2022-03-14 Outpatient Eddy, [facility] [id number] Common 08:47:01 Formerly [facility] 2021-12-15 Outpatient Eddy, [facility] [id number] Common 14:30:35 [facility] 2021-12-15 Outpatient Eddy, [facility] [id number] Common 13:33:18 Quinton [facility] 2021-12-15 Outpatient Eddy, [facility] [id number] Common 13:27:45 Quinton [facility] 2021-12-15 Outpatient Eddy, [facility] [id number] Common 13:19:20 Quinton [id number] [facility] 2021-12-15 Outpatient Eddy, STLMLC STLMLC [id number] Common 12:48:15 Quinton [id number] [facility] 2021-12-15 Outpatient Eddy, STLMLC STLMLC [id number] Common 12:46:21 Quinton [id number] [facility] 2021-12-15 Outpatient Eddy, STLMLC STLMLC [id number] Common 12:45:42 Quinton [id number] [facility] 2021-12-15 Outpatient Eddy, STLMLC STLMLC [id number] Common 12:36:51 Quinton [id number] [facility] 2021-12-15 Outpatient Eddy, STLMLC STLMLC [id number] Common 12:07:42 Quinton [id number] [facility] 2021-12-15 Outpatient Eddy, STLMLC STLMLC [id number] Common 12:06:14 Quinton [id number] [facility] 2021-12-15 Outpatient Eddy, STLMLC STLMLC [id number] Common 12:05:19 Qu[place] [id number] [facility] 2021-12-15 Outpatient Eddy, STLMLC STLMLC [id number] Common 11:04:18 Quinton 10077 [facility] 2021-12-15 Outpatient Eddy, STLMLC STLMLC [id number] Common 11:04:05 Quinton [id number] [facility] 2021-12-15 Outpatient Eddy, STLMLC STLMLC [id number] Common 11:02:37 Quinton [id number] [facility] 2022-03-17 2022-03-17 ambulatory STLMLC STLMLC [id number] Common 00:00:00 00:00:00 [facility] 2022-03-14 2022-03-14 ambulatory STLMLC STLMLC [id number] Common 00:00:00 00:00:00 [facility] 2021-11-23 2021-11-23 ambulatory STLMLC STLMLC [id number] Common 00:00:00 00:00:00 [facility] 2021-11-23 2021-11-23 ambulatory STLMLC STLMLC [id number] Common 00:00:00 00:00:00 [facility] 2021-09-17 2021-09-17 ambulatory STLMLC STLMLC [id number] Common 00:00:00 00:00:00 [facility] 2021-09-16 2021-09-16 Outpatient STLMLC STLMLC [id number] Common 00:00:00 00:00:00 [facility] 2021-07-31 2021-07-31 Outpatient Kar[facility] [id number] Univers 11:00:00 11:00:00 SHUN [facility]istry [facility] 2021-06-22 2021-06-22 Outpatient STLMLC STLMLC [id number] Common 00:00:00 00:00:00 [facility] 2021-06-07 2021-06-07 Outpatient STLMLC STLMLC [id number] Common 00:00:00 00:00:00 [facility] 2021-02-23 2021-02-23 Outpatient STLMLC STLMLC [id number] Common 00:00:00 00:00:00 [facility] 2021-01-28 2021-01-28 Outpatient STLMLC STLMLC [id number] Common 00:00:00 00:00:00 [facility] 2021-01-19 2021-01-19 Outpatient STLMLC STLMLC [id number] Common 00:00:00 00:00:00 [facility] 2020-12-17 2020-12-17 Outpatient STLMLC STLMLC [id number] Common 00:00:00 00:00:00 [facility] 2020-12-14 2020-12-14 Outpatient STLMLC STLMLC [id number] Common 00:00:00 00:00:00 [facility] 2020-11-25 2020-11-25 Outpatient STLMLC STLMLC [id number] Common 00:00:00 00:00:00 [facility] 2020-11-25 2020-11-25 Outpatient STLMLC STLMLC [id number] Common 00:00:00 00:00:00 [facility] 2020-11-16 2020-11-16 Outpatient STLMLC STLMLC [id number] Common 00:00:00 00:00:00 [facility] 2020-10-29 2020-10-29 Outpatient STLMLC STLMLC [id number] Common 00:00:00 00:00:00 [facility] 2020-10-22 2020-10-22 Outpatient STLMLC STLMLC [id number] Common 00:00:00 00:00:00 [facility] 2020-10-13 2020-10-13 Outpatient STLMLC STLMLC [id number] Common 00:00:00 00:00:00 [facility] 2020-10-12 2020-10-12 Transition Nader Orellana [id number] 00:00:00 00:00:00 of Care Nataliya Reddy [id number] [place] [id number] 2020-10-12 2020-10-12 Transition Nader Orellana [id number] Univers 00:00:00 00:00:00 of Care Nataliya Reddy [id number] i ty of [place] [id number] [place] [id number] [facility] 403 Branch 2020-10-05 2020-10-10 [facility] [id number] 23:37:00 12:00:00 Encounter [facility] [id number] Frank Hernandez [id number] Nicolas [id number] [facility] 113 ([facility]) 2020-10-05 2020-10-10 [facility] [id number] Univers 23:37:00 12:00:00 Encounter Lida, [facility] [id number] ity of Frank Hernandez Nancy [id number] Te reyna Nicolas [id number] [place] [address] Branch ([facility]) 2020-10-05 2020-10-05 Emergency X [facility] ERT [id number] Univers 23:32:00 23:32:00 ity [facility] 2020-10-05 2020-10-05 Outpatient STLMLC STLMLC [id number] Common 00:00:00 00:00:00 [facility] 2020-06-17 2020-06-17 [facility] [id number] Common 09:30:00 09:30:[address] [facility] 2020-03-30 2020-03-30 [facility] [id number] Common 13:58:00 13:58:[address] [facility] 2019-12-19 2019-12-19 [facility] [id number] Common 09:30:00 09:30:[address] [facility] 2019-10-31 2019-10-31 [facility] [id number] Common 16:21:00 16:21:[address] [facility] 2019-09-17 2019-09-17 [facility] [id number] Common 09:00:00 09:00:[address] [facility] 2019-08-06 2019-08-06 [facility] [id number] Common 09:30:00 09:30:[address] [facility] 2019-02-04 2019-02-04 [facility] [id number] Common 10:00:00 10:00:[address] [facility] 2019-02-04 2019-02-04 [facility] [id number] Common 09:45:00 09:45:[address] [facility] 2018-11-28 2018-11-28 [facility] [id number] Common 13:15:00 13:15:[address] [facility] 2018-10-26 2018-10-26 [facility] [id number] Common 15:00:00 15:00:[address] [facility] 2018-10-22 2018-10-22 [facility] [id number] Common 15:00:00 15:00:[address] [facility] 2018-06-26 2018-06-26 [facility] [id number] Common 09:00:00 09:00:[address] [facility] 2018-06-13 2018-06-13 [facility] [id number] Common 14:45:00 14:45:[address] [facility] 2018-06-04 2018-06-04 [facility] [id number] Common 13:00:00 13:00:[address] [facility] 2018-06-01 2018-06-01 [facility] [id number] Common 13:30:00 13:30:[address] [facility] 2018-05-28 2018-05-28 [facility] [id number] Common 13:23:00 13:23:[address] [facility] 2018-05-28 2018-05-28 [facility] [id number] Common 08:40:00 08:40:[address] [facility] 2018-05-24 2018-05-24 [facility] [id number] Common 10:30:00 10:30:[address] [facility] Results Test Description Test Test Results Result Source Time Comments Comments LAB ONLY COVID 11- COVID DMT [place] [address] InterpretationInterpre [facility] 20:53:00 tation/Recommendations Br anch : [...] test is performed there is approximately a qik-zz-bhwld chance the patient had been infected and [...] apply to the following tests offered at [facility] and assume the acceptable specimen type(s) were used: A. Tests for the Identification of SARS-CoV-2 RNA (Molecular NAAT Tests): ? ? ?- SARS-CoV-2 PCR assays including [place] Aptima, [place] Fusion, Castillo RealTime, and [employer]Bridge Xpert Xpress. ? ? ?- SARS-CoV-2 Rapid ID NOW by the ID NOW assay. ? B. Tests for the Identification of SARS-CoV-2 Antibodies: ? ? ?- Chemiluminescent immunoassays including Access SARS-CoV-2 IgM (DXI 600), VITROS Sosl-KWLP-LpF-2 IgG (Vitros 5600 and Vitros 3600), and Castillo SARS-CoV-2 IgG (FOREPART RASPER ?I System). These interpretations are autopopulated into [employer] based on computerized algorithms matching an interpretation code to the patient's set of test results, and a clinical pathologist evaluates the comments for accuracy. However, these comments do not consider testing a patient may have had outside of the [facility] system. If results for COVID-19 infection continue to be negative in the context of a suspected viral respiratory illness, it is possible the patient may have an infection with another respiratory virus. Influenza testing and a respiratory pathogen panel if clinically indicated may be beneficial in this setting. [facility] LABORATORY SERVICESCOVID RalikmrUFBE-LkG-7 NAAT (no units) ? ? Date ? Value ? 10/06/2020 ? Not Detected ? SARS-CoV-2 Rapid ID NOW (no units) ? ? Date ? Value ? 10/06/2020 ? Not Detected ? [facility] LABORATORY SERVICES NM MYOCARDIUM 2020-09- Impression: [employer] PERFUSION STRESS 20 perfusion imaging is [facility] AND REST 19:18:08 normal with no Branch [...] fraction was calculated to be 71% post-stress. [facility], [place] Results Inft User - 10/09/2020 1:19 PM [...] Interpretation Comme nts NA (test code = 5754388893) 133 mmol/L 135-145 L K (test code = 9326259630) 4.0 mmol/L 3.5-5 CL (test code = 4558227543) 102 mmol/L 98-108 CO2 TOTAL (test code = 5835021604) 23 mmol/L 23-31 AGAP (test code = 4076341619) 2-16 BUN (test code = 4583075080) 10 mg/dL 7-23 GLUCOSE (test code = 2189880172) 103 mg/dL 70-110 CREATININE (test code = 0.60 mg/dL 0.5-1.04 2822486419) CALCIUM (test code = 4075815719) 8.4 mg/dL 8.6-10.6 L eGFR Calculation (Non- mL/min/1.73m2 Indonesian) (test code = 9013615481) eGFR Calculation ( mL/min/1.73m2 Indonesian) (test code = 0158441422) ANI (test code = ANI) Association of [...] tests). Lab Interpretation (test code = Abnormal 43148-5) [facility] Test Item Value Reference Range Interpretation Comments MAGNESIUM (test code = 4760699056) 2.0 mg/dL 1.7-2.4 Lab Interpretation (test code = Normal 52178-0) [facility] WITH [id number] 10:32:00 Test Item Value Reference Range Interpretation [...] RDW-SD (test code = 40.0 fL 39-49.9 36333-9) RDW-CV (test code = 13.2 % 12-15.5 788-0) PLT (test code = See_Comment [Automated 777-3) message] The sy stem which generated this result transmitted reference range : 166 - 358 10*3/ ?L. The reference r claudine was not used to interpret this result as normal/abnormal . MPV (test code = 9.9 fL 9.5-12.9 44975-4) NRBC/100 WBC (test See_Comment [Automat ed code = 5631948280) message] The system which generated this result transmitted reference range : 0.0 - 10.0 /100 WBCs. The refer ence range was not u sed to interpret th is result as normal/abnormal . NRBC x10^3 (test code <0.01 See_Comment [Auto mated = 0102131156) message] The s ystem which generated this result transmitted reference range : 10*3/?L. The reference range was not used to interpret this result as normal/abnormal . GRAN MAT (NEUT) % 75.4 % (test code = 770-8) IMM GRAN % (test code 0.40 % = 1598943063) LYMPH % (test code = 11.8 % 736-9) MONO % (test code = 11.6 % 5905-5) EOS % (test code = 0.7 % 713-8) BASO % (test code = 0.1 % 706-2) GRAN MAT x10^3(ANC) 8.46 10*3/uL 1.88-7.09 H (test code = 3742597659) IMM GRAN x10^3 (test 0.05 10*3/uL 0-0.06 code = 4381822811) LYMPH x10^3 (test code 1.32 10*3/uL 1.32-3.29 = 731-0) MONO x10^3 (test code 1.30 10*3/uL 0.33-0.92 H = 742-7) EOS x10^3 (test code = 0.08 10*3/uL 0.03-0.39 711-2) BASO x10^3 (test code <0.03 0.01-0.07 = 704-7) Lab Interpretation Abnormal (test code = 83298-0) [facility]A S[facility] BY PCR, [id number] 18:57:00 Test Item Value Reference Range Interpretation Comments MSSA Screen by PCR, Positive Negative A Nares (test code = 85772-6) MRSA/MSSA Positive? Yes No A (test code = 6132786207) ANI (test code = ANI) A positive test result does not necessarily indicate the presence of viable organism. Lab Interpretation (test Abnormal code = 46909-3) [facility]2020-[facility]-19 14:26:00 Test Item Value Reference Range Interpretation Comments MAGNESIUM (test code = 9168737675) 2.0 mg/dL 1.7-2.4 Lab Interpretation (test code = Normal 64087-5) [facility]TR[facility] [id number] 11:05:00 Test Item Value Reference Range Interpretation Comments TROPONIN I (test 0.283 ng/mL See_Comment H [Automated code = 7631405127) message] The system which generated this result [...] ? Lab Interpretation Abnormal (test code = 97441-9) [facility]OLIC PANEL (NA, K, CL, CO2, GLUCOSE, BUN, CREATININE, CA)2020-10-08 10:54:00 Test Item Value Reference Range Interpretation Comments NA (test code = 134 mmol/L 135-145 L 1587344851) K (test code = 3.9 mmol/L 3.5-5 2587586860) CL (test code = 102 mmol/L 98-108 8886632792) CO2 TOTAL (test code = 24 mmol/L 23-31 1234001243) AGAP (test code = 2-16 9082156278) BUN (test code = 8 mg/dL 7-23 3002483498) GLUCOSE (test code = 116 mg/dL 70-110 H 1769656520) CREATININE (test code = 0.58 mg/dL 0.5-1.04 5028719400) CALCIUM (test code = 8.2 mg/dL 8.6-10.6 L 4595850590) eGFR Calculation mL/min/1.73m2 (Non-) (test code = 9517178049) eGFR Calculation mL/min/1.73m2 () (test code = 3324428336) ANI (test code = ANI) Association of [...] tests). Lab Interpretation Abnormal (test code = 42467-0) [facility] WITH [id number] 10:44:00 Test Item Value Reference Range Interpretation [...] RDW-SD (test code = 40.4 fL 39-49.9 90484-3) RDW-CV (test code = 13.4 % 12-15.5 788-0) PLT (test code = See_Comment [Automated 777-3) message] The sy stem which generated this result transmitted reference range : 166 - 358 10*3/ ?L. The reference r claudine was not used to interpret this result as normal/abnormal . MPV (test code = 9.8 fL 9.5-12.9 18162-4) NRBC/100 WBC (test See_Comment [Automat ed code = 2718548554) message] The system which generated this result transmitted reference range : 0.0 - 10.0 /100 WBCs. The refer ence range was not u sed to interpret th is result as normal/abnormal . NRBC x10^3 (test code <0.01 See_Comment [Auto mated = 7203690051) message] The s ystem which generated this result transmitted reference range : 10*3/?L. The reference range was not used to interpret this result as normal/abnormal . GRAN MAT (NEUT) % 79.6 % (test code = 770-8) IMM GRAN % (test code 0.40 % = 1290586460) LYMPH % (test code = 7.5 % 736-9) MONO % (test code = 11.8 % 5905-5) EOS % (test code = 0.5 % 713-8) BASO % (test code = 0.2 % 706-2) GRAN MAT x10^3(ANC) 9.06 10*3/uL 1.88-7.09 H (test code = 9529272794) IMM GRAN x10^3 (test 0.05 10*3/uL 0-0.06 code = 8451302758) LYMPH x10^3 (test code 0.86 10*3/uL 1.32-3.29 L = 731-0) MONO x10^3 (test code 1.35 10*3/uL 0.33-0.92 H = 742-7) EOS x10^3 (test code = 0.06 10*3/uL 0.03-0.39 711-2) BASO x10^3 (test code <0.03 0.01-0.07 = 704-7) Lab Interpretation Abnormal (test code = 24244-5) [facility]ION[facility]ED [id number] 02:46:00 Test Item Value Reference Range Interpretation Comments IONIZED CA (test code = 4.50 mg/dL 4.5-5.3 3725851439) PH SERUM (test code = 8336132577) 7.35-7.45 Lab Interpretation (test code = Normal 59309-8) [facility]2020-11-19 02:34:00 Test Item Value Reference Range Interpretation Comments MAGNESIUM (test code = 9416503500) 2.0 mg/dL 1.7-2.4 Lab Interpretation (test code = Normal 13303-1) [facility]CORON[facility]IRUS COVID-19 [id number] 00:48:00 Test Item Value Reference Range Interpretation Comments SARS-CoV-2 NAAT (test Not Detected Not Detected code = 61548-7) ANI (test code = ANI) [employer] Aptima SARS-CoV-2 Assay is a nucleic acid amplification test intended for the qualitative detection of RNA from SARS-CoV-2 from nasopharyngeal (STEAMBOAT INSPECTOR) specimens. ?It is used under Emergency Use [...] indicated. Lab Interpretation Normal (test code = 15794-0) [facility] HospitalLEGIONELLA URINARY ANTIGEN [id number] 22:36:00 Test Item Value Reference Range Interpretation Comments Legionella Urinary Negative Negative Antigen (test code = 5743624071) ANI (test code = ANI) Negative for [...] test. Lab Interpretation (test Normal code = 33212-3) [facility] HospitalPNEUMOCOCCAL [id number] 22:36:00 Test Item Value Reference Range Interpretation Comments S. pneumoniae antigen (test code = Negative Negative 6997297028) Lab Interpretation (test code = Normal 44930-1) [facility] HospitalUrine [id number] 14:42:00 Test Item Value Reference Range Interpretation Comments URINE CULTURE (test 10,000 - 100,000 CFU/mL code = 630-4) mixed aerobic organisms - suggests endogenous microbial contamination [facility]TROPONIN [id number] 11:50:00 Test Item Value Reference Range Interpretation Comments TROPONIN I (test 0.721 ng/mL See_Comment H [Automated code = 5581802229) message] The system which generated this result [...] ? Lab Interpretation Abnormal (test code = 12009-5) [facility] COVID [id number] 11:39:00COVID DMT InterpretationInterpretation/Recommendations: Molecular NAAT Test Results [...] a nasopharyngeal sample, there is approximately a ton-tm-hyhbv chance that the patient was infected and [...] apply to the following tests offered at [facility] and assume the acceptable specimen type(s) were used: A. Tests for the Identification of SARS-CoV-2 RNA (Molecular NAAT Tests):SARS-CoV-2 PCR assays including [place] Aptima, [place] Fusion, [place] RealTime, and [employer] Xpert Xpress. SARS-CoV-2 Rapid ID NOW by the ID NOW assay.? B. Tests for the Identification of SARS-CoV-2 Antibodies: Chemiluminescent immunoassays including Access SARS-CoV-2 IgM (DXI 600), [employer] Asyo-FKVD-QlH-2 IgG (Vitros 5600 andVitros 3600), and Castillo SARS-CoV-2 IgG (FOREPART RASPER I System). ?These interpretations are autopopulated into [facility] based on computerized algorithms matching an interpretation code to the patient's set oftest results, and a clinical pathologist evaluates the comments for accuracy. However, these comments do not consider testing a patient may have had outside of the [facility] system. If results for COVID-19 infection [...] bronchoalveolar lavage fluid (BAL), tracheal aspirate, etc.). ?[facility] LABORATORY SERVICESCOVID JmmduevBDIZ-IhY-4 Rapid ID NOW (no units) ? ? Date ? Value ? 10/06/2020 ? Not Detected ? [facility] (NA, K, CL, CO2, GLUCOSE, BUN, CREATININE, CA)2020-10-07 11:37:00 Test Item Value Reference Range Interpretation Comments NA (test code = 133 mmol/L 135-145 L 5222116642) K (test code = 3.9 mmol/L 3.5-5 5832074264) CL (test code = 103 mmol/L 98-108 4256329624) CO2 TOTAL (test code = 21 mmol/L 23-31 L 0198481754) AGAP (test code = 2-16 5412446016) BUN (test code = 12 mg/dL 7-23 8663145596) GLUCOSE (test code = 89 mg/dL 70-110 7654624559) CREATININE (test code = 0.79 mg/dL 0.5-1.04 0304838901) CALCIUM (test code = 8.2 mg/dL 8.6-10.6 L 3028546320) eGFR Calculation mL/min/1.73m2 (Non-) (test code = 7861617852) eGFR Calculation mL/min/1.73m2 () (test code = 8701615596) AIN (test code = ANI) Association of [...] tests). Lab Interpretation Abnormal (test code = 07550-6) [facility] with [id number] 11:30:00 Test Item Value Reference Range Interpretation Comments WBC (test code = See_Comment [Automated 6690-2) message] The sy stem which [...] RDW-SD (test code = 41.6 fL 39-49.9 75937-0) RDW-CV (test code = 13.3 % 12-15.5 788-0) PLT (test code = See_Comment [Automated 777-3) message] The sy stem which generated this result transmitted reference range : 166 - 358 10*3/ ?L. The reference r claudine was not used to interpret this result as normal/abnormal . MPV (test code = 10.2 fL 9.5-12.9 12336-3) NRBC/100 WBC (test See_Comment [Automat ed code = 2852667008) message] The system which generated this result transmitted reference range : 0.0 - 10.0 /100 WBCs. The refer ence range was not u sed to interpret th is result as normal/abnormal . NRBC x10^3 (test code <0.01 See_Comment [Auto mated = 2206768852) message] The s ystem which generated this result transmitted reference range : 10*3/?L. The reference range was not used to interpret this result as normal/abnormal . GRAN MAT (NEUT) % 77.3 % (test code = 770-8) IMM GRAN % (test code 0.40 % = 8164007179) LYMPH % (test code = 9.9 % 736-9) MONO % (test code = 12.0 % 5905-5) EOS % (test code = 0.2 % 713-8) BASO % (test code = 0.2 % 706-2) GRAN MAT x10^3(ANC) 7.19 10*3/uL 1.88-7.09 H (test code = 7524974985) IMM GRAN x10^3 (test 0.04 10*3/uL 0-0.06 code = 4381888499) LYMPH x10^3 (test code 0.92 10*3/uL 1.32-3.29 L = 731-0) MONO x10^3 (test code 1.12 10*3/uL 0.33-0.92 H = 742-7) EOS x10^3 (test code = <0.03 0.03-0.39 L 711-2) BASO x10^3 (test code <0.03 0.01-0.07 = 704-7) Lab Interpretation Abnormal (test code = 36929-5) [facility] [id number] 04:46:00 Test Item Value Reference Range Interpretation Comments TROPONIN I (test 0.943 ng/mL See_Comment H [Automated code = 6396975669) message] The system which generated this result [...] ? Lab Interpretation Abnormal (test code = 28330-4) [facility] HospitalSatnam [id number] 22:17:00 Test Item Value Reference Range Interpretation Comments TROPONIN I (test 0.741 ng/mL See_Comment H [Automated code = 3823838896) message] The system which generated this result [...] ? Lab Interpretation Abnormal (test code = 62123-1) [facility] HospitalThyroid Stimulating Hormone (TSH)2020-10-06 19:34:00 Test Item Value Reference Range Interpretation Comments TSH (test code = See_Comment [Automated message] 9755709829) The system dough generated this result transmitted ref erence range: 0.45 - 4 .70 mIU/L. The refe rence range was not u sed to interpret this result as normal/abnor mal. Lab Interpretation (test Normal code = 66839-8) [facility] HospitalTroponin [id number] 19:15:00 Test Item Value Reference Range Interpretation Comments TROPONIN I (test 0.621 ng/mL See_Comment H [Automated code = 6775584219) message] The system which generated this result [...] ? Lab Interpretation Abnormal (test code = 69906-5) [facility] HospitalLipid Panel (Total Cholesterol, Triglycerides, HDL)2020-10-06 19:03:00 Test Item Value Reference Range Interpretation Comments CHOL (test code = 99 mg/dL 120-200 L 8559503724) HDL (test code = 41 mg/dL >50 L 4866580137) HDLC RATIO (test code = See_Comment [Au tomated message] 8254689878) The system dough generated this result transmitted ref erence range: <=4.5. T he reference range was not used to int erpret this result as normal/abnormal . TRIG (test code = 64 mg/dL 30-170 8095685654) LDL CHOL (test code = 45 mg/dL See_Comment [Auto mated message] 64851-4) The system dough generated this result transmitted ref erence range: <=160. T he reference range was not used to int erpret this result as normal/abnormal . VLDL (test code = 13 mg/dL 5-60 0079531632) Lab Interpretation (test Abnormal code = 94276-7) [facility]URINALYSIS2020-11-17 17:58:00 Test Item Value Reference Range Interpretation Comments APPEARANCE (test code = Clear Clear 4141558495) COLOR (test code = Straw Yellow A 8900301830) PH (test code = 4.8-8.0 5026523210) SP GRAVITY (test code = 1.003-1.030 0775457117) GLU U QUAL (test code = Normal Normal 9392295167) BLOOD (test code = 2+ Negative A 5488065556) KETONES (test code = Negative Negative 8812794432) PROTEIN (test code = Negative Negative 2887-8) UROBILIN (test code = Normal Normal 5088545485) BILIRUBIN (test code = Negative Negative 9566412764) NITRITE (test code = Negative Negative 2784557491) LEUK RAFY (test code = Negative Negative 6096836031) RBC/HPF (test code = See_Comment [Autom ated message] 4735600045) The system dough generated this result transmitted ref erence range: 0 - 3 HP F. The reference range was not used to int erpret this result as normal/abnormal . WBC/HPF (test code = <1 See_Comment [Autom ated message] 6722391763) The system dough generated this result transmitted ref erence range: 0 - 5 HP F. The reference range was not used to int erpret this result as normal/abnormal . BACTERIA (test code = Negative Negative 0382418134) SQ EPITH (test code = <1 See_Comment [Auto mated message] 1392793434) The system dough generated this result transmitted ref erence range: <=2 HPF. The reference range was not used to int erpret this result as normal/abnormal . Lab Interpretation (test Abnormal code = 74733-8) [facility] HospitalCT CHEST PULMONARY [id number] 14:06:55 No acute pulmonary embolism Right middle [...] reviewed this study and agree with theabove report.[facility] 1 [id number] 13:59:33 No acute cardiopulmonary process. Preliminary Report [...] have reviewed this study and agree with theove report.[facility] TROPONIN [id number] 13:12:00 Test Item Value Reference Range Interpretation Comments TROPONIN I (test 0.718 ng/mL See_Comment H [Automated code = 2976612688) message] The system which generated this result [...] ? Lab Interpretation Abnormal (test code = 78617-7) [facility] HospitalUrinalysis2020-11-17 08:31:00 Test Item Value Reference Range Interpretation Comments APPEARANCE (test code = Clear Clear 5609798969) COLOR (test code = Yellow Yellow 7392917055) PH (test code = 4.8-8.0 6172092280) SP GRAVITY (test code = 1.003-1.030 4212168852) GLU U QUAL (test code = Normal Normal 4265457543) BLOOD (test code = 2+ Negative A 4837725609) KETONES (test code = Negative Negative 1060967847) PROTEIN (test code = 100 mg/dL Negative A 2887-8) UROBILIN (test code = Normal Normal 2872535317) BILIRUBIN (test code = Negative Negative 2767102566) NITRITE (test code = Negative Negative 7798956533) LEUK RAFY (test code = Negative Negative 7647224958) RBC/HPF (test code = See_Comment H [Autom ated message] 5305484239) The system dough generated this result transmit dagoberto reference range : 0 - 3 HPF. The refe rence range was not u sed to interpret th is result as normal/abnormal . WBC/HPF (test code = See_Comment [Autom ated message] 8628098651) The system dough generated this result transmit dagoberto reference range : 0 - 5 HPF. The refe rence range was not u sed to interpret th is result as normal/abnormal . BACTERIA (test code = Moderate Negative A 7295143689) MUCOUS (test code = Slight Negative LPF A 4641951366) SQ EPITH (test code = HPF 5641282185) Lab Interpretation (test Abnormal code = 34658-4) [facility] HospitalN-TERMINAL [id number] 07:31:00 Test Item Value Reference Range Interpretation Comments NT-proBNP (test code 352 pg/mL See_Comment [Autom ated = 8721202816) message] The system which generated this result transmitted reference range : <=450. The reference range was not used to interpret this result as normal/abnormal . ANI (test code = ANI) Biotin has been reported to cause a negative bias, interpret results relative to patient's use of biotin. Lab Interpretation Normal (test code = 15944-4) [facility] HospitalaPTT2020-11-17 07:17:00 Test Item Value Reference Range Interpretation Comments APTT Patient (test See_Comment H [Automat ed code = 3173-2) message] The system which generated this result transmitted reference range : 23 - 38 Seconds . The reference range was not used to interpr et this result as normal/abnormal . ANI (test code = ANI) The [facility] patient population mean normal value for aPTT is 30 seconds. Lab Interpretation Abnormal (test code = 08965-1) [facility] HospitalPROTHROMBIN TIME / [id number] 07:15:00 Test Item Value Reference Range Interpretation [...] tions. Lab Interpretation (test Normal code = 67068-0) [facility] HospitalCOVID-[facility] (ID NOW RAPID TESTING)2020-10-06 06:51:00 Test Item Value Reference Range Interpretation Comments SARS-CoV-2 Rapid ID NOW Not Detected Not Detected (test code = 64592-1) ANI (test code = ANI) ID NOW COVID-19 Assay is an isothermal nucleic acid amplification test intended for the qualitative detection of nucleic acid from SARS-CoV-2 viral RNA in nasopharyngeal (STEAMBOAT INSPECTOR) specimens. It is used under Emergency Use [...] indicated. Lab Interpretation Normal (test code = 11775-1) [facility] HospitalTROPONIN [id number] 06:46:00 Test Item Value Reference Range Interpretation Comments TROPONIN I (test 0.122 ng/mL See_Comment H [Automated code = 1370664661) message] The system which generated this result [...] ? Lab Interpretation Abnormal (test code = 66290-3) [facility] HospitalCOM. Metabolic Panel (44602)2020-10-06 06:34:00 Test Item Value Reference Range Interpretation Comments NA (test code = 123 mmol/L 135-145 L 2690430604) K (test code = 4.7 mmol/L 3.5-5 0622054041) CL (test code = 92 mmol/L 98-108 L 3755912822) CO2 TOTAL (test code = 23 mmol/L 23-31 0258029533) AGAP (test code = 2-16 7613345276) BUN (test code = 11 mg/dL 7-23 6228302758) GLUCOSE (test code = 125 mg/dL 70-110 H 2274083345) CREATININE (test code = 0.78 mg/dL 0.5-1.04 4580499990) TOTAL BILI (test code = 0.7 mg/dL 0.1-1.9 6149114066) CALCIUM (test code = 8.3 mg/dL 8.6-10.6 L 7608461774) T PROTEIN (test code = 6.7 g/dL 6.3-8.2 8366752354) ALBUMIN (test code = 3.6 g/dL 3.5-5 2158397001) ALK PHOS (test code = 107 U/L 34-122 7682790775) ALTv (test code = 21 U/L 5-35 1742-6) AST(SGOT) (test code = 32 U/L 13-40 0335574220) eGFR Calculation mL/min/1.73m2 (Non-) (test code = 6974916070) eGFR Calculation mL/min/1.73m2 () (test code = 2654172448) ANI (test code = ANI) Association of [...] tests). Lab Interpretation Abnormal (test code = 10130-2) [facility] with [id number] 06:12:00 Test Item Value Reference Range Interpretation Comments WBC (test code = See_Comment H [Automated 6690-2) message] The system which generated this result [...] (test code = 38.7 fL 39-49.9 L 01220-6) RDW-CV (test code = 12.7 % 12-15.5 788-0) PLT (test code = See_Comment [Automated 777-3) message] The system which generated this result transmit dagoberto reference range : 166 - 358 10*3/ ?L. The reference range was not u sed to interpret th is result as normal/abnormal . MPV (test code = 10.3 fL 9.5-12.9 79322-8) NRBC/100 WBC (test See_Comment [Automat ed code = 4160027600) message] The system which generated this result transmit dagoberto reference range : 0.0 - 10.0 /100 WBCs. The reference range was not used to interpret this result as normal/abnormal . NRBC x10^3 (test code <0.01 See_Comment [Auto mated = 3534459234) message] The system which generated this result transmit dagoberto reference range : 10*3/?L. The reference range was not used to interpret this result as normal/abnormal . GRAN MAT (NEUT) % 93.9 % (test code = 770-8) IMM GRAN % (test code 0.70 % = 1959677132) LYMPH % (test code = 2.2 % 736-9) MONO % (test code = 3.0 % 5905-5) EOS % (test code = 0.1 % 713-8) BASO % (test code = 0.1 % 706-2) GRAN MAT x10^3(ANC) 13.92 10*3/uL 1.88-7.09 H (test code = 3951273796) IMM GRAN x10^3 (test 0.10 10*3/uL 0-0.06 H code = 4282731486) LYMPH x10^3 (test code 0.32 10*3/uL 1.32-3.29 L = 731-0) MONO x10^3 (test code 0.44 10*3/uL 0.33-0.92 = 742-7) EOS x10^3 (test code = <0.03 0.03-0.39 L 711-2) BASO x10^3 (test code <0.03 0.01-0.07 = 704-7) Lab Interpretation Abnormal (test code = 50539-9) [id number] 06:05:00 Test Item Value Reference Range Interpretation Comments LACTIC ACID (test code = 1.81 mmol/L [id number]) [facility]
[2022-04-05 11:45] LABS: Absolute Lymphocytes (CBC) 1.1 K/uL (0.7-4.9); Lymphocytes % 12.2 % (15.3-44.8); MPV 8.3 fL (7.6-11.3); RBC Red Blood Cell Count 3.92 M/uL (3.86-4.86)
[2022-04-05] MEDS ORDERED: MECLIZINE HCL 12.5 MG TAB ONE (11:45)
[2022-04-05] MEDS ORDERED: FOLIC ACID 5 MG/ML VIAL ONE (11:46)
[2022-04-05] MEDS ORDERED: NA CHLORIDE 0.9% 1,000 ML ONE (11:46)
[2022-04-05 11:47] LABS: Protime INR 1.07
--- NOTE | 2022-04-05 11:59 | RAD REPORT ---
EXAM DESCRIPTION: CT - Head Brain Wo Cont - 04/05/2022 11:48 am CLINICAL HISTORY: dizzy COMPARISON: Head angio dated 12/06/2019; Head Brain Wo Cont dated 12/06/2019 TECHNIQUE: Axial 5 mm thick images of the head were obtained without IV contrast. All CT scans are performed using dose optimization technique as appropriate and may include automated exposure control or mA/KV adjustment according to patient size. FINDINGS: No intracranial hemorrhage, mass, edema or shift of mid-line structures. No acute infarcti on changes seen. No abnormal extra-axial fluid collections. Atrophy changes are relatively mild the p atient's age. Ventricles are in proportion to the volume loss. Cerebral white matter chronic ischemic changes are minimal and stable. Mastoid air cells and visualized portions of the paranasal sinuses are clear. No acute bony findings. IMPRESSION: Noncontrast CT head study shows no acute finding. No significant changes from the 2019 comparison.
[2022-04-05 12:03] LABS: Albumin 3.5 g/dL (3.4-5.0); Bilirubin Direct 0.2 mg/dL (0-0.2); Bilirubin Total 0.4 mg/dL (0.2-1.0); Magnesium 2.2 mg/dL (1.8-2.4); Potassium 4.3 mmol/L (3.5-5.1); Protein, Total 7.7 g/dL (6.4-8.2); Troponin High Sensitivity 6.2 pg/mL (<58.9)
[2022-04-05 12:21] LABS: Urine Blood 2+ (Negative); Urine Glucose Negative (Negative); Urine Protein 2+ (Negative); Urine pH 6.5 (5.0-7.0)
--- NOTE | 2022-04-05 12:38 | RAD REPORT ---
EXAM DESCRIPTION: US - CP - 04/05/2022 12:12 pm CLINICAL HISTORY: DIZZINESS COMPARISON: <Comparisons> TECHNIQUE: Real-time sonographic evaluation of bilateral carotid and vertebral systems was performed . Mora scale and Doppler interrogation were performed with waveform tracing bilaterally. FINDINGS: Normal high resistance waveforms are noted in both external carotid arteries. The common c arotid arteries and internal carotid arteries show normal low resistance waveforms. Prominent calcified plaquing changes are present at each carotid bulb and in the proximal ICA regions . The calcified plaques along the anterior harris create posterior acoustic shadowing that limits lume n assessment. Left common carotid velocity is elevated significantly compared to the right. Left ICA velocity is similar to the common carotid velocity. ICA/CCA ratios are normal. Visual assessment is q uestionable for stenosis greater than 50%. Vertebral arteries are limited in assessment. Velocity values and ratios were recorded and are retained in the patient's imaging records. IMPRESSION: Patient has significant calcified and noncalcified plaquing change around each carotid b ulb and in the proximal ICAs. On visual inspection and assessment of velocities, findings are questionable for borderline or mild s tenosis on the left. If there is need for further assessment, CTA or MRA imaging could be performed.
--- NOTE | 2022-04-05 12:57 | RAD REPORT ---
EXAM DESCRIPTION: RAD - Chest Single View - 04/05/2022 12:52 pm CLINICAL HISTORY: COUGH Chest pain. COMPARISON: Abdomen 1 View (KUB) dated 01/22/2022; Chest Single View dated 01/04/2022; Chest Single Vie w dated 08/03/2021; Chest Single View dated 07/30/2021 FINDINGS: Portable technique limits examination quality. Small opacity is seen in the right lung base which appears improved since the comparative study, prob ably a small area of residual infiltrate/pneumonia. The heart is normal in size. No displaced fractur es.Aortic atherosclerosis.
--- NOTE | 2022-04-05 13:55 | RAD REPORT ---
EXAM DESCRIPTION: CT - Head angio - 04/05/2022 1:41 pm CLINICAL HISTORY: dizziness Headache, drowsiness, CVA symptomology COMPARISON: Head Brain Wo Cont dated 04/05/2022; Head angio dated 12/06/2019; Neck Angio dated 04/05/20 22 TECHNIQUE: CT angiography of the head was performed with MIPs. All CT scans are performed using dose optimization technique as appropriate and may include automated exposure control or mA/KV adjustment according to patient size. FINDINGS: No evidence of aneurysm is detected. No flow-limiting stenosis or vascular malformation id entified. Antegrade flow is seen in the vertebral arteries. The vertebral arteries are codominant. The visualized dural venous sinuses are patent. IMPRESSION: No significant flow abnormality is detected.
--- NOTE | 2022-04-05 13:59 | RAD REPORT ---
EXAM DESCRIPTION: CT - Neck Angio - 04/05/2022 1:41 pm CLINICAL HISTORY: dizziness Headache, drowsiness, dizziness COMPARISON: Neck Angio dated 12/06/2019; Head C Spine Mpr Wo Con dated 11/18/2017; Head C Spine Mpr W o Con dated 06/17/2017 TECHNIQUE: CT angiography of the neck vessels was performed with MIPs. All CT scans are performed using dose optimization technique as appropriate and may include automated exposure control or mA/KV adjustment according to patient size. FINDINGS: A left aortic arch is identified with normal three vessel configuration of the great vesse ls. Mild atherosclerosis is seen of both common carotid arteries. Moderate atherosclerosis of the carotid bulbs seen. In the proximal left internal carotid artery there is a large hard plaque present result ing in stenosis estimated at 70% based on NASCET criteria. Normal flow is seen within both vertebral arteries. Significant emphysema in the upper lung price. 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
--- NOTE | 2022-04-05 14:08 | RAD REPORT ---
EXAM DESCRIPTION: MRI - Brain Wo Cont - 04/05/2022 2:00 pm CLINICAL HISTORY: dizzy Headache, drowsiness, CVA symptomology COMPARISON: Head Brain Wo Cont dated 04/05/2022 TECHNIQUE: Multi-sequence, multiplanar MR imaging of the brain was performed without contrast. FINDINGS: No intracranial hemorrhage, hydrocephalus or extra-axial fluid collections.Mild periventri cular chronic microvascular ischemia. Moderate diffuse brain atrophy. No edema or shift of midline st ructures. No findings to suspect brain mass. DWI is negative for acute CVA. Midline structures are normally formed. Mastoid air cells and paranasal sinuses are clear. IMPRESSION: Negative for acute CVA or other acute intracranial process.
--- NOTE | 2022-04-05 14:19 | ER ---
Nurse's Notes [facility] Name: Ramandeep Renner Age: 87 yrs Sex: Female : 1935 Arrival Date: 04/05/2022 Time: 08:52 Bed 5 Private MD: Diagnosis: Dizziness and giddiness;Essential (primary) hypertension;Occlusion and stenosis of unspecified carotid artery-70% occulsion Presentation: 04/05 09:04 Chief complaint: Patient states: "Daughter took blood pressure in left arm and blood ww pressure was high like 160 but didn't write it down". Also complaining of dizziness that started yesterday evening. " I would have tried to fight this at home but my daughter is going to [place] for pre-op. Got checked a month ago by a doctor and he told me I was a borderline sugar diabetic. Chief complaint:. Coronavirus screen: Client denies travel out of the [place] in the last 14 days. Ebola Screen: Patient denies travel to an Ebola-affected area in the 21 days before illness onset. Initial Sepsis Screen: Does the patient meet any 2 criteria? No. Patient's initial sepsis screen is negative. Does the patient have a suspected source of infection? No. Patient's initial sepsis screen is negative. Risk Assessment: Do you want to hurt yourself or someone else? Patient reports no desire to harm self or others. Onset of symptoms was April 05, 2022. 09:04 Method Of Arrival: Ambulatory ww 09:04 Acuity: WILFRIDO 3 ww Triage Assessment: 09:07 General: Appears in no apparent distress. Behavior is cooperative. Pain: Denies pain. ww Neuro: Level of Consciousness is awake, alert, obeys commands, Oriented to person, place, time, situation, Speech is normal, Reports dizziness. Cardiovascular: Patient's skin is warm and dry. Respiratory: Airway is patent Respiratory effort is even, unlabored, Respiratory pattern is regular, symmetrical. Historical: - Allergies: : No Known Allergies; ww - Home Meds: : atorvastatin 20 mg Oral tab 1 tab once daily [Active]; amlodipine 2.5 mg tab once daily ww [Active]; lisinopril 20 mg Oral tab 1 tab once daily [Active]; - PMHx: : Bowel problem; Glaucoma; Hypercholesterolemia; Hypertensive disorder; lung cancer ww remission; - Immunization history:: Adult Immunizations up to date. - Social history:: Smoking status: Patient/guardian denies using tobacco. - Family history:: not pertinent. Screenin:55 Abuse screen: Denies threats or abuse. Nutritional screening: No deficits noted. ll1 Tuberculosis screening: No symptoms or risk factors identified. Fall Risk IV access (20 points). Gait- Impaired (20 pts.). Total Marcum Fall Scale indicates Low Risk Score (25-44 pts). Fall prevention measures have been instituted. Side Rails Up X 2 Placed close to Nursing Station Frequent Obs/Assesments occuring Family Present and informed to notify staff if they need to leave bedside As available Patient and Family Educated on Fall Prevention Program and strategies. Assessment: 10:55 Reassessment: No changes from previously documented assessment. Patient and/or family ll1 updated on plan of care and expected duration. Pain level reassessed. 12:10 Reassessment: No changes from previously documented assessment. Patient and/or family ll1 updated on plan of care and expected duration. Pain level reassessed. Patient is alert, oriented x 3, equal unlabored respirations, skin warm/dry/pink. Gait steady. 14:33 Reassessment: Patient appears in no apparent distress at this time. Patient and/or ph family updated on plan of care and expected duration. Pain level reassessed. Patient is alert, oriented x 3, equal unlabored respirations, skin warm/dry/pink. Patient states symptoms have improved. Vital Signs: 09:04 BP 158 / 78; Pulse 73; Resp 18; Temp 98.0; Pulse Ox 98% on R/A; Weight 54.43 kg; Height ww 5 ft. 2 in. (157.48 cm); Pain 0/10; 12:31 BP 146 / 61; Pulse 79; Resp 17; Pulse Ox 99% on R/A; Pain 0/10; ll1 14:33 BP 152 / 64; Pulse 76; Resp 18; Temp 97.9; Pulse Ox 99% on R/A; ph 09:04 Body Mass Index 21.95 (54.43 kg, 157.48 cm) NIH Stroke Scale Scores: 11:57 NIHSS Score: 0 joe ED Course: 08:52 Patient arrived in ED. ds1 08:54 Yonatan Smith MD is Attending Physician. joe 09:07 Triage completed. ww 09:07 Arm band placed on. ww 10:55 Indio Moore RN is Primary Nurse. ll1 10:55 Patient placed in an exam room, on a stretcher. ll1 10:55 Patient has correct armband on for positive identification. Bed in low position. Call ll1 light in reach. Side rails up X 1. Client placed on continuous cardiac and pulse oximetry monitoring. NIBP monitoring applied. 11:00 Inserted saline lock: 22 gauge in left forearm, using aseptic technique. Blood ll1 collected. 11:45 EKG done, by ED staff, reviewed by Yonatan Smith MD. mh5 11:49 CT Head Brain wo Cont In Process Unspecified. EDMS 11:52 Warm blanket given. electronic device monitor on. Pulse ox on. mh5 12:14 US Carotid Artery Bilateral In Process Unspecified. EDMS 12:53 XRAY Chest (1 view) In Process Unspecified. EDMS 13:43 Head angio In Process Unspecified. EDMS 13:43 Neck Angio In Process Unspecified. EDMS 14:02 Brain Wo Cont In Process Unspecified. EDMS 14:18 Ventura Faith MD is Referral Physician. joe 14:18 Peter Cope MD is Referral Physician. joe 14:33 No provider procedures requiring assistance completed. IV discontinued, intact, ph bleeding controlled, No redness/swelling at site. Pressure dressing applied. Administered Medications: 12:31 Drug: NS 0.9% 1000 ml Route: IV; Rate: 1 bolus; Site: left antecubital; ll1 14:34 Follow up: Response: No adverse reaction; IV Status: Completed infusion; IV Intake: ph 1000ml 12:31 Drug: foLIC Acid 1 mg Route: IVPB; Site: left antecubital; ll1 14:05 Follow up: Response: No adverse reaction; IV Status: Completed infusion; IV Intake: ll1 0.2ml 12:31 Drug: Meclizine 25 mg Route: PO; ll1 14:05 Follow up: Response: No adverse reaction ll1 14:05 Not Given (Patient Refused; will take one baby aspirin at home after she eatss): ll1 Aspirin 81 mg PO once Medication: 10:55 VIS not applicable for this client. ll1 Intake: 14:05 IV: 0ml; Total: 0ml. ll1 14:34 IV: 1000ml; Total: 1000ml. ph Outcome: 14:18 Discharge ordered by . joe 14:34 Discharged to home ambulatory, with family. ph 14:34 Condition: good 14:34 Discharge instructions given to patient, Instructed on discharge instructions, follow up and referral plans. medication usage, Demonstrated understanding of instructions, follow-up care, medications, Prescriptions given X 3. 14:35 Patient left the ED. ph NIH Stroke Scale - NIH Stroke Score Date: 04/05/2022 Time: 11:57 Total Score = 0 1a. Level of Consciousness (LOC) - 0(Alert) 1b. Level of Consciousness (LOC) (Month \\T\\ Age) - 0(Both) 1c. LOC Commands (Open \\T\\ Closes Eyes/Medicare Sales Representative) - 0(Both) 2. Best Gaze (Lateral Gaze Paresis) - 0(Normal) 3. Visual Field Loss - 0(No visual loss) 4. Facial Palsy - 0(Normal) 5a. Left Arm: Motor (10-second hold) - 0(No drift) 5b. Right Arm: Motor (10-second hold) - 0(No drift) 6a. Left Leg: Motor (5-second hold - always test supine) - 0(No drift) 6b. Right Leg: Motor (5-second hold - always test supine) - 0(No drift) 7. Limb Ataxia (finger/nose \\T\\ heel/ruffin - test with eyes open) - 0(Absent) 8. Sensory Loss (pinprick arms/legs/face) - 0(Normal) 9. Best Language: Aphasia (description/naming/reading) - 0(No aphasia) 10. Dysarthria (speech clarity - read or repeat words) - 0(Normal) 11. Extinction and Inattention (visual/tactile/auditory/spatial/personal) - 0(No abnormality) Initials: joe Signatures: Dispatcher [employer] EDYonatan Hammer MD MD cha Sanford, Demi ds1 Dorothea Colbert RN RN ph Martinez, Maria [facility] Indio Moore RN RN ll1 Shaylee Whitney RN RN ww
--- NOTE | 2022-04-05 14:19 | EDPHYS ---
Physician Documentation [facility] Name: Ramandeep Renner Age: 87 yrs Sex: Female : 1935 Arrival Date: 04/05/2022 Time: 08:52 Bed 5 Private MD: ED Physician Yonatan Smith HPI: 04/05 11:57 This 87 yrs old Female presents to ER via Ambulatory with complaints of joe Dizziness. 11:57 The patient presents with dizziness, generalized weakness. Onset: The symptoms/episode joe began/occurred last night. Context: occurred at home, occurred while the patient was at rest, just prior to the episode the patient experienced no apparent symptoms. Modifying factors: The symptoms are alleviated by nothing, the symptoms are aggravated by nothing. Associated signs and symptoms: The patient has no apparent associated signs or symptoms. Severity of symptoms: At their worst the symptoms were mild in the emergency department the symptoms are unchanged. The patient has experienced similar episodes in the past, several times. Historical: - Allergies: 09:07 No Known Allergies; ww - Home Meds: 09:07 atorvastatin 20 mg Oral tab 1 tab once daily [Active]; amlodipine 2.5 mg tab once daily ww [Active]; lisinopril 20 mg Oral tab 1 tab once daily [Active]; - PMHx: 09:07 Bowel problem; Glaucoma; Hypercholesterolemia; Hypertensive disorder; lung cancer ww remission; - Immunization history:: Adult Immunizations up to date. - Social history:: Smoking status: Patient/guardian denies using tobacco. - Family history:: not pertinent. ROS: 11:57 Constitutional: Negative for fever, chills, and weight loss, Eyes: Negative for injury, joe pain, redness, and discharge, ENT: Negative for injury, pain, and discharge, Neck: Negative for injury, pain, and swelling, Cardiovascular: Negative for chest pain, palpitations, and edema, Respiratory: Negative for shortness of breath, cough, wheezing, and pleuritic chest pain, Abdomen/GI: Negative for abdominal pain, nausea, vomiting, diarrhea, and constipation, Back: Negative for injury and pain, : Negative for injury, bleeding, discharge, and swelling, MS/Extremity: Negative for injury and deformity, Skin: Negative for injury, rash, and discoloration, Psych: Negative for depression, anxiety, suicide ideation, homicidal ideation, and hallucinations, Allergy/Immunology: Negative for hives, rash, and allergies, Endocrine: Negative for neck swelling, polydipsia, polyuria, polyphagia, and marked weight changes, Hematologic/Lymphatic: Negative for swollen nodes, abnormal bleeding, and unusual bruising. 11:57 Neuro: Positive for dizziness. Exam: 11:57 Constitutional: This is a well developed, well nourished patient who is awake, alert, joe and in no acute distress. Head/Face: Normocephalic, atraumatic. Eyes: Pupils equal round and reactive to light, extra-ocular motions intact. Lids and lashes normal. Conjunctiva and sclera are non-icteric and not injected. Cornea within normal limits. Periorbital areas with no swelling, redness, or edema. ENT: Nares patent. No nasal discharge, no septal abnormalities noted. Tympanic membranes are normal and external auditory canals are clear. Oropharynx with no redness, swelling, or masses, exudates, or evidence of obstruction, uvula midline. Mucous membranes moist. Neck: Trachea midline, no thyromegaly or masses palpated, and no cervical lymphadenopathy. Supple, full range of motion without nuchal rigidity, or vertebral point tenderness. No Meningismus. Chest/axilla: Normal chest wall appearance and motion. Nontender with no deformity. No lesions are appreciated. Cardiovascular: Regular rate and rhythm with a normal S1 and S2. No gallops, murmurs, or rubs. Normal PMI, no JVD. No pulse deficits. Respiratory: Lungs have equal breath sounds bilaterally, clear to auscultation and percussion. No rales, rhonchi or wheezes noted. No increased work of breathing, no retractions or nasal flaring. Abdomen/GI: Soft, non-tender, with normal bowel sounds. No distension or tympany. No guarding or rebound. No evidence of tenderness throughout. Back: No spinal tenderness. No costovertebral tenderness. Full range of motion. Female : Normal external genitalia. Skin: Warm, dry with normal turgor. Normal color with no rashes, no lesions, and no evidence of cellulitis. MS/ Extremity: Pulses equal, no cyanosis. Neurovascular intact. Full, normal range of motion. Neuro: Awake and alert, GCS 15, oriented to person, place, time, and situation. Cranial nerves II-XII grossly intact. Motor strength 5/5 in all extremities. Sensory grossly intact. Cerebellar exam normal. Normal gait. Psych: Awake, alert, with orientation to person, place and time. Behavior, mood, and affect are within normal limits. 12:54 ECG was reviewed by the Attending Physician. [facility] Vital Signs: 09:04 BP 158 / 78; Pulse 73; Resp 18; Temp 98.0; Pulse Ox 98% on R/A; Weight 54.43 kg; Height ww 5 ft. 2 in. (157.48 cm); Pain 0/10; 12:31 BP 146 / 61; Pulse 79; Resp 17; Pulse Ox 99% on R/A; Pain 0/10; ll1 14:33 BP 152 / 64; Pulse 76; Resp 18; Temp 97.9; Pulse Ox 99% on R/A; ph 09:04 Body Mass Index 21.95 (54.43 kg, 157.48 cm) ww NIH Stroke Scale Scores: 11:57 NIHSS Score: 0 joe MDM: 08:55 Patient medically screened. [facility] 11:59 Data reviewed: vital signs, nurses notes, lab test result(s), EKG, radiologic studies, [facility] CT scan, doppler, MRI, plain films. Data interpreted: bus monitor: rate is 73 beats/min, rhythm is regular, Pulse oximetry: on room air is 98 %. Counseling: I had a detailed discussion with the patient and/or guardian regarding: the historical points, exam findings, and any diagnostic results supporting the discharge/admit diagnosis, lab results, radiology results, the need for outpatient follow up, for definitive care, a family practitioner, a neurologist. 04/05 11:28 Order name: Basic Metabolic Panel; Complete Time: 12:50 [facility] 04/05 11:28 Order name: CBC with Diff; Complete Time: 12:50 [facility] 04/05 11:28 Order name: LFT's; Complete Time: 12:50 [facility] 04/05 11:28 Order name: Magnesium; Complete Time: 12:50 [facility] 04/05 11:28 Order name: NT PRO-BNP; Complete Time: 12:50 [facility] 04/05 11:28 Order name: PT-INR; Complete Time: 12:50 [facility] 04/05 11:28 Order name: Troponin HS; Complete Time: 12:50 [facility] 04/05 11:28 Order name: XRAY Chest (1 view); Complete Time: 13:15 [facility] 04/05 11:28 Order name: CT Head Brain wo Cont; Complete Time: 12:50 [facility] 04/05 11:28 Order name: US Carotid Artery Bilateral; Complete Time: 12:50 [facility] 04/05 11:28 Order name: MRI Stroke Protocol [facility] 04/05 12:22 Order name: Urine Dipstick-Ancillary; Complete Time: 12:50 EDMS 04/05 11:28 Order name: EKG; Complete Time: 11:29 [facility] 04/05 11:28 Order name: Cardiac monitoring; Complete Time: 11:45 [facility] 04/05 11:28 Order name: EKG - Nurse/Tech; Complete Time: 11:45 [facility] 04/05 11:28 Order name: IV Saline Lock; Complete Time: 11:29 [facility] 04/05 11:28 Order name: Labs collected and sent; Complete Time: 11:29 [facility] 04/05 11:28 Order name: O2 Per Protocol; Complete Time: 11:29 [facility] 04/05 11:28 Order name: O2 Sat Monitoring; Complete Time: 11:29 [facility] 04/05 11:28 Order name: Urine Dipstick-Ancillary (obtain specimen); Complete Time: 12:19 [facility] 04/05 13:17 Order name: Brain Wo Cont EDMT 04/05 13:29 Order name: Head angio; Complete Time: 14:03 EDMS 04/05 13:29 Order name: Neck Angio; Complete Time: 14:03 EDMS EC:54 Rate is 80 beats/min. Rhythm is regular. QRS [place] is Normal. IN interval is normal. QRS joe interval is normal. QT interval is normal. No Q waves. T waves are Normal. No ST changes noted. Clinical impression: Normal ECG and No evidence of ischemia. Interpreted by me. Reviewed by me. Administered Medications: 12:31 Drug: NS 0.9% 1000 ml Route: IV; Rate: 1 bolus; Site: left antecubital; ll1 14:34 Follow up: Response: No adverse reaction; IV Status: Completed infusion; IV Intake: ph 1000ml 12:31 Drug: foLIC Acid 1 mg Route: IVPB; Site: left antecubital; ll1 14:05 Follow up: Response: No adverse reaction; IV Status: Completed infusion; IV Intake: ll1 0.2ml 12:31 Drug: Meclizine 25 mg Route: PO; ll1 14:05 Follow up: Response: No adverse reaction ll1 14:05 Not Given (Patient Refused; will take one baby aspirin at home after she eatss): ll1 Aspirin 81 mg PO once Disposition Summary: 04/05/22 14:18 Discharge Ordered Location: Home joe Problem: new joe Symptoms: have improved joe Condition: Stable joe Diagnosis - Dizziness and giddiness joe - Essential (primary) hypertension joe - Occlusion and stenosis of unspecified carotid artery - 70% occulsion joe Followup: joe - With: Private Physician - When: 2 - 3 days - Reason: Recheck today's complaints, Continuance of care, Re-evaluation by your physician Followup: joe - With: - When: 2 - 3 days - Reason: Recheck today's complaints, Re-evaluation by your physician Followup: joe - With: - When: 2 - 3 days - Reason: Recheck today's complaints, Re-evaluation by your physician Discharge Instructions: - Discharge Summary Sheet joe - Dizziness joe - Hypertension, Adult joe - Hypertension, Adult, [id number] joe - How to Take Your Blood Pressure, [id number] joe - Aspirin and Your Heart joe - Dizziness, [id number] joe - Managing Your Hypertension joe - Carotid Artery Disease joe - Carotid Artery Disease, [id number] joe Forms: - Medication Reconciliation Form joe - Thank You Letter joe - Antibiotic Education joe - Prescription Opioid Use joe Prescriptions: - Meclizine 25 mg Oral Tablet - take 1 tablet by ORAL route every 8 hours As needed; 30 tablet; Refills: 0, joe Product Selection Permitted - Folic Acid 1 mg Oral Tablet - take 1 tablet by ORAL route once daily; 30 tablet; Refills: 0, Product joe Selection Permitted - Zithromax 500 mg Oral Tablet - take 1 tablet by ORAL route once daily for 5 days; 5 tablet; Refills: 0, joe Product Selection Permitted NIH Stroke Scale - NIH Stroke Score Date: 04/05/2022 Time: 11:57 Total Score = 0 1a. Level of Consciousness (LOC) - 0(Alert) 1b. Level of Consciousness (LOC) (Month \T\ Age) - 0(Both) 1c. LOC Commands (Open \T\ Closes Eyes/[place] Sorter) - 0(Both) 2. Best Gaze (Lateral Gaze Paresis) - 0(Normal) 3. Visual Field Loss - 0(No visual loss) 4. Facial Palsy - 0(Normal) 5a. Left Arm: Motor (10-second hold) - 0(No drift) 5b. Right Arm: Motor (10-second hold) - 0(No drift) 6a. Left Leg: Motor (5-second hold - always test supine) - 0(No drift) 6b. Right Leg: Motor (5-second hold - always test supine) - 0(No drift) 7. Limb Ataxia (finger/nose \T\ heel/ruffin - test with eyes open) - 0(Absent) 8. Sensory Loss (pinprick arms/legs/face) - 0(Normal) 9. Best Language: Aphasia (description/naming/reading) - 0(No aphasia) 10. Dysarthria (speech clarity - read or repeat words) - 0(Normal) 11. Extinction and Inattention (visual/tactile/auditory/spatial/personal) - 0(No abnormality) Initials: joe Signatures: Dispatcher [employer] EDMS Yonatan Smith MD MD cha Lewis, Lynsay, RN RN ll1 Shaylee Whitney RN RN Dorothea Colbert RN ph Corrections: (The following items were deleted from the chart) 13:17 11:34 Stroke Protocol ordered. EDMS EDMS 13:30 12:56 Neck Angio+CT.RAD.BRZ ordered. EDMS EDMS
[2022-04-05 14:50] VITALS: O2SAT 99
[2022-04-05 14:51] VITALS: BP 152/64; TEMP 97.9
--- NOTE | 2022-04-07 07:45 | EKG ---
Test Date: 2022-04-05 Test Time: 12:39:10 Polygraph Operator: YUMIKO MEASUREMENT RESULTS: Intervals: Rate: 80 MN: 136 QRSD: 76 QT: 382 QTc: 440 [place]: P: 49 MN: 136 QRS: 22 T: 40 INTERPRETIVE STATEMENTS: Normal sinus rhythm Possible Left atrial enlargement Borderline ECG Compared to ECG 01/04/2022 15:20:21 Left ventricular hypertrophy no longer present Myocardial infarct finding no longer present Electronically Signed On 04-07-22 07:37:57 CDT by Peter Cope
== END 2022-04-05 14:35 | disposition home or self-care (01) ==
LOC: ER 08:50
DX: R42 Dizziness and giddiness (principal); I10 Essential (primary) hypertension; I65.29 Occlusion and stenosis of unspecified carotid artery; E78.00 Pure hypercholesterolemia, unspecified; Z85.118 Personal history of other malignant neoplasm of bronchus and lung
CPT/HCPCS: 96365; 93005; 85025; 80048; 36415; 83735; 85610; 80076; 81003; 84484; 83880; 70450; 70496; 70498; 71045; 93880; 70551; 99284; 96366; Q9967; J8597; J7030

== ENCOUNTER 2022-04-25 11:00 | Day surgery (SDC) | payer OTHER ==
[2022-04-21 11:04] LABS: Absolute Lymphocytes (CBC) 1.4 K/uL (0.7-4.9); Hematocrit 33.1 % (36.0-45.0); Lymphocytes % 18.2 % (15.3-44.8); MPV 8.9 fL (7.6-11.3); RBC Red Blood Cell Count 3.83 M/uL (3.86-4.86)
[2022-04-21 11:12] LABS: Protime INR 1.08
[2022-04-21 11:15] LABS: Potassium 4.8 mmol/L (3.5-5.1)
--- NOTE | 2022-04-23 14:34 | EKG ---
Test Date: 2022-04-21 Test Time: 10:02:49 Straw Hat Plunger Operator: DOUG MEASUREMENT RESULTS: Intervals: Rate: 78 LA: 132 QRSD: 74 QT: 384 QTc: 437 [place]: P: 53 LA: 132 QRS: 26 T: 78 INTERPRETIVE STATEMENTS: Normal sinus rhythm Nonspecific ST abnormality Abnormal ECG Compared to ECG 04/05/2022 12:39:10 ST (T wave) deviation now present Electronically Signed On 04-23-22 14:33:25 CDT by Sarmad Warren
[~2022-04-25 11:00] MED LIST: NA CHLORIDE 0.9% 500 ML ONE
[2022-04-25 11:24] VITALS: TEMP 97
[2022-04-25] MEDS ORDERED: FENTANYL CITR 100 MCG/2 ML ONE (11:53)
[2022-04-25] MEDS ORDERED: HEPA 1000U/500MLS 2,000 UNIT/1,000 ML BAG IV ONE (11:53)
[2022-04-25] MEDS ORDERED: MIDAZOLAM HCL 2 MG/2 ML INJ ONE (11:54)
[2022-04-25] MEDS ORDERED: HEPARIN 5000 UNIT/ML 1 ML VIAL ONE (11:54)
[2022-04-25] MEDS ORDERED: NITROGLYCERIN 100 MCG/ML SYR (for cath lab use only) IV ONE (11:55)
[2022-04-25] MEDS ORDERED: HEPARIN 10,000 UNIT/10 ML VIAL IV ONE (11:55)
[2022-04-25] MEDS ORDERED: ATROPINE SULF 1 MG/10 ML SYR IV ONE (11:55)
[2022-04-25 15:08] VITALS: BP 160/68; O2SAT 97
--- NOTE | 2022-04-25 15:26 | OP ---
Date of Procedure: 04/25/2022 Surgeon: MACK SNYDER Procedure Performed: Selective bilateral carotid angiogram. Indication: Abnormal imaging test suggestive of significant stenosis and remote history of CVA. Access: Right femoral artery 6-Armenian closed with StarClose. Complications: None. Bleeding: Less than 10 mL. Description Of Procedure: After risks, benefits, and alternatives were explained, the patient agreed to procedure and signed informed consent. The patient was brought in the cardiac catheterization la boratory, prepped and draped in the usual sterile fashion. Then, I accessed right femoral artery usi ng a micropuncture kit, ultrasound guidance and fluoroscopy, placed a 6-Armenian [place] sheath and to ok a 6-Armenian JR4 diagnostic catheter into the aortic root, then engaged the brachiocephalic artery, then selectively engaged the right common carotid artery and did standard views. The left common car otid artery comes off the base of the brachiocephalic artery. So, another set of views were obtained for the left carotid arteries and then removed the catheter. Sheath was removed and StarClose was a pplied with good hemostasis. Findings: 1.The brachiocephalic artery is patent. 2.Right common carotid artery is a tender area that has about 60% stenosis. Otherwise, no significa nt disease, 50% to 60%. 3.Left common carotid artery has mid 40% stenosis and there is no significant disease otherwise. Conclusion: Moderate carotid stenosis bilaterally. Plan: Aggressive risk factor modification, medical management. SR/MODL Voice ID: [id number] Report ID: [id number]
== END 2022-04-25 14:35 | disposition home or self-care (01) ==
LOC: CCL 11:00
PROVIDERS: ATTEND Internal Medicine
DX: I65.23 Occlusion and stenosis of bilateral carotid arteries (principal); I10 Essential (primary) hypertension; E78.5 Hyperlipidemia, unspecified; Z86.73 Personal history of transient ischemic attack (TIA), and cerebral infarction without residual deficits; Z87.891 Personal history of nicotine dependence; Z79.82 Long term (current) use of aspirin; Z79.899 Other long term (current) drug therapy; Z88.0 Allergy status to penicillin; Z20.822 Contact with and (suspected) exposure to COVID-19
CPT/HCPCS: 93005; 85025; 80048; 36415; 85610; 85730; 36222; U0003; C1893; J2250; J3010; J7040; J1644

== ENCOUNTER 2022-07-08 19:48 | Emergency (ER) | payer OTHER ==
--- OUTSIDE RECORDS SUMMARY | 2022-07-08 19:54 | XMS REPORT | Continuity of Care Document ---
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 reference range : 0.0 - 10.0 /100 WBCs. The refer ence range was not u sed to interpret th is result as normal/abnormal . NRBC x10^3 (test code <0.01 See_Comment [Auto mated = 5808839742) message] The s ystem which generated this result transmitted reference range : 10*3/?L. The reference range was not used to interpret this result as normal/abnormal . GRAN MAT (NEUT) % 75.4 % (test code = 770-8) IMM GRAN % (test code 0.40 % = 9846392033) LYMPH % (test code = 11.8 % 736-9) MONO % (test code = 11.6 % 5905-5) EOS % (test code = 0.7 % 713-8) BASO % (test code = 0.1 % 706-2) GRAN MAT x10^3(ANC) 8.46 10*3/uL 1.88-7.09 H (test code = 2078373734) IMM GRAN x10^3 (test 0.05 10*3/uL 0-0.06 code = 9000846073) LYMPH x10^3 (test code 1.32 10*3/uL 1.32-3.29 = 731-0) MONO x10^3 (test code 1.30 10*3/uL 0.33-0.92 H = 742-7) EOS x10^3 (test code = 0.08 10*3/uL 0.03-0.39 711-2) BASO x10^3 (test code <0.03 0.01-0.07 = 704-7) Lab Interpretation Abnormal (test code = 94431-6) [facility]A SCRE[facility] BY PCR, [id number] 18:57:00 Test Item Value Reference Range Interpretation Comments MSSA Screen by PCR, Positive Negative A Nares (test code = 25568-7) MRSA/MSSA Positive? Yes No A (test code = 1782302493) ANI (test code = ANI) A positive test result does not necessarily indicate the presence of viable organism. Lab Interpretation (test Abnormal code = 16062-2) [facility]2020-11-19 14:26:00 Test Item Value Reference Range Interpretation Comments MAGNESIUM (test code = 6325183371) 2.0 mg/dL 1.7-2.4 Lab Interpretation (test code = Normal 82513-3) [facility] [id number] 11:05:00 Test Item Value Reference Range Interpretation Comments TROPONIN I (test 0.283 ng/mL See_Comment H [Automated code = 0937111323) message] The system which generated this result [...] ? Lab Interpretation Abnormal (test code = 44314-7) [facility] METABOLIC PANEL (NA, K, CL, CO2, GLUCOSE, BUN, CREATININE, CA)2020-10-08 10:54:00 Test Item Value Reference Range Interpretation Comments NA (test code = 134 mmol/L 135-145 L 5106590728) K (test code = 3.9 mmol/L 3.5-5 9202157385) CL (test code = 102 mmol/L 98-108 9584397368) CO2 TOTAL (test code = 24 mmol/L 23-31 3905930080) AGAP (test code = 2-16 2104418253) BUN (test code = 8 mg/dL 7-23 8720457411) GLUCOSE (test code = 116 mg/dL 70-110 H 6053050856) CREATININE (test code = 0.58 mg/dL 0.5-1.04 6101947192) CALCIUM (test code = 8.2 mg/dL 8.6-10.6 L 7337821039) eGFR Calculation mL/min/1.73m2 (Non-) (test code = 9207228059) eGFR Calculation mL/min/1.73m2 () (test code = 1013766460) ANI (test code = ANI) Association of [...] tests). Lab Interpretation Abnormal (test code = 51449-1) [facility] WITH [id number] 10:44:00 Test Item Value Reference Range Interpretation Comments WBC (test code = See_Comment H [Automated 1890-2) message] The sy stem which generated this [...] RDW-SD (test code = 40.4 fL 39-49.9 57898-6) RDW-CV (test code = 13.4 % 12-15.5 788-0) PLT (test code = See_Comment [Automated 777-3) message] The sy stem which generated this result transmitted reference range : 166 - 358 10*3/ ?L. The reference r claudine was not used to interpret this result as normal/abnormal . MPV (test code = 9.8 fL 9.5-12.9 40477-3) NRBC/100 WBC (test See_Comment [Automat ed code = 1805682197) message] The system which generated this result transmitted reference range : 0.0 - 10.0 /100 WBCs. The refer ence range was not u sed to interpret th is result as normal/abnormal . NRBC x10^3 (test code <0.01 See_Comment [Auto mated = 2391322045) message] The s ystem which generated this result transmitted reference range : 10*3/?L. The reference range was not used to interpret this result as normal/abnormal . GRAN MAT (NEUT) % 79.6 % (test code = 770-8) IMM GRAN % (test code 0.40 % = 7858868897) LYMPH % (test code = 7.5 % 736-9) MONO % (test code = 11.8 % 5905-5) EOS % (test code = 0.5 % 713-8) BASO % (test code = 0.2 % 706-2) GRAN MAT x10^3(ANC) 9.06 10*3/uL 1.88-7.09 H (test code = 3860344502) IMM GRAN x10^3 (test 0.05 10*3/uL 0-0.06 code = 2302207923) LYMPH x10^3 (test code 0.86 10*3/uL 1.32-3.29 L = 731-0) MONO x10^3 (test code 1.35 10*3/uL 0.33-0.92 H = 742-7) EOS x10^3 (test code = 0.06 10*3/uL 0.03-0.39 711-2) BASO x10^3 (test code <0.03 0.01-0.07 = 704-7) Lab Interpretation Abnormal (test code = 09244-6) [id number] 02:46:00 Test Item Value Reference Range Interpretation Comments IONIZED CA (test code = 4.50 mg/dL 4.5-5.3 3420456603) PH SERUM (test code = 9282726205) 7.35-7.45 Lab Interpretation (test code = Normal 72441-3) [facility]2020-11-19 02:34:00 Test Item Value Reference Range Interpretation Comments MAGNESIUM (test code = 0394306339) 2.0 mg/dL 1.7-2.4 Lab Interpretation (test code = Normal 11317-8) [facility] HospitalCORON[facility]US COVID-19 [id number] 00:48:00 Test Item Value Reference Range Interpretation Comments SARS-CoV-2 NAAT (test Not Detected Not Detected code = 10321-7) ANI (test code = ANI) [employer] Aptima SARS-CoV-2 Assay is a nucleic acid amplification test intended for the qualitative detection of RNA from SARS-CoV-2 from nasopharyngeal ([employer]) specimens. ?It is used under Emergency Use [...] indicated. Lab Interpretation Normal (test code = 33871-7) [facility] HospitalLEGIONELLA URINARY ANTIGEN [id number] 22:36:00 Test Item Value Reference Range Interpretation Comments Legionella Urinary Negative Negative Antigen (test code = 7993686764) ANI (test code = ANI) Negative for [...] test. Lab Interpretation (test Normal code = 84105-2) [facility] HospitalPNEUMOCOCCAL [id number] 22:36:00 Test Item Value Reference Range Interpretation Comments S. pneumoniae antigen (test code = Negative Negative 7522363093) Lab Interpretation (test code = Normal 72742-0) [facility] HospitalUrine [id number] 14:42:00 Test Item Value Reference Range Interpretation Comments URINE CULTURE (test 10,000 - 100,000 CFU/mL code = 630-4) mixed aerobic organisms - suggests endogenous microbial contamination [facility] HospitalTROP[facility]IN [id number] 11:50:00 Test Item Value Reference Range Interpretation Comments TROPONIN I (test 0.721 ng/mL See_Comment H [Automated code = 1682632548) message] The system which generated this result [...] ? Lab Interpretation Abnormal (test code = 85378-7) [facility] COVID [id number] 11:39:00COVID DMT InterpretationInterpretation/Recommendations: Molecular NAAT Test Results [...] a nasopharyngeal sample, there is approximately a tnh-xo-kmmws chance that the patient was infected and [...] to future infections with the SARS-CoV-2 virus. ? ? Interpretation Result Comments:These interpretation comments are based upon aggregate COVID-19 test results pooled from [facility]. They apply to the following tests offered at [facility] and assume the acceptable specimen type(s) were used:A. Tests for the Identification of SARS-CoV-2 RNA (Molecular NAAT Tests):SARS-CoV-2 PCR assays including [employer] Aptima, [employer] Fusion, Castillo RealTime, and [employer] Xpert Xpress. SARS-CoV-2 Rapid ID NOW by the ID NOW assay.? B. Tests for the Identification of SARS-CoV-2 Antibodies: Chemiluminescent immunoassays including Access SARS-CoV-2 IgM (DXI 600), VITROS Wqgp-LKHY-WaW-2 IgG (Vitros 5600 and Vitros 3600), and Castillo SARS-CoV-2 IgG (FRONT OFFICE AGENT I System). ?These interpretations are autopopulated into [facility] based on computerized algorithms matching an interpretation code to the patient's set of test results, and a clinical pathologist evaluates the comments for accuracy. However, these comments do not consider testing a patient may have had outside of the [facility] system. If results for COVID-19 infection continue to be negative in the context of a suspected viral respiratory illness, it is possible the patient may have an infection with another respiratory virus. Influenza testing and a respiratory pathogen panel if clinically indicated may be beneficial in this setting. If there continues to sheba high degree of clinical suspicion for COVID-19 illness despite multiple negative tests on nasopharyngeal specimens, then it may be necessary to test the patient for the SARS-CoV-2 virus using lower respiratory tract samples (such as sputum, bronchoalveolar lavage fluid (BAL), tracheal aspirate, etc.). ?[facility] LABORATORY SERVICESCOVID FwncxbiTAZN-DsU-5 Rapid ID NOW (no units) ? ? Date ? Value ? 10/06/2020 ? Not Detected ? [facility] LABORATORY SERVICESUnBaylor [facility] GrapevineBasi Metabolic Panel (NA, K, CL, CO2, GLUCOSE, BUN, CREATININE, CA)2020-10-07 11:37:00 Test Item Value Reference Range Interpretation Comments NA (test code = 133 mmol/L 135-145 L 4176656724) K (test code = 3.9 mmol/L 3.5-5 5986830509) CL (test code = 103 mmol/L 98-108 9384294501) CO2 TOTAL (test code = 21 mmol/L 23-31 L 1189616574) AGAP (test code = 2-16 4455635475) BUN (test code = 12 mg/dL 7-23 8611273225) GLUCOSE (test code = 89 mg/dL 70-110 7289618109) CREATININE (test code = 0.79 mg/dL 0.5-1.04 5700151313) CALCIUM (test code = 8.2 mg/dL 8.6-10.6 L 9146617941) eGFR Calculation mL/min/1.73m2 (Non-) (test code = 1058561487) eGFR Calculation mL/min/1.73m2 () (test code = 6218526193) ANI (test code = ANI) Association of [...] tests). Lab Interpretation Abnormal (test code = 32984-8) [facility] with Rjwkkwrxnthb2023-12-11 11:30:00 Test Item Value Reference Range Interpretation Comments WBC (test code = See_Comment [Automated 9490-2) message] The sy stem which generated this result transmitted reference range : 4.30 - 11.10 10*3/?L. The reference range was not used to interpret this result as normal/abnormal . RBC (test code = See_Comment L [Automated 119-8) message] The sy stem which generated this [...] RDW-SD (test code = 41.6 fL 39-49.9 20265-3) RDW-CV (test code = 13.3 % 12-15.5 788-0) PLT (test code = See_Comment [Automated 777-3) message] The sy stem which generated this result transmitted reference range : 166 - 358 10*3/ ?L. The reference r claudnie was not used to interpret this result as normal/abnormal . MPV (test code = 10.2 fL 9.5-12.9 84904-3) NRBC/100 WBC (test See_Comment [Automat ed code = 0195734007) message] The system which generated this result transmitted reference range : 0.0 - 10.0 /100 WBCs. The refer ence range was not u sed to interpret th is result as normal/abnormal . NRBC x10^3 (test code <0.01 See_Comment [Auto mated = 5755993667) message] The s ystem which generated this result transmitted reference range : 10*3/?L. The reference range was not used to interpret this result as normal/abnormal . GRAN MAT (NEUT) % 77.3 % (test code = 770-8) IMM GRAN % (test code 0.40 % = 4692422441) LYMPH % (test code = 9.9 % 736-9) MONO % (test code = 12.0 % 5905-5) EOS % (test code = 0.2 % 713-8) BASO % (test code = 0.2 % 706-2) GRAN MAT x10^3(ANC) 7.19 10*3/uL 1.88-7.09 H (test code = 7674893887) IMM GRAN x10^3 (test 0.04 10*3/uL 0-0.06 code = 6298617681) LYMPH x10^3 (test code 0.92 10*3/uL 1.32-3.29 L = 731-0) MONO x10^3 (test code 1.12 10*3/uL 0.33-0.92 H = 742-7) EOS x10^3 (test code = <0.03 0.03-0.39 L 711-2) BASO x10^3 (test code <0.03 0.01-0.07 = 704-7) Lab Interpretation Abnormal (test code = 44765-1) [facility] [id number] 04:46:00 Test Item Value Reference Range Interpretation Comments TROPONIN I (test 0.943 ng/mL See_Comment H [Automated code = 3041532668) message] The system which generated this result [...] ? Lab Interpretation Abnormal (test code = 43974-1) [facility] [id number] 22:17:00 Test Item Value Reference Range Interpretation Comments TROPONIN I (test 0.741 ng/mL See_Comment H [Automated code = 2266386177) message] The system which generated this result [...] ? Lab Interpretation Abnormal (test code = 61549-0) [facility] HospitalThyroid Stimulating Hormone (TSH)2020-10-06 19:34:00 Test Item Value Reference Range Interpretation Comments TSH (test code = See_Comment [Automated message] 3570028406) The system [employer] generated this result transmitted ref erence range: 0.45 - 4 .70 mIU/L. The refe rence range was not u sed to interpret this result as normal/abnor mal. Lab Interpretation (test Normal code = 08533-8) [facility] HospitalTroponin [id number] 19:15:00 Test Item Value Reference Range Interpretation Comments TROPONIN I (test 0.621 ng/mL See_Comment H [Automated code = 7318923982) message] The system which generated this result [...] ? Lab Interpretation Abnormal (test code = 79454-6) [facility] HospitalLipid Panel (Total Cholesterol, Triglycerides, HDL)2020-10-06 19:03:00 Test Item Value Reference Range Interpretation Comments CHOL (test code = 99 mg/dL 120-200 L 7604669820) HDL (test code = 41 mg/dL >50 L 1584086748) HDLC RATIO (test code = See_Comment [Au tomated message] 1071687634) The system [employer] generated this result transmitted ref erence range: <=4.5. T he reference range was not used to int erpret this result as normal/abnormal . TRIG (test code = 64 mg/dL 30-170 5275549861) LDL CHOL (test code = 45 mg/dL See_Comment [Auto mated message] 33623-8) The system [employer] generated this result transmitted ref erence range: <=160. T he reference range was not used to int erpret this result as normal/abnormal . VLDL (test code = 13 mg/dL 5-60 9384756311) Lab Interpretation (test Abnormal code = 77036-9) [facility] HospitalURINALYSIS2020-11-17 17:58:00 Test Item Value Reference Range Interpretation Comments APPEARANCE (test code = Clear Clear 6038089362) COLOR (test code = Straw Yellow A 0206587260) PH (test code = 4.8-8.0 7256043814) SP GRAVITY (test code = 1.003-1.030 8691258247) GLU U QUAL (test code = Normal Normal 2379041251) BLOOD (test code = 2+ Negative A 4260187024) KETONES (test code = Negative Negative 8740270366) PROTEIN (test code = Negative Negative 2887-8) UROBILIN (test code = Normal Normal 2599338053) BILIRUBIN (test code = Negative Negative 5890995474) NITRITE (test code = Negative Negative 7988018157) LEUK RAFY (test code = Negative Negative 0140197921) RBC/HPF (test code = See_Comment [Autom ated message] 6798296192) The system [employer] generated this result transmitted ref erence range: 0 - 3 HP F. The reference range was not used to int erpret this result as normal/abnormal . WBC/HPF (test code = <1 See_Comment [Autom ated message] 2884614752) The system [employer] generated this result transmitted ref erence range: 0 - 5 HP F. The reference range was not used to int erpret this result as normal/abnormal . BACTERIA (test code = Negative Negative 1686483934) SQ EPITH (test code = <1 See_Comment [Auto mated message] 3059665017) The system [employer] generated this result transmitted ref erence range: <=2 HPF. The reference range was not used to int erpret this result as normal/abnormal . Lab Interpretation (test Abnormal code = 39195-4) [facility] HospitalCT [facility] PULMONARY [id number] 14:06:55 No acute pulmonary embolism Right middle [...] 100 mLOmnipaque-350 intravenous contrast, without complication. Display fieldofview: 40 cm.FINDINGS:PULMONARY ARTERIES:Enhancement is adequate, and there [...] thebrachiocephalic and left common carotid arteries. Moderate atheroscler oticdisease in the form of calcific and soft [...] cyst in the right interpolar regiondemonstrates increased attenuationand could represent a hemorrhagic orproteinaceous cysts. Diverticulosis of the hepatic flexure is seen withoutacute diverticulitis. The remainder of the visualized abdomen isunremarkable within the limitations of a CT PE protocol. IMPRESSIONNo acute pulmonary embolismRight middle lobe pulmonary nodules measuring up to 1 cm, new from priorexam and concerning for a neoplastic etiology. Recommend additionalinvestigation including CT PET imaging.Ill-defined right thyroid nod ules measuring up to 1.5 cm, can be furtherevaluated with a thyroid ultrasound. Preliminary Report Dictated by Resident: Juancarlos Amador MD., have reviewed this study and agree with theabove report.[facility] 1 [id number] 13:59:33 No acute cardiopulmonary process. Preliminary Report Dictated by Resident: Lily Gudino This study was reviewed by Dr. Richardson in the morning. Minimal congestion issuspected in both lungs with underlying chronic changes of obstructive lungdisease. Findings could be secondary to bronchitis. Juancarlos Maciel MD., have reviewed this study and agree with theabove report. EXAM: XR CHEST 1 VW HISTORY: Fever, Cough, SOB TECHNIQUE: AP view of the chest COMPARISON: 05/23/2017 FINDINGS: Mild vascular crowding is likely due to underinflation. The lungs areotherwise clear without focal consolidation. No pleural effusion or pneumothorax is identified. The heart size is normal. Calcifications of the aortic arch are noted. No acute bony abnormality. [facility], Radiant Results Inft User - 10/06/2020 8:00AM CSTEXAM: XR CHEST 1 VWHISTORY: Fever, Cough, SOB TECHNIQUE: AP view of the chestCOMPARISON: 05/23/2017FINDINGS:Mild vascular crowding is likely due to underinflation. The lungs areotherwise clear without focal consolidation.No pleural effusion or pneumothorax is identified.The heart size is normal.Calcifications of the aortic arch are noted.No acute bony abnormality.IMPRESSIONNo acute cardiopulmonary process.Preliminary Report Dictated by Resident: Lily Woodis study was reviewed by Dr. Richardson in the morning. Minimal congestion issuspected in both lungs with underlying chronic changes of obstructive lungdisease. Findings could be secondary to bronchitis.Juancarlos Maciel MD., have reviewed this study and agree with theabove report.[facility] HospitalTRJOVANI I 2020-10-06 13:12:00 Test Item Value Reference Range Interpretation Comments TROPONIN I (test 0.718 ng/mL See_Comment H [Automated code = 3048967674) message] The system which generated this result [...] ? Lab Interpretation Abnormal (test code = 95867-3) [facility] HospitalUrinalysis2020-11-17 08:31:00 Test Item Value Reference Range Interpretation Comments APPEARANCE (test code = Clear Clear 7303250468) COLOR (test code = Yellow Yellow 2754506859) PH (test code = 4.8-8.0 0672366916) SP GRAVITY (test code = 1.003-1.030 3193245271) GLU U QUAL (test code = Normal Normal 2223475610) BLOOD (test code = 2+ Negative A 1080509322) KETONES (test code = Negative Negative 4768562452) PROTEIN (test code = 100 mg/dL Negative A 2887-8) UROBILIN (test code = Normal Normal 2012351531) BILIRUBIN (test code = Negative Negative 4009202610) NITRITE (test code = Negative Negative 8765153623) LEUK RAFY (test code = Negative Negative 1549469835) RBC/HPF (test code = See_Comment H [Autom ated message] 1236288030) The system [employer] generated this result transmit dagoberto reference range : 0 - 3 HPF. The refe rence range was not u sed to interpret th is result as normal/abnormal . WBC/HPF (test code = See_Comment [Autom ated message] 9885861773) The system [employer] generated this result transmit dagoberto reference range : 0 - 5 HPF. The refe rence range was not u sed to interpret th is result as normal/abnormal . BACTERIA (test code = Moderate Negative A 3515272176) MUCOUS (test code = Slight Negative LPF A 3537692777) SQ EPITH (test code = HPF 2136944856) Lab Interpretation (test Abnormal code = 75700-3) [id number] 07:31:00 Test Item Value Reference Range Interpretation Comments NT-proBNP (test code 352 pg/mL See_Comment [Autom ated = 7876185732) message] The system which generated this result transmitted reference range : <=450. The reference range was not used to interpret this result as normal/abnormal . ANI (test code = ANI) Biotin has been reported to cause a negative bias, interpret results relative to patient's use of biotin. Lab Interpretation Normal (test code = 13671-4) [facility] 07:17:00 Test Item Value Reference Range Interpretation Comments APTT Patient (test See_Comment H [Automat ed code = 3173-2) message] The system which generated this result transmitted reference range : 23 - 38 Seconds . The reference range was not used to interpr et this result as normal/abnormal . ANI (test code = ANI) The [facility] patient population mean normal value for aPTT is 30 seconds. Lab Interpretation Abnormal (test code = 23517-5) [facility] / [id number] 07:15:00 Test Item Value Reference Range Interpretation Comments PROTIME PATIENT (test See_Comment [Auto mated message] code = 5964-2) The system [employer] ich generated this result transmitted ref erence range: 12.0 - 1 4.7 Seconds. The re ference range was not u sed to interpret this result as normal/abnor mal. INR (test code = 6301-6) Nor mal INR <1.1; Warfarin Therap eutic range 2.0 to 3. 0 or 2.5 to 3.5, dep ending upon the indica tions. Lab Interpretation (test Normal code = 28241-8) [facility] (ID NOW RAPID TESTING)2020-10-06 06:51:00 Test Item Value Reference Range Interpretation Comments SARS-CoV-2 Rapid ID NOW Not Detected Not Detected (test code = 99695-8) ANI (test code = ANI) ID NOW COVID-19 Assay is an isothermal nucleic acid amplification test intended for the qualitative detection of nucleic acid from SARS-CoV-2 viral RNA in nasopharyngeal ([employer]) specimens. It is used under Emergency Use [...] indicated. Lab Interpretation Normal (test code = 20239-9) [facility] HospitalAVELuc [id number] 06:46:00 Test Item Value Reference Range Interpretation Comments TROPONIN I (test 0.122 ng/mL See_Comment H [Automated code = 0102421502) message] The system which generated this result [...] ? Lab Interpretation Abnormal (test code = 74398-5) [facility]. Metabolic Panel (14153)2020-10-06 06:34:00 Test Item Value Reference Range Interpretation Comments NA (test code = 123 mmol/L 135-145 L 3635183824) K (test code = 4.7 mmol/L 3.5-5 6707010954) CL (test code = 92 mmol/L 98-108 L 8313875932) CO2 TOTAL (test code = 23 mmol/L 23-31 6643099909) AGAP (test code = 2-16 0006443579) BUN (test code = 11 mg/dL 7-23 5321556166) GLUCOSE (test code = 125 mg/dL 70-110 H 0997082334) CREATININE (test code = 0.78 mg/dL 0.5-1.04 9668151786) TOTAL BILI (test code = 0.7 mg/dL 0.1-1.0 4634281601) CALCIUM (test code = 8.3 mg/dL 8.6-10.6 L 1998286790) T PROTEIN (test code = 6.7 g/dL 6.3-8.2 8491923284) ALBUMIN (test code = 3.6 g/dL 3.5-5 3409993576) ALK PHOS (test code = 107 U/L 34-122 7369940911) ALTv (test code = 21 U/L 5-35 1742-6) AST(SGOT) (test code = 32 U/L 13-40 9442179314) eGFR Calculation mL/min/1.73m2 (Non-) (test code = 4989639468) eGFR Calculation mL/min/1.73m2 () (test code = 3918561151) ANI (test code = ANI) Association of [...] tests). Lab Interpretation Abnormal (test code = 39027-7) [facility] with [id number] 06:12:00 Test Item Value Reference Range Interpretation Comments WBC (test code = See_Comment H [Automated 9490-2) message] The system which generated this result transmit dagoberto reference range : 4.30 - 11.10 10*3/?L. The reference range was not used to interpret this result as normal/abnormal . RBC (test code = See_Comment L [Automated 999-8) message] The system which generated this result [...] (test code = 38.7 fL 39-49.9 L 28064-9) RDW-CV (test code = 12.7 % 12-15.5 788-0) PLT (test code = See_Comment [Automated 777-3) message] The system which generated this result transmit dagoberto reference range : 166 - 358 10*3/ ?L. The reference range was not u sed to interpret th is result as normal/abnormal . MPV (test code = 10.3 fL 9.5-12.9 14579-8) NRBC/100 WBC (test See_Comment [Automat ed code = 5944612323) message] The system which generated this result transmit dagoberto reference range : 0.0 - 10.0 /100 WBCs. The reference range was not used to interpret this result as normal/abnormal . NRBC x10^3 (test code <0.01 See_Comment [Auto mated = 5966406759) message] The system which generated this result transmit dagoberto reference range : 10*3/?L. The reference range was not used to interpret this result as normal/abnormal . GRAN MAT (NEUT) % 93.9 % (test code = 770-8) IMM GRAN % (test code 0.70 % = 2890556554) LYMPH % (test code = 2.2 % 736-9) MONO % (test code = 3.0 % 5905-5) EOS % (test code = 0.1 % 713-8) BASO % (test code = 0.1 % 706-2) GRAN MAT x10^3(ANC) 13.92 10*3/uL 1.88-7.09 H (test code = 6055898485) IMM GRAN x10^3 (test 0.10 10*3/uL 0-0.06 H code = 6360111916) LYMPH x10^3 (test code 0.32 10*3/uL 1.32-3.29 L = 731-0) MONO x10^3 (test code 0.44 10*3/uL 0.33-0.92 = 742-7) EOS x10^3 (test code = <0.03 0.03-0.39 L 711-2) BASO x10^3 (test code <0.03 0.01-0.07 = 704-7) Lab Interpretation Abnormal (test code = 45886-4) [facility] HospitalL[facility] Acid Whole [id number] 06:05:00 Test Item Value Reference Range Interpretation Comments LACTIC ACID (test code = 1.81 mmol/L 1307813962) [facility]
[2022-07-08] MEDS ORDERED: ONDANSETRON 4 MG/2 ML VIAL ONE (20:29)
[2022-07-08] MEDS ORDERED: MORPHINE 2 MG/ML SYR ONE (20:29)
--- NOTE | 2022-07-08 22:15 | RAD REPORT ---
EXAM DESCRIPTION: RAD - Femur Right - 07/08/2022 8:54 pm CLINICAL HISTORY: Leg pain FINDINGS: Mildly displaced fracture greater trochanter femur. Bones are osteoporotic
--- NOTE | 2022-07-08 22:39 | RAD REPORT ---
EXAM DESCRIPTION: CT - Hip Right Wo Con - 07/08/2022 10:11 pm CLINICAL HISTORY: Right hip pain status post fall COMPARISON: X-rays on the same date. TECHNIQUE: Computed axial tomography of the right hip were obtained. Coronal and sagittal reconstruc tion was performed. All CT scans are performed using dose optimization technique as appropriate and may include automated exposure control or mA/KV adjustment according to patient size. FINDINGS: The bones are osteoporotic. Mildly displaced fracture greater trochanter right femur. No dislocation The surrounding muscles of the right hip are normal size and density. Tarlov cyst sacral spinal canal IMPRESSION: Mildly displaced fracture greater trochanter right femur
--- NOTE | 2022-07-08 23:18 | EDPHYS ---
Physician Documentation [facility] Name: Ramandeep Renner Age: 87 yrs Sex: Female : 1935 Arrival Date: 07/08/2022 Time: 19:57 Bed 2 Private MD: ED Physician Dixon Hackett HPI: 07/08 23:41 This 87 yrs old Female presents to ER via Wheelchair with complaints of Fall kb Injury. 23:41 Details of fall: The patient fell from an upright position. Onset: The symptoms/episode kb began/occurred just prior to arrival. Associated injuries: The patient sustained right hip, painful injury. Severity of symptoms: At their worst the symptoms were moderate, in the emergency department the symptoms are unchanged. The patient has not experienced similar symptoms in the past. The patient has not recently seen a physician. Pt reports she tripped on a step and fell onto right hip. c/o pain to right hip. Historical: - Home Meds: 20:02 amlodipine 2.5 mg tab once daily [Active]; atorvastatin 20 mg Oral tab 1 tab once daily bm7 [Active]; lantoprast 125 mcg/2ml [Active]; lisinopril 20 mg Oral tab 1 tab once daily [Active]; Prilosec 20 mg Oral cpDR 1 cap [Active]; - PMHx: 20:02 Bowel problem; Glaucoma; Hypercholesterolemia; Hypertensive disorder; lung cancer bm7 remission; - PSHx: 20:02 colon; hysterectomy; bm7 - Immunization history:: Adult Immunizations up to date. - Social history:: Smoking status: Patient denies any tobacco usage or history of. ROS: 23:40 Constitutional: Negative for fever, chills, and weight loss. kb 23:40 MS/extremity: Positive for pain, tenderness, of the right hip. 23:40 All other systems are negative. Exam: 23:40 Constitutional: This is a well developed, well nourished patient who is awake, alert, kb and in no acute distress. Head/Face: Normocephalic, atraumatic. ENT: Moist Mucous membranes Respiratory: Respirations even and unlabored. No increased work of breathing. Talking in full sentences Skin: Warm, dry with normal turgor. Normal color. Neuro: Awake and alert, GCS 15, oriented to person, place, time, and situation. Moves all extremities. Normal gait. Psych: Awake, alert, with orientation to person, place and time. Behavior, mood, and affect are within normal limits. 23:40 Musculoskeletal/extremity: Extremities: grossly normal except: noted in the right hip: pain, tenderness, ROM: limited active range of motion due to pain, in the right hip, Circulation is intact in all extremities. Sensation intact. Weight bearing: can bear weight with assistance only. Vital Signs: 20:00 BP 138 / 59; Pulse 82; Resp 16; Temp 97.8(TE); Pulse Ox 98% on R/A; Weight 54.43 kg bm7 (R); Height 5 ft. 0 in. (152.40 cm); Pain 10/10; 20:15 BP 149 / 50; Pulse 82; Resp 18; Pulse Ox 98% on R/A; Pain 8/10; lp1 21:00 BP 120 / 54; Pulse 80; Resp 18; Pulse Ox 98% on R/A; lp1 22:00 BP 114 / 53; Pulse 80; Resp 18; Pulse Ox 98% on R/A; lp1 23:30 BP 101 / 51; Pulse 72; Resp 18; Pulse Ox 98% on R/A; lp1 07/09 00:00 BP 111 / 52; Pulse 74; Resp 18; Pulse Ox 98% on R/A; Pain 6/10; lp1 08 20:00 Body Mass Index 23.44 (54.43 kg, 152.40 cm) bm7 MDM: 07/08 20:07 Patient medically screened. kb 22:28 Data reviewed: vital signs, nurses notes. Data interpreted: Pulse oximetry: on room air kb is 98 %. Interpretation: normal. Physician consultation: Dionte Olsen MD was contacted at 22:28, regarding consult, patient's condition, pt ok to discharge with walker as long as CT scan shows same finding as x-ray. If intertrochanteric fracture seen on CT pt will need to be admitted. . 23:40 Counseling: I had a detailed discussion with the patient and/or guardian regarding: the kb historical points, exam findings, and any diagnostic results supporting the discharge/admit diagnosis, radiology results, the need for outpatient follow up, a orthopedic surgeon, to return to the emergency department if symptoms worsen or persist or if there are any questions or concerns that arise at home. 07/08 20:12 Order name: Femur Right XRAY; Complete Time: 22:23 kb 07/08 21:57 Order name: Hip Right Wo Con; Complete Time: 22:44 EDMS 07/08 20:12 Order name: IV Start; Complete Time: 20:56 kb Administered Medications: 20:12 CANCELLED (Duplicate Order): Dilaudid (HYDROmorphone) 1 mg IVP once kb 20:30 Drug: morphine 2 mg Route: IVP; Infused Over: 4 mins; Site: right forearm; lp1 23:25 Follow up: Response: Pain is decreased lp1 20:30 Drug: Zofran (Ondansetron) 4 mg Route: IVP; Site: right forearm; lp1 23:25 Follow up: Response: No adverse reaction 1 07/09 00:04 Drug: [place] (HYDROcodone-acetaminophen) (7.5 mg-325 mg) 1 tabs Route: PO; lp1 00:05 Follow up: Response: Medication administered at discharge. lp1 Disposition: 00:45 Co-signature as Attending Physician, Dixon Hackett MD I agree with the assessment and kdr plan of care. Disposition Summary: 07/08/22 23:17 Discharge Ordered Location: Home kb Condition: Stable kb Diagnosis - Mildly displaced fracture greater trochanter right femur kb Followup: kb - With: Emergency Department - When: As needed - Reason: Worsening of condition Followup: kb - With: Private Physician - When: 2 - 3 days - Reason: Recheck today's complaints, Continuance of care, Re-evaluation by your physician Followup: kb - With: Dionte Olsen MD - When: 2 - 3 days - Reason: Recheck today's complaints Discharge Instructions: - Discharge Summary Sheet kb - Hip Fracture kb Forms: - Medication Reconciliation Form kb - Thank You Letter kb - Antibiotic Education kb - Prescription Opioid Use kb Prescriptions: - Tramadol 50 mg Oral Tablet - take 1 tablet by ORAL route every 8 hours as needed; 12 tablet; Refills: 0, kb Product Selection Permitted Signatures: Dispatcher [employer] EDMO Lizbeth Tavera FNP-C FNP-Ckb Rittger, Kevin, MD MD kdr Pena, Laura RN RN lp1 Bianca Penn, RN RN bm7 Corrections: (The following items were deleted from the chart) 07/08 20:12 20:12 Dilaudid (HYDROmorphone) 1 mg IVP once ordered. kb kb
--- NOTE | 2022-07-08 23:18 | ER ---
Nurse's Notes [facility] Name: Ramandeep Renner Age: 87 yrs Sex: Female : 1935 Arrival Date: 07/08/2022 Time: 19:57 Bed 2 Private MD: Diagnosis: Mildly displaced fracture greater trochanter right femur Presentation: 07/08 20:00 Chief complaint: Patient states: I was at my daughter in laws house and I was walking bm7 up the steps to her porch and I missed a step and fell on my right side. My right hip hurts every time I move it now. Coronavirus screen: At this time, the client does not indicate any symptoms associated with coronavirus-19. Ebola Screen: No symptoms or risks identified at this time. Initial Sepsis Screen: Does the patient meet any 2 criteria? No. Patient's initial sepsis screen is negative. Does the patient have a suspected source of infection? No. Patient's initial sepsis screen is negative. Risk Assessment: Do you want to hurt yourself or someone else? Patient reports no desire to harm self or others. Onset of symptoms was July 08, 2022 at 14:00. 20:00 Method Of Arrival: Wheelchair bm7 20:00 Acuity: WILFRIDO 3 bm7 Triage Assessment: 20:02 General: Appears in no apparent distress. uncomfortable, Behavior is calm, cooperative, bm7 appropriate for age. Pain: Complains of pain in right iliac crest and right hip Pain does not radiate. Pain currently is 10 out of 10 on a pain scale. EENT: No deficits noted. No signs and/or symptoms were reported regarding the EENT system. Neuro: No deficits noted. Level of Consciousness is awake, alert, obeys commands, Oriented to person, place, time, situation. Cardiovascular: No deficits noted. Respiratory: No deficits noted. GI: No deficits noted. No signs and/or symptoms were reported involving the gastrointestinal system. : No deficits noted. No signs and/or symptoms were reported regarding the genitourinary system. Derm: No deficits noted. No signs and/or symptoms reported regarding the dermatologic system. Musculoskeletal: Reports pain in right iliac crest and right hip. Historical: - Home Meds: 20:02 amlodipine 2.5 mg tab once daily [Active]; atorvastatin 20 mg Oral tab 1 tab once daily bm7 [Active]; lantoprast 125 mcg/2ml [Active]; lisinopril 20 mg Oral tab 1 tab once daily [Active]; Prilosec 20 mg Oral cpDR 1 cap [Active]; - PMHx: 20:02 Bowel problem; Glaucoma; Hypercholesterolemia; Hypertensive disorder; lung cancer bm7 remission; - PSHx: 20:02 colon; hysterectomy; bm7 - Immunization history:: Adult Immunizations up to date. - Social history:: Smoking status: Patient denies any tobacco usage or history of. Screenin:30 Abuse screen: Denies threats or abuse. Denies injuries from another. Nutritional lp1 screening: No deficits noted. Tuberculosis screening: No symptoms or risk factors identified. Fall Risk None identified. Assessment: 20:15 General: Appears uncomfortable, Behavior is appropriate for age. Pain: Complains of lp1 pain in right hip Pain currently is 8 out of 10 on a pain scale. Quality of pain is described as aching, Aggravated by increased activity, weight bearing. Neuro: Level of Consciousness is awake, alert, obeys commands, Oriented to person, place, time, situation. Cardiovascular: Patient's skin is warm and dry. Respiratory: Respiratory effort is even, unlabored. GI: No signs and/or symptoms were reported involving the gastrointestinal system. : No signs and/or symptoms were reported regarding the genitourinary system. EENT: No signs and/or symptoms were reported regarding the EENT system. Derm: Skin is intact, is thin, Skin is dry, Skin is normal, Bruising that is dark purple, on anterior aspect of right shoulder and right bicep. Musculoskeletal: Circulation, motion, and sensation intact. Range of motion: intact in all extremities, Reports pain in right hip. 21:47 Reassessment: Patient's daughter at bedside. lp1 23:00 Reassessment: Patient appears in no apparent distress at this time. Patient is alert, lp1 oriented x 3, equal unlabored respirations, skin warm/dry/pink. Vital Signs: 20:00 BP 138 / 59; Pulse 82; Resp 16; Temp 97.8(TE); Pulse Ox 98% on R/A; Weight 54.43 kg bm7 (R); Height 5 ft. 0 in. (152.40 cm); Pain 10/10; 20:15 BP 149 / 50; Pulse 82; Resp 18; Pulse Ox 98% on R/A; Pain 8/10; lp1 21:00 BP 120 / 54; Pulse 80; Resp 18; Pulse Ox 98% on R/A; lp1 22:00 BP 114 / 53; Pulse 80; Resp 18; Pulse Ox 98% on R/A; lp1 23:30 BP 101 / 51; Pulse 72; Resp 18; Pulse Ox 98% on R/A; lp1 07/09 00:00 BP 111 / 52; Pulse 74; Resp 18; Pulse Ox 98% on R/A; Pain 6/10; lp1 07/08 20:00 Body Mass Index 23.44 (54.43 kg, 152.40 cm) bm7 ED Course: 07/08 19:57 Patient arrived in ED. bp1 20:02 Triage completed. bm7 20:02 Arm band placed on right wrist. bm7 20:06 Lizbeth Tavera FNP-C is PHCP. kb 20:06 Dixon Hackett MD is Attending Physician. kb 20:16 Sofia Garcia, ANTONIO is Primary Nurse. lp1 20:20 Inserted saline lock: 22 gauge in right forearm, using aseptic technique. lp1 20:55 Femur Right XRAY In Process Unspecified. EDMS 21:47 Patient has correct armband on for positive identification. lp1 22:12 Hip Right Wo Con In Process Unspecified. EDMS 23:17 Dionte Olsen MD is Referral Physician. kb 23:25 No provider procedures requiring assistance completed. lp1 07/09 00:00 IV discontinued, No redness/swelling at site. Pressure dressing applied. lp1 Administered Medications: 07/08 20:12 CANCELLED (Duplicate Order): Dilaudid (HYDROmorphone) 1 mg IVP once kb 20:30 Drug: morphine 2 mg Route: IVP; Infused Over: 4 mins; Site: right forearm; lp1 23:25 Follow up: Response: Pain is decreased lp1 20:30 Drug: Zofran (Ondansetron) 4 mg Route: IVP; Site: right forearm; lp1 23:25 Follow up: Response: No adverse reaction lp1 07/09 00:04 Drug: [place] (HYDROcodone-acetaminophen) (7.5 mg-325 mg) 1 tabs Route: PO; lp1 00:05 Follow up: Response: Medication administered at discharge. lp1 Medication: 07/08 21:47 VIS not applicable for this client. lp1 Outcome: 23:17 Discharge ordered by MD. omalley 07/09 00:05 Discharged to home via wheelchair, with family. lp1 Condition: good Discharge instructions given to patient, family, Instructed on discharge instructions, follow up and referral plans. medication usage, Demonstrated understanding of instructions, follow-up care, medications, Prescriptions given X 1. 00:10 Patient left the ED. lp1 Signatures: Dispatcher [employer] EDMS Lizbeth Tavera, PADMINIC NAJMA-Sofia Graves RN RN lp1 Bianca Batres Brittany, RN RN bm7 Corrections: (The following items were deleted from the chart) 07/08 20:06 20:00 BP 138 / 59; Pulse 82bpm; Resp 16bpm; Pulse Ox 82%; Temp 97.8F Temporal; 54.43 kg bm7 Reported; Height 5 ft. 0 in.; BMI: 23.4; Pain 10/10; bm7 07/09 00:15 00:14 Patient left the ED. lp1 lp1
[2022-07-08] MEDS ORDERED: HYDROCODONE/APAP 7.5/325 MG TAB ONE (23:57)
[2022-07-09 03:23] VITALS: TEMP 97.8; O2SAT 98
[2022-07-09 03:40] VITALS: BP 120/54
== END 2022-07-09 00:14 | disposition home or self-care (01) ==
LOC: ER 19:48
DX: S72.111A Displaced fracture of greater trochanter of right femur, initial encounter for closed fracture (principal); I10 Essential (primary) hypertension; E78.00 Pure hypercholesterolemia, unspecified; Z85.118 Personal history of other malignant neoplasm of bronchus and lung
CPT/HCPCS: 73700; 73552; 96375; 96374; 99284; J2270; J2405

== ENCOUNTER 2022-07-21 20:36 | Emergency (ER) | payer OTHER ==
--- OUTSIDE RECORDS SUMMARY | 2022-07-21 20:41 | XMS REPORT | Continuity of Care Document ---
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 system which generated this result transmitted reference range : 0.0 - 10.0 /100 WBCs. The refer ence range was not u sed to interpret th is result as normal/abnormal . NRBC x10^3 (test code <0.01 See_Comment [Auto mated = 8158692798) message] The s ystem which generated this result transmitted reference range : 10*3/?L. The reference range was not used to interpret this result as normal/abnormal . GRAN MAT (NEUT) % 75.4 % (test code = 770-8) IMM GRAN % (test code 0.40 % = 2763420468) LYMPH % (test code = 11.8 % 736-9) MONO % (test code = 11.6 % 5905-5) EOS % (test code = 0.7 % 713-8) BASO % (test code = 0.1 % 706-2) GRAN MAT x10^3(ANC) 8.46 10*3/uL 1.88-7.09 H (test code = 1431224018) IMM GRAN x10^3 (test 0.05 10*3/uL 0-0.06 code = 2967066568) LYMPH x10^3 (test code 1.32 10*3/uL 1.32-3.29 = 731-0) MONO x10^3 (test code 1.30 10*3/uL 0.33-0.92 H = 742-7) EOS x10^3 (test code = 0.08 10*3/uL 0.03-0.39 711-2) BASO x10^3 (test code <0.03 0.01-0.07 = 704-7) Lab Interpretation Abnormal (test code = 25666-1) [facility]A SCREEN BY PCR, [id number] 18:57:00 Test Item Value Reference Range Interpretation Comments MSSA Screen by PCR, Positive Negative A Nares (test code = 69951-3) MRSA/MSSA Positive? Yes No A (test code = 7346625545) ANI (test code = ANI) A positive test result does not necessarily indicate the presence of viable organism. Lab Interpretation (test Abnormal code = 20025-3) [facility]2020-[facility]-19 14:26:00 Test Item Value Reference Range Interpretation Comments MAGNESIUM (test code = 9574939257) 2.0 mg/dL 1.7-2.4 Lab Interpretation (test code = Normal 79164-9) [facility] HospitalTROPONIN [id number] 11:05:00 Test Item Value Reference Range Interpretation Comments TROPONIN I (test 0.283 ng/mL See_Comment H [Automated code = 0476652321) message] The system which generated this result [...] ? Lab Interpretation Abnormal (test code = 07055-8) [facility] (NA, K, CL, CO2, GLUCOSE, BUN, CREATININE, CA)2020-10-08 10:54:00 Test Item Value Reference Range Interpretation Comments NA (test code = 134 mmol/L 135-145 L 8972237159) K (test code = 3.9 mmol/L 3.5-5 4388027852) CL (test code = 102 mmol/L 98-108 0640381843) CO2 TOTAL (test code = 24 mmol/L 23-31 3070381557) AGAP (test code = 2-16 2408522132) BUN (test code = 8 mg/dL 7-23 4484809894) GLUCOSE (test code = 116 mg/dL 70-110 H 9713580399) CREATININE (test code = 0.58 mg/dL 0.5-1.04 8912079109) CALCIUM (test code = 8.2 mg/dL 8.6-10.6 L 2445785467) eGFR Calculation mL/min/1.73m2 (Non-) (test code = 9969337783) eGFR Calculation mL/min/1.73m2 () (test code = 3525852503) ANI (test code = ANI) Association of [...] tests). Lab Interpretation Abnormal (test code = 10520-8) [facility] WITH [id number] 10:44:00 Test Item Value Reference Range Interpretation [...] RDW-SD (test code = 40.4 fL 39-49.9 66124-3) RDW-CV (test code = 13.4 % 12-15.5 788-0) PLT (test code = See_Comment [Automated 777-3) message] The sy stem which generated this result transmitted reference range : 166 - 358 10*3/ ?L. The reference r claudine was not used to interpret this result as normal/abnormal . MPV (test code = 9.8 fL 9.5-12.9 40572-1) NRBC/100 WBC (test See_Comment [Automat ed code = 7796775988) message] The system which generated this result transmitted reference range : 0.0 - 10.0 /100 WBCs. The refer ence range was not u sed to interpret th is result as normal/abnormal . NRBC x10^3 (test code <0.01 See_Comment [Auto mated = 9061466162) message] The s ystem which generated this result transmitted reference range : 10*3/?L. The reference range was not used to interpret this result as normal/abnormal . GRAN MAT (NEUT) % 79.6 % (test code = 770-8) IMM GRAN % (test code 0.40 % = 4619140610) LYMPH % (test code = 7.5 % 736-9) MONO % (test code = 11.8 % 5905-5) EOS % (test code = 0.5 % 713-8) BASO % (test code = 0.2 % 706-2) GRAN MAT x10^3(ANC) 9.06 10*3/uL 1.88-7.09 H (test code = 4895563747) IMM GRAN x10^3 (test 0.05 10*3/uL 0-0.06 code = 2007335128) LYMPH x10^3 (test code 0.86 10*3/uL 1.32-3.29 L = 731-0) MONO x10^3 (test code 1.35 10*3/uL 0.33-0.92 H = 742-7) EOS x10^3 (test code = 0.06 10*3/uL 0.03-0.39 711-2) BASO x10^3 (test code <0.03 0.01-0.07 = 704-7) Lab Interpretation Abnormal (test code = 69026-0) [facility] HospitalIONIZED [id number] 02:46:00 Test Item Value Reference Range Interpretation Comments IONIZED CA (test code = 4.50 mg/dL 4.5-5.3 4822436777) PH SERUM (test code = 6650904760) 7.35-7.45 Lab Interpretation (test code = Normal 70071-5) [facility]2020-11-19 02:34:00 Test Item Value Reference Range Interpretation Comments MAGNESIUM (test code = 0378755501) 2.0 mg/dL 1.7-2.4 Lab Interpretation (test code = Normal 64174-6) [facility] HospitalCORON[facility]IRUS COVID-19 [id number] 00:48:00 Test Item Value Reference Range Interpretation Comments SARS-CoV-2 NAAT (test Not Detected Not Detected code = 58605-9) ANI (test code = ANI) Osen Aptima SARS-CoV-2 Assay is a nucleic acid amplification test intended for the qualitative detection of RNA from SARS-CoV-2 from nasopharyngeal (DISTRICT RANGER) specimens. ?It is used under Emergency Use [...] indicated. Lab Interpretation Normal (test code = 06422-4) [facility] HospitalLEGIONELLA URINARY ANTIGEN [id number] 22:36:00 Test Item Value Reference Range Interpretation Comments Legionella Urinary Negative Negative Antigen (test code = 1765940888) ANI (test code = ANI) Negative for [...] test. Lab Interpretation (test Normal code = 42273-4) [facility] HospitalPNEUMOCOCCAL [id number] 22:36:00 Test Item Value Reference Range Interpretation Comments S. pneumoniae antigen (test code = Negative Negative 9211188740) Lab Interpretation (test code = Normal 61077-5) [facility] HospitalUrine [id number] 14:42:00 Test Item Value Reference Range Interpretation Comments URINE CULTURE (test 10,000 - 100,000 CFU/mL code = 630-4) mixed aerobic organisms - suggests endogenous microbial contamination [facility] HospitalTROPONIN [id number] 11:50:00 Test Item Value Reference Range Interpretation Comments TROPONIN I (test 0.721 ng/mL See_Comment H [Automated code = 4205487549) message] The system which generated this result [...] ? Lab Interpretation Abnormal (test code = 48492-3) [facility] HospitalLAB ONLY COVID [id number] 11:39:00COVID DMT InterpretationInterpretation/Recommendations: Molecular NAAT Test Results [...] a nasopharyngeal sample, there is approximately a grp-lg-nzcxi chance that the patient was infected and [...] upon aggregate COVID-19 test results pooled from [facility]. They apply to the following tests offered at [facility] and assume the acceptable specimen type(s) were used:A. Tests for the Identification of SARS-CoV-2 RNA (Molecular NAAT Tests):SARS-CoV-2 PCR assays including [facility] Aptima, [place]bury Fusion, Castillo RealTime, and [employer] Intelligence(BHI) Xpert Xpress. SARS-CoV-2 Rapid ID NOW by the ID NOW assay.? B. Tests for the Identification of SARS-CoV-2 Antibodies: Chemiluminescent immunoassays including Access SARS-CoV-2 IgM (DXI 600), SmartAngels[employer]frS Fnuv-WTFH-NdO-2 IgG (Vitros 5600 and Vitros 3600), and Castillo SARS-CoV-2 IgG (CAT DRIVER I System). ?These interpretations are autopopulated into [facility] based on computerized algorithms matching an interpretation code to the patient's set of test results, and a clinical pathologist evaluates the comments for accuracy. However, these comments do not consider testing a patient may have had outside of the [facility] system. If results for COVID-19 infection continue [...] bronchoalveolar lavage fluid (BAL), tracheal aspirate, etc.). ?[facility] LABORATORY SERVICESCOVID IhipfokXXSG-PfP-5 Rapid ID NOW (no units) ? ? Date ? Value ? 10/06/2020 ? Not Detected ? [facility] LABORATORY SERVICESUnRolling Plains [facility] HospitalBamur[facility] Metabolic Panel (NA, K, CL, CO2, GLUCOSE, BUN, CREATININE, CA)2020-10-07 11:37:00 Test Item Value Reference Range Interpretation Comments NA (test code = 133 mmol/L 135-145 L 6022081665) K (test code = 3.9 mmol/L 3.5-5 4115377745) CL (test code = 103 mmol/L 98-108 9417313081) CO2 TOTAL (test code = 21 mmol/L 23-31 L 6048244393) AGAP (test code = 2-16 4877427359) BUN (test code = 12 mg/dL 7-23 9092291016) GLUCOSE (test code = 89 mg/dL 70-110 5849227000) CREATININE (test code = 0.79 mg/dL 0.5-1.04 5531163760) CALCIUM (test code = 8.2 mg/dL 8.6-10.6 L 7195162947) eGFR Calculation mL/min/1.73m2 (Non-) (test code = 0510112635) eGFR Calculation mL/min/1.73m2 () (test code = 5412787465) NAI (test code = ANI) Association of Glomerular [...] tests). Lab Interpretation Abnormal (test code = 39659-3) [facility] with [id number] 11:30:00 Test Item Value Reference Range Interpretation [...] RDW-SD (test code = 41.6 fL 39-49.9 40469-1) RDW-CV (test code = 13.3 % 12-15.5 788-0) PLT (test code = See_Comment [Automated 777-3) message] The sy stem which generated this result transmitted reference range : 166 - 358 10*3/ ?L. The reference r claudine was not used to interpret this result as normal/abnormal . MPV (test code = 10.2 fL 9.5-12.9 97503-5) NRBC/100 WBC (test See_Comment [Automat ed code = 8508625456) message] The system which generated this result transmitted reference range : 0.0 - 10.0 /100 WBCs. The refer ence range was not u sed to interpret th is result as normal/abnormal . NRBC x10^3 (test code <0.01 See_Comment [Auto mated = 5911227674) message] The s ystem which generated this result transmitted reference range : 10*3/?L. The reference range was not used to interpret this result as normal/abnormal . GRAN MAT (NEUT) % 77.3 % (test code = 770-8) IMM GRAN % (test code 0.40 % = 7529240831) LYMPH % (test code = 9.9 % 736-9) MONO % (test code = 12.0 % 5905-5) EOS % (test code = 0.2 % 713-8) BASO % (test code = 0.2 % 706-2) GRAN MAT x10^3(ANC) 7.19 10*3/uL 1.88-7.09 H (test code = 2283891855) IMM GRAN x10^3 (test 0.04 10*3/uL 0-0.06 code = 4268347143) LYMPH x10^3 (test code 0.92 10*3/uL 1.32-3.29 L = 731-0) MONO x10^3 (test code 1.12 10*3/uL 0.33-0.92 H = 742-7) EOS x10^3 (test code = <0.03 0.03-0.39 L 711-2) BASO x10^3 (test code <0.03 0.01-0.07 = 704-7) Lab Interpretation Abnormal (test code = 14879-7) [facility] [id number] 04:46:00 Test Item Value Reference Range Interpretation Comments TROPONIN I (test 0.943 ng/mL See_Comment H [Automated code = 5665629002) message] The system which generated this result [...] ? Lab Interpretation Abnormal (test code = 07208-8) [facility] HospitalTroponin [id number] 22:17:00 Test Item Value Reference Range Interpretation Comments TROPONIN I (test 0.741 ng/mL See_Comment H [Automated code = 9102393909) message] The system which generated this result [...] ? Lab Interpretation Abnormal (test code = 39629-3) [facility] HospitalThyroid Stimulating Hormone (TSH)2020-10-06 19:34:00 Test Item Value Reference Range Interpretation Comments TSH (test code = See_Comment [Automated message] 3511484586) The system [employer] generated this result transmitted ref erence range: 0.45 - 4 .70 mIU/L. The refe rence range was not u sed to interpret this result as normal/abnor mal. Lab Interpretation (test Normal code = 01862-7) [facility] HospitalTroponin [id number] 19:15:00 Test Item Value Reference Range Interpretation Comments TROPONIN I (test 0.621 ng/mL See_Comment H [Automated code = 9178588189) message] The system which generated this result [...] ? Lab Interpretation Abnormal (test code = 76044-8) [facility] HospitalLipid Panel (Total Cholesterol, Triglycerides, HDL)2020-10-06 19:03:00 Test Item Value Reference Range Interpretation Comments CHOL (test code = 99 mg/dL 120-200 L 8268747265) HDL (test code = 41 mg/dL >50 L 4232092722) HDLC RATIO (test code = See_Comment [Au tomated message] 8754531302) The system [employer] generated this result transmitted ref erence range: <=4.5. T he reference range was not used to int erpret this result as normal/abnormal . TRIG (test code = 64 mg/dL 30-170 2665365870) LDL CHOL (test code = 45 mg/dL See_Comment [Auto mated message] 71824-8) The system [email or web address] generated this result transmitted ref erence range: <=160. T he reference range was not used to int erpret this result as normal/abnormal . VLDL (test code = 13 mg/dL 5-60 0451750041) Lab Interpretation (test Abnormal code = 34743-9) [facility] HospitalURINALYSIS2020-11-17 17:58:00 Test Item Value Reference Range Interpretation Comments APPEARANCE (test code = Clear Clear 3434453481) COLOR (test code = Straw Yellow A 6192318484) PH (test code = 4.8-8.0 6740221980) SP GRAVITY (test code = 1.003-1.030 8096077138) GLU U QUAL (test code = Normal Normal 9404712492) BLOOD (test code = 2+ Negative A 4102503938) KETONES (test code = Negative Negative 5164792690) PROTEIN (test code = Negative Negative 2887-8) UROBILIN (test code = Normal Normal 5751928974) BILIRUBIN (test code = Negative Negative 5743760582) NITRITE (test code = Negative Negative 2662323422) LEUK RAFY (test code = Negative Negative 7914858535) RBC/HPF (test code = See_Comment [Autom ated message] 0806620989) The system [email or web address] generated this result transmitted ref erence range: 0 - 3 HP F. The reference range was not used to int erpret this result as normal/abnormal . WBC/HPF (test code = <1 See_Comment [Autom ated message] 4714204254) The system [email or web address] generated this result transmitted ref erence range: 0 - 5 HP F. The reference range was not used to int erpret this result as normal/abnormal . BACTERIA (test code = Negative Negative 9888193071) SQ EPITH (test code = <1 See_Comment [Auto mated message] 5768140058) The system [email or web address] generated this result transmitted ref erence range: <=2 HPF. The reference range was not used to int erpret this result as normal/abnormal . 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 Recommend additionalinvestigation including CT PET imaging. Ill- defined right thyroid nodules measuring up to 1.5 cm, can be furtherevaluated with a thyroid ultrasound. Preliminary Report Dictated by Resident: Juancarlos Donis ?MD Dylan., have reviewed this study and agree with [...] thyroid ultrasound. Preliminary Report Dictated by Resident: Lily Hayes, Juancarlos Richardson MD., have reviewed this study and agree with theabove report.[facility] 1 [id number] 13:59:33 No acute cardiopulmonary process. Preliminary Report Dictated by Resident: Lily Gudino This study was reviewed by Dr. Richardson in the morning. Minimal congestion issuspected in both lungs with underlying chronic changes of obstructive lungdisease. Findings could be secondary to bronchitis. IJuancarlos MD., have reviewed this study and agree [...] arch are noted. No acute bony abnormality. [facility], Radiant Results Inft User - 10/06/2020 8:00AM CSTEXAM: XR CHEST 1 VWHISTORY: Fever, Cough, SOB TECHNIQUE: AP view of the chestCOMPARISON: 05/23/2017FINDINGS:Mild vascular crowding is likely due to underinflation. The lungs areotherwise clear without focal consolidation.No pleural effusion or pneumothorax is identified.The heart size is normal.Calcifications of the aortic arch are noted.No acute bony abnormality.IMPRESSIONNo acute cardiopulmonary process.Preliminary Report Dictated by Resident: Lily Denney study was reviewed by Dr. Richardson in the morning. Minimal congestion issuspected in both lungs with underlying chronic changes of obstructive lungdisease. Findings could be secondary to bronchitis.I, Juancarlos Richardson MD., have reviewed this study and agree with theabove report.[facility]TROP[facility] I 2020-10-06 13:12:00 Test Item Value Reference Range Interpretation Comments TROPONIN I (test 0.718 ng/mL See_Comment H [Automated code = 2160071583) message] The system which generated this result [...] ? Lab Interpretation Abnormal (test code = 68047-9) [facility] HospitalUrinalysis2020-11-17 08:31:00 Test Item Value Reference Range Interpretation Comments APPEARANCE (test code = Clear Clear 5762146874) COLOR (test code = Yellow Yellow 6365757162) PH (test code = 4.8-8.0 8470534570) SP GRAVITY (test code = 1.003-1.030 5620563657) GLU U QUAL (test code = Normal Normal 9744897124) BLOOD (test code = 2+ Negative A 2183215435) KETONES (test code = Negative Negative 5060500740) PROTEIN (test code = 100 mg/dL Negative A 2887-8) UROBILIN (test code = Normal Normal 8066516017) BILIRUBIN (test code = Negative Negative 7382633474) NITRITE (test code = Negative Negative 5902680351) LEUK RAFY (test code = Negative Negative 2041346669) RBC/HPF (test code = See_Comment H [Autom ated message] 3535006411) The system [email or web address] generated this result transmit dagoberto reference range : 0 - 3 HPF. The refe rence range was not u sed to interpret th is result as normal/abnormal . WBC/HPF (test code = See_Comment [Autom ated message] 6635275410) The system [email or web address] generated this result transmit dagoberto reference range : 0 - 5 HPF. The refe rence range was not u sed to interpret th is result as normal/abnormal . BACTERIA (test code = Moderate Negative A 7586467370) MUCOUS (test code = Slight Negative LPF A 2377665820) SQ EPITH (test code = HPF 8923180145) Lab Interpretation (test Abnormal code = 54811-8) [facility] HospitalN-TERMINAL [id number] 07:31:00 Test Item Value Reference Range Interpretation Comments NT-proBNP (test code 352 pg/mL See_Comment [Autom ated = 1804938833) message] The system which generated this result transmitted reference range : <=450. The reference range was not used to interpret this result as normal/abnormal . ANI (test code = ANI) Biotin has been reported to cause a negative bias, interpret results relative to patient's use of biotin. Lab Interpretation Normal (test code = 00008-7) [facility] HospitalaPTT2020-11-17 07:17:00 Test Item Value Reference Range Interpretation Comments APTT Patient (test See_Comment H [Automat ed code = 3173-2) message] The system which generated this result transmitted reference range : 23 - 38 Seconds . The reference range was not used to interpr et this result as normal/abnormal . ANI (test code = ANI) The [facility] patient population mean normal value for aPTT is 30 seconds. Lab Interpretation Abnormal (test code = 62330-7) [facility] HospitalPROTHROMBIN TIME / [id number] 07:15:00 Test Item Value Reference Range Interpretation Comments PROTIME PATIENT (test See_Comment [Auto mated message] code = 5964-2) The system [employer] ich generated this result transmitted ref erence range: 12.0 - 1 4.7 Seconds. The re ference range was not u sed to interpret this result as normal/abnor mal. INR (test code = 6301-6) Nor mal INR <1.1; Warfarin Therap eutic range 2.0 to 3. 0 or 2.5 to 3.5, dep ending upon the indica tions. Lab Interpretation (test Normal code = 47758-9) [facility]2020-10-06 06:51:00 Test Item Value Reference Range Interpretation Comments SARS-CoV-2 Rapid ID NOW Not Detected Not Detected (test code = 76932-0) ANI (test code = NAI) ID NOW COVID-19 Assay is an isothermal nucleic acid amplification test intended for the qualitative detection of nucleic acid from SARS-CoV-2 viral RNA in nasopharyngeal (DISTRICT RANGER) specimens. It is used under Emergency Use [...] indicated. Lab Interpretation Normal (test code = 15171-3) [id number] 06[facility]46:00 Test Item Value Reference Range Interpretation Comments TROPONIN I (test 0.122 ng/mL See_Comment H [Automated code = 6802983035) message] The system which generated this result [...] ? Lab Interpretation Abnormal (test code = 85483-6) [facility]. Metabolic Panel ([id number])2020-10-06 06:34:00 Test Item Value Reference Range Interpretation Comments NA (test code = 123 mmol/L 135-145 L 5828320611) K (test code = 4.7 mmol/L 3.5-5 6874175112) CL (test code = 92 mmol/L 98-108 L 5346658797) CO2 TOTAL (test code = 23 mmol/L 23-31 5503621206) AGAP (test code = 2-16 7606650078) BUN (test code = 11 mg/dL 7-23 8190868586) GLUCOSE (test code = 125 mg/dL 70-110 H 8175420861) CREATININE (test code = 0.78 mg/dL 0.5-1.04 5182863316) TOTAL BILI (test code = 0.7 mg/dL 0.1-1.2 2691873024) CALCIUM (test code = 8.3 mg/dL 8.6-10.6 L 5427858018) T PROTEIN (test code = 6.7 g/dL 6.3-8.2 3325116144) ALBUMIN (test code = 3.6 g/dL 3.5-5 0285783599) ALK PHOS (test code = 107 U/L 34-122 9990830859) ALTv (test code = 21 U/L 5-35 1742-6) AST(SGOT) (test code = 32 U/L 13-40 6316870404) eGFR Calculation mL/min/1.73m2 (Non-) (test code = 1397492001) eGFR Calculation mL/min/1.73m2 () (test code = 9105941957) ANI (test code = ANI) Association of [...] tests). Lab Interpretation Abnormal (test code = 23973-2) [facility] with [id number] 06:12:00 Test Item Value Reference Range Interpretation [...] (test code = 38.7 fL 39-49.9 L 22705-3) RDW-CV (test code = 12.7 % 12-15.5 788-0) PLT (test code = See_Comment [Automated 777-3) message] The system which generated this result transmit dagoberto reference range : 166 - 358 10*3/ ?L. The reference range was not u sed to interpret th is result as normal/abnormal . MPV (test code = 10.3 fL 9.5-12.9 83452-5) NRBC/100 WBC (test See_Comment [Automat ed code = 6628869907) message] The system which generated this result transmit dagoberto reference range : 0.0 - 10.0 /100 WBCs. The reference range was not used to interpret this result as normal/abnormal . NRBC x10^3 (test code <0.01 See_Comment [Auto mated = 0652205391) message] The system which generated this result transmit dagoberto reference range : 10*3/?L. The reference range was not used to interpret this result as normal/abnormal . GRAN MAT (NEUT) % 93.9 % (test code = 770-8) IMM GRAN % (test code 0.70 % = 3873111338) LYMPH % (test code = 2.2 % 736-9) MONO % (test code = 3.0 % 5905-5) EOS % (test code = 0.1 % 713-8) BASO % (test code = 0.1 % 706-2) GRAN MAT x10^3(ANC) 13.92 10*3/uL 1.88-7.09 H (test code = 0544905751) IMM GRAN x10^3 (test 0.10 10*3/uL 0-0.06 H code = 1981142473) LYMPH x10^3 (test code 0.32 10*3/uL 1.32-3.29 L = 731-0) MONO x10^3 (test code 0.44 10*3/uL 0.33-0.92 = 742-7) EOS x10^3 (test code = <0.03 0.03-0.39 L 711-2) BASO x10^3 (test code <0.03 0.01-0.07 = 704-7) Lab Interpretation Abnormal (test code = 26592-9) [facility] [id number] 06:05:00 Test Item Value Reference Range Interpretation Comments LACTIC ACID (test code = 1.81 mmol/L 9032427213) [facility]
[2022-07-21] MEDS ORDERED: ONDANSETRON 4 MG (ODT) TAB ONE (21:36)
--- NOTE | 2022-07-21 23:59 | EDPHYS ---
Physician Documentation [facility] Name: Ramandeep Renner Age: 87 yrs Sex: Female : 1935 Arrival Date: 07/21/2022 Time: 20:41 Bed 11 Private MD: LENORE Physician Yonatan Smith HPI: 07/21 23:54 This 87 yrs old Female presents to ER via Wheelchair with complaints of joe Nausea/Vomiting. 23:54 The patient presents to the emergency department with nausea, vomiting, that is joe intermittent, 2 times since the onset of symptoms. Onset: The symptoms/episode began/occurred 5 day(s) ago. Possible causes:. The symptoms are aggravated by food , The symptoms are alleviated by nothing. remaining still. Associated signs and symptoms: The patient has no apparent associated signs or symptoms. Severity of symptoms: At their worst the symptoms were mild in the emergency department the symptoms are unchanged. The patient has experienced similar episodes in the past, a few times. Historical: - Allergies: 21:24 PENICILLINS; hb - PMHx: 21:24 Bowel problem; Glaucoma; Hypercholesterolemia; Hypertensive disorder; lung cancer hb remission; - PSHx: 21:24 Colon; hysterectomy; hb - Immunization history:: Flu vaccine is not up to date. - Social history:: Smoking status: Patient denies any tobacco usage or history of. ROS: 23:56 Constitutional: Negative for fever, chills, and weight loss, Eyes: Negative for injury, joe pain, redness, and discharge, ENT: Negative for injury, pain, and discharge, Neck: Negative for injury, pain, and swelling, Cardiovascular: Negative for chest pain, palpitations, and edema, Respiratory: Negative for shortness of breath, cough, wheezing, and pleuritic chest pain, Back: Negative for injury and pain, : Negative for injury, bleeding, discharge, and swelling, MS/Extremity: Negative for injury and deformity, Skin: Negative for injury, rash, and discoloration, Neuro: Negative for headache, weakness, numbness, tingling, and seizure, Psych: Negative for depression, anxiety, suicide ideation, homicidal ideation, and hallucinations, Allergy/Immunology: Negative for hives, rash, and allergies, Endocrine: Negative for neck swelling, polydipsia, polyuria, polyphagia, and marked weight changes. 23:56 Respiratory: Positive for 23:56 Abdomen/GI: Positive for nausea and vomiting. Exam: 23:56 Constitutional: This is a well developed, well nourished patient who is awake, alert, joe and in no acute distress. Head/Face: Normocephalic, atraumatic. Eyes: Pupils equal round and reactive to light, extra-ocular motions intact. Lids and lashes normal. Conjunctiva and sclera are non-icteric and not injected. Cornea within normal limits. Periorbital areas with no swelling, redness, or edema. ENT: Nares patent. No nasal discharge, no septal abnormalities noted. Tympanic membranes are normal and external auditory canals are clear. Oropharynx with no redness, swelling, or masses, exudates, or evidence of obstruction, uvula midline. Mucous membranes moist. Neck: Trachea midline, no thyromegaly or masses palpated, and no cervical lymphadenopathy. Supple, full range of motion without nuchal rigidity, or vertebral point tenderness. No Meningismus. Chest/axilla: Normal chest wall appearance and motion. Nontender with no deformity. No lesions are appreciated. Cardiovascular: Regular rate and rhythm with a normal S1 and S2. No gallops, murmurs, or rubs. Normal PMI, no JVD. No pulse deficits. Respiratory: Lungs have equal breath sounds bilaterally, clear to auscultation and percussion. No rales, rhonchi or wheezes noted. No increased work of breathing, no retractions or nasal flaring. Abdomen/GI: Soft, non-tender, with normal bowel sounds. No distension or tympany. No guarding or rebound. No evidence of tenderness throughout. Back: No spinal tenderness. No costovertebral tenderness. Full range of motion. Female : Normal external genitalia. Skin: Warm, dry with normal turgor. Normal color with no rashes, no lesions, and no evidence of cellulitis. Vital Signs: 21:23 BP 168 / 56; Pulse 79; Resp 16; Temp 98.4(O); Pulse Ox 99% on R/A; Weight 53.98 kg; hb Height 5 ft. 2 in. (157.48 cm); Pain 0/10; 07/22 00:15 Pulse 80; Resp 18; Pulse Ox 100% ; tw5 07/21 21:23 Body Mass Index 21.77 (53.98 kg, 157.48 cm) hb MDM: 07/21 23:22 Patient medically screened. joe 23:57 Differential diagnosis: Nonspecific abd pain, gastritis, viral gastroenteritis, joe gastroenteritis. Data reviewed: vital signs, nurses notes. Data interpreted: monitoring tech: not applicable for this patient encounter. rate is 79 beats/min, rhythm is regular, Pulse oximetry: on room air. Test interpretation: by ED physician or midlevel provider:. Counseling: I had a detailed discussion with the patient and/or guardian regarding: the historical points, exam findings, and any diagnostic results supporting the discharge/admit diagnosis, the need for outpatient follow up, for definitive care, a family practitioner. 07/21 23:45 Order name: PO challenge; Complete Time: 23:45 tw5 Administered Medications: 21:28 CANCELLED (Duplicate Order): Zofran (Ondansetron) 4 mg IVP once; over 2 minutes hb 21:28 Drug: Zofran (Ondansetron) 4 mg Route: PO; hb 07/22 00:16 Follow up: Response: No adverse reaction; Nausea is decreased tw5 00:14 CANCELLED (Physician Discretion): NS 0.9% 1000 ml IV at 1 bolus Per protocol; 1000 mL tw5 bolus 00:16 CANCELLED (Physician Discretion): Pepcid (famotidine) 20 mg IVP once; dilute with 10 mL tw5 0.9% NaCl; give over 2 minutes Disposition Summary: 07/21/22 23:58 Discharge Ordered Location: Home joe Problem: new joe Symptoms: have improved joe Condition: Stable joe Diagnosis - Nausea joe - Nausea with vomiting, unspecified joe Followup: joe - With: Private Physician - When: Today - Reason: Recheck today's complaints, Re-evaluation by your physician Discharge Instructions: - Discharge Summary Sheet joe - Nausea and Vomiting, Adult joe - Nausea, Adult joe - Nausea and Vomiting, Adult, [id number] joe Forms: - Medication Reconciliation Form joe - Thank You Letter joe - Antibiotic Education joe - Prescription Opioid Use joe Prescriptions: - Zofran 4 mg Oral Tablet - take 1 tablet by ORAL route every 12 hours As needed; 20 tablet; Refills: 0, joe Product Selection Permitted Signatures: Dispatcher [employer] EDYonatan Hammer MD MD cha Baxter, Heather, RN RN Sindhu Bautista tw5 Corrections: (The following items were deleted from the chart) 07/21 21:28 21:28 Zofran (Ondansetron) 4 mg IVP once; over 2 minutes ordered. hb hb 07/22 00:10 07/21 23:25 Abdomen Acute Series+RAD.RAD.BRZ ordered. EDMS EDMS 07/22 00:14 07/21 23:23 NS 0.9% 1000 ml IV at 1 bolus Per protocol; 1000 mL bolus ordered. [place] [address] 07/22 00:07/21 23:24 Urine Dipstick-Ancillary ordered. [place] [address] 07/22 00:07/21 23:23 EKG - Nurse/Tech ordered. [place] [address] 07/22 00:07/21 23:23 IV Saline Lock ordered. [place] [address] 07/22 00:07/21 23:23 Labs collected and sent ordered. [facility]
--- NOTE | 2022-07-21 23:59 | ER ---
Nurse's Notes [facility] Name: Ramandeep Renner Age: 87 yrs Sex: Female : 1935 Arrival Date: 07/21/2022 Time: 20:41 Bed 11 Private MD: Diagnosis: Nausea;Nausea with vomiting, unspecified Presentation: 07/21 21:23 Chief complaint: N/V after eating at [employer] yesterday. Not tolerating fluids/food. hb Denies pain/fever/diarrhea. Actively vomiting in triage. Coronavirus screen: At this time, the client does not indicate any symptoms associated with coronavirus-19. Ebola Screen: No symptoms or risks identified at this time. Risk Assessment: Do you want to hurt yourself or someone else? Patient reports no desire to harm self or others. Onset of symptoms was July 20, 2022. 21:23 Method Of Arrival: Wheelchair hb 21:23 Acuity: WILFRIDO 3 hb 21:25 Initial Sepsis Screen: Does the patient meet any 2 criteria? No. Patient's initial hb sepsis screen is negative. Does the patient have a suspected source of infection? No. Patient's initial sepsis screen is negative. Triage Assessment: 21:25 General: Appears in no apparent distress. Behavior is calm, cooperative. EENT: No signs hb and/or symptoms were reported regarding the EENT system. Neuro: Level of Consciousness is awake, alert, obeys commands, Oriented to person, place, time, situation. Cardiovascular: Patient's skin is warm and dry. Respiratory: Respiratory effort is even, unlabored, Respiratory pattern is regular, symmetrical. GI: Reports intolerance of fluids, intolerance of food, nausea, vomiting, actively vomiting in triage. : No signs and/or symptoms were reported regarding the genitourinary system. Derm: Skin is pink, warm \\T\\ dry. Musculoskeletal: No signs and/or symptoms reported regarding the musculoskeletal system. Historical: - Allergies: 21:24 PENICILLINS; hb - PMHx: 21:24 Bowel problem; Glaucoma; Hypercholesterolemia; Hypertensive disorder; lung cancer hb remission; - PSHx: 21:24 Colon; hysterectomy; hb - Immunization history:: Flu vaccine is not up to date. - Social history:: Smoking status: Patient denies any tobacco usage or history of. Screenin:07 Abuse screen: Denies threats or abuse. Denies injuries from another. Nutritional tw5 screening: No deficits noted. Tuberculosis screening: No symptoms or risk factors identified. Fall Risk None identified. Assessment: 23:07 General: Reports "I came here because my stomach was upset, but they gave me a little tw5 pill and I feel a lot better.". Pain: Denies pain. Neuro: No deficits noted. GI: Abdomen is non-distended. 23:45 Reassessment: Patient appears in no apparent distress at this time. No changes from tw5 previously documented assessment. Patient and/or family updated on plan of care and expected duration. Pain level reassessed. Patient is alert, oriented x 3, equal unlabored respirations, skin warm/dry/pink. 07/22 00:15 General: Patient was able to tolerate PO fluids without difficulty. . tw5 Vital Signs: 07/21 21:23 BP 168 / 56; Pulse 79; Resp 16; Temp 98.4(O); Pulse Ox 99% on R/A; Weight 53.98 kg; hb Height 5 ft. 2 in. (157.48 cm); Pain 0/10; 07/22 00:15 Pulse 80; Resp 18; Pulse Ox 100% ; tw5 07/21 21:23 Body Mass Index 21.77 (53.98 kg, 157.48 cm) hb ED Course: 07/21 20:41 Patient arrived in ED. ja2 21:24 Triage completed. hb 21:25 Arm band placed on. hb 22:35 Sindhu Whitney is Primary Nurse. tw5 23:07 Patient has correct armband on for positive identification. Bed in low position. Call tw5 light in reach. Side rails up X2. Adult w/ patient. Warm blanket given. 23:22 Yonatan Smith MD is Attending Physician. [facility] 23:45 Diet: Patient given water. tw5 07/22 00:15 No provider procedures requiring assistance completed. Patient did not have IV access tw5 during this emergency room visit. Administered Medications: 07/21 21:28 CANCELLED (Duplicate Order): Zofran (Ondansetron) 4 mg IVP once; over 2 minutes hb 21:28 Drug: Zofran (Ondansetron) 4 mg Route: PO; hb 07/22 00:16 Follow up: Response: No adverse reaction; Nausea is decreased tw5 00:14 CANCELLED (Physician Discretion): NS 0.9% 1000 ml IV at 1 bolus Per protocol; 1000 mL tw5 bolus 00:16 CANCELLED (Physician Discretion): Pepcid (famotidine) 20 mg IVP once; dilute with 10 mL tw5 0.9% NaCl; give over 2 minutes Medication: 07/21 23:07 VIS not applicable for this client. tw5 Outcome: 23:58 Discharge ordered by MD. diaz 07/22 00:15 Discharged to home via wheelchair, with family. tw5 Condition: improved Discharge instructions given to patient, Instructed on discharge instructions, follow up and referral plans. medication usage, Demonstrated understanding of instructions, follow-up care, medications, Prescriptions given X 1. 00:16 Patient left the ED. tw5 Signatures: Yonatan Smith MD MD cha Baxter, Heather, RN RN Maria Dolores Diaz Tiffany tw5 Corrections: (The following items were deleted from the chart) 07/21 21:29 21:23 Chief complaint: N/V after eating at [employer] yesterday. Tolerating water only. hb Denies pain/fever/diarrhea. hb
[2022-07-22 02:55] VITALS: BP 168/56; TEMP 98.4
[2022-07-22 03:05] VITALS: O2SAT 100
== END 2022-07-22 00:16 | disposition home or self-care (01) ==
LOC: ER 20:36
DX: R11.2 Nausea with vomiting, unspecified (principal); R11.0 Nausea; I10 Essential (primary) hypertension; Z88.0 Allergy status to penicillin; Z85.118 Personal history of other malignant neoplasm of bronchus and lung
CPT/HCPCS: 99283; Q0162

== ENCOUNTER 2023-09-18 23:28 | Inpatient (IN) | payer OTHER ==
--- OUTSIDE RECORDS SUMMARY | 2023-09-18 23:34 | XMS REPORT | Continuity of Care Document ---
:1935 Author Organization [facility] t Address [address] [facility] [address] [place] [address] Care Team Providers Name Role Phone Quinton Eddy Attending Clinician Unavailable SHUN EDDY Attending Clinician Unavailable Esteban ALVAREZ, Nataliya Alfaro Attending Clinician Unavailable Wally Cooper MD Attending Clinician Cristina Hilton MD Attending Clinician Frank Hernandez MD Attending Clinician Cristina Hilton MD Admitting Clinician Payers Payer Name Policy Type Policy Number Effective Date Expiration Date Kimber WONG [facility] 53 [id number] 2020 Common ADVANTAGE 00:00:00 Spirit - [facility] [id number] HEALTHCARE DUAL 00:00:00 COMPLETE HMO SNYDER [id number] 2016 HEALTHCARE 00:00:00 MEDICAID MEDICARE PART A [id number] 1999 \\T\\ B 00:00:00 MEDICAID [place] [id number] 2011 [place] 00:00:00 Problems Condition Condition Condition Status Onset Resolution Last Treating Co mments Source Name Details Category Date Date Treatment Clinician Date CVA CVA Disease Active 2019-11 Univers (cerebral (cerebral 1-17 ity of vascular vascular 00:00: [place] accident) accident) [address] [place] [address] Branch HTN HTN Disease Active 2019-11 Univers (hypertens (hypertens 1-17 it y of ion) ion) 00:00: [address] Branch HLD HLD Disease Active 2019-11 Univers (hyperlipi (hyperlipi 1-17 it y of demia) demia) 00:00: [address] Branch Fever Fever Disease Active 2019-11 Univers 1-17 ity of 00:00: [address] Branch Urinary Urinary Disease Active 2019-11 Univers tract tract 1-17 [place]y of infection, [place], [place] site not site not 00 Medica l specified specified Bran ch Pulmonary Pulmonary Disease Active Uni vers emboli emboli 2-05 ity of 00:00: [address] Branch Chest pain Chest pain Disease Active U nivers 2-04 ity of 00:00: [address] [id number] S/P Problem Common radiation Spirit therapy - [facility] [id number] 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 [facility] [id number] History of Problem Co mmon stroke Spirit - [facility] [id number] Mixed Problem Common hyperlipid Spirit emia - [facility] [id number] Essential Problem Comm on (primary) Spirit hypertensi - [facility] on [facility] [id number] Screening Problem Com mon for Spirit osteoporos - [facility] is [facility] [id number] Glaucoma Problem Commo n of right Spirit eye, - [facility] unspecifie [facility] glaucoma [facility] [id number] Bilateral Problem Comm on hearing Spirit loss, - [facility] unspec[facility]ie [facility] hearing [facility] loss [facility] [id number] Constipati Problem Com mon on, Spirit unspecifie - CHI d St constipati [facility] [id number] NSTEMI Problem Common (non-ST Spirit elevated - [facility] [id number] [place] [id number] fibrillati Spirit on with - [facility] Allergies, Adverse Reactions, Alerts Allergy Allergy Status Severity Reaction(s) Onset Inactive Treating Comm ents Source Name Type Date Date Clinician NO KNOWN Drug Active Univers ALLERGIE Class ity of S [facility] Social History Social Habit Start Date Stop Date Quantity Comments Source Exposure to Not sure [facility] SARS-CoV-2 (event) [facility] History of Tobacco Common Spirit - Use [facility] Sex Assigned At Common Sp petty - [facility] Alcohol intake 2017-05-23 2017-05-23 Current University of 00:00:00 00:00:00 non-drinker of [facility] alcohol Branch (finding) Cigarettes smoked 2017-05-23 2017-05-23 [facility] [place] [facility] ity of current (pack per 00:00:00 00:00:00 [facility] ) - Reported Branch Cigarette 2017-05-23 2017-05-23 University of pack-years 00:00:00 00:00:[address] [facility] Smoking Status Start Date Stop Date Source Former Smoker 2022-12-02 00:00:00 2022-12-02 00:00:00 [facility] S pirit [facility] Medications Ordered Filled Start Stop Current Ordering Indication Dosage Frequency Signature Comments Components Source Medication Medication Date Date Medication? Clinician (SIG) Name Name Bactrim DS Bactrim DS 2020-11- No 1{table BID Bactrim DS 800-160 MG 800-160 MG 0-29 11-03 t} 800-160 MG 00:00: 00:00 00 :00 Bactrim DS Bactrim DS 2020-11- No 1{table BID Bactrim DS 800-160 MG 800-160 MG 0-29 11-03 t} 800-160 MG 00:00: 00:00 00 :00 Psyllium 2019- Yes Take by Univer s (METAMUCIL, 1-21 mouth. ity of SUGAR,) 1.7 18:27: [place] g [address] LATANOPROST 2019-[address] in [place] OPHTHALMIC 1-21 each eye. ity of 18:27: [address] rivaroxaban 2019-11 Yes Take by Uni vers (XARELTO) 1-21 mouth. ity of 20 mg 18:27: [place] tablet 17 Medical Branch OMEPRAZOLE 2019-11 Yes 20mg Take 20 mg U nivers MAGNESIUM 1-21 by mouth ity of (PRILOSEC 18:27: daily. [place] OTC ORAL) 17 Medical Branch Psyllium 2019-11 Yes Take by Univer s (METAMUCIL, 1-21 mouth. ity of SUGAR,) 1.7 18:27: [place] g Wafr Medical Branch LATANOPROST 2019-[address] in Un [place] OPHTHALMIC 1-21 each eye. ity of 18:27: [place] 17 Medical Branch rivaroxaban 2019-11 Yes Take by Uni vers (XARELTO) 1-21 mouth. ity of 20 mg 18:27: [place] tablet 17 Medical Branch OMEPRAZOLE 2019-11 Yes 20mg Take 20 mg U nivers MAGNESIUM 1-21 by mouth ity of (PRILOSEC 18:27: daily. [...] Other (see Comments) aspirin 81 2019-11 Yes [id number] 81mg Take 1 U nivers mg chewable 1-21 tablet by ity of tablet 00:00: mouth [place] 00 daily. Medical Branch cefdinir 2019-11 Yes [id number] 300mg Take 1 Un l[place] 300 mg 1-21 capsule by ity of capsule 00:00: mouth 2 [place] 00 (two) Medical times Branch daily. azithromyci 2019-11 Yes [id number] 250mg Take 1 Univers n 250 mg 1-21 tablet by ity of tablet 00:00: mouth [place] 00 daily. Medical Take 500 Branch mg day 1, then 250 mg days 2 to 5. aspirin 81 2019-11 Yes [id number] 81mg Take 1 U nivers mg chewable 1-21 tablet by ity of tablet 00:00: mouth [place] 00 daily. Medical Branch cefdinir 2019-11 Yes [id number] 300mg Take 1 Un l[place] 300 mg 1-21 capsule by ity of capsule 00:00: mouth 2 [place] 00 (two) Medical times Branch daily. azithromyci 2019-11 Yes [id number] 250mg Take 1 Univers n 250 mg 1-21 tablet by ity of tablet 00:00: mouth [place] 00 daily. Medical Take 500 Branch mg day 1, then 250 mg days 2 to 5. azithromyci 2019-11- No [id number] 250mg Take 1 Univers n 250 mg 1-21 11-21 tablet by ity o f tablet 00:00: 00:00 mouth [place] 00 :00 daily. Medical Take 500 Branch mg day 1, then 250 mg days 2 to 5. tc 2019-11- No 42mCi 42 Univers 99m-tetrofo 1-20 -20 [facility]ie [facility] 20:15: 18:10 , [place] ([facility] 00 :00 Intravenou Medi macrina injection s, ONCE, 1 Bran ch 42 dose, Fri millicurie 10/09/20 at 1415, Routine tc 2019-11- No 14mCi 14 Univers 99m-tetrofo 1-20 -20 millicurie i ty [facility] 20:15: 16:50 , [place] ([facility]) 00 :00 Intravenou Medi macrina injection s, ONCE, 1 Bran ch 14 dose, Fri millicurie 10/09/20 at 1415, Routine Regadenoson 2019-11- No .4mg 0.4 mg, Un lillian (LEXISCAN) -20 11-20 Slow IV ity o f injection 19:30: 18:10 Push, [place] 0.4 mg 00 :00 ONCE, 1 Medical dose, Fri Branch 10/09/20 at 1330, Routine
seafood service team member approving Restricted medication : JESSE [...] dose, contact prescriber .
atorvastati 2019-11 Yes [id number] 20mg Take 1 Univers n 20 mg 1-20 tablet by ity of tablet 00:00: mouth at [place] 00 bedtime. Medical Branch metoprolol 2019-11 Yes [id number] 25mg Take 1 U nivers tartrate 25 1-20 tablet by ity of mg tablet 00:00: mouth 2 [place] 00 (two) Medical times Branch daily. atorvastati 2019-11 Yes [id number] 20mg Take 1 Univers n 20 mg 1-20 tablet by ity of tablet 00:00: mouth at [place] 00 bedtime. Medical Branch metoprolol 2019-11 Yes [id number] 25mg Take 1 U nivers tartrate 25 1-20 tablet by ity of mg tablet 00:00: mouth 2 [place] 00 (two) Medical times Branch daily. azithromyci 2019-11 2020- No [id number] 250mg Take 1 Univers n 250 mg 1-20 -21 tablet by ity o f tablet 00:00: 00:00 mouth [place] 00 :00 daily. Medical Take 500 Branch mg day 1, then 250 mg days 2 to 5. atorvastati 2019-11 2020- No [id number] 20mg Take 1 Univers n 20 mg 1-20 11-20 tablet by ity of tablet 00:00: 00:00 mouth at [place] 00 :00 bedtime. Medical Branch metoprolol 2019-11 2020- No [id number] 25mg Take 1 Univers tartrate 25 1-20 11-20 tablet by it y of mg tablet 00:00: 00:00 mouth 2 [place] 00 :[place] (two) Medical times Branch daily. metoprolol 2019-11 Yes 25mg 25 mg, Unive rs tartrate 1-19 Oral, BID, ity o f (LOPRESSOR) 19:00: First dose [place] tablet 00 on [place] Medical mg 10/08/20 Branch [...] at 0900, Until Discontinu ed, Routine azithromyci 2019-11 No 250mg 250 mg, U nivers n 12-07 Oral, ity of (ZITHROMAX) 15:00: 14:38 DAILY, 4 [place] tablet 250 00 :00 doses, Medical mg First dose Branch on Mon10/07/20 at 0900, Last dose on Mon10/10/20 at 0900, FERMIN
Re ason for Anti-Infec tive: Documented Infection< br>Documen dagoberto Infection Site: Respirator y
Durat ion of Therapy: Other (see Comments) cefTRIAXone 2019-11 No 2000mg 2,000 mg, Univers (ROCEPHIN) 12-07 IV ity of 2,000 mg in 06:00: 15:24 Piggyback, [place] NaCl 0.9% 00 :27 Q24H ABX, Medic al (NS) 100 mL First dose Br anch MINI-BAG on Mon10/07/20 at 0000, Until Discontinu ed, 100 mL
Reas on for Anti-Infec tive: Documented Infection< br>Documen dagoberto Infection Site: Respirator y
Du ration of Therapy: 7 days atorvastati 2019-11 Yes 20mg 20 mg, Univ ers n (LIPITOR) 1-18 Oral, QHS, it y of tablet 20 03:00: First dose [place] mg 00 on [facility] Medical 10/06/20 Branch at 2100, Until Discontinu ed, Routine latanoprost 2019-11 Yes 1[drp] 1 Drop, U nivers (XALATAN) 18 Both Eyes, ity of 0.005 % 03:00: QHS, [place] ophthalmic 00 dose on Medica l drops 1 Tue Branch Drop 10/06/20 at 2100, Until Discontinu ed enoxaparin 2019-11 2020- No 1mg/kg 50 mg Uni vers (LOVENOX) 12-06 (rounded ity o f injection 17:30: 17:30 [place] 49.9 [place] 50 mg 00 :00 mg = 1 Medical mg/kg Branch ?49.9 kg), Subcutaneo us, Q24H, 1 dose, First dose on e 10/06/20 at 1130, Routine ondansetron 2019-11 Yes 4mg 4 mg, Slow Univers (ZOFRAN 12-06 IV Push, ity of (PF)) 15:14: Q6HPRN, [place] injection 4 22 Starting Medi macrina mg Branch 10/06/20 at 0914, Until Discontinu ed, Routine, Nausea and Vomiting (N/V) acetaminoph 2019-11 Yes 650mg 650 mg, Un lillian en 12-06 Oral, ity of (TYLENOL) 15:14: Q6HPRN, [place] tablet 650 13 Starting Medic al mg [facility] Branch 10/06/20 at 0914, Until Discontinu ed, Routine, Pain (scale 1-3) iohexol 2019-11 2020- No 100mL 100 mL, Unive rs (OMNIPAQUE 12-06 Intravenou it y of 350 10:15: 10:15 s, ONCE, 1 [place] BULK-100 00 :00 dose, e Medica l mL) 10/06/20 Branch injection at 0415, 100 mL Routine NaCl 0.9% 2019-11 2020- No 500mL at 999 Univ ers (NS) [...] by mouth ity of tablet 00:00: weekly. [address] aspirin 81 2016- Yes 81mg Take 81 mg U nivers mg chewable 7-10 by mouth ity of tablet 00:00: weekly. [address] [place] Yes [place] 1 tablet Common Aspirin EC Aspirin EC Eddy Sp petty Low Dose Low Dose [facility] Atorvastati Atorvastati Yes [place] 1 tablet Common n Calcium n Calcium Eddy Spir [facility] Lisinopril Lisinopril Yes [place] 1 tablet Common [facility] Amlodipine Amlodipine Yes [place] 1 tablet Common Besylate Besylate [facility] Prilosec Prilosec Yes [place] not Commo n OTC OTC Eddy defined [facility] Latanoprost Latanoprost No Latanopros 0.005 % 0.005 % t 0.005 % CVS CVS No CVS Lidocaine Lidocaine Lidocaine Maximum Maximum Maximum Strength 4 Strength 4 Strength 4 % % % Atorvastati Atorvastati No Atorvastat n Calcium n Calcium in Calcium 20 MG 20 MG 20 MG Lidocaine 4 Lidocaine 4 No 1{appli BID Lidocaine % % cation_ 4 % as_need ed} Lisinopril Lisinopril No Lisinopril 20 MG 20 MG 20 MG Metoprolol Metoprolol No Metoprolol Tartrate 25 Tartrate 25 Tartrate MG MG 25 MG Lisinopril Lisinopril No 1{table QD Lisinopril 20 MG 20 MG t} 20 MG amLODIPine amLODIPine No amLODIPine Besylate Besylate Besylate 2.5 MG 2.5 MG 2.5 MG PriLOSEC PriLOSEC No PriLOSEC OTC OTC OTC Screen No 1{table QD [place] Aspirin EC Aspirin EC t} Aspirin EC Low Dose 81 Low Dose 81 Low Dose MG MG 81 MG Latanoprost Latanoprost No Latanopros 0.005 % 0.005 % t 0.005 % CVS CVS No CVS Lidocaine Lidocaine Lidocaine Maximum Maximum Maximum Strength 4 Strength 4 Strength 4 % % % Lisinopril Lisinopril No 20 MG 20 MG CVS CVS No Lidocaine Lidocaine Maximum Maximum Strength 4 Strength 4 % % Metoprolol Metoprolol No Tartrate 25 Tartrate 25 MG MG Screen No 1{table QD Aspirin EC Aspirin EC t} Low Dose 81 Low Dose 81 MG MG Lidocaine 4 Lidocaine 4 No 1{appli BID % % cation_ as_need ed} Atorvastati Atorvastati No n Calcium n Calcium 20 MG 20 MG amLODIPine amLODIPine No Besylate Besylate 2.5 MG 2.5 MG PriLOSEC PriLOSEC No OTC OTC Latanoprost Latanoprost No 0.005 % 0.005 % Lisinopril Lisinopril No Lisinopril 20 MG 20 MG 20 MG CVS CVS No CVS Lidocaine Lidocaine Lidocaine Maximum Maximum Maximum Strength 4 Strength 4 Strength 4 % % % Metoprolol Metoprolol No Metoprolol Tartrate 25 Tartrate 25 Tartrate MG MG 25 MG Screen No 1{table QD [place] Aspirin EC Aspirin EC t} Aspirin EC Low Dose 81 Low Dose 81 Low Dose MG MG 81 MG Lidocaine 4 Lidocaine 4 No 1{appli BID Lidocaine % % cation_ 4 % as_need ed} Atorvastati Atorvastati No Atorvastat n Calcium n Calcium in Calcium 20 MG 20 MG 20 MG amLODIPine amLODIPine No amLODIPine Besylate Besylate Besylate 2.5 MG 2.5 MG 2.5 MG PriLOSEC PriLOSEC No PriLOSEC OTC OTC OTC Latanoprost Latanoprost No Latanopros 0.005 % 0.005 % t 0.005 % Screen No 1{table QD Shirley Aspirin EC Aspirin EC t} Aspirin EC Low Dose 81 Low Dose 81 Low Dose MG MG 81 MG Lidocaine 4 Lidocaine 4 No 1{appli BID Lidocaine % % cation_ 4 % as_need ed} Lisinopril Lisinopril No Lisinopril 20 MG 20 MG 20 MG PriLOSEC PriLOSEC No PriLOSEC OTC OTC OTC Metoprolol Metoprolol No Metoprolol Tartrate 25 Tartrate 25 Tartrate MG MG 25 MG Atorvastati Atorvastati No 1{table QD Atorvastat n Calcium n Calcium t} in Calcium 20 MG 20 MG 20 MG amLODIPine amLODIPine No amLODIPine Besylate Besylate Besylate 2.5 MG 2.5 MG 2.5 MG Lisinopril Lisinopril No 1{table QD Lisinopril 20 MG 20 MG t} 20 MG Atorvastati Atorvastati No Atorvastat n Calcium n Calcium in Calcium 20 MG 20 MG 20 MG Latanoprost Latanoprost No Latanopros 0.005 % 0.005 % t 0.005 % amLODIPine amLODIPine No 1{table QD amLODIPine Besylate Besylate t} Besylate 2.5 MG 2.5 MG 2.5 MG CVS CVS No CVS Lidocaine Lidocaine Lidocaine Maximum Maximum Maximum Strength 4 Strength 4 Strength 4 % % % Screen No 1{table QD Shirley Aspirin EC Aspirin EC t} Aspirin EC Low Dose 81 Low Dose 81 Low Dose MG MG 81 MG Lidocaine 4 Lidocaine 4 No 1{appli BID Lidocaine % % cation_ 4 % as_need ed} Lisinopril Lisinopril No Lisinopril 20 MG 20 MG 20 MG PriLOSEC PriLOSEC No PriLOSEC OTC OTC OTC Metoprolol Metoprolol No Metoprolol Tartrate 25 Tartrate 25 Tartrate MG MG 25 MG amLODIPine amLODIPine No 1{table QD amLODIPine Besylate Besylate t} Besylate 2.5 MG 2.5 MG 2.5 MG amLODIPine amLODIPine No amLODIPine Besylate Besylate Besylate 2.5 MG 2.5 MG 2.5 MG Lisinopril Lisinopril No 1{table QD Lisinopril 20 MG 20 MG t} 20 MG Atorvastati Atorvastati No Atorvastat n Calcium n Calcium in Calcium 20 MG 20 MG 20 MG Latanoprost Latanoprost No Latanopros 0.005 % 0.005 % t 0.005 % Atorvastati Atorvastati No 1{table QD Atorvastat n Calcium n Calcium t} in Calcium 20 MG 20 MG 20 MG CVS CVS No CVS Lidocaine Lidocaine Lidocaine Maximum Maximum Maximum Strength 4 Strength 4 Strength 4 % % % Screen No 1{table QD Shirley Aspirin EC Aspirin EC t} Aspirin EC Low Dose 81 Low Dose 81 Low Dose MG MG 81 MG PriLOSEC PriLOSEC No PriLOSEC OTC OTC OTC CVS CVS No CVS Lidocaine Lidocaine Lidocaine Maximum Maximum Maximum Strength 4 Strength 4 Strength 4 % % % Lisinopril Lisinopril No Lisinopril 20 MG 20 MG 20 MG Lidocaine 4 Lidocaine 4 No 1{appli BID Lidocaine % % cation_ 4 % as_need ed} Atorvastati Atorvastati No Atorvastat n Calcium n Calcium in Calcium 20 MG 20 MG 20 MG Latanoprost Latanoprost No Latanopros 0.005 % 0.005 % t 0.005 % Metoprolol Metoprolol No Metoprolol Tartrate 25 Tartrate 25 Tartrate MG MG 25 MG amLODIPine amLODIPine No amLODIPine Besylate Besylate Besylate 2.5 MG 2.5 MG 2.5 MG Screen No 1{table QD [place] Aspirin EC Aspirin EC t} Aspirin EC Low Dose 81 Low Dose 81 Low Dose MG MG 81 MG PriLOSEC PriLOSEC No PriLOSEC OTC OTC OTC amLODIPine amLODIPine No 1{table QD amLODIPine Besylate Besylate t} Besylate 2.5 MG 2.5 MG 2.5 MG Atorvastati Atorvastati No 1{table QD Atorvastat n Calcium n Calcium t} in Calcium 20 MG 20 MG 20 MG Lidocaine 4 Lidocaine 4 No 1{appli BID Lidocaine % % cation_ 4 % as_need ed} Atorvastati Atorvastati No Atorvastat n Calcium n Calcium in Calcium 20 MG 20 MG 20 MG CVS CVS No CVS Lidocaine Lidocaine Lidocaine Maximum Maximum Maximum Strength 4 Strength 4 Strength 4 % % % amLODIPine amLODIPine No amLODIPine Besylate Besylate Besylate 2.5 MG 2.5 MG 2.5 MG Metoprolol Metoprolol No Metoprolol Tartrate 25 Tartrate 25 Tartrate MG MG 25 MG Latanoprost Latanoprost No Latanopros 0.005 % 0.005 % t 0.005 % Lisinopril Lisinopril No Lisinopril 20 MG 20 MG 20 MG Lisinopril Lisinopril No 1{table QD Lisinopril 20 MG 20 MG t} 20 MG Screen No 1{table QD [place] Aspirin EC Aspirin EC t} Aspirin EC Low Dose 81 Low Dose 81 Low Dose MG MG 81 MG PriLOSEC PriLOSEC No PriLOSEC OTC OTC OTC amLODIPine amLODIPine No 1{table QD amLODIPine Besylate Besylate t} Besylate 2.5 MG 2.5 MG 2.5 MG Atorvastati Atorvastati No 1{table QD Atorvastat n Calcium n Calcium t} in Calcium 20 MG 20 MG 20 MG Lidocaine 4 Lidocaine 4 No 1{appli BID Lidocaine % % cation_ 4 % as_need ed} Atorvastati Atorvastati No Atorvastat n Calcium n Calcium in Calcium 20 MG 20 MG 20 MG CVS CVS No CVS Lidocaine Lidocaine Lidocaine Maximum Maximum Maximum Strength 4 Strength 4 Strength 4 % % % amLODIPine amLODIPine No amLODIPine Besylate Besylate Besylate 2.5 MG 2.5 MG 2.5 MG Metoprolol Metoprolol No Metoprolol Tartrate 25 Tartrate 25 Tartrate MG MG 25 MG Latanoprost Latanoprost No Latanopros 0.005 % 0.005 % t 0.005 % Lisinopril Lisinopril No Lisinopril 20 MG 20 MG 20 MG Lisinopril Lisinopril No 1{table QD Lisinopril 20 MG 20 MG t} 20 MG Screen No 1{table QD [place] Aspirin EC Aspirin EC t} Aspirin EC Low Dose 81 Low Dose 81 Low Dose MG MG 81 MG PriLOSEC PriLOSEC No PriLOSEC OTC OTC OTC amLODIPine amLODIPine No 1{table QD amLODIPine Besylate Besylate t} Besylate 2.5 MG 2.5 MG 2.5 MG Atorvastati Atorvastati No 1{table QD Atorvastat n Calcium n Calcium t} in Calcium 20 MG 20 MG 20 MG Lidocaine 4 Lidocaine 4 No 1{appli BID Lidocaine % % cation_ 4 % as_need ed} Atorvastati Atorvastati No Atorvastat n Calcium n Calcium in Calcium 20 MG 20 MG 20 MG CVS CVS No CVS Lidocaine Lidocaine Lidocaine Maximum Maximum Maximum Strength 4 Strength 4 Strength 4 % % % amLODIPine amLODIPine No amLODIPine Besylate Besylate Besylate 2.5 MG 2.5 MG 2.5 MG Metoprolol Metoprolol No Metoprolol Tartrate 25 Tartrate 25 Tartrate MG MG 25 MG Latanoprost Latanoprost No Latanopros 0.005 % 0.005 % t 0.005 % Lisinopril Lisinopril No Lisinopril 20 MG 20 MG 20 MG Lisinopril Lisinopril No 1{table QD Lisinopril 20 MG 20 MG t} 20 MG PriLOSEC PriLOSEC No PriLOSEC OTC OTC OTC amLODIPine amLODIPine No 1{table QD amLODIPine Besylate Besylate t} Besylate 2.5 MG 2.5 MG 2.5 MG Lisinopril Lisinopril No Lisinopril 20 MG 20 MG 20 MG Lisinopril Lisinopril No 1{table QD Lisinopril 20 MG 20 MG t} 20 MG amLODIPine amLODIPine No amLODIPine Besylate Besylate Besylate 2.5 MG 2.5 MG 2.5 MG Lidocaine 4 Lidocaine 4 No 1{appli BID Lidocaine % % cation_ 4 % as_need ed} Latanoprost Latanoprost No Latanopros 0.005 % 0.005 % t 0.005 % tramadol tramadol No tramadol Metoprolol Metoprolol No Metoprolol Tartrate 25 Tartrate 25 Tartrate MG MG 25 MG [place] Shirley No 1{table QD [place] Aspirin EC Aspirin EC t} Aspirin EC Low Dose 81 Low Dose 81 Low Dose MG MG 81 MG Atorvastati Atorvastati No 1{table QD Atorvastat n Calcium n Calcium t} in Calcium 20 MG 20 MG 20 MG CVS CVS No CVS Lidocaine Lidocaine Lidocaine Maximum Maximum Maximum Strength 4 Strength 4 Strength 4 % % % Atorvastati Atorvastati No Atorvastat n Calcium n Calcium in Calcium 20 MG 20 MG 20 MG CVS CVS No CVS Lidocaine Lidocaine Lidocaine Maximum Maximum Maximum Strength 4 Strength 4 Strength 4 % % % Lisinopril Lisinopril No Lisinopril 20 MG 20 MG 20 MG amLODIPine amLODIPine No 1{table QD amLODIPine Besylate Besylate t} Besylate 2.5 MG 2.5 MG 2.5 MG Metoprolol Metoprolol No Metoprolol Tartrate 25 Tartrate 25 Tartrate MG MG 25 MG Shirley Shirley No 1{table QD [place] Aspirin EC Aspirin EC t} Aspirin EC Low Dose 81 Low Dose 81 Low Dose MG MG 81 MG Lisinopril Lisinopril No 1{table QD Lisinopril 20 MG 20 MG t} 20 MG PriLOSEC PriLOSEC No PriLOSEC OTC OTC OTC Lidocaine 4 Lidocaine 4 No 1{appli BID Lidocaine % % cation_ 4 % as_need ed} Latanoprost Latanoprost No Latanopros 0.005 % 0.005 % t 0.005 % amLODIPine amLODIPine No amLODIPine Besylate Besylate Besylate 2.5 MG 2.5 MG 2.5 MG Atorvastati Atorvastati No Atorvastat n Calcium n Calcium in Calcium 20 MG 20 MG 20 MG tramadol tramadol No tramadol Atorvastati Atorvastati No Atorvastat n Calcium n Calcium in Calcium 20 MG 20 MG 20 MG Lisinopril Lisinopril No Lisinopril 20 MG 20 MG 20 MG Latanoprost Latanoprost No Latanopros 0.005 % 0.005 % t 0.005 % Screen No 1{table QD [place] Aspirin EC Aspirin EC t} Aspirin EC Low Dose 81 Low Dose 81 Low Dose MG MG 81 MG Metoprolol Metoprolol No Metoprolol Tartrate 25 Tartrate 25 Tartrate MG MG 25 MG PriLOSEC PriLOSEC No PriLOSEC OTC OTC OTC amLODIPine amLODIPine No 1{table QD amLODIPine Besylate Besylate t} Besylate 2.5 MG 2.5 MG 2.5 MG Lidocaine 4 Lidocaine 4 No 1{appli BID Lidocaine % % cation_ 4 % as_need ed} Lisinopril Lisinopril No 1{table QD Lisinopril 20 MG 20 MG t} 20 MG CVS CVS No CVS Lidocaine Lidocaine Lidocaine Maximum Maximum Maximum Strength 4 Strength 4 Strength 4 % % % tramadol tramadol No tramadol amLODIPine amLODIPine No amLODIPine Besylate Besylate Besylate 2.5 MG 2.5 MG 2.5 MG Lidocaine 4 Lidocaine 4 No 1{appli BID Lidocaine % % cation_ 4 % as_need ed} CVS CVS No CVS Lidocaine Lidocaine Lidocaine Maximum Maximum Maximum Strength 4 Strength 4 Strength 4 % % % PriLOSEC PriLOSEC No PriLOSEC OTC OTC OTC Latanoprost Latanoprost No Latanopros 0.005 % 0.005 % t 0.005 % Atorvastati Atorvastati No Atorvastat n Calcium n Calcium in Calcium 20 MG 20 MG 20 MG Lisinopril Lisinopril No 1{table QD Lisinopril 20 MG 20 MG t} 20 MG amLODIPine amLODIPine No amLODIPine Besylate Besylate Besylate 2.5 MG 2.5 MG 2.5 MG Metoprolol Metoprolol No Metoprolol Tartrate 25 Tartrate 25 Tartrate MG MG 25 MG tramadol tramadol No tramadol Screen No 1{table QD [place] Aspirin EC Aspirin EC t} Aspirin EC Low Dose 81 Low Dose 81 Low Dose MG MG 81 MG Lidocaine 4 Lidocaine 4 No 1{appli BID Lidocaine % % cation_ 4 % as_need ed} CVS CVS No CVS Lidocaine Lidocaine Lidocaine Maximum Maximum Maximum Strength 4 Strength 4 Strength 4 % % % PriLOSEC PriLOSEC No PriLOSEC OTC OTC OTC Latanoprost Latanoprost No Latanopros 0.005 % 0.005 % t 0.005 % Atorvastati Atorvastati No Atorvastat n Calcium n Calcium in Calcium 20 MG 20 MG 20 MG Lisinopril Lisinopril No 1{table QD Lisinopril 20 MG 20 MG t} 20 MG amLODIPine amLODIPine No amLODIPine Besylate Besylate Besylate 2.5 MG 2.5 MG 2.5 MG Metoprolol Metoprolol No Metoprolol Tartrate 25 Tartrate 25 Tartrate MG MG 25 MG tramadol tramadol No tramadol Screen No 1{table QD [place] Aspirin EC Aspirin EC t} Aspirin EC Low Dose 81 Low Dose 81 Low Dose MG MG 81 MG CVS CVS No CVS Lidocaine Lidocaine Lidocaine Maximum Maximum Maximum Strength 4 Strength 4 Strength 4 % % % Lisinopril Lisinopril No Lisinopril 20 MG 20 MG 20 MG amLODIPine amLODIPine No 1{table QD amLODIPine Besylate Besylate t} Besylate 2.5 MG 2.5 MG 2.5 MG Metoprolol Metoprolol No Metoprolol Tartrate 25 Tartrate 25 Tartrate MG MG 25 MG Shirley Shirley No 1{table QD Shirley Aspirin EC Aspirin EC t} Aspirin EC Low Dose 81 Low Dose 81 Low Dose MG MG 81 MG Lisinopril Lisinopril No 1{table QD Lisinopril 20 MG 20 MG t} 20 MG PriLOSEC PriLOSEC No PriLOSEC OTC OTC OTC Lidocaine 4 Lidocaine 4 No 1{appli BID Lidocaine % % cation_ 4 % as_need ed} Latanoprost Latanoprost No Latanopros 0.005 % 0.005 % t 0.005 % amLODIPine amLODIPine No amLODIPine Besylate Besylate Besylate 2.5 MG 2.5 MG 2.5 MG Atorvastati Atorvastati No Atorvastat n Calcium n Calcium in Calcium 20 MG 20 MG 20 MG tramadol tramadol No tramadol Atorvastati Atorvastati No Atorvastat n Calcium n Calcium in Calcium 20 MG 20 MG 20 MG Lidocaine 4 Lidocaine 4 No 1{appli BID Lidocaine % % cation_ 4 % as_need ed} Lisinopril Lisinopril No Lisinopril 20 MG 20 MG 20 MG Metoprolol Metoprolol No Metoprolol Tartrate 25 Tartrate 25 Tartrate MG MG 25 MG Lisinopril Lisinopril No 1{table QD Lisinopril 20 MG 20 MG t} 20 MG amLODIPine amLODIPine No amLODIPine Besylate Besylate Besylate 2.5 MG 2.5 MG 2.5 MG PriLOSEC PriLOSEC No PriLOSEC OTC OTC OTC Shirley Shirley No 1{table QD Shirley Aspirin EC Aspirin EC t} Aspirin EC Low Dose 81 Low Dose 81 Low Dose MG MG 81 MG Vital Signs Vital Name Observation Time Observation Value Comments Source height 2022-12-02 13:40:00 62 [in_i] [facility] weight 2022-12-02 13:40:00 123.8 [lb_av] [facility] bmi 2022-12-02 13:40:00 22.64 kg/m2 [facility] respiratory rate 2022-12-02 13:40:00 17 /min Comm on [facility] height 2022-12-02 14:00:00 62 [in_i] Common [facility] weight 2022-12-02 14:00:00 123.8 [lb_av] Common [facility] temperature 2022-12-02 14:00:00 97.9 [degF] Common [facility] bmi 2022-12-02 14:00:00 22.64 kg/m2 Common [facility] oximetry 2022-12-02 14:00:00 97 % [facility] respiratory rate 2022-12-02 14:00:00 17 /min Comm on [facility] blood pressure 2022-12-02 14:00:00 136 mm[Hg] Common [facility] - systolic [facility] blood pressure 2022-12-02 14:00:00 62 mm[Hg] Common [facility] - diastolic [facility] height 2022-08-18 13:00:00 62 [in_i] Common [facility] weight 2022-08-18 13:00:00 119 [lb_av] [facility] temperature 2022-08-18 13:00:00 98.3 [degF] [facility] bmi 2022-08-18 13:00:00 21.76 kg/m2 [facility] 2022-08-18 13:00:00 124 mm[Hg] [facility] - systolic [facility] blood pressure 2022-08-18 13:00:00 84 mm[Hg] [facility] - diastolic [facility] height 2022-07-18 14:30:00 62 [in_i] Common [facility] weight 2022-07-18 14:30:00 119 [lb_av] Common [facility] temperature 2022-07-18 14:30:00 98.2 [degF] [facility] bmi 2022-07-18 14:30:00 21.76 kg/m2 Common S pirit - [facility] blood pressure 2022-07-18 14:30:00 124 mm[Hg] [facility] - systolic [facility] blood pressure 2022-07-18 14:30:00 80 mm[Hg] [facility] - diastolic [facility] height 2022-07-11 10:30:00 62 [in_i] Common S pirit - [facility] weight 2022-07-11 10:30:00 120.5 [lb_av] Common [facility] temperature 2022-07-11 10:30:00 97.0 [degF] Common S pirit [facility] bmi 2022-07-11 10:30:00 22.04 kg/m2 [facility] oximetry 2022-07-11 10:30:00 97 % Common S pirit [facility] respiratory rate 2022-07-11 10:30:00 17 /min Comm on [facility] blood pressure 2022-07-11 10:30:00 147 mm[Hg] [facility] - systolic [facility] blood pressure 2022-07-11 10:30:00 63 mm[Hg] Common [facility] - diastolic [facility] height 2022-03-14 08:50:00 62 [in_i] Common S pirit [facility] weight 2022-03-14 08:50:00 119.4 [lb_av] Common [facility] temperature 2022-03-14 08:50:00 97.5 [degF] Common S pirit [facility] bmi 2022-03-14 08:50:00 21.84 kg/m2 Common S pirit [facility] oximetry 2022-03-14 08:50:00 98 % Common S pirit [facility] respiratory rate 2022-03-14 08:50:00 18 /min Comm on [facility] blood pressure 2022-03-14 08:50:00 134 mm[Hg] [facility] - systolic [facility] blood pressure 2022-03-14 08:50:00 65 mm[Hg] [facility] - diastolic [facility] height 2021-11-23 10:40:00 62 [in_i] Common [facility] weight 2021-11-23 10:40:00 127.8 [lb_av] Common [facility] temperature 2021-11-23 10:40:00 97.6 [degF] [facility] bmi 2021-11-23 10:40:00 23.37 kg/m2 Common S [facility] oximetry 2021-11-23 10:40:00 97 % Common [facility] respiratory rate 2021-11-23 10:40:00 17 /min Comm on [facility] blood pressure 2021-11-23 10:40:00 132 mm[Hg] Common [facility] - systolic [facility] blood pressure 2021-11-23 10:40:00 62 mm[Hg] [facility] - diastolic [facility] height 2021-11-23 10:40:00 62 [in_i] Common [facility] weight 2021-11-23 10:40:00 127 [lb_av] Common [facility] temperature 2021-11-23 10:40:00 97.6 [degF] Common [facility] bmi 2021-11-23 10:40:00 23.23 kg/m2 Common S [facility] oximetry 2021-11-23 10:40:00 97 % Common [facility] respiratory rate 2021-11-23 10:40:00 17 /min Comm on [facility] blood pressure 2021-11-23 10:40:00 132 mm[Hg] Common [facility] - systolic [facility] blood pressure 2021-11-23 10:40:00 62 mm[Hg] [facility] - diastolic [facility] height 2021-09-17 09:10:00 62 [in_i] [facility] weight 2021-09-17 09:10:00 115.8 [lb_av] [facility] temperature 2021-09-17 09:10:00 97.0 [degF] [facility] bmi 2021-09-17 09:10:00 21.18 kg/m2 [facility] oximetry 2021-09-17 09:10:00 99 % [facility] respiratory rate 2021-09-17 09:10:00 18 /min Comm on [facility] blood pressure 2021-09-17 09:10:00 130 mm[Hg] [facility] systolic [facility] blood pressure 2021-09-17 09:10:00 72 mm[Hg] [facility] diastolic [facility] Systolic blood 2020-10-10 13:09:00 129 mm[Hg] Univer sity of pressure [facility] Diastolic blood 2020-10-10 13:09:00 66 mm[Hg] Unive rsity of pressure [facility] Heart rate 2020-10-10 13:09:00 82 /min [facility] Body temperature 2020-10-10 13:09:00 36.94 [facility] 2020-10-10 13:09:00 18 /[facility] O[facility] saturation in 2020-10-10 13:09:00 97 /min University Arterial blood by [facility] Pulse oximetry Branch Body weight 2020-10-10 10:00:00 55.611 kg Universi ty [facility] BMI 2020-10-10 10:00:00 21.72 kg/m2 [facility] Body height 2020-10-06 05:46:00 160 cm [facility] Systolic blood 2020-10-10 13:09:00 129 mm[Hg] Univer sity of pressure [facility] Diastolic blood 2020-10-10 13:09:00 66 mm[Hg] Unive rsity of [email or web address] Heart rate 2020-10-10 13:09:00 82 /min [facility] Body temperature 2020-10-10 13:09:00 36.94 Marleni [facility] Respiratory rate 2020-10-10 13:09:00 18 /min [facility] acute hospital Oxygen saturation in 2020-10-10 13:09:00 97 /min [facility] Arterial blood by [facility] Pulse oximetry [place] Body weight 2020-10-10 10:00:00 55.611 kg [facility] BMI 2020-10-10 10:00:00 21.72 kg/m2 [facility] Body height 2020-10-06 05:46:00 160 cm [facility] Procedures Procedure Date / Time Performing Clinician Source Performed NM MYOCARDIUM PERFUSION 2020-10-09 19:08:[address] [facility] STRESS AND REST [facility] MAGNESIUM 2020-10-09 10:24:00 Mary [facility] BASIC METABOLIC PANEL 2020-10-09 10:24:00 Mary [facility] (NA, K, CL, CO2, GLUCOSE, Medica l Branch BUN, CREATININE, CA) CBC WITH DIFF 2020-10-09 10:24:00 [facility] MAGNESIUM 2020-10-08 10:36:00 Carmelita [facility] TROPONIN I 2020-10-08 10:36:00 Carmelita [facility] BASIC METABOLIC PANEL 2020-10-08 10:36:00 [facility] ([facility], K, CL, CO2, GLUCOSE, Medica l Branch BUN, CREATININE, CA) CBC WITH DIFF 2020-10-08 10:36:00 Carmelita [facility] MRSA / MSSA SCREEN BY 2020-10-08 02:10:00 Carmelita [facility] PCR, NARES [facility] MAGNESIUM 2020-10-08 02:05:00 Carmelita [facility] IONIZED CALCIUM 2020-10-08 02:05:00 Carmelita [facility] PNEUMOCOCCAL ANTIGEN 2020-10-07 16:51:00 Mason Zambrano [facility] TROPONIN I 2020-10-07 11:18:00 Ezzo, [facility] BASIC METABOLIC PANEL 2020-10-07 11:18:00 Louis [facility] (NA, K, CL, CO2, GLUCOSE, Medica l Branch BUN, CREATININE, CA) CBC WITH DIFF 2020-10-07 11:18:[facility] 2020-10-07 03:59:[facility] 2020-10-06 21:44:00 [facility] (MOLECULAR 2020-10-06 19:02:00 [facility] TESTING [facility] NUCLEIC ACID AMPLIFICATION) LAB ONLY COVID 2020-10-06 19:02:00 [facility] INTERPRETATION [facility] TROPONIN I 2020-10-06 18:42:00 [facility] THYROID STIMULATING 2020-10-06 18:42:00 [facility] LIPID PANEL ([id number])(TOTAL 2020-10-06 18:42:00 [facility] CHOLESTEROL, [facility] TRIGLYCERIDES, HDL) ECHO ROUTINE W/DOPPLER 2020-10-06 16:58:07 Elliott [facility] COLOR [facility] URINALYSIS 2020-10-06 16:38:00 [facility] TROPONIN [facility] 2020-10-06 12:41:00 Wally Cooper [facility] CT CHEST PULMONARY 2020-10-06 10:11:56 Wally Cooper [facility] ANGIOGRAM Medical Branch HB ECG ROUTINE & RHYTHM 2020-10-06 08:36:44 Wally Cooper [facility] URINALYSIS 2020-10-06 08:08:00 Wally Cooper [facility] URINE CULTURE 2020-10-06 08:08:00 Wally Cooper [facility] XR CHEST 1 VW 2020-10-06 07:40:24 Wally Cooper [facility] COVID-19 (ID NOW RAPID 2020-10-06 06:01:[address] [facility] TESTING) Medical Branch LAB ONLY COVID 2020-10-06 06:01:00 Wally Cooper [facility] INTERPRETATION [facility] LACTIC ACID WHOLE BLOOD 2020-10-06 05:57:00 Wally Cooper [facility] BLOOD CULTURE SCREEN 2020-10-06 05:56:00 Wally Cooper [facility] TROPONIN I 2020-10-06 05:56:00 Wally Cooper [facility] COMP. METABOLIC PANEL 2020-10-06 05:56:00 Wally Cooper [facility] ([id number]) Medical Branch CBC WITH DIFF 2020-10-06 05:56:00 Wally Cooper [facility] PROTHROMBIN TIME / INR 2020-10-06 05:56:00 Wally Cooper [facility] ACTIVATED PARTIAL 2020-10-06 05:56:00 Wally Cooper [facility] THRMPLAS PABLO [facility] N-TERMINAL PRO-BNP 2020-10-06 05:56:00 Wally Cooper [facility] HB ECG ROUTINE & RHYTHM 2020-10-06 05:40:52 W[facility] Cooper [facility] NOTICE OF PRIVACY 2020-10-06 05:33:54 Doctor Soniya, [facility] PRACTICES [facility] CONSENT/REFUSAL FOR 2020-10-06 05:33:27 Doctor Soniya, [facility] DIAGNOSIS AND TREATMENT [facility] EMERGENCY DEPARTMENT 2020-10-05 06:01:00 Doctor Soniya, [facility] DOCUMENTS [facility] AGREEMENTS AUTHORIZATIONS 2020-10-05 06:01:00 Doctor Soniya, [facility] AND IRREVOCABLE [facility] ASSIGNMENTS (FORM 2000) Encounters Start End Encounter Admission Attending Care Care Encounter Source Date/Time Date/Time Type Type Clinicians Facility Department ID 2023-03-28 Outpatient Eddy, STLMLC STLMLC [id number] Common 11:08:00 [place] [address] [facility] 2022-12-28 Outpatient Eddy, STLMLC STLMLC [id number] Common 15:45:00 [place] 15341 [facility] 2022-12-02 Outpatient Eddy, STLMLC STLMLC [id number] Common 13:30:00 [place] 57862 [facility] 2022-11-30 Outpatient Eddy, STLMLC STLMLC [id number] Common 07:44:00 Quinton [facility] 2022-11-08 Outpatient Eddy, STLMLC STLMLC [id number] Common 10:16:00 Quinton [facility] 2022-08-18 Outpatient Eddy, STLMLC STLC [id number] Common 13:16:00 Quinton [facility] 2022-07-26 Outpatient Eddy, STLMLC STLC [id number] Common 10:24:01 Quinton [facility] 2022-07-19 Outpatient Eddy, STLMLC STLC [id number] Common 11:06:00 Quinton [facility] 2022-07-11 Outpatient Eddy, STLMLC STLC [id number] Common 12:02:00 Qu[place] [facility] 2022-04-07 Outpatient Eddy, STLMLC STLC [id number] Common 08:45:01 Qu[place] [facility] 2022-04-06 Outpatient Eddy, STLMLC STLC [id number] Common 17:08:01 [place] [facility] 2022-03-14 Outpatient Eddy, STLMLC STLC [id number] Common 08:47:01 [place] [facility] 2021-12-15 Outpatient Eddy, STLMLC STLC [id number] Common 14:30:35 [place] [facility] 2021-12-15 Outpatient Eddy, [facility] [id number] Common 13:33:18 [place] 19815 [facility] 2021-12-15 Outpatient Eddy, STLMLC [facility] [id number] Common 13:27:45 [place] 28274 [facility] 2021-12-15 Outpatient Eddy, STLMLC [facility] [id number] Common 13:19:20 [place] 58816 [facility] 2021-12-15 Outpatient Eddy, STLMLC [facility] [id number] Common 12:48:15 [place] 492[address] [facility] 2021-12-15 Outpatient Eddy, STLMLC [facility] [id number] Common 12:46:21 [place] 67408 [facility] 2021-12-15 Outpatient Eddy, [facility] [id number] Common 12:45:42 [place] [address]9710 [facility] 2021-12-15 Outpatient Eddy, STLC [facility] [id number] Common 12:36:51 [place] 13246 [facility] 2021-12-15 Outpatient Eddy, STLC [facility] [id number] Common 12:07:42 [place] 97924 [facility] 2021-12-15 Outpatient Eddy, [facility] [id number] Common 12:06:14 [place] 95435 [facility] 2021-12-15 Outpatient Eddy, STLC [facility] [id number] Common 12:05:19 [place] 92243 [facility] 2021-12-15 Outpatient Eddy, STLC [facility] [id number] Common 11:04:18 [place] 94432 [facility] 2021-12-15 Outpatient Eddy, STLC [facility] [id number] Common 11:04:05 [place] 518[address] [facility] 2021-12-15 Outpatient Eddy, [facility] [id number] Common 11:02:37 [place] 615[address] [facility] 2022-12-02 2022-12-02 OFFICE STLMLC STLMLC [id number] Co mmon 00:00:00 00:00:00 VISIT Spirit ESTAB PT - CHI LEVEL 4 [facility] 2022-12-02 2022-12-02 SUB ANNUAL STLMLC STLMLC [id number] Common 00:00:00 00:00:00 MCR Spirit WELLNESS - CHI VISIT [facility] 2022-11-11 2022-11-11 (TEL) STLMLC STLMLC [id number] Co mmon 00:00:00 00:00:00 Spirit - CHI [facility] 2022-08-18 2022-08-18 OFFICE STLMLC STLMLC [id number] Co mmon 00:00:00 00:00:00 VISIT Spirit ESTAB PT - CHI LEVEL 4 [facility] 2022-07-18 2022-07-18 OFFICE STLMLC STLMLC [id number] Co mmon 00:00:00 00:00:00 VISIT Spirit ESTAB PT - CHI LEVEL 4 [facility] 2022-07-11 2022-07-11 (TEL) STLMLC STLMLC [id number] Co mmon 00:00:00 00:00:00 Spirit CHI [facility] 2022-07-11 2022-07-11 OFFICE STLMLC STLMLC [id number] Co mmon 00:00:00 00:00:00 VISIT Spirit ESTAB PT - CHI LEVEL 4 [facility] 2022-07-11 2022-07-11 (TEL) STLMLC STLMLC [id number] Co mmon 00:00:00 00:00:00 Spirit CHI [facility] 2022-05-24 2022-05-24 (TEL) STLMLC STLMLC [id number] Co mmon 00:00:00 00:00:00 Spirit - CHI [facility] 2022-03-17 2022-03-17 (TEL) STLMLC STLMLC [id number] Co mmon 00:00:00 00:00:00 Spirit - CHI [facility] 2022-03-14 2022-03-14 OFFICE STLMLC STLMLC [id number] Co mmon 00:00:00 00:00:00 VISIT Spirit ESTAB PT - CHI LEVEL 4 [facility] 2021-11-23 2021-11-23 OFFICE STLMLC STLMLC [id number] Co mmon 00:00:00 00:00:00 VISIT Spirit ESTAB PT - CHI LEVEL 4 [facility] 2021-11-23 2021-11-23 SUB ANNUAL STLMLC STLMLC [id number] Common 00:00:00 00:00:00 MCR [facility] WELLNESS - [facility] VISIT [facility] 2021-09-17 2021-09-17 OFFICE STLMLC STLMLC [id number] Co mmon 00:00:00 00:00:00 VISIT EST Spir it PT LEVEL 3 - CHI [facility] 2021-09-16 2021-09-16 (TEL) STLMLC STLMLC [id number] Co mmon 00:00:00 00:00:00 [facility] 2021-07-31 2021-07-31 Outpatient Karlee EDDY [place] [id number] Univers 11:00:00 11:00:00 SHUN mistry [facility] 2021-06-22 2021-06-22 Outpatient STLMLC STLMLC [id number] Common 00:00:00 00:00:00 [facility] 2021-06-07 2021-06-07 Outpatient STLMLC STLMLC [id number] Common 00:00:00 00:00:00 [facility] 2021-02-23 2021-02-23 Outpatient STLMLC STLMLC [id number] Common 00:00:00 00:00:00 [facility] 2021-01-28 2021-01-28 Outpatient STLMLC STLMLC [id number] Common 00:00:00 00:00:00 [facility] 2021-01-19 2021-01-19 Outpatient STLMLC STLMLC [id number] Common 00:00:00 00:00:00 [facility] 2020-12-17 2020-12-17 Outpatient STLMLC STLMLC [id number] Common 00:00:00 00:00:00 [facility] 2020-12-14 2020-12-14 Outpatient STLMLC STLMLC [id number] Common 00:00:00 00:00:00 [facility] 2020-11-25 2020-11-25 Outpatient STLMLC STLMLC [id number] Common 00:00:00 00:00:00 [facility] 2020-11-25 2020-11-25 Outpatient STLMLC STLMLC [id number] Common 00:00:00 00:00:00 [facility] 2020-11-16 2020-11-16 Outpatient STLMLC STLMLC [id number] Common 00:00:00 00:00:00 [facility] 2020-10-29 2020-10-29 Outpatient STLMLC STLMLC [id number] Common 00:00:00 00:00:00 [facility] 2020-10-22 2020-10-22 Outpatient STLMLC STLMLC [id number] Common 00:00:00 00:00:00 [facility] 2020-10-13 2020-10-13 Outpatient STLMLC STLMLC [id number] Common 00:00:00 00:00:00 [facility] 2020-10-12 2020-10-12 Transition Nader Orellana [id number] 00:00:00 00:00:00 of Care Nataliya L Reddy [id number] [place] [id number] 2020-10-12 2020-10-12 Transition Nader Orellana [id number] Univers 00:00:00 00:00:00 of Care Nataliya L Reddy [id number] i [id number] [id number] [facility] 403 Branch 2020-10-05 2020-10-10 [facility] Sophienereidasusannah Kirkdee Cameron [facility] [id number] 23:37:00 12:00:00 Encounter Lida, [facility] [id number] Frank Hernandez [id number] Nicolas [id number] Hospital 113 ([facility]) 2020-10-05 2020-10-10 Hospital Wally Cooper [facility] [id number] Univers 23:37:00 12:00:00 Encounter Cristina Hilton [id number] ity of Frank Hernandez [id number] Te xakimber Nicolas [id number] [place] [id number] Branch ([facility]) 2020-10-05 2020-10-05 Emergency X [facility] ERT [id number] Univers 23:32:00 23:32:[address] [facility] 2020-10-05 2020-10-05 Outpatient STLMLC STLMLC [id number] Common 00:00:00 00:00:00 [facility] 2020-06-17 2020-06-17 [facility] [id number] Common 09:30:00 09:30:[address] [place] [address] [facility] 2020-03-30 2020-03-30 [facility] [id number] Common 13:58:00 13:58:00 [address] [place] [address] [facility] 2019-12-19 2019-12-19 [facility] [id number] Common 09:30:00 09:30:00 [address] [place] [address] [facility] 2019-10-31 2019-10-31 [facility] [id number] Common 16:21:00 16:21:00 [address] [place] [address] [facility] 2019-09-17 2019-09-17 [facility] [id number] Common 09:00:00 09:00:00 [place] [address] [facility] 2019-08-06 2019-08-06 [facility] [id number] Common 09:30:00 09:30:[address] [facility] 2019-02-04 2019-02-04 [facility] [id number] Common 10:00:00 10:00:[address] [facility] 2019-02-04 2019-02-04 [facility] [id number] Common 09:45:00 09:45:[address] [facility] 2018-11-28 2018-11-28 [facility] [id number] Common 13:15:00 13:15:[address] [facility] 2018-10-26 2018-10-26 [facility] [id number] Common 15:00:00 15:00:[address] [facility] 2018-10-22 2018-10-22 [facility] [id number] Common 15:00:00 15:00:[address] [facility] 2018-06-26 2018-06-26 [facility] [id number] Common 09:00:00 09:00:[address] [facility] 2018-06-13 2018-06-13 Out[facility] [id number] Common 14:45:00 14:45:[address] [facility] 2018-06-04 2018-06-04 [facility] [id number] Common 13:00:00 13:00:[address] [facility] 2018-06-01 2018-06-01 [facility] [id number] Common 13:30:00 13:30:[address] [facility] 2018-05-28 2018-05-28 [facility] [id number] Common 13:23:00 13:23:[address] [facility] 2018-05-28 2018-05-28 [facility] [id number] Common 08:40:00 08:40:[address] [facility] 2018-05-24 2018-05-24 Outpatient Keyla Montoya [id number] Common 10:30:00 10:30:00 [facility] Results Test Description Test Test Results Result Source Time Comments Comments LAB ONLY COVID 2020-09- COVID DMT [facility] 20 InterpretationInterpre [facility] 20:53:00 tation/Recommendations Br anch : Molecular NAAT [...] test is performed there is approximately a [id number] chance the patient had been infected and [...] based upon aggregate COVID-19 test results in [facility]. They apply to the following tests offered at [facility] and assume the acceptable specimen type(s) were used: A. Tests for the Identification of SARS-CoV-2 RNA (Molecular NAAT Tests): ? ? ?- SARS-CoV-2 PCR assays including [place] Aptima, [place] Fusion, Castillo RealTime, and Greenopedia Xpert Xpress. ? ? ?- SARS-CoV-2 Rapid ID NOW by the ID NOW assay. ? B. Tests for the Identification of SARS-CoV-2 Antibodies: ? ? ?- Chemiluminescent immunoassays including Access SARS-CoV-2 IgM (DXI 600), SingOnS Kjne-MZAH-ToV-2 IgG (Vitros 5600 and Vitros 3600), and Castillo SARS-CoV-2 IgG (ADVERTISING SALES ASSOCIATE ?I System). These interpretations are autopopulated into [employer] based on computerized algorithms matching an interpretation code to the patient's set of test results, and a clinical pathologist evaluates the comments for accuracy. However, these comments do not consider testing a patient may have had outside of the [facility] system. If results for COVID-19 infection continue to be negative in the context of a suspected viral respiratory illness, it is possible the patient may have an infection with another respiratory virus. Influenza testing and a respiratory pathogen panel if clinically indicated may be beneficial in this setting. [facility] LABORATORY SERVICESCOVID CzqrxqbTACY-QzM-7 NAAT (no units) ? ? Date ? Value ? 10/06/2020 ? Not Detected ? SARS-CoV-2 Rapid ID NOW (no units) ? ? Date ? Value ? 10/06/2020 ? Not Detected ? [facility] NM MYOCARDIUM 2020-09- Impression: [employer] PERFUSION STRESS 20 perfusion imaging is [facility] AND REST 19:18:08 normal with no [...] fraction was calculated to be 71% post-stress. [facility], [place] Results Inft User - 10/09/2020 1:19 PM [...] Interpretation Comme nts NA (test code = 2232925637) 133 mmol/L 135-145 L K (test code = 7552010661) 4.0 mmol/L 3.5-5 CL (test code = 9778781266) 102 mmol/L 98-108 CO2 TOTAL (test code = 9793279529) 23 mmol/L 23-31 AGAP (test code = 1963037045) 2-16 BUN (test code = 0036750438) 10 mg/dL 7-23 GLUCOSE (test code = 9183408276) 103 mg/dL 70-110 CREATININE (test code = 0.60 mg/dL 0.5-1.04 3768585354) CALCIUM (test code = 9706145704) 8.4 mg/dL 8.6-10.6 L eGFR Calculation (Non- mL/min/1.73m2 [place]) (test code = 1263859640) eGFR Calculation ( mL/min/1.73m2 [place]) (test code = 8167705762) ANI (test code = ANI) Association of [...] tests). Lab Interpretation (test code = Abnormal 17397-7) [facility] Test Item Value Reference Range Interpretation Comments MAGNESIUM (test code = 0644417521) 2.0 mg/dL 1.7-2.4 Lab Interpretation (test code = Normal 37090-8) [facility] WITH [id number] 10:32:00 Test Item Value Reference Range Interpretation Comments WBC (test code = See_Comment H [Automated 6690-2) message] The sy stem which generated this result transmitted reference range : 4.30 - 11.10 10*3/?L. The reference range was not used to interpret this result as normal/abnormal . RBC (test code = See_Comment L [Automated 289-8) message] The sy stem which generated this [...] RDW-SD (test code = 40.0 fL 39-49.9 37446-3) RDW-CV (test code = 13.2 % 12-15.5 788-0) PLT (test code = See_Comment [Automated 777-3) message] The sy stem which generated this result transmitted reference range : 166 - 358 10*3/ ?L. The reference r claudine was not used to interpret this result as normal/abnormal . MPV (test code = 9.9 fL 9.5-12.9 42461-9) NRBC/100 WBC (test See_Comment [Automat ed code = 2356912699) message] The system which generated this result transmitted reference range : 0.0 - 10.0 /100 WBCs. The refer ence range was not u sed to interpret th is result as normal/abnormal . NRBC x10^3 (test code <0.01 See_Comment [Auto mated = 2315719785) message] The s ystem which generated this result transmitted reference range : 10*3/?L. The reference range was not used to interpret this result as normal/abnormal . GRAN MAT (NEUT) % 75.4 % (test code = 770-8) IMM GRAN % (test code 0.40 % = 4360867539) LYMPH % (test code = 11.8 % 736-9) MONO % (test code = 11.6 % 5905-5) EOS % (test code = 0.7 % 713-8) BASO % (test code = 0.1 % 706-2) GRAN MAT x10^3(ANC) 8.46 10*3/uL 1.88-7.09 H (test code = 3514361023) IMM GRAN x10^3 (test 0.05 10*3/uL 0-0.06 code = 7773535728) LYMPH x10^3 (test code 1.32 10*3/uL 1.32-3.29 = 731-0) MONO x10^3 (test code 1.30 10*3/uL 0.33-0.92 H = 742-7) EOS x10^3 (test code = 0.08 10*3/uL 0.03-0.39 711-2) BASO x10^3 (test code <0.03 0.01-0.07 = 704-7) Lab Interpretation Abnormal (test code = 61209-7) [facility] SCREEN BY PCR, [id number] 18:57:00 Test Item Value Reference Range Interpretation Comments MSSA Screen by PCR, Positive Negative A Nares (test code = 12334-9) MRSA/MSSA Positive? Yes No A (test code = 8780217014) ANI (test code = ANI) A positive test result does not necessarily indicate the presence of viable organism. Lab Interpretation (test Abnormal code = 29561-2) [facility]-19 14:26:00 Test Item Value Reference Range Interpretation Comments MAGNESIUM (test code = 1706010469) 2.0 mg/dL 1.7-2.4 Lab Interpretation (test code = Normal 07395-3) [facility]TR[facility] [id number] 11:05:00 Test Item Value Reference Range Interpretation Comments TROPONIN I (test 0.283 ng/mL See_Comment H [Automated code = 6210535028) message] The system which generated this result [...] ? Lab Interpretation Abnormal (test code = 62104-3) [facility]OLIC PANEL (NA, K, CL, CO2, GLUCOSE, BUN, CREATININE, CA)2020-10-08 10:54:00 Test Item Value Reference Range Interpretation Comments NA (test code = 134 mmol/L 135-145 L 9627551495) K (test code = 3.9 mmol/L 3.5-5 8010792519) CL (test code = 102 mmol/L 98-108 2984577289) CO2 TOTAL (test code = 24 mmol/L 23-31 3897737695) AGAP (test code = 2-16 7902504590) BUN (test code = 8 mg/dL 7-23 6347120910) GLUCOSE (test code = 116 mg/dL 70-110 H 1396349911) CREATININE (test code = 0.58 mg/dL 0.5-1.04 0732168520) CALCIUM (test code = 8.2 mg/dL 8.6-10.6 L 9987141248) eGFR Calculation mL/min/1.73m2 (Non-) (test code = 4973496328) eGFR Calculation mL/min/1.73m2 () (test code = 4514806150) ANI (test code = ANI) Association of [...] tests). Lab Interpretation Abnormal (test code = 52414-1) [facility] WITH [id number] 10:44:00 Test Item Value Reference Range Interpretation [...] RDW-SD (test code = 40.4 fL 39-49.9 81969-6) RDW-CV (test code = 13.4 % 12-15.5 788-0) PLT (test code = See_Comment [Automated 777-3) message] The sy stem which generated this result transmitted reference range : 166 - 358 10*3/ ?L. The reference r claudine was not used to interpret this result as normal/abnormal . MPV (test code = 9.8 fL 9.5-12.9 11403-6) NRBC/100 WBC (test See_Comment [Automat ed code = 8662042150) message] The system which generated this result transmitted reference range : 0.0 - 10.0 /100 WBCs. The refer ence range was not u sed to interpret th is result as normal/abnormal . NRBC x10^3 (test code <0.01 See_Comment [Auto mated = 5661595212) message] The s ystem which generated this result transmitted reference range : 10*3/?L. The reference range was not used to interpret this result as normal/abnormal . GRAN MAT (NEUT) % 79.6 % (test code = 770-8) IMM GRAN % (test code 0.40 % = 7894557618) LYMPH % (test code = 7.5 % 736-9) MONO % (test code = 11.8 % 5905-5) EOS % (test code = 0.5 % 713-8) BASO % (test code = 0.2 % 706-2) GRAN MAT x10^3(ANC) 9.06 10*3/uL 1.88-7.09 H (test code = 1245938673) IMM GRAN x10^3 (test 0.05 10*3/uL 0-0.06 code = 8581054469) LYMPH x10^3 (test code 0.86 10*3/uL 1.32-3.29 L = 731-0) MONO x10^3 (test code 1.35 10*3/uL 0.33-0.92 H = 742-7) EOS x10^3 (test code = 0.06 10*3/uL 0.03-0.39 711-2) BASO x10^3 (test code <0.03 0.01-0.07 = 704-7) Lab Interpretation Abnormal (test code = 08809-5) [facility]IONIZED [id number] 02:46:00 Test Item Value Reference Range Interpretation Comments IONIZED CA (test code = 4.50 mg/dL 4.5-5.3 0645735195) PH SERUM (test code = 9500037582) 7.35-7.45 Lab Interpretation (test code = Normal 33335-5) [facility]2020-11-19 02:34:00 Test Item Value Reference Range Interpretation Comments MAGNESIUM (test code = 2485818069) 2.0 mg/dL 1.7-2.4 Lab Interpretation (test code = Normal 51679-7) [facility]CORON[facility]IRUS COVID-19 [id number] 00:48:00 Test Item Value Reference Range Interpretation Comments SARS-CoV-2 NAAT (test Not Detected Not Detected code = 30749-9) ANI (test code = ANI) [employer] Aptima SARS-CoV-2 Assay is a nucleic acid amplification test intended for the qualitative detection of RNA from SARS-CoV-2 from nasopharyngeal (APPAREL PATTERNMAKER) specimens. ?It is used under Emergency Use [...] indicated. Lab Interpretation Normal (test code = 50270-6) [facility] HospitalLEGIONELLA URINARY ANTIGEN [id number] 22:36:00 Test Item Value Reference Range Interpretation Comments Legionella Urinary Negative Negative Antigen (test code = 7154891680) ANI (test code = ANI) Negative for [...] test. Lab Interpretation (test Normal code = 48574-2) [facility] HospitalPNEUMOCOCCAL [id number] 22:36:00 Test Item Value Reference Range Interpretation Comments S. pneumoniae antigen (test code = Negative Negative 8006128142) Lab Interpretation (test code = Normal 03379-2) [facility] HospitalUrine [id number] 14:42:00 Test Item Value Reference Range Interpretation Comments URINE CULTURE (test 10,000 - 100,000 CFU/mL code = 630-4) mixed aerobic organisms - suggests endogenous microbial contamination [facility]TROP[facility]IN [id number] 11:50:00 Test Item Value Reference Range Interpretation Comments TROPONIN I (test 0.721 ng/mL See_Comment H [Automated code = 9484971031) message] The system which generated this result [...] ? Lab Interpretation Abnormal (test code = 94744-2) [facility] HospitalLAB ONLY COVID [id number] 11:39:00COVID DMT InterpretationInterpretation/Recommendations: Molecular NAAT Test Results [...] a nasopharyngeal sample, there is approximately a btq-ur-rmuma chance that the patient was infected and [...] upon aggregate COVID-19 test results pooled from [facility]. They apply to the following tests offered at [facility] and assume the acceptable specimen type(s) were used: A. Tests for the Identification of SARS-CoV-2 RNA (Molecular NAAT Tests):SARS-CoV-2 PCR assays including [employer] Aptima, [place] Fusion, [employer] RealTime, and [employer] Xpert Xpress. SARS-CoV-2 Rapid ID NOW by the ID NOW assay.? B. Tests for the Identification of SARS-CoV-2 Antibodies: Chemiluminescent immunoassays including Access SARS-CoV-2 IgM (DXI 600), SingOnS Imdy-BETY-IvX-2 IgG (Vitros 5600 and Vitros 3600), and Castillo SARS-CoV-2 IgG (ADVERTISING SALES ASSOCIATE I System). ?These interpretations are autopopulatedinto [facility] based on computerized algorithms matching an interpretation code to the patient's set of test results, and a clinical pathologist evaluates the comments for accuracy. However, these comments do not consider testing a patient may have had outside of the [facility] system. If results for COVID-19 infection continue to be negative in the context of a suspected viral respiratory illness, it is possible the patient may have an infection with another respiratory virus. Influenza testing and a respiratory pathogen panel if clinically indicated may be beneficial in this setting. If there continues to be a high degree of clinical suspicion for COVID-19 illness despite multiple negative tests on nasopharyngeal specimens, then it may be necessary to test the patient for the SARS-CoV-2 virus using lower respiratory tract samples (such as sputum, bronchoalveolar lavage fluid (BAL), tracheal aspirate, etc.). ?[facility]ORATORY SERVICESCOVID IzlckijWEID-SyO-6 Rapid ID NOW (no units) ? ? Date ? Value ? 10/06/2020 ? Not Detected ? [facility] (NA, K, CL, CO2, GLUCOSE, BUN, CREATININE, CA)2020-10-07 11:37:00 Test Item Value Reference Range Interpretation Comments NA (test code = 133 mmol/L 135-145 L 7746162099) K (test code = 3.9 mmol/L 3.5-5 0175865322) CL (test code = 103 mmol/L 98-108 1443568099) CO2 TOTAL (test code = 21 mmol/L 23-31 L 3812720778) AGAP (test code = 2-16 5699652508) BUN (test code = 12 mg/dL 7-23 9116585799) GLUCOSE (test code = 89 mg/dL 70-110 3235470731) CREATININE (test code = 0.79 mg/dL 0.5-1.04 5395050648) CALCIUM (test code = 8.2 mg/dL 8.6-10.6 L 7489829355) eGFR Calculation mL/min/1.73m2 (Non-) (test code = 8436576631) eGFR Calculation mL/min/1.73m2 () (test code = 7368845544) ANI (test code = ANI) Association of [...] tests). Lab Interpretation Abnormal (test code = 73050-0) [facility] with [id number] 11:30:00 Test Item Value Reference Range Interpretation Comments WBC (test code = See_Comment [Automated 7790-2) message] The sy stem which generated this result transmitted reference range : 4.30 - 11.10 10*3/?L. The reference range was not used to interpret this result as normal/abnormal . RBC (test code = See_Comment L [Automated 969-8) message] The sy stem which generated this [...] RDW-SD (test code = 41.6 fL 39-49.9 24663-9) RDW-CV (test code = 13.3 % 12-15.5 788-0) PLT (test code = See_Comment [Automated 777-3) message] The sy stem which generated this result transmitted reference range : 166 - 358 10*3/ ?L. The reference r claudine was not used to interpret this result as normal/abnormal . MPV (test code = 10.2 fL 9.5-12.9 07582-2) NRBC/100 WBC (test See_Comment [Automat ed code = 8946754761) message] The system which generated this result transmitted reference range : 0.0 - 10.0 /100 WBCs. The refer ence range was not u sed to interpret th is result as normal/abnormal . NRBC x10^3 (test code <0.01 See_Comment [Auto mated = 1291655150) message] The s ystem which generated this result transmitted reference range : 10*3/?L. The reference range was not used to interpret this result as normal/abnormal . GRAN MAT (NEUT) % 77.3 % (test code = 770-8) IMM GRAN % (test code 0.40 % = 8008744398) LYMPH % (test code = 9.9 % 736-9) MONO % (test code = 12.0 % 5905-5) EOS % (test code = 0.2 % 713-8) BASO % (test code = 0.2 % 706-2) GRAN MAT x10^3(ANC) 7.19 10*3/uL 1.88-7.09 H (test code = 9610012122) IMM GRAN x10^3 (test 0.04 10*3/uL 0-0.06 code = 0243165954) LYMPH x10^3 (test code 0.92 10*3/uL 1.32-3.29 L = 731-0) MONO x10^3 (test code 1.12 10*3/uL 0.33-0.92 H = 742-7) EOS x10^3 (test code = <0.03 0.03-0.39 L 711-2) BASO x10^3 (test code <0.03 0.01-0.07 = 704-7) Lab Interpretation Abnormal (test code = 85105-4) [facility] HospitalSatnam [id number] 04:46:00 Test Item Value Reference Range Interpretation Comments TROPONIN I (test 0.943 ng/mL See_Comment H [Automated code = 3089556027) message] The system which generated this result [...] ? Lab Interpretation Abnormal (test code = 46432-1) [facility] HospitalPedrobaptist [facility] hospitalmargoth [id number] 22:17:00 Test Item Value Reference Range Interpretation Comments TROPONIN I (test 0.741 ng/mL See_Comment H [Automated code = 9264112294) message] The system which generated this result [...] ? Lab Interpretation Abnormal (test code = 08098-0) [facility] HospitalThyroid Stimulating Hormone (TSH)2020-10-06 19:34:00 Test Item Value Reference Range Interpretation Comments TSH (test code = See_Comment [Automated message] 5814357223) The system [employer] generated this result transmitted ref erence range: 0.45 - 4 .70 mIU/L. The refe rence range was not u sed to interpret this result as normal/abnor mal. Lab Interpretation (test Normal code = 38934-7) [facility] HospitalTroponin [id number] 19:15:00 Test Item Value Reference Range Interpretation Comments TROPONIN I (test 0.621 ng/mL See_Comment H [Automated code = 2251400437) message] The system which generated this result [...] ? Lab Interpretation Abnormal (test code = 29713-5) [facility] HospitalLipid Panel (Total Cholesterol, Triglycerides, HDL)2020-10-06 19:03:00 Test Item Value Reference Range Interpretation Comments CHOL (test code = 99 mg/dL 120-200 L 2209631262) HDL (test code = 41 mg/dL >50 L 4681577289) HDLC RATIO (test code = See_Comment [Au tomated message] 8310321427) The system [employer] generated this result transmitted ref erence range: <=4.5. T he reference range was not used to int erpret this result as normal/abnormal . TRIG (test code = 64 mg/dL 30-170 7415196677) LDL CHOL (test code = 45 mg/dL See_Comment [Auto mated message] 81790-5) The system [employer] generated this result transmitted ref erence range: <=160. T he reference range was not used to int erpret this result as normal/abnormal . VLDL (test code = 13 mg/dL 5-60 8752718593) Lab Interpretation (test Abnormal code = 82166-9) [facility] HospitalURINALYSIS2020-11-17 17:58:00 Test Item Value Reference Range Interpretation Comments APPEARANCE (test code = Clear Clear 3300126367) COLOR (test code = Straw Yellow A 2041431017) PH (test code = 4.8-8.0 1422289740) SP GRAVITY (test code = 1.003-1.030 8456311448) GLU U QUAL (test code = Normal Normal 4521066914) BLOOD (test code = 2+ Negative A 0694390468) KETONES (test code = Negative Negative 7744941166) PROTEIN (test code = Negative Negative 2887-8) UROBILIN (test code = Normal Normal 9244498258) BILIRUBIN (test code = Negative Negative 6924332340) NITRITE (test code = Negative Negative 8910620573) LEUK RAFY (test code = Negative Negative 5454793582) RBC/HPF (test code = See_Comment [Autom ated message] 3452100885) The system [employer] generated this result transmitted ref erence range: 0 - 3 HP F. The reference range was not used to int erpret this result as normal/abnormal . WBC/HPF (test code = <1 See_Comment [Autom ated message] 4331874074) The system [employer] generated this result transmitted ref erence range: 0 - 5 HP F. The reference range was not used to int erpret this result as normal/abnormal . BACTERIA (test code = Negative Negative 5812480111) SQ EPITH (test code = <1 See_Comment [Auto mated message] 5276297096) The system [employer] generated this result transmitted ref erence range: <=2 HPF. The reference range was not used to int erpret this result as normal/abnormal . Lab Interpretation (test Abnormal code = 06301-2) [facility] HospitalCT [facility] PULMONARY [id number] 14:06:55 No acute pulmonary embolism Right middle [...] reviewed this study and agree with theabove report.General acute hospital 1 [id number] 13:59:33 No acute cardiopulmonary process. Preliminary Report [...] reviewed this study and agree with theabove report.[facility] HospitalSATNAM I 2020-10-06 13:12:00 Test Item Value Reference Range Interpretation Comments TROPONIN I (test 0.718 ng/mL See_Comment H [Automated code = 9720234571) message] The system which generated this result [...] ? Lab Interpretation Abnormal (test code = 41364-6) [facility] HospitalUrinalysis2020-11-17 08:31:00 Test Item Value Reference Range Interpretation Comments APPEARANCE (test code = Clear Clear 2565232232) COLOR (test code = Yellow Yellow 9050101478) PH (test code = 4.8-8.0 6293659825) SP GRAVITY (test code = 1.003-1.030 6885138935) GLU U QUAL (test code = Normal Normal 1243493961) BLOOD (test code = 2+ Negative A 1118138910) KETONES (test code = Negative Negative 5962145957) PROTEIN (test code = 100 mg/dL Negative A 2887-8) UROBILIN (test code = Normal Normal 1959637823) BILIRUBIN (test code = Negative Negative 0835186027) NITRITE (test code = Negative Negative 1053957751) LEUK RAFY (test code = Negative Negative 6252412472) RBC/HPF (test code = See_Comment H [Autom ated message] 5813178471) The system [employer] generated this result transmit dagoberto reference range : 0 - 3 HPF. The refe rence range was not u sed to interpret th is result as normal/abnormal . WBC/HPF (test code = See_Comment [Autom ated message] 0333160699) The system [employer] generated this result transmit dagoberto reference range : 0 - 5 HPF. The refe rence range was not u sed to interpret th is result as normal/abnormal . BACTERIA (test code = Moderate Negative A 5663424581) MUCOUS (test code = Slight Negative LPF A 6700066232) SQ EPITH (test code = HPF 5523934934) Lab Interpretation (test Abnormal code = 66664-3) [facility] HospitalN-TERMINAL [id number] 07:31:00 Test Item Value Reference Range Interpretation Comments NT-proBNP (test code 352 pg/mL See_Comment [Autom ated = 5791000506) message] The system which generated this result transmitted reference range : <=450. The reference range was not used to interpret this result as normal/abnormal . ANI (test code = ANI) Biotin has been reported to cause a negative bias, interpret results relative to patient's use of biotin. Lab Interpretation Normal (test code = 04202-9) [facility] HospitalaPTT2020-11-17 07:17:00 Test Item Value Reference Range Interpretation Comments APTT Patient (test See_Comment H [Automat ed code = 3173-2) message] The system which generated this result transmitted reference range : 23 - 38 Seconds . The reference range was not used to interpr et this result as normal/abnormal . ANI (test code = ANI) The [facility] patient population mean normal value for aPTT is 30 seconds. Lab Interpretation Abnormal (test code = 77878-7) [facility] HospitalPROTHROMBIN TIME / [id number] 07:15:00 Test Item Value Reference Range Interpretation [...] tions. Lab Interpretation (test Normal code = 66411-5) [facility] HospitalCOVID-19 (ID NOW RAPID TESTING)2020-10-06 06:51:00 Test Item Value Reference Range Interpretation Comments SARS-CoV-2 Rapid ID NOW Not Detected Not Detected (test code = 04862-9) ANI (test code = ANI) ID NOW COVID-19 Assay is an isothermal nucleic acid amplification test intended for the qualitative detection of nucleic acid from SARS-CoV-2 viral RNA in nasopharyngeal (APPAREL PATTERNMAKER) specimens. It is used under Emergency Use [...] indicated. Lab Interpretation Normal (test code = 97914-2) [facility] HospitalTROPONIN [id number] 06:46:00 Test Item Value Reference Range Interpretation Comments TROPONIN I (test 0.122 ng/mL See_Comment H [Automated code = 7956970620) message] The system which generated this result [...] ? Lab Interpretation Abnormal (test code = 92622-3) [facility] HospitalCOM. Metabolic Panel (59221)2020-10-06 06:34:00 Test Item Value Reference Range Interpretation Comments NA (test code = 123 mmol/L 135-145 L 0586038837) K (test code = 4.7 mmol/L 3.5-5 2431527199) CL (test code = 92 mmol/L 98-108 L 1430853043) CO2 TOTAL (test code = 23 mmol/L 23-31 0880693763) AGAP (test code = 2-16 2628997892) BUN (test code = 11 mg/dL 7-23 7005280669) GLUCOSE (test code = 125 mg/dL 70-110 H 2593150121) CREATININE (test code = 0.78 mg/dL 0.5-1.04 7320858304) TOTAL BILI (test code = 0.7 mg/dL 0.1-1.5 6420698728) CALCIUM (test code = 8.3 mg/dL 8.6-10.6 L 5589677886) T PROTEIN (test code = 6.7 g/dL 6.3-8.2 2716254059) ALBUMIN (test code = 3.6 g/dL 3.5-5 8504178486) ALK PHOS (test code = 107 U/L 34-122 3188623533) ALTv (test code = 21 U/L 5-35 1742-6) AST(SGOT) (test code = 32 U/L 13-40 7607737609) eGFR Calculation mL/min/1.73m2 (Non-) (test code = 4043726608) eGFR Calculation mL/min/1.73m2 () (test code = 9239589219) ANI (test code = ANI) Association of [...] tests). Lab Interpretation Abnormal (test code = 36068-3) [facility] with [id number] 06:12:00 Test Item Value Reference Range Interpretation Comments WBC (test code = See_Comment H [Automated 3790-2) message] The system which generated this result [...] (test code = 38.7 fL 39-49.9 L 99809-3) RDW-CV (test code = 12.7 % 12-15.5 788-0) PLT (test code = See_Comment [Automated 777-3) message] The system which generated this result transmit dagoberto reference range : 166 - 358 10*3/ ?L. The reference range was not u sed to interpret th is result as normal/abnormal . MPV (test code = 10.3 fL 9.5-12.9 45956-7) NRBC/100 WBC (test See_Comment [Automat ed code = [id number]) message] The system which generated this result transmit dagoberto reference range : 0.0 - 10.0 /100 WBCs. The reference range was not used to interpret this result as normal/abnormal . NRBC x10^3 (test code <0.01 See_Comment [Auto mated = [id number]) message] The system which generated this result transmit dagoberto reference range : 10*3/?L. The reference range was not used to interpret this result as normal/abnormal . GRAN MAT (NEUT) % 93.9 % (test code = 770-8) IMM GRAN % (test code 0.70 % = 7734777091) LYMPH % (test code = 2.2 % 736-9) MONO % (test code = 3.0 % 5905-5) EOS % (test code = 0.1 % 713-8) BASO % (test code = 0.1 % 706-2) GRAN MAT x10^3(ANC) 13.92 10*3/uL 1.88-7.09 H (test code = 8461657686) IMM GRAN x10^3 (test 0.10 10*3/uL 0-0.06 H code = 8292716917) LYMPH x10^3 (test code 0.32 10*3/uL 1.32-3.29 L = 731-0) MONO x10^3 (test code 0.44 10*3/uL 0.33-0.92 = 742-7) EOS x10^3 (test code = <0.03 0.03-0.39 L 711-2) BASO x10^3 (test code <0.03 0.01-0.07 = 704-7) Lab Interpretation Abnormal (test code = 69896-5) [facility] [id number] 06:05:00 Test Item Value Reference Range Interpretation Comments LACTIC ACID (test code = 1.81 mmol/L [id number]) [facility]
[2023-09-19] MEDS ORDERED: MORPHINE 2 MG/ML SYR ONE (01:10)
[2023-09-19] MEDS ORDERED: NA CHLORIDE 0.9% 500 ML ONE (01:10)
[2023-09-19 01:16] LABS: Absolute Lymphocytes (CBC) 1.2 K/uL (0.7-4.9); Lymphocytes % 12.8 % (15.3-44.8); MCV 83.6 fL (80-100); MPV 8.3 fL (7.6-11.3); Platelets 277 thou/uL (152-406); RBC Red Blood Cell Count 3.71 M/uL (3.86-4.86)
[2023-09-19 01:22] LABS: Specific Gravity 1.006 (1.005-1.030); Urine Bacteria <20 /HPF (<20); Urine Bilirubin NEGATIVE (Negative); Urine Blood Trace (Negative); Urine Clarity Turbid (Clear); Urine Color Colorless (Yellow); Urine Glucose NEGATIVE (Negative); Urine Mucus Slight /HPF (None Seen); Urine Protein TRACE (Negative); Urine RBC None Seen /HPF (None Seen); Urine Urobilinogen Normal (Normal); Urine pH 6.5 (5.0-7.0)
[2023-09-19 01:29] LABS: Bilirubin Total 0.2 mg/dL (0.2-1.0); Potassium 3.9 mEq/L (3.5-5.1); Protein, Total 7.5 g/dL (6.4-8.2)
[2023-09-19] MEDS ORDERED: NA CHLORIDE 0.9% 0 ML ONE (03:32)
[2023-09-19] MEDS ORDERED: CIPROFLOXACIN 400mg IV 400 MG/200 ML BAG IV ONE (03:32)
[2023-09-19] MEDS ORDERED: METRONIDAZOLE 500mg IVPB 500 MG/100 ML BAG IV ONE (03:32)
[2023-09-19] MEDS ORDERED: D5.45NS W/KCL 20MEQ 1,000 ML IV ONE (05:13)
--- NOTE | 2023-09-19 05:57 | ER ---
Nurse's Notes [facility] Name: Ramandeep Renner Age: 88 yrs Sex: Female : 1935 Arrival Date: 09/18/2023 Time: 23:28 Bed 20 Private MD: Diagnosis: Unspecified acute appendicitis;Acute non perforated appendicitis Presentation: 09/18 23:46 Chief complaint: Patient states: RLQ PAIN x2 WK, DENIES N/V/D. Coronavirus screen: At bp this time, the client does not indicate any symptoms associated with coronavirus-19. Ebola Screen: No symptoms or risks identified at this time. Initial Sepsis Screen: Does the patient meet any 2 criteria? No. Patient's initial sepsis screen is negative. Does the patient have a suspected source of infection? No. Patient's initial sepsis screen is negative. Risk Assessment: Do you want to hurt yourself or someone else? Patient reports no desire to harm self or others. Onset of symptoms is unknown. 23:46 Method Of Arrival: Ambulatory bp 23:46 Acuity: WILFRIDO 3 bp Triage Assessment: 23:47 General: Appears uncomfortable, Behavior is calm, cooperative, appropriate for age. bp Pain: Complains of pain in right lower quadrant. GI: Reports lower abdominal pain. Historical: - Allergies: 23:47 PENICILLINS; bp - PMHx: 23:47 Bowel problem; Glaucoma; Hypercholesterolemia; Hypertensive disorder; lung cancer bp remission; - PSHx: 23:47 Cholecystectomy; Colon; hysterectomy; Knee Surgery (R); bp - Immunization history:: Adult Immunizations up to date. - Social history:: Smoking status: Patient denies any tobacco usage or history of. - Family history:: pertinent for. Screenin/31 01:10 [facility] ED Fall Risk Assessment (Adult) History of falling in the last 3 months, nw1 including since admission No falls in past 3 months (0 pts) Confusion or Disorientation No (0 pts) Intoxicated or Sedated No (0 pts) Impaired Gait No (0 pts) Mobility Assist Device Used No (0 pt) Altered Elimination No (0 pt) Score/Fall Risk Level 0 - 2 = Low Risk Oriented to surroundings, Maintained a safe environment, Educated pt \T\ family on fall prevention, incl call for assistance when getting out of bed, Assessed \T\ reinforced patient's understanding of fall precautions, Provided non-skid footwear, Hourly rounding (assess needs \T\ fall precautionary measures) done, Used ambulatory aids as needed (educated on \T\ assisted with). Abuse screen: Denies threats or abuse. Denies injuries from another. Nutritional screening: No deficits noted. Tuberculosis screening: No symptoms or risk factors identified. Assessment: 01:10 General: Appears in no apparent distress. Behavior is calm, cooperative, appropriate nw1 for age. Pain: Complains of pain in abdomen and right lower quadrant Pain does not radiate. Pain currently is 4 out of 10 on a pain scale. Quality of pain is described as aching, Pain began 2 WEEKS. Cardiovascular: No deficits noted. Respiratory: No deficits noted. GI: Bowel sounds present X 4 quads. Abdomen is tender to palpation in right lower quadrant. Musculoskeletal: No signs and/or symptoms reported regarding the musculoskeletal system. 04:40 General: granddaughter Maureen [phone]. lg3 05:13 Reassessment: Daughters at bedside. nw1 06:33 Reassessment: Hospital bed placed in room for patient's comfort. nw1 07:15 Reassessment: No changes from previously documented assessment. Patient and/or family mb9 updated on plan of care and expected duration. Pain level reassessed. Patient is alert, oriented x 3, equal unlabored respirations, skin warm/dry/pink. 08:37 Reassessment: No changes from previously documented assessment. Patient and/or family mb9 updated on plan of care and expected duration. Pain level reassessed. Patient is alert, oriented x 3, equal unlabored respirations, skin warm/dry/pink. Patient denies pain at this time. 09:33 Reassessment: Patient and/or family updated on plan of care and expected duration. Pain mb9 level reassessed. Patient is alert, oriented x 3, equal unlabored respirations, skin warm/dry/pink. Patient denies pain at this time. Patient states feeling better. 10:02 Reassessment: Report given to OR nurse Laura RN. mb9 Vital Signs: 09/18 23:46 BP 142 / 57; Pulse 79; Resp 16; Temp 98.1; Pulse Ox 97% ; bp 09/19 01:10 BP 145 / 64; Pulse 71; Resp 15; Pulse Ox 99% on R/A; nw1 02:27 BP 155 / 72; Pulse 77; Resp 14; Pulse Ox 100% on R/A; nw1 03:23 BP 157 / 68; Pulse 78; Resp 15; Pulse Ox 95% on R/A; nw1 04:37 BP 165 / 98; Pulse 87; Resp 14; Pulse Ox 99% on R/A; nw1 04:45 Weight 58.5 kg; lg3 05:12 BP 153 / 76; Pulse 81; Resp 14; Pulse Ox 99% on R/A; nw1 06:20 BP 140 / 62; Pulse 75; Resp 14; Pulse Ox 98% on R/A; nw1 08:38 BP 147 / 63; Pulse 73; Resp 14; Pulse Ox 99% on R/A; mb9 Vitals: 01:10 Cardiac Rhythm Assessment Regular Sinus rhythm. nw1 [place] Coma Score: 01:10 Eye Response: spontaneous(4). Motor Response: obeys commands(6). Verbal Response: nw1 oriented(5). Total: 15. ED Course: 09/18 23:33 Patient arrived in ED. jj6 23:35 Yonatan Quiñones PA is PHCP. cp 23:35 Rony Mckenzie MD is Attending Physician. cp 23:47 Triage completed. bp 23:47 Arm band placed on. bp 09/19 00:31 Lydia Renner, RN is Primary Nurse. nw1 00:50 CBC with Diff Sent. nw1 00:50 CMP Sent. nw1 00:50 Lipase Sent. nw1 00:50 Urinalysis w/ reflexes Sent. nw1 00:50 Lactate w/ 2H reflex if indic. Sent. nw1 01:10 Patient has correct armband on for positive identification. Placed in gown. Bed in low nw1 position. Call light in reach. Side rails up X2. Provided Education on: POC. 01:10 No provider procedures requiring assistance completed. Inserted saline lock: 20 gauge nw1 in left antecubital area, using aseptic technique. Blood collected. 01:17 Lactate w/ 2H reflex if indic. Sent. nw1 01:17 CBC with Diff Sent. nw1 01:17 CMP Sent. nw1 01:17 Lipase Sent. nw1 01:17 Urinalysis w/ reflexes Sent. nw1 01:57 CT Abd/Pelvis - IV Contrast Only In Process Unspecified. EDMS 04:40 Initiated transfer with Deborah at [facility]. rv1 04:54 Pt declined to [facility] due to capacity. rv1 05:13 Initiated transfer with Sadie at [facility]. rv1 05:53 Transfer canceled due to Dr. Sparrow deciding to keep pt here. rv1 05:54 Jose G Larsen MD is Hospitalizing Provider. sp4 05:57 Hospitalizing Provider role handed off by Jose G Larsen MD sp4 05:57 Ben Wilkerson is Hospitalizing Provider. sp4 06:35 Patient admitted, IV remains in place. nw1 Administered Medications: 01:17 Drug: morphine IVP or IV 2 mg IVP once over 4 mins Route: IVP; Infused Over: 4 mins; nw1 Site: left antecubital; 05:35 Follow up: Response: No adverse reaction; Pain is decreased nw1 01:17 Drug: NS 0.9% IV 500 ml IV at 100 ml/hr once Route: IV; Rate: 100 ml/hr; Site: left nw1 antecubital; 05:35 Follow up: Response: No adverse reaction; IV Status: Completed infusion nw1 03:29 Drug: metroNIDAZOLE IVPB 500 mg 100 ml IVPB once over 30 mins Volume: 100 ml; Route: nw1 IVPB; Infused Over: 30 mins; Site: left antecubital; 05:34 Follow up: Response: No adverse reaction; IV Status: Completed infusion nw1 08:37 Follow up: Response: No adverse reaction; IV Status: Completed infusion mb9 04:36 Drug: Ciprofloxacin IVPB 400 mg 200 ml IVPB once over 60 mins Volume: 200 ml; Route: nw1 IVPB; Infused Over: 60 mins; Site: left forearm; 05:34 Follow up: Response: No adverse reaction; IV Status: Completed infusion nw1 05:09 Drug: D5-1/2 NS with KCl IV 20 mEq/L 1000 ml IV at 100 ml/hr continuous Route: IV; nw1 Rate: 100 ml/hr; Site: left forearm; 06:34 Follow up: IV Status: Infusion continued nw1 Medication: 01:10 VIS not applicable for this client. nw1 Outcome: 05:56 Decision to Hospitalize by Provider. sp4 06:20 Admitted to ER Hold. Please see [facility] for further documentation. nw1 06:20 Condition: stable 06:20 Instructed on the need for admit, 10:11 Patient left the ED. mb9 Signatures: Dispatcher [employer] EDMS Yonatan Quiñones PA PA cp Peltier, Brian, RN RN bp Aleyda Car RN RN lg3 Kristie Mcgee6 Jeffrey, Maureen Crawford RN RN mb9 Rachael Ervin Sergey, MD MD sp4 Lydia Renner RN RN nw1 Corrections: (The following items were deleted from the chart) :22 06:20 BP 155 / 56; Pulse 75bpm; Resp 14bpm; Pulse Ox 98% RA; nw1 nw1
--- NOTE | 2023-09-19 05:57 | EDPHYS ---
Physician Documentation [facility] Name: Ramandeep Renner Age: 88 yrs Sex: Female : 1935 Arrival Date: 09/18/2023 Time: 23:28 Bed 20 Private MD: ED Physician Rony Mckenzie HPI: 09/19 01:00 This 88 yrs old Female presents to ER via Ambulatory with complaints of cp Abdominal Pain. 01:00 The patient presents with abdominal pain right lower quadrant. cp 01:00 Onset: The symptoms/episode began/occurred 1 week(s) ago, and became persistent cp yesterday. 01:00 The symptoms do not radiate. Associated signs and symptoms: Pertinent negatives: cp anorexia, blood in stools, chest pain, constipation, diarrhea, dysuria, fever, shortness of breath, vomiting. The symptoms are described as constant. Severity of pain: in the emergency department the pain is unchanged despite home interventions. 04:42 Patient care was assumed from physician switchboard operator assistant at 3:30 in the morning. Patient sp4 presents with roughly 1 week of right lower quadrant abdominal pain that is worsening. Denied any other symptoms such as fever or vomiting.. Historical: - Allergies: 09/18 23:47 PENICILLINS; bp - PMHx: 23:47 Bowel problem; Glaucoma; Hypercholesterolemia; Hypertensive disorder; lung cancer bp remission; - PSHx: 23:47 Cholecystectomy; Colon; hysterectomy; Knee Surgery (R); bp - Immunization history:: Adult Immunizations up to date. - Social history:: Smoking status: Patient denies any tobacco usage or history of. - Family history:: pertinent for. ROS: 09/19 01:05 Constitutional: Negative for body aches, chills, fever, poor PO intake, cp 01:05 ENT: Negative for drainage from ear(s), ear pain, sore throat, difficulty swallowing, cp difficulty handling secretions, 01:05 Cardiovascular: Negative for chest pain, edema, palpitations, 01:05 Respiratory: Negative for cough, shortness of breath, wheezing, 01:05 Abdomen/GI: Positive for abdominal pain, of the right lower quadrant, Negative for vomiting, diarrhea, constipation, 01:05 : Negative for urinary symptoms, 01:05 Neuro: Negative for altered mental status, dizziness, headache, syncope, weakness, 01:05 All other systems are negative, 04:44 Constitutional: Negative for fever, chills, and weight loss, sp4 Exam: 01:10 Constitutional: The patient appears in no acute distress, alert, awake, cp non-diaphoretic, non-toxic, well developed, well nourished, 01:10 Head/Face: Normocephalic, atraumatic. cp 01:10 Eyes: Periorbital structures: appear normal, Conjunctiva: normal, no exudate, no injection, Sclera: no appreciated abnormality, Lids and lashes: appear normal, bilaterally, 01:10 ENT: External ear(s): are unremarkable, Nose: is normal, Mouth: Lips: moist, Oral mucosa: pink and intact, moist, Posterior pharynx: is normal, airway is patent, no erythema, no exudate, 01:10 Chest/axilla: Inspection: normal, :10 Cardiovascular: Rate: normal, Rhythm: regular, 01:10 Respiratory: the patient does not display signs of respiratory distress, Respirations: normal, no use of accessory muscles, no retractions, labored breathing, is not present, Breath sounds: are clear throughout, no decreased breath sounds, no stridor, no wheezing, 01:10 Abdomen/GI: Inspection: distension, that is moderate, Bowel sounds: active, all quadrants, Palpation: soft, in all quadrants, moderate abdominal tenderness, in the right lower quadrant, 01:10 Back: pain, is absent, ROM is normal, :10 Skin: cellulitis, is not appreciated, no rash present. 01:10 Neuro: Orientation: to person, place \T\ time. Mentation: is normal, Motor: moves all fours, strength is normal, Gait: is steady, Vital Signs: 09/18 23:46 BP 142 / 57; Pulse 79; Resp 16; Temp 98.1; Pulse Ox 97% ; bp 09/19 01:10 BP 145 / 64; Pulse 71; Resp 15; Pulse Ox 99% on R/A; nw1 02:27 BP 155 / 72; Pulse 77; Resp 14; Pulse Ox 100% on R/A; nw1 03:23 BP 157 / 68; Pulse 78; Resp 15; Pulse Ox 95% on R/A; nw1 04:37 BP 165 / 98; Pulse 87; Resp 14; Pulse Ox 99% on R/A; nw1 04:45 Weight 58.5 kg; lg3 05:12 BP 153 / 76; Pulse 81; Resp 14; Pulse Ox 99% on R/A; nw1 06:20 BP 140 / 62; Pulse 75; Resp 14; Pulse Ox 98% on R/A; nw1 08:38 BP 147 / 63; Pulse 73; Resp 14; Pulse Ox 99% on R/A; mb9 Bc Coma Score: 01:10 Eye Response: spontaneous(4). Motor Response: obeys commands(6). Verbal Response: nw1 oriented(5). Total: 15. MDM: 09/18 23:56 Patient medically screened. cp 09/19 01:00 Differential diagnosis: appendicitis, diverticulitis, gastritis, non-specific abd pain, cp Peritonitis, Pyelonephritis, Ureterolithiasis, urinary tract infection, colitis. 03:05 Data reviewed: vital signs, nurses notes, lab test result(s), radiologic studies, CT cp scan. 03:33 Management of patient was discussed with the following: Veneer Puller: DR Andrews cp general surgery, who requests transfer for colorectal surgeon evaluation. 04:42 ED course: CT report - THIS REPORT CONTAINS FINDINGS THAT MAYBE CRITICAL TO PATIENT sp4 CARE: The findings were verbally discussed via telephone conference with Dr. Yonatan Quiñones by Dr. Prosper Andrea on 09/19/2023 2:46 AM CDT .The results were acknowledged and understood. Electronically signed by: Prosper Andrea MD 09/19/2023 2:46 AM CDT End of Addendum EXAM: CTAbdomen and Pelvis With Intravenous Contrast COMPARISON: CT abdomen and pelvis with contrast March 30, 2020 FINDINGS: Lung bases: Bibasilar atelectasis. ABDOMEN: Liver: Multiple cysts in the liver measuring up to 1.3 cm. Gallbladder and bile ducts: Gallbladder is surgically absent. Mild intrahepatic and extrahepatic biliary dilatation which may be due to prior cholecystectomy. Pancreas: Slightly hypoattenuating and possibly cystic appearance to the pancreatic head, similar to prior. No ductal dilation. Spleen: Calcified granuloma in the spleen. Adrenals: Unremarkable. No mass. Kidneys and ureters: Multiple simple appearing renal cysts bilaterally measuring up to 7 cm in the left kidney. No follow-up imaging is recommended. No hydronephrosis. Stomach and bowel: Nodular soft tissue densities in the right lower quadrant adjacent to the colon measuring up to 3.3 cm. Colonic diverticulosis. No obstruction. No mucosal thickening. PELVIS: Appendix: Dilated luminal structure in the right lower quadrant measuring up to 2 cm in diameter with mild adjacent stranding. Bladder: Unremarkable. Reproductive: Unremarkable as visualized. ABDOMEN and PELVIS: Intraperitoneal space: See below. Bones/joints: Cysts with bony expansion of the sacral neural foramina, similar to prior. Disc space narrowing with degenerative endplate changes in the spine. 7 mm of anterolisthesis of L5 on S1. No acute fracture. No dislocation. Soft tissues: Clips in the right abdomen. Vasculature: Scattered atherosclerotic vascular calcifications. No abdominal aortic aneurysm. Lymph nodes: Unremarkable. No enlarged lymph nodes. IMPRESSION: 1. Dilated luminal structure in the right lower quadrant measuring up to 2 cm in diameter with mild adjacent stranding. Findings are concerning for acute appendicitis. 2. Nodular soft tissue densities in the right lower quadrant adjacent to the colon measuring up to 3.3 cm. Finding is concerning for metastatic disease. Correlate with any history of malignancy. 3. Gallbladder is surgically absent. 4. Mild intrahepatic and extrahepatic biliary dilatation which may be due to prior cholecystectomy. 5. Slightly hypoattenuating and possibly cystic appearance to the pancreatic head, similar to prior. 6. Colonic diverticulosis. . 04:46 ED course: Patient has a history of partial colon resection of the colon perforation sp4 06/23/2017 along with cholecystectomy. Today patient is here for right lower quadrant abdominal pain over the course of [address] has revealed dilated luminal structure in the right lower quadrant concerning for acute appendicitis, also nodular soft tissue densities in the right lower quadrant adjacent to the colon measuring up to 3.3 cm with findings concerning for metastatic disease. Surgically absent gallbladder, mild hepatic biliary dilatation, slightly hypoattenuating cystic pancreatic head, colonic diverticulosis.. ED course: Patient was discussed with general surgeon Dr. Sparrow who reports that the patient warrants higher level of care possibly colorectal surgery. We will attempt to transfer this patient to [facility] for higher level of care and evaluation by surgery team there.. 09/19 00:21 Order name: CBC with Diff; Complete Time: 01:38 cp 09/19 01:38 Interpretation: Normal except: RBC 3.71; HGB 10.2; HCT 31.0; LYM% 12.8. cp 09/19 00:21 Order name: CMP; Complete Time: 01:38 cp 09/19 01:38 Interpretation: Normal except: GLUC 147; GFR 59; AST 14; ALB 3.0; GLOB 4.5; A/G 0.7. cp 09/19 00:21 Order name: Lipase; Complete Time: 01:38 cp 09/19 00:21 Order name: Urinalysis w/ reflexes; Complete Time: 01:38 cp 09/19 01:39 Interpretation: Normal except: [facility] Turbid; UBLD Trace; UPROT TRACE; UESTR 500. cp 09/19 00:21 Order name: Lactate w/ 2H reflex if indic.; Complete Time: 01:38 cp 09/19 00:21 Order name: CT Abd/Pelvis - IV Contrast Only cp 09/19 06:14 Order name: CONS Physician Consult EDMS 09/19 00:21 Order name: IV Saline Lock; Complete Time: 00:50 cp 09/19 00:21 Order name: Labs collected and sent; Complete Time: 00:50 cp 09/19 03:01 Order name: NPO; Complete Time: 03:17 cp Administered Medications: 01:17 Drug: morphine IVP or IV 2 mg IVP once over 4 mins Route: IVP; Infused Over: 4 mins; Site: left antecubital; 05:35 Follow up: Response: No adverse reaction; Pain is decreased 01:17 Drug: NS 0.9% IV 500 ml IV at 100 ml/hr once Route: IV; Rate: 100 ml/hr; Site: left nw antecubital; 05:35 Follow up: Response: No adverse reaction; IV Status: Completed infusion 03:29 Drug: metroNIDAZOLE IVPB 500 mg 100 ml IVPB once over 30 mins Volume: 100 ml; Route: nw1 IVPB; Infused Over: 30 mins; Site: left antecubital; 05:34 Follow up: Response: No adverse reaction; IV Status: Completed infusion 08:37 Follow up: Response: No adverse reaction; IV Status: Completed infusion 9 04:36 Drug: Ciprofloxacin IVPB 400 mg 200 ml IVPB once over 60 mins Volume: 200 ml; Route: nw1 IVPB; Infused Over: 60 mins; Site: left forearm; 05:34 Follow up: Response: No adverse reaction; IV Status: Completed infusion nw1 05:09 Drug: D5-1/2 NS with KCl IV 20 mEq/L 1000 ml IV at 100 ml/hr continuous Route: IV; nw1 Rate: 100 ml/hr; Site: left forearm; 06:34 Follow up: IV Status: Infusion continued nw1 Disposition: 03:46 Co-signature as Attending Physician, Rony Mckenzie MD I agree with the assessment sp4 and plan of care. I reviewed the patient's care provided by Advanced Practice Provider \T\ agree w/ the diagnosis \T\ care plan. I personally saw the pt \T\ performed a substantive portion of the visit, incldng all aspects of the (History/Exam/Medical Decision Making). Disposition Summary: 09/19/23 05:56 Hospitalization Ordered Notes: Hospitalization Status: Inpatient Admission sp4 Condition: Fair sp4 Problem: new sp4 Symptoms: have improved sp4 Bed/Room Type: Standard sp4 Location: [facility] ER HOLD(09/19/23 05:57) Room Assignment: ERHOLD-(09/19/23 05:57) Provider: Ben Wilkerson(09/19/23 05:57) sp4 Diagnosis - Unspecified acute appendicitis sp4 - Acute non perforated appendicitis sp4 Discharge Instructions: - Discharge Summary Sheet rv1 Forms: - SBAR form rv1 - Medication Reconciliation Form sp4 - Leadership Thank You Letter sp4 Signatures: Dispatcher [employer] Tessa Vail RN RN kl Page, Corey, PA PA cp Peltier, Brian, RN RN bp Potepalov, Sergey, MD MD sp4 Lydia Renner RN RN nw1 Maureen Murphy RN mb9 Corrections: (The following items were deleted from the chart) 03:46 01:00 The patient presents with abdominal pain in the left lower quadrant, cp cp 05:57 05:56 Jose G Larsen sp4 sp4 05:57 05:56 Telemetry/MedSurg (Inpatient) sp4 kl 05:57 05:56 sp4 kl
--- NOTE | 2023-09-19 06:12 | P.HP ---
Certification for Inpatient Patient admitted to: Inpatient With expected LOS: <2 Midnights Patient will require the following post-hospital care: None Practitioner: I am a practitioner with admitting privileges, knowledge of patient current condition, hospital course, and medical plan of care. Services: Services provided to patient in accordance with Admission requirements found in Title 42 Section 412.3 of the Code of Federal Regulations <Rosa Maria Seymour - Last Filed: 09/19/23 18:18> Patient History Date of Service: 09/19/23 Reason for admission: Abdominal pain History of Present Illness: 88-year-old female with a past medical history of hypertension, hyperlipidemia, lung cancer, in remission, bowel problems, presents to the emergency room with right lower quadrant pain. She reports symptoms started 1 week ago. She reports symptoms are constant. She reports right lower quadrant pain is progressively getting worse. She denies nausea vomiting diarrhea, fever. Plan to admit for appendicitis, nonperforated appendicitis Case discussed with Dr. Sparrow prior to admission. CT EXAM: CTAbdomen and Pelvis With Intravenous Contrast COMPARISON: CT abdomen and pelvis with contrast March 30, 2020 FINDINGS: Lung bases: Bibasilar atelectasis. ABDOMEN: Liver: Multiple cysts in the liver measuring up to 1.3 cm. Gallbladder and bile ducts: Gallbladder is surgically absent. Mild intrahepatic and extrahepatic biliary dilatation which may be due to prior cholecystectomy. Pancreas: Slightly hypoattenuating and possibly cystic appearance to the pancreatic head, similar to prior. No ductal dilation. Spleen: Calcified granuloma in the spleen. Adrenals: Unremarkable. No mass. Kidneys and ureters: Multiple simple appearing renal cysts bilaterally measuring up to 7 cm in the left kidney. No follow-up imaging is recommended. No hydronephrosis. Stomach and bowel: Nodular soft tissue densities in the right lower quadrant adjacent to the colon measuring up to 3.3 cm. Colonic diverticulosis. No obstruction. No mucosal thickening. PELVIS: Appendix: Dilated luminal structure in the right lower quadrant measuring up to 2 cm in diameter with mild adjacent stranding. Bladder: Unremarkable. Reproductive: Unremarkable as visualized. ABDOMEN and PELVIS: Intraperitoneal space: See below. Bones/joints: Cysts with bony expansion of the sacral neural foramina, similar to prior. Disc space narrowing with degenerative endplate changes in the spine. 7 mm of anterolisthesis of L5 on S1. No acute fracture. No dislocation. Soft tissues: Clips in the right abdomen. Laboratory evaluation no leukocytosis normocytic anemia 10.2 31.0, potassium, electrolytes within normal limits hypoalbumin 3.0 UA positive for leukoesterase greater than 500 - Past Medical/Surgical History Diabetic: No -: CVA -: hemorroids -: PE -: renal cyst -: HTN -: cholecystectomy -: colon surgery -: hysterectomy -: knee surgery - Family History Father -: Hypertension - Social History Alcohol use: No CD- Drugs: No Caffeine use: Yes <Rosa Maria Seymour - Last Filed: 09/19/23 18:18> Date of Service: 09/19/23 <kishan escamilla - Last Filed: 09/19/23 18:37> Allergies Penicillins Allergy (Verified 04/21/22 09:42) Unknown Home Medications: Aspirin 81 mg PO DAILY 05/06/19 Atorvastatin Calcium [Lipitor] 20 mg PO DAILY 05/06/19 lisinopriL [Prinivil] 20 mg PO DAILY 05/06/19 Amlodipine Besylate [Norvasc] 2.5 mg PO DAILY 04/21/22 Folic Acid 1 mg PO DAILY 04/21/22 Meclizine HCl 25 mg PO PRN PRN 04/21/22 Review of Systems 10-point ROS is otherwise unremarkable <Rosa Maria Seymour - Last Filed: 09/19/23 18:18> Physical Examination - Physical Exam General: Alert, In no apparent distress, Oriented x3 HEENT: Atraumatic, Normocephalic Neck: Supple, 2+ carotid pulse no bruit, JVD not distended Respiratory: Clear to auscultation bilaterally, Normal air movement Cardiovascular: No edema, Normal pulses, Regular rate/rhythm Gastrointestinal: Normal bowel sounds, Tenderness (Right lower quadrant tenderness) Musculoskeletal: No clubbing, No swelling Neurological: Normal gait, Normal speech, Normal strength at 5/5 x4 extr - Studies Laboratory Data (last 24 hrs) 09/19/23 09/19/23 00:46 00:46 WBC 9.60 Hgb 10.2 L Hct 31.0 L Plt Count 277 Sodium 137 Potassium 3.9 BUN 13 Creatinine 0.93 Glucose 147 H Total Bilirubin 0.2 AST 14 L ALT 13 Alkaline Phosphatase 103 Lipase 47 <Rosa Maria Seymour - Last Filed: 09/19/23 18:18> - Studies Laboratory Data (last 24 hrs) 09/19/23 09/19/23 00:46 00:46 WBC 9.60 Hgb 10.2 L Hct 31.0 L Plt Count 277 Sodium 137 Potassium 3.9 BUN 13 Creatinine 0.93 Glucose 147 H Total Bilirubin 0.2 AST 14 L ALT 13 Alkaline Phosphatase 103 Lipase 47 <kishan escmailla - Last Filed: 09/19/23 18:37> Assessment and Plan - Plan Assessment plan appendicitis, nonperforated appendicitis Case discussed with Dr. Sparrow prior to admission. IV Flagyl, Zosyn, as needed analgesics, antiemetics Dr. Capellan consulted for cardiology clearance prior to surgery CT EXAM: CTAbdomen and Pelvis With Intravenous Contrast COMPARISON: CT abdomen and pelvis with contrast March 30, 2020 FINDINGS: Lung bases: Bibasilar atelectasis. ABDOMEN: Liver: Multiple cysts in the liver measuring up to 1.3 cm. Gallbladder and bile ducts: Gallbladder is surgically absent. Mild intrahepatic and extrahepatic biliary dilatation which may be due to prior cholecystectomy. Pancreas: Slightly hypoattenuating and possibly cystic appearance to the pancreatic head, similar to prior. No ductal dilation. Spleen: Calcified granuloma in the spleen. Adrenals: Unremarkable. No mass. Kidneys and ureters: Multiple simple appearing renal cysts bilaterally measuring up to 7 cm in the left kidney. No follow-up imaging is recommended. No hydronephrosis. Stomach and bowel: Nodular soft tissue densities in the right lower quadrant adjacent to the colon measuring up to 3.3 cm. Colonic diverticulosis. No obstruction. No mucosal thickening. PELVIS: Appendix: Dilated luminal structure in the right lower quadrant measuring up to 2 cm in diameter with mild adjacent stranding. Bladder: Unremarkable. Reproductive: Unremarkable as visualized. ABDOMEN and PELVIS: Intraperitoneal space: See below. Bones/joints: Cysts with bony expansion of the sacral neural foramina, similar to prior. Disc space narrowing with degenerative endplate changes in the spine. 7 mm of anterolisthesis of L5 on S1. No acute fracture. No dislocation. Soft tissues: Clips in the right abdomen. Normocytic anemia normocytic anemia 10.2 31.0, Trend H&H Hypoalbuminemia hypoalbumin 3.0 Acute cystitis UA positive for leukoesterase greater than 500 On Zosyn and Flagyl hypertension hyperlipidemia lung cancer, in remission Resume appropriate home medications Full code N.p.o. for surgery SCDs DVT per surgery Discharge Plan: Home Plan to discharge in: 48 Hours - Advance Directives Does patient have a Living Will: No Does patient have a Durable POA for Healthcare: No - Code Status/Comfort Care Code Status: Full Code Physician Review: Patient Assessed, Agree with Above Assessment and Plan Critical Care: No Time Spent Managing Pts Care (In Minutes): 50 <Rosa Maria Seymour - Last Filed: 09/19/23 18:18> - Plan Patient seen and evaluated. She was seen by general surgery Dr. Sparrow performed emergent laparoscopic exploration, converted to exploratory laparotomy with colon resection, lysis of adhesions, biopsy of mesenteric mass, and appendectomy. Patient noted to be hypotensive postop with low urine output. Status post 3.5 L of bolus Ringer's lactate. Patient is somnolent and cannot provide any subjective complaint. Start Levophed drip to maintain MAP greater than 65 Pain management as needed Broad-spectrum antibiotic-IV Zosyn. Monitor urine output Monitor renal function. Anticipating prolonged n.p.o. status and prolonged hospital stay. Prognosis is guarded. <kishan escamilla - Last Filed: 09/19/23 18:37>
[2023-09-19] MEDS ORDERED: propofoL 200 MG/20 ML VIAL IV ONE (10:27)
[2023-09-19] MEDS ORDERED: FENTANYL CITR 100 MCG/2 ML ONE ×2 (10:27→13:30)
[2023-09-19] MEDS ORDERED: ROCURONIUM 50 MG/5 ML VIAL IV ONE (10:28)
[2023-09-19] MEDS ORDERED: LIDOCAINE 2% MPF 5 ML VIAL ONE (10:28)
[2023-09-19] MEDS ORDERED: ONDANSETRON 4 MG/2 ML VIAL ONE (10:28)
[2023-09-19] MEDS ORDERED: Ringers Lactate 1,000 ML IV ONE ×4 (10:33→17:39)
[2023-09-19] MEDS ORDERED: VECURONIUM 10 MG/VIAL IV ONE (11:56)
[2023-09-19] MEDS ORDERED: NS 0.9% VIAL 10 ML ONE ×2 (11:56→13:52)
[2023-09-19] MEDS ORDERED: EPHEDRINE SULF 50 MG/ML VIAL ONE ×2 (12:01→13:40)
[2023-09-19] MEDS ORDERED: dexAMETHasone 10 MG/ML VIAL ONE (13:24)
[2023-09-19] MEDS ORDERED: EPINEPHRINE/PF 1 MG/ML AMP ONE (13:24)
[2023-09-19] MEDS ORDERED: BUPIVACAINE 0.25% PF 30 ML VIAL ONE (13:25)
[2023-09-19] MEDS: PIPER TAZO 3.375 GM in NA CHLORIDE 0.9% 100 ML IV SCH ×2 (13:52→20:56)
[2023-09-19] MEDS ORDERED: ONDANSETRON 4 MG/2 ML VIAL IV PRN (13:52)
[2023-09-19] MEDS ORDERED: Phenylephrine HCl 10 MG/ML 1 ML VIAL ONE (13:52)
[2023-09-19] MEDS: METRONIDAZOLE 500mg IVPB 500 MG/100 ML BAG IV SCH ×2 (13:52→20:56)
[2023-09-19] MEDS ORDERED: NA CHLORIDE 0.9% 1,000 ML IV SCH ×2 (13:52→18:38)
[2023-09-19] MEDS ORDERED: NS 0.9% VIAL 20 ML ONE (14:38)
--- NOTE | 2023-09-19 14:59 | CON ---
Date of Consultation: 09/19/2023 Reason For Service: Right lower quadrant pain. History Of Present Illness: This is the case of an 88-year-old patient, who came this morning to the ER complaining of right lower quadrant abdominal pain. She has been having some pain on and off for the last several months, but last night, it got worse and went mainly to the right lower quadrant. During the workup, the ER physician found person to have some findings on a CAT scan that correlated with acute appendicitis, also some other findings that may correlate to prior surgeries and also prio r tumors. At this moment, when she came up from 3 o'clock to 5 o'clock in the morning, we could not get the story from her directly. We went back to medical records, but the medical records in this in stitution go up to so much. This morning with the help of daughter and patient and also contribution from the other surgeons including Dr. Jeffery, they patient in 2004, which is almost 20 yea rs ago. We were able to use his records and pathology report to try to get information. The patient states she has colon cancer, but she heard that, but never had any surgery for that, she says that t nickie told her that she has eventually a polyp that has some premalignancy on it. What I am trying to explain is that apparently she had in 2004 a colonoscopy that required a biopsy of a polyp by gastroe nterologist. Two days later, she was found to have a perforation of the transverse colon on the area of the polyp. I discussed the case with the surgeon, who was present at that moment in 2004, who ki ndly gave the information that at that moment a partial transverse colon resection and xiomara stomosis and that was it. I do not have any information about any cancer at that moment. The only i nformation I have from the pathologist is that the same surgeon one in 2017 performed a cholecystecto my on this patient encountering a lot of adhesions, but he was able to do the surgery. I came to the case because the person preferred me to do the case or the surgeon who is confectionery laboratory manager, not to call the p revious surgeon itself and that is how, I get involved in the case since I am confectionery laboratory manager. The patient h as no problems in the past. She just want to try somebody new and I happened to be the one around. She does not want to go to at this moment. She stated that she has not had a colonoscopy since she was 69 years old because her doctor told her that "she was too old to continue doing them." So, we have no idea of the findings on the CAT scan and the value of that and the findings are refe rring to. On the report of the CAT scan it says in impression, dilated luminal structure in the righ t lower quadrant, where she is having the pain, measuring up to 2 cm in diameter with adjacent strand ing, findings concerning for acute appendicitis but in item #2 they say another large soft tissue den sity in the right lower quadrant adjacent to the colon measuring about 3.3 cm. Findings are concerni ng for metastatic disease. Correlate with any history of malignancy and then it goes around also and says cystic appearance of the pancreatic head similar to the prior CT scan. Past Medical History: CVA, hemorrhoid, pulmonary emboli, renal cyst, hypertension. Past Surgical History: Hysterectomy, knee surgery, cholecystectomy, and also transverse colon resect ion in 2004 for a perforation of the colon after a polypectomy. Family History: Includes father with hypertension. Social History: She does not smoke. She does not drink alcohol. Medications: Norvasc, folic acid, aspirin, Lipitor, Prinivil. Review of Systems: Gastrointestinal: Right lower quadrant tenderness. No dysuria, hematuria, hematochezia, or melena. No recent traveling out of the country. No family member sick at home. Once again, no colonoscopy since she was 69s. Extremities: Good capillary refill. Rectal: Deferred. Breasts: Deferred. Laboratory Data: Blood work shows WBC count of 9.6, hemoglobin of 10.2, and platelets of 277. Sodiu m is 137, potassium 3.9. Lipase 47. CAT scan of the abdomen and pelvis already discussed above and also discussed with the patient. Assessment: Acute appendicitis. We may encounter multiple intraabdominal adhesions from multiple in traabdominal surgeries. As we described in the beginning of this dictation, the history there the be st we can assemble with her information that she can remember, the daughter, and also with the inform ation from the limitation that we have in our chart. The appendicitis is the one of greatest concern at this moment. She might need workup for the rest of the findings as an outpatient unless we encou nter they are tangled together and then, we may have to do a bowel resection, possible ostomy, extens lluvia intraabdominal adhesions on an unprepped bowel. We cannot prep the bowel at this moment because she has appendicitis. That being said, she understands the options of diagnostic laparoscopic possib le open appendectomy, possible laparotomy, possible bowel resection with benefits, alternatives, and risks including, but not limited to, infection, bleeding, damage to adjacent structures, anesthesia c omplication, [place], and even . JULIA/KATELIN Voice ID: [id number] Report ID: [id number]
--- NOTE | 2023-09-19 15:29 | P.BOP ---
Preoperative diagnosis: Acute abdominal pain, hx of emergent transverse bowel resect. laparotomy Postoperative diagnosis: acute perforated appendicitis with abscess, extensive intrabdominal adhesio Primary procedure: Exploratory laparotomy, right colon resection, end ileostomy Secondary procedure: extensive intrabdominal adhesions, liver biopy, mesenteric biopsy Other procedure(s): Diagnostic laparoscopy Estimated blood loss: <200CC Specimen: ileocolon with appendix Anesthesia: General Complications: None Drain(s): EDI drain Transferred to: Recovery Room Condition: Good
[2023-09-19] MEDS ORDERED: SUGAMMADEX SODIUM 200 MG/2 ML VIAL IV ONE (15:39)
--- NOTE | 2023-09-19 15:42 | RAD REPORT ---
EXAM DESCRIPTION: CT - Abdomen Pelvis W Contrast - 09/19/2023 6:51 am ADDENDUM #1 THIS REPORT CONTAINS FINDINGS THAT MAY BE CRITICAL TO PATIENT CARE: The findings were verbally discus sed via telephone conference with Dr. Yonatan Quiñones by Dr. Prosper Andrea on 09/19/2023 2:46 AM CDT . The results were acknowledged and understood. Electronically signed by: Prosper Andrea MD 09/19/2023 2:46 AM CDT End of Addendum EXAM DESCRIPTION: CT Abdomen and Pelvis With Intravenous Contrast CLINICAL HISTORY: The patient is 88 years old and is Female; llq abdomen pain TECHNIQUE: Axial computed tomography images of the abdomen and pelvis with intravenous contrast. S agittal and coronal reformatted images were created and reviewed. This CT exam was performed using one or more of the following dose reduction techniques: automated exposure control, adjustment of t he mA and/or kV according to patient size, and/or use of iterative reconstruction technique. COMPARISON: CT abdomen and pelvis with contrast March 30, 2020 FINDINGS: Lung bases: Bibasilar atelectasis. ABDOMEN: Liver: Multiple cysts in the liver measuring up to 1.3 cm. Gallbladder and bile ducts: Gallbladder is surgically absent. Mild intrahepatic and extrahepatic biliary dilatation which may be due to prior cholecystecto my. Pancreas: Slightly hypoattenuating and possibly cystic appearance to the pancreatic head, similar to prior. No ductal dilation. Spleen: Calcified granuloma in the spleen. Adrenals: Unremarkable. No mass. Kidneys and ureters: Multiple simple appearing renal cysts bilaterally measuring up to 7 cm in th e left kidney. No follow-up imaging is recommended. No hydronephrosis. Stomach and bowel: Nodular soft tissue densities in the right lower quadrant adjacent to the colo n measuring up to 3.3 cm. Colonic diverticulosis. No obstruction. No mucosal thickening. PELVIS: Appendix: Dilated luminal structure in the right lower quadrant measuring up to 2 cm in diameter with mild adjacent stranding. Bladder: Unremarkable. Reproductive: Unremarkable as visualized. ABDOMEN and PELVIS: Intraperitoneal space: See below. Bones/joints: Cysts with bony expansion of the sacral neural foramina, similar to prior. Disc space narrowing with degenerative endplate changes in the spine. 7 mm of anterolisthesis of L5 on S1. No acute fracture. No dislocation. Soft tissues: Clips in the right abdomen. Vasculature: Scattered atherosclerotic vascular calcifications. No abdominal aortic aneurysm. Lymph nodes: Unremarkable. No enlarged lymph nodes. IMPRESSION: 1. Dilated luminal structure in the right lower quadrant measuring up to [address] with mild adjacent stranding. Findings are concerning for acute appendicitis. 2. Nodular soft tissue densities in the right lower quadrant adjacent to the colon measuring up to 3.3 cm. Finding is concerning for metastatic disease. Correlate with any history of malignancy. 3. Gallbladder is surgically absent. 4. Mild intrahepatic and extrahepatic biliary dilatation which may be due to prior cholecystectomy. 5. Slightly hypoattenuating and possibly cystic appearance to the pancreatic head, similar to prior . 6. Colonic diverticulosis. Electronically signed by: Prosper Andrea MD 09/19/2023 2:25 AM CDT Due to temporary technical issues with the PACS/Fluency reporting system, reports are being signed by the in house radiologists without review as a courtesy to insure prompt reporting. The interpreting radiologist is fully responsible for the content of the report.
[2023-09-19] MEDS: MORPHINE 4 MG/ML SYR ONE ×4 (16:07→17:05)
[2023-09-19] MEDS ORDERED: MORPHINE 4 MG/ML SYR ONE (17:33)
[2023-09-19] MEDS ORDERED: NOREPINEPHRINE BITARTRATE/D5W 4 MG/250 ML BAG IV ONE (19:06)
[2023-09-19] MEDS: NOREPINEPHRINE 4 MG in D5W 250 ML IV SCH (19:15)
[2023-09-19 19:38] LABS: Hematocrit 27.7 % (36.0-45.0)
[2023-09-19 19:56] LABS: Potassium 3.6 mEq/L (3.5-5.1)
[2023-09-19] MEDS: Mupirocin NASAL 2 APPL/1 GM TUBE NAS SCH (20:57)
[2023-09-19] MEDS: NA CHLORIDE 0.9% 1,000 ML IV SCH (20:57)
[2023-09-19] MEDS: MORPHINE 2 MG/ML SYR IV PRN (20:57)
--- NOTE | 2023-09-19 21:03 | RAD REPORT ---
EXAM DESCRIPTION: RADChest Single View09/19/2023 8:31 pm CLINICAL HISTORY: picc line placement COMPARISON: Chest Single View dated 04/05/2022; Abdomen 1 View (KUB) dated 01/22/2022; Chest Single Vie w dated 01/04/2022; Chest Single View dated 08/03/2021; Abdomen Pelvis W Contrast dated 09/19/2023; T horax W/ Con dated 07/14/2023; Thorax Wo Con dated 06/21/2022; Thorax Wo Con dated 12/27/2022 TECHNIQUE: Portable AP view of the chest. FINDINGS: Right arm PICC in place, with catheter tip at the superior cavoatrial junction. Enteric tu be courses along the distal stomach. Somewhat linear peripheral right lung opacity, appears to be anika ng middle lobe, stable since the prior CT. Decreased inspiratory effort. No new focal airspace opacit ies. No pneumothorax or effusion. The cardiomediastinal contours are unremarkable. IMPRESSION: Stable right middle lobe linear opacity since the prior CT, favored to represent scarrin g or atelectasis.
[2023-09-20] MEDS: MORPHINE 2 MG/ML SYR IV PRN (00:27)
[2023-09-20] MEDS: HYDROMORPHONE HCL 0.5 MG/0.5 ML INJ IV PRN ×5 (01:00→22:54)
[2023-09-20] MEDS: METRONIDAZOLE 500mg IVPB 500 MG/100 ML BAG IV SCH ×3 (01:48→17:17)
[2023-09-20] MEDS: PIPER TAZO 3.375 GM in NA CHLORIDE 0.9% 100 ML IV SCH ×3 (01:49→17:17)
[2023-09-20] MEDS: NA CHLORIDE 0.9% 1,000 ML IV SCH ×4 (01:49→21:27)
[2023-09-20] MEDS: NOREPINEPHRINE 4 MG in D5W 250 ML IV SCH (04:40)
[2023-09-20 05:47] LABS: Absolute Lymphocytes (CBC) 0.4 K/uL (0.7-4.9); Hematocrit 27.9 % (36.0-45.0); Lymphocytes % 3.4 % (15.3-44.8); MCV 86.4 fL (80-100); MPV 8.8 fL (7.6-11.3); Platelets 276 thou/uL (152-406); RBC Red Blood Cell Count 3.23 M/uL (3.86-4.86)
[2023-09-20 05:58] LABS: Albumin 2.1 g/dL (3.4-5.0); Bilirubin Total 0.3 mg/dL (0.2-1.0); Magnesium 1.7 mg/dL (1.6-2.4); Potassium 3.6 mEq/L (3.5-5.1); Protein, Total 5.4 g/dL (6.4-8.2)
[2023-09-20 06:22] LABS: Blood Morphology Comment NOTED (NOT SEEN); Burr Cells 2+; Platelet Estimate ADEQ
[2023-09-20 06:39] LABS: Phosphorus 4.6 mg/dL (2.5-4.9)
[2023-09-20] MEDS ORDERED: MAGNESIUM SULFATE 1 gm IVPB 1 GM/100 ML BAG IV ONE (07:13)
[2023-09-20] MEDS ORDERED: KCL 20 MEQ/100 mL IVPB 20 MEQ/100 ML BAG IV SCH (08:00)
[2023-09-20] MEDS ORDERED: NA CHLORIDE 0.9% 500 ML IV ONE ×2 (08:30→13:23)
[2023-09-20] MEDS: Mupirocin NASAL 2 APPL/1 GM TUBE NAS SCH ×2 (08:33→21:27)
[2023-09-20] MEDS: NOREPINEPHRINE BITARTRATE/D5W 4 MG/250 ML BAG IV SCH ×2 (12:42→23:21)
--- NOTE | 2023-09-20 13:32 | OP ---
Date of Procedure: 09/20/2023 Surgeon: Nahid Sparrow MD Preoperative Diagnoses: Acute abdominal pain, history of emergent transverse bowel resection from pe rforation, history of laparotomy, history of extensive intra-abdominal adhesions for gallbladder eris davian. Postoperative Diagnoses: Acute abdominal pain, history of emergent transverse bowel resection from p erforation, history of laparotomy, history of extensive intra-abdominal adhesions for gallbladder rem oval plus acute perforated appendicitis with ischemic ascending colon abscess, extensive intra-abdomi nal adhesions. Procedures: Emergent exploratory laparotomy, right hemicolectomy and ileostomy, extensive intraabdom inal lysis of adhesions, liver lesions biopsy, mesenteric nodules biopsy and diagnostic laparoscopy. Ebl: 200 cc. Specimen: Ileal colon with appendix and also patient has multiple nodules on the liver, multiple nod ules in the mesentery. Those were biopsy to rule out any metastatic disease as described in the CAT scan. Anesthesia: General plus local. Complications: None. Drains: EDI #10 x2. Indications: This is a case of an 88-year-old patient, who comes to us with acute abdominal pain. S he has extensive intraabdominal surgeries. Apparently, she has in the past a colonoscopy that led in to the bowel perforation with emergent surgery creating a transverse colon resection. I discussed th e case with the previous surgeon. She also had another not too long ago cholecystectomy with extensi ve intra-abdominal adhesions that area went also uneventfully. Several years later, now she comes wi th a right lower quadrant pain, diagnosed with a tubular structure near the ascending colon and other 1 that may resemble acute appendicitis with mesenteric stranding. Nodules around the area may not r ule out cancer. At this moment even though she has no previous colonoscopies and no prior bowel prep , what is big in this emergency is this finding on the appendix. She may need a bowel resection, may need ostomy, may need exploration. Since she was not improving and the pain was not getting better, we explained to the patient and family the procedure above which include diagnostic lap, laparoscopi c possible open appendectomy, possible laparotomy, possible bowel resection, possible ostomy with gris efits, alternatives and risks including, but not limited to infection, bleeding, damage to adjacent s tructures as complication, inability to reverse the colostomy form or ileostomy formed, TX and even d eath. She has history of heart disease, history of pulmonary emboli, history of perforation, history of adhesions making this case is a difficult case for her in itself, but at the same time, not doing anything about this appendix may cause a perforation, sepsis. So understanding all the risks, proceed with surgery and she wants to stay in this institution. She does not want to go anywh ere else. So, I discussed the case with the primary doctor with the previous surgeons, with the anthony ent, with the patient's daughter and we will come in a core of the plan. Procedure In Detail: The patient brought to the operating room, placed in supine position. Anesthes ia was done without complication. Abdominal area was prepped and draped in sterile fashion. Marcain e 0.5% was injected for local anesthetic, followed by sharp incision of the skin in the periumbilical region. Incision was carried down to fascia, which was opened under direct vision. Carmen trocar w as carefully introduced. No bleeding was obtained. As we expected a lot of adhesions formed in that area. Remember this patient has a previous bowel perforation. Also had bowel resection emergently and then creating all the scar tissue in that area. So, we are expecting that. With laparoscope, we spent about an hour just doing lysis of adhesions, just trying to get to area that we can identify a s the ascending colon. We noticed this appendix was retrocecal, goes into an area of induration mid ascending colon that we cannot rule out any malignancy at this moment. The appendix is completely fu sed to. It will not come out. It is also retrocecal. So laparoscopic, we mobilized the white lines of Toldt that is in the set up since we may have to do this laparoscopically, but at least that way. To mobilize those lines, we have to mobilize the ascending colon. This appendix is attached and fu sed to the ascending colon. We have to understand at that moment we spent a lot of time just going t hrough the adhesions going through it. She is an 88-year-old person. We have to conserve our time d ue to her afraid to become coagulopathic. So at this time, we did a midline incision that she has be fore. She has already previous laparotomies just to go through that incision again since w e have many bowel loops attached to the anterior abdominal wall. So once we had the adhesions remove d with no enterotomies, we were able to explore the abdomen. Once again, we confirmed a nonviable as cending colon with what looked like appendix retrocecal up to almost mid appendix. With a perforatio n, we see some mucus coming from that area cannot rule out any malignancy. At this moment, we do not have available to know exactly at this moment. At the same time, even an extended right hemicolecto my that we do right now will be the treatment. Margins will not be able to be verified at this momen t. We proceed with the right hemicolectomy. Now we have to understand this patient had a transverse colon resection, so I have to be careful with the vascular supply while dissecting in that region. We took a look at the area that we believe was safe and has good blood supply and we extended the rig ht hemicolectomy to that point. We made sure the ureters were protected. We identified and they wer e protected and we proceeded then to obtain proximal and distal control. The distal control will be at the area of the terminal ileum. We did not see gross negative margins and also gross negative mar gins at least 5 cm proximal. Once we opened the mesentery, we proceeded to ligate the blood vessels. The larger blood vessels were ligated with silk and the rest was done with LigaSure. We noticed al so in the mesentery, she has multiple nodules, white hard nodules. We took a biopsy of few of them a nd send it as a specimen. At that moment, we irrigated the area, obtained hemostasis. Once again, t he ureters were intact. We also noted some liver lesions, so we have to do a biopsy of those and sen t it out to and then we have a situation of trying to connect this to the large bowel. We have the p lantar scar tissue in whatever is left of the transverse colon, the viability of that bowel, how much the blood supply is hard to understand because this was done emergently many years ago. So we have some pus around the area of the appendix from probably a perforation, probably from the even before t his event. So I believe going through all that scar tissue and transverse colon and trying to mobili ze the splenic flexure will add more hours of this case and the patient right now has been in the OR for a long time, 88 years old, plus the findings that we have no previous colonoscopies done. I am n ot sure if this is a tumor or not. So we made the decision to not to connect to this area that may b e done in the future. We do an ileostomy on the right side. Irrigate the area once again, checked t he area of the colon left behind and looks viable with no cyanosis. Look at the area of the dissecti on. The ureters are intact with no bleeding on the mesentery. So at that moment, we irrigated the a bdomen profusely. Checked the area of the lysis of adhesions at least 2 hours just to do lysis of ad hesions. Checked also for any other enterotomies. We did not see any other enterotomies. We run th e small bowel and the rest of the large bowel. The patient has pellets of stools on the colon. So w ith no previous colonoscopies, it is hard to see if there are any other masses in the colon. The rev ersal should be done if possible medically after the proper workup was done for colon cancer. We obt ained the instrument and sponge count correct. We put 2 EDI drains in the area of the dissection, pel vis and right lower quadrant. We irrigated the area profusely with several liters of saline. Then a fter that I proceeded to obtain instrument and sponge count correct. Closed the fascia with #2 nylon in a running fashion. We did not close the incision in the midline completely. We approximate part ially and then put a packing iodoform packing in between. Then, after that, we proceeded to mature t he ileostomy, Noelle ileostomy in a regular fashion. Cover the midline incision and put the colostom y back in place. The patient tolerated the procedure well. EDI was connected to bulb suction. The p atient will be seen in intensive care unit. Will be followed with pathology closely. JULIA/GRADYL Voice ID: [id number] Report ID: [id number]
--- NOTE | 2023-09-20 13:39 | P.PN ---
Subjective Date of Service: 09/20/23 Chief Complaint: Abdominal pain Status post exploratory laparotomy 09/19. Patient was initially hypotensive with poor urine output and started on vasopressor. Blood pressure is improving but urine output remains poor. Patient is more awake and interactive today. No recorded fever. Physical Examination - Vital Signs Temperature: 96.9 F Blood Pressure: 93/52 Pulse: 90 Respirations: 18 Pulse Ox (%): 96 Assessment And Plan - Plan Physical Exam General: Awake, In no apparent distress, Oriented x3 HEENT: Atraumatic, Normocephalic, NG tube to suction. Neck: Supple, JVD not distended Respiratory: Clear to auscultation bilaterally, Normal air movement Cardiovascular: No edema, Normal pulses, Regular rate/rhythm Gastrointestinal: Normal bowel sound, right ileostomy, dressed surgical wound. EDI drain. Musculoskeletal: No clubbing, No swelling Neurological: Normal gait, Normal speech, no focal motor deficit. Assessment and plan Acute appendicitis with perforation and intra-abdominal abscess/mesenteric mass/intra-abdominal adhesions Status post exploratory laparotomy with colon resection, ileostomy, adhesiolysis, biopsy of mesenteric mass, biopsy of liver mass, appendectomy and abscess drainage by Dr. Sparrow Continue aggressive antibiotics- IV Flagyl, Zosyn, Analgesics as needed, antiemetics. Keep n.p.o. PICC line placed. She may be a candidate for TPN. General surgery to follow. Follow-up biopsy results Early mobilization as possible. Hypovolemic shock Aggressive IV hydration. Status post isotonic boluses. Wean Levophed. ANTHONY Likely prerenal, possible intra-abdominal third spacing. Status post IV Ringer's lactate and normal saline boluses. Continue aggressive IV hydration and monitor urine output. Monitor renal function. Nephrology consult. Normocytic anemia Drop in hemoglobin probably dilutional Trend H&H Hypertension Antihypertensives are on hold Hyperlipidemia N.p.o. Resume appropriate home medications Full code N.p.o. Discharge Plan: Home Plan to discharge in: 48 Hours DVT prophylaxis: SCD
[2023-09-20 15:23] LABS: Hematocrit 26.1 % (36.0-45.0)
--- NOTE | 2023-09-20 16:29 | PN ---
Date of Progress Note: 09/20/2023 Reason For Service: Status post emergent laparotomy with right colon resection due to ischemia and a bscess and appendicitis and also ischemia of the bowel. Cannot rule out any other disease like kameron feliz. The patient had extensive intraabdominal adhesions from previous intraabdominal surgeries wit h bowel resection emergently from perforations in many years ago. Surgery was long, but we were able to at least resect the area of the disease, but we were not able to put it back together during this admission and patient now will get an ileostomy. The patient is awake, although they gave her some medication for sedation. Chest clear. Abdomen intact surgical site. EDI drain was reviewed, serosan guineous. Extremities, good capillary refill. Laboratory Data: Blood work shows a hemoglobin of 9.2 with WBC count of 10.6. Urine output is dimin ished. Creatinine is 1.76. I see the patient at this moment, she is on Levophed. From the surgical standpoint, we are going to discuss with the primary doctor. We understand how fluid overloading her may have an effect not nannette red, but at the same time, we have to make sure we are not running her to dry. We expect third-space in that area, expect the output to be significant from the EDI drains, making a third space and we sh ould compensate the volume. Continue with the antibiotics. Out of bed as soon as possible. Incenti ve spirometry and DVT prophylaxis. HM/MODL Voice ID: [id number] Report ID: [id number]
[2023-09-20 18:29] LABS: Hematocrit 21.7 % (36.0-45.0)
[2023-09-20] MEDS ORDERED: NA CHLORIDE 0.9% 250 ML ONE (22:28)
[2023-09-21] MEDS: HYDROMORPHONE HCL 0.5 MG/0.5 ML INJ IV PRN ×5 (02:42→21:02)
[2023-09-21] MEDS: PIPER TAZO 3.375 GM in NA CHLORIDE 0.9% 100 ML IV SCH ×3 (02:43→17:46)
[2023-09-21] MEDS: METRONIDAZOLE 500mg IVPB 500 MG/100 ML BAG IV SCH ×3 (02:43→17:46)
[2023-09-21] MEDS: NA CHLORIDE 0.9% 1,000 ML IV SCH ×2 (05:55→10:00)
[2023-09-21 07:19] LABS: Hematocrit 26.6 % (36.0-45.0)
[2023-09-21 07:22] LABS: Albumin 1.5 g/dL (3.4-5.0); Bilirubin Total 0.7 mg/dL (0.2-1.0); Magnesium 1.7 mg/dL (1.6-2.4); Potassium 4.5 mEq/L (3.5-5.1); Protein, Total 4.5 g/dL (6.4-8.2)
--- NOTE | 2023-09-21 07:23 | ECHO ---
HEIGHT: 5 ft 5 in WEIGHT: 129 lb 0 oz DATE OF STUDY: 09/20/[address]: Ben Wilkerson MD 2-DIMENSIONAL: YES M.MODE: YES DOPPLER: YES COLOR FLOW: YES TDS: PORTABLE: YES DEFINITY: BUBBLE STUDY: DIAGNOSIS: HYPOTENSION CARDIAC HISTORY: CATHERIZATION: SURGERY: PROSTHETIC VALVE: PACEMAKER: MEASUREMENTS (cm) DIASTOLIC (NORMALS) SYSTOLIC (NORMALS) IVSd 0.9 (0.6-1.2) LA Diam 2.5 (1.9-4.0) LVEF 55% LVIDd 3.9 (3.5-5.7) LVIDs 3.0 (2.0-3.5) %FS 23% LVPWd 1.1 (0.6-1.2) Ao Diam 3.0 (2.0-3.7) 2 DIMENSIONAL ASSESSMENT: RIGHT ATRIUM: NORMAL LEFT ATRIUM: NORMAL RIGHT VENTRICLE: NORMAL LEFT VENTRICLE: LEFT VENTRICULAR HYPERTROPHY TRICUSPID VALVE: NORMAL MITRAL VALVE: MILD MITRAL REGURGITATION PULMONIC VALVE: MILD PULMONIC INSUFFICIENCY AORTIC VALVE: MILD AORTIC INSUFFICIENCY PERICARDIAL EFFUSION: NONE AORTIC ROOT: NORMAL LEFT VENTRICULAR WALL MOTION: NORMAL DOPPLER/COLOR FLOW: SEE BELOW COMMENTS: 1. NORMAL LEFT VENTRICULAR EJECTION FRACTION 50-55% 2. MODERATE CONCENTRIC LEFT VENTRICULAR HYPERTROPHY 3. MODERATE DIASTOLIC DYSFUNCTION 4. MILD MITRAL REGURGITATION, AORTIC INSUFFICIENCY, PULMONIC INSUFFICIENCY TECHNOLOGIST: UDGLAS MOODY
[2023-09-21] MEDS: Mupirocin NASAL 2 APPL/1 GM TUBE NAS SCH ×2 (08:35→21:02)
--- NOTE | 2023-09-21 11:14 | P.CNS ---
Date of Consult: 09/21/23 Reason for Consult: ANTHONY Requesting Physician: Mine Perez Chief Complaint: Abdominal pain History of Present Illness: 88-year-old female with a past medical history of hypertension, hyperlipidemia, lung cancer, in remission, bowel problems, presents to the emergency room with right lower quadrant pain. She reports symptoms started 1 week ago. She reports symptoms are constant. She reports right lower quadrant pain is progressively getting worse. She denies nausea vomiting diarrhea, fever. Plan to admit for appendicitis, nonperforated appendicitis Case discussed with Dr. Sparrow prior to admission. CT EXAM: CTAbdomen and Pelvis With Intravenous Contrast COMPARISON: CT abdomen and pelvis with contrast March 30, 2020 FINDINGS: Lung bases: Bibasilar atelectasis. ABDOMEN: Liver: Multiple cysts in the liver measuring up to 1.3 cm. Gallbladder and bile ducts: Gallbladder is surgically absent. Mild intrahepatic and extrahepatic biliary dilatation which may be due to prior cholecystectomy. Pancreas: Slightly hypoattenuating and possibly cystic appearance to the pancreatic head, similar to prior. No ductal dilation. Spleen: Calcified granuloma in the spleen. Adrenals: Unremarkable. No mass. Kidneys and ureters: Multiple simple appearing renal cysts bilaterally measuring up to 7 cm in the left kidney. No follow-up imaging is recommended. No hydronephrosis. Stomach and bowel: Nodular soft tissue densities in the right lower quadrant adjacent to the colon measuring up to 3.3 cm. Colonic diverticulosis. No obstruction. No mucosal thickening. PELVIS: Appendix: Dilated luminal structure in the right lower quadrant measuring up to 2 cm in diameter with mild adjacent stranding. Bladder: Unremarkable. Reproductive: Unremarkable as visualized. ABDOMEN and PELVIS: Intraperitoneal space: See below. Bones/joints: Cysts with bony expansion of the sacral neural foramina, similar to prior. Disc space narrowing with degenerative endplate changes in the spine. 7 mm of anterolisthesis of L5 on S1. No acute fracture. No dislocation. Soft tissues: Clips in the right abdomen. Laboratory evaluation no leukocytosis normocytic anemia 10.2 31.0, potassium, electrolytes within normal limits hypoalbumin 3.0 UA positive for leukoesterase greater than 500 01:00 This 88 yrs old Female presents to ER via Ambulatory with complaints of cp Abdominal Pain. 01:00 The patient presents with abdominal pain right lower quadrant. cp 01:00 Onset: The symptoms/episode began/occurred 1 week(s) ago, and became persistent cp yesterday. 01:00 The symptoms do not radiate. Associated signs and symptoms: Pertinent negatives: cp anorexia, blood in stools, chest pain, constipation, diarrhea, dysuria, fever, shortness of breath, vomiting. The symptoms are described as constant. Severity of pain: in the emergency department the pain is unchanged despite home interventions. 04:42 Patient care was assumed from physician urgent care physician assistant at 3:30 in the morning. Patient sp4 presents with roughly 1 week of right lower quadrant abdominal pain that is worsening. Denied any other symptoms such as fever or vomiting. Allergies Penicillins Allergy (Verified 04/21/22 09:42) Unknown Home medications list reviewed: Yes Home Medications: Aspirin 81 mg PO DAILY 05/06/19 Atorvastatin Calcium [Lipitor] 20 mg PO DAILY 05/06/19 lisinopriL [Prinivil] 20 mg PO DAILY 05/06/19 Amlodipine Besylate [Norvasc] 2.5 mg PO DAILY 04/21/22 Folic Acid 1 mg PO DAILY 04/21/22 Meclizine HCl 25 mg PO PRN PRN 04/21/22 - Past Medical/Surgical History Diabetic: No -: CVA -: hemorroids -: PE -: BL Renal Cysts -: HTN -: Diastolic CHF -: cholecystectomy -: colon surgery -: hysterectomy -: knee surgery - Family History Father Medical History: Hypertension - Social History Smoking Status: Unknown if ever smoked Alcohol use: No CD- Drugs: No Caffeine use: Yes Review of Systems 10-point ROS is otherwise unremarkable General: Weakness, Malaise Gastrointestinal: Abdominal Pain Physical Examination Temp Pulse Resp BP Pulse Ox 97.2 F 104 H 15 110/73 97 09/21/23 08:00 09/21/23 09:15 09/21/23 09:15 09/21/23 09:15 09/21/23 09:15 General: Oriented x3, Cooperative HEENT: Atraumatic Neck: Supple Respiratory: Crackles/rales (Right) Cardiovascular: No edema, Regular rate/rhythm Gastrointestinal: Non-distended, Tenderness Musculoskeletal: No clubbing, No contractures Integumentary: No rashes, No cyanosis Neurological: Normal speech Urinary: Patel catheter Blood work reviewed in the chart. Imagings Data: [facility] 8[facility]31 [facility] CLINICAL HISTORY: picc line placement COMPARISON: Chest Single View dated 04/05/2022; Abdomen 1 View (KUB) dated 01/22/2022; Chest Single View dated 01/04/2022; Chest Single View dated 08/03/2021; Abdomen Pelvis W Contrast dated 09/19/2023; Thorax W/ Con dated 07/14/2023; Thorax Wo Con dated 06/21/2022; Thorax Wo Con dated 12/27/2022 TECHNIQUE: Portable AP view of the chest. FINDINGS: Right arm PICC in place, with catheter tip at the superior cavoatrial junction. Enteric tube courses along the distal stomach. Somewhat linear peripheral right lung opacity, appears to be along middle lobe, stable since the prior CT. Decreased inspiratory effort. No new focal airspace opacities. No pneumothorax or effusion. The cardiomediastinal contours are unremarkable. IMPRESSION: Stable right middle lobe linear opacity since the prior CT, favored to represent scarring or atelectasis. EXAM DESCRIPTION: CT Abdomen and Pelvis With Intravenous Contrast CLINICAL HISTORY: The patient is 88 years old and is Female; llq abdomen pain TECHNIQUE: Axial computed tomography images of the abdomen and pelvis with intravenous contrast. Sagittal and coronal reformatted images were created and reviewed. This CT exam was performed using one or more of the following dose reduction techniques: automated exposure control, adjustment of the mA and/or kV according to patient size, and/or use of iterative reconstruction technique. COMPARISON: CT abdomen and pelvis with contrast March 30, 2020 FINDINGS: Lung bases: Bibasilar atelectasis. ABDOMEN: Liver: Multiple cysts in the liver measuring up to 1.3 cm. Gallbladder and bile ducts: Gallbladder is surgically absent. Mild intrahepatic and extrahepatic biliary dilatation which may be due to prior cholecystectomy. Pancreas: Slightly hypoattenuating and possibly cystic appearance to the pancreatic head, similar to prior. No ductal dilation. Spleen: Calcified granuloma in the spleen. Adrenals: Unremarkable. No mass. Kidneys and ureters: Multiple simple appearing renal cysts bilaterally measuring up to 7 cm in the left kidney. No follow-up imaging is recommended. No hydronephrosis. Stomach and bowel: Nodular soft tissue densities in the right lower quadrant adjacent to the colon measuring up to 3.3 cm. Colonic diverticulosis. No obstruction. No mucosal thickening. PELVIS: Appendix: Dilated luminal structure in the right lower quadrant measuring up to 2 cm in diameter with mild adjacent stranding. Bladder: Unremarkable. Reproductive: Unremarkable as visualized. ABDOMEN and PELVIS: Intraperitoneal space: See below. Bones/joints: Cysts with bony expansion of the sacral neural foramina, similar to prior. Disc space narrowing with degenerative endplate changes in the spine. 7 mm of anterolisthesis of L5 on S1. No acute fracture. No dislocation. Soft tissues: Clips in the right abdomen. Vasculature: Scattered atherosclerotic vascular calcifications. No abdominal aortic aneurysm. Lymph nodes: Unremarkable. No enlarged lymph nodes. IMPRESSION: 1. Dilated luminal structure in the right lower quadrant measuring up to 2 cm in diameter with mild adjacent stranding. Findings are concerning for acute appendicitis. 2. Nodular soft tissue densities in the right lower quadrant adjacent to the colon measuring up to 3.3 cm. Finding is concerning for metastatic disease. Correlate with any history of malignancy. 3. Gallbladder is surgically absent. 4. Mild intrahepatic and extrahepatic biliary dilatation which may be due to prior cholecystectomy. 5. Slightly hypoattenuating and possibly cystic appearance to the pancreatic head, similar to prior. 6. Colonic diverticulosis. LEFT VENTRICULAR WALL MOTION: NORMAL DOPPLER/COLOR FLOW: SEE BELOW COMMENTS: 1. NORMAL LEFT VENTRICULAR EJECTION FRACTION 50-55% 2. MODERATE CONCENTRIC LEFT VENTRICULAR HYPERTROPHY 3. MODERATE DIASTOLIC DYSFUNCTION 4. MILD MITRAL REGURGITATION, AORTIC INSUFFICIENCY, PULMONIC INSUFFICIENCY Conclusions/Impression: Stage II ANTHONY concerning for ATN in the setting of hypotension & IVC versus PreRenal Azotemia -No NSAIDs -Continue aggressive IVF -Maintain perfusion with Levophed Acute NAG Metabolic Acidosis -Change IVF to bicarb gtt BL Renal Cysts -No intervention HTN with CHF complicated by hypotension Hypovolemic and/ or Septic Shock -Continue IVF -Wean Levophed as tolerated Diastolic CHF, chronic LVH -Daily weight Hyperglycemia -RISS prn Severe Hypoalbuminemia -Recommend TPN while NPO -Albumin 25g X 2 doses Anemia in chronic illness -Monitor H&H -Transfuse PRBC prn -Retacrit prn Hx Vitamin D3 Deficiency -Ergo prn Acute appendicitis with perforation and intra-abdominal abscess/mesenteric mass/intra-abdominal adhesions -Continue Abx -NPO -Follow up with surgery -Biopsy pending Hospitalist and ER notes reviewed Thank you kindly for the consultation Greater than 30min patient care Critical Care: Yes
[2023-09-21] MEDS: NOREPINEPHRINE BITARTRATE/D5W 4 MG/250 ML BAG IV SCH ×2 (12:17→12:30)
[2023-09-21] MEDS: WATER FOR INJ,STERILE 1,000 ML with NA BICARB 8.4% 100 MEQ IV SCH ×4 (12:26→19:10)
[2023-09-21] MEDS: ALBUMIN HUMAN 25% 100 ML IV SCH ×2 (12:27→18:39)
--- NOTE | 2023-09-21 12:58 | P.PN ---
Subjective Date of Service: 09/21/23 Chief Complaint: Abdominal pain Status post exploratory laparotomy 09/19. Urine output is improving slowly. Patient remains on Levophed. Patient is more awake and interactive but confused. No recorded fever. Physical Examination - Vital Signs Temperature: 97.2 F Blood Pressure: 108/52 Pulse: 104 Respirations: 15 Pulse Ox (%): 98 Assessment And Plan - Plan Physical Exam General: Awake, In no apparent distress, Oriented x3 HEENT: Atraumatic, Normocephalic, NG tube to suction. Neck: Supple, JVD not distended Respiratory: Clear to auscultation bilaterally, Normal air movement Cardiovascular: No edema, Normal pulses, Regular rate/rhythm Gastrointestinal: Normal bowel sound, right ileostomy, dressed surgical wound. EDI drain. Musculoskeletal: No clubbing, No swelling Neurological: Normal gait, Normal speech, no focal motor deficit. Assessment and plan Acute appendicitis with perforation and intra-abdominal abscess/mesenteric mass/intra-abdominal adhesions Status post exploratory laparotomy with colon resection, ileostomy, adhesiolysis, biopsy of mesenteric mass, biopsy of liver mass, appendectomy and abscess drainage by Dr. Sparrow Continue aggressive antibiotics- IV Flagyl, Zosyn, Analgesics as needed, antiemetics. Keep n.p.o. PICC line placed. Start TPN for anticipated prolonged n.p.o. status and hypoalbuminemia. General surgery to follow. Follow-up biopsy results Early mobilization as possible. Hypovolemic shock Aggressive IV hydration. Status post isotonic boluses. Wean Levophed. ANTHONY/metabolic acidosis Likely prerenal, possible intra-abdominal third spacing. Status post IV Ringer's lactate and normal saline boluses. Nephrology input appreciated. Continue aggressive IV hydration and monitor urine output. Patient started on bicarb drip for metabolic acidosis. Monitor renal function. Acute blood loss anemia Status post 1 unit PRBC transfusion Continue to monitor H&H Hypertension Antihypertensives are on hold Hyperlipidemia N.p.o. Resume appropriate home medications Full code N.p.o. Discharge Plan: Home Plan to discharge in: 48 Hours DVT prophylaxis: SCD
[2023-09-21 18:29] LABS: Hematocrit 24.8 % (36.0-45.0)
[2023-09-22] MEDS: HYDROMORPHONE HCL 0.5 MG/0.5 ML INJ IV PRN ×3 (00:31→15:13)
[2023-09-22] MEDS: PIPER TAZO 3.375 GM in NA CHLORIDE 0.9% 100 ML IV SCH ×3 (00:32→16:50)
[2023-09-22] MEDS: METRONIDAZOLE 500mg IVPB 500 MG/100 ML BAG IV SCH ×3 (00:32→16:50)
[2023-09-22] MEDS ORDERED: NA CHLORIDE 0.9% 100 ML ONE (00:51)
[2023-09-22] MEDS: WATER FOR INJ,STERILE 1,000 ML with NA BICARB 8.4% 100 MEQ IV SCH ×4 (02:09→09:54)
[2023-09-22] MEDS ORDERED: METOPROLOL TARTRATE 5 MG/5 ML INJ IV STA (03:15)
[2023-09-22] MEDS ORDERED: METOPROLOL TARTRATE 5 MG/5 ML INJ IV ONE (03:17)
[2023-09-22 04:14] LABS: Absolute Lymphocytes (CBC) 0.8 K/uL (0.7-4.9); Hematocrit 25.2 % (36.0-45.0); Lymphocytes % 4.9 % (15.3-44.8); MPV 8.4 fL (7.6-11.3); Platelets 122 thou/uL (152-406)
[2023-09-22 04:35] LABS: Urine Bacteria <20 /HPF (<20); Urine Crystals Unidentified Few /HPF (None Seen); Urine Mucus Slight /HPF (None Seen); Urine WBC Clump Rare /HPF (None Seen)
[2023-09-22 04:36] LABS: Specific Gravity 1.014 (1.005-1.030); Urine Bilirubin NEGATIVE (Negative); Urine Clarity Turbid (Clear); Urine Color Light-Yellow (Yellow); Urine Glucose NEGATIVE (Negative)
[2023-09-22 04:37] LABS: Urine Blood 2+ (Negative); Urine Protein 1+ (Negative); Urine Urobilinogen Normal (Normal); Urine pH 5.5 (5.0-7.0)
[2023-09-22 04:37] LABS: Albumin 2.5 g/dL (3.4-5.0); Bilirubin Total 0.9 mg/dL (0.2-1.0); Magnesium 1.9 mg/dL (1.6-2.4); Phosphorus 2.5 mg/dL (2.5-4.9); Potassium 4.3 mEq/L (3.5-5.1); Protein, Total 5.2 g/dL (6.4-8.2); Uric Acid 4.9 mg/dL (2.6-6.0)
[2023-09-22 04:38] LABS: Magnesium 1.8 mg/dL (1.6-2.4); Phosphorus 2.5 mg/dL (2.5-4.9); Troponin High Sensitivity 57.8 pg/mL (<58.9)
[2023-09-22 04:51] LABS: UR MICROALBUMIN 20.7 mg/dL (< 1.9); UR PROTEIN 62.8 mg/dL (<11.9); Urine Protein/Creatinine Ratio 1.34 ratio (<0.15)
[2023-09-22 04:56] LABS: Anisocytosis 1+; Blood Morphology Comment NOTED (NOT SEEN); Dohle Bodies PRESENT; Platelet Estimate DECR; Poikilocytosis 1+; White Blood Cell Scan OK (OK)
[2023-09-22 05:20] LABS: Arterial Blood Carboxyhemoglob 0.9 % (0-1.5); Blood Gas Oxyhemoglobin 95.8 % (94-97); Blood O2 Saturation 98.4 % (92-98.5)
[2023-09-22] MEDS ORDERED: ALBUMIN HUMAN 25% 100 ML IV ONE (05:38)
[2023-09-22] MEDS: METOPROLOL TARTRATE 5 MG/5 ML INJ IV PRN (06:04)
[2023-09-22] MEDS ORDERED: MAGNESIUM SULFATE 1 gm IVPB 1 GM/100 ML BAG IV ONE (06:33)
[2023-09-22] MEDS ORDERED: AMIODARONE HCL 150 MG in D5W 100 ML IV STA (07:10)
[2023-09-22] MEDS ORDERED: AMIODARONE HCL 900 MG in Dextrose 5%-Water 482 ML IV SCH (07:30)
[2023-09-22] MEDS ORDERED: AMIODARONE HCL 450 MG in D5W 241 ML IV SCH (08:00)
[2023-09-22] MEDS: Mupirocin NASAL 2 APPL/1 GM TUBE NAS SCH ×2 (08:39→21:44)
[2023-09-22] MEDS ORDERED: SODIUM PHOSPHATE 15 MM in NA CHLORIDE 0.9% 250 ML IV ONE (09:00)
--- NOTE | 2023-09-22 11:06 | P.PN ---
Subjective Date of Service: 09/22/23 Chief Complaint: Abdominal pain Status post exploratory laparotomy 09/19. Urine output significantly improved. Patient developed A-fib RVR overnight, heart rate up to 170. Off Levophed drip since yesterday. Blood pressure relatively stable after Levophed drip was discontinued Patient is confused and less responsive than before. No recorded fever. Physical Examination - Vital Signs Temperature: 97.4 F Blood Pressure: 105/55 Pulse: 110 Respirations: 17 Pulse Ox (%): 97 Assessment And Plan - Plan Physical Exam General: Somnolent, in no apparent distress, Oriented x3 HEENT: NG tube to suction. Neck: Supple, JVD not distended Respiratory: Clear to auscultation bilaterally, Normal air movement Cardiovascular: No edema, Normal pulses, Regular rate/rhythm Gastrointestinal: Normal bowel sound, right ileostomy, dressed surgical wound. EDI drain. Musculoskeletal: No swelling Neurological: No focal motor deficit. Assessment and plan Acute appendicitis with perforation and intra-abdominal abscess/mesenteric mass/intra-abdominal adhesions Status post exploratory laparotomy with colon resection, ileostomy, adhesiolysis, biopsy of mesenteric mass, biopsy of liver mass, appendectomy and abscess drainage by Dr. Sparrow. Most likely patient has multiple intra-abdominal metastatic disease Continue aggressive antibiotics- IV Flagyl, Zosyn, Analgesics as needed, antiemetics. Keep n.p.o. PICC line placed. Start TPN for anticipated prolonged n.p.o. status and hypoalbuminemia. Dr. Sparrow is following. Follow-up biopsy results Poor prognosis. Patient is DNR. Awaiting biopsy results to discuss overall goals of care Hypovolemic shock Resolved Status post isotonic boluses. Off Levophed Continue IV hydration. ANTHONY/metabolic acidosis Likely prerenal, possible intra-abdominal third spacing. Status post IV Ringer's lactate and normal saline boluses. Nephrology is following. Continue IV hydration and monitor urine output. Patient is on bicarb drip for metabolic acidosis. Monitor renal function. Acute blood loss anemia Status post 1 unit PRBC transfusion Hemoglobin has been relatively Continue to monitor H&H A-fib with RVR Cardiology input appreciated Echocardiogram results reviewed Patient started on amiodarone drip. Hypertension Antihypertensives are on hold Hyperlipidemia N.p.o. Resume appropriate home medications once diet is resumed. DNR N.p.o. Discharge Plan: Home DVT prophylaxis: SCD
--- NOTE | 2023-09-22 11:52 | P.PN ---
Nephrology note (S) Pt off Levophed, on LFNC, started on clears by surgery, making urine, case discussed with ICU RNs. (O) Vitals and I/Os reviewed in the chart General: NAD HEENT: Atraumatic, LFNC present Neck: Supple Respiratory: b/l air entry, non tachypnec Cardiovascular: Regular rate/rhythm mostly Integumentary: No rashes Neurological: Normal speech, awake, responsive Urinary: Patel catheter Blood work & imaging reviewed in the chart. Conclusions/Impression: Stage I ANTHONY in the setting of hypotension, hypovolemia, other -Cr level has peaked and lower on repeat testing today, pt is non oliguric, cont to monitor closely Acute hyperchloremic Metabolic Acidosis -Bicarb deficit improved, pH on ABG > 7.2, d/c bicarb gtt Diastolic CHF, chronic Hypotension, unspecified -resolved -Will stop maintenance IVF, pt off pressors support, will monitor I/Os closely Hypocalcemia 2nd to hypoalbuminemia, illness -Check ionized Ca Post-op management per surgery and IM Pancho Bal MD, RONAL
--- NOTE | 2023-09-22 14:08 | PN ---
Date of Progress Note: 09/22/2023 Subjective: This is a case of a female, who comes to us with abdominal pain, went for a diagnostic l aparoscopy due to a suspicious findings of appendicitis and then after that resulted in to be a right hemicolectomy due to a mass and perforation of the appendix and next to the ascending colon. We als o found numerous lesions around the abdomen, liver, mesentery and they were biopsied too. 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 I bel ieve this is an advanced cancer, caused perforation already and the mortality of that is very high es pecially in this 88-year-old person. Objective: General: She is awake. She is in good health in the sense of mental health, but she und erstands and she is in a critical condition. Chest: Clear. Abdomen: Intact. Surgical site ostomy is viable. Bowel sounds negative. Extremities: Good capillary refill. Laboratory Data: Blood work reviewed. Assessment/plan: I had to have a long discussion for almost an hour with the family and also discuss ed with the primary doctor. We discussed her chances and the family told me that they wanted put her DNR and also that the patient specifically told them in advance that if this was cancer, she suspect may be that she does not want anything to be done. So, the patient's daughter is with me and she wa nt to handle this. She want to talk to her mom. I explained that to the primary doctor we can bring in her information. They bring in some family members to try and to decide what else to do in the s ense of hospice. Unfortunately, I explained to the patient's family I do not think she will survive this hospitalization if the cancer is very advanced. This is a large surgery on her, already perfora dagoberto, has bacterial contamination with high mortality and they wish she can get stable enough to be wi th her on the normal room and refer that to the primary doctor to see if they can get her comfortable enough and safe enough to be in the room where the family can spend some time with her. JULIA/KATELIN Voice ID: [id number] Report ID: [id number]
--- NOTE | 2023-09-22 15:09 | RAD REPORT ---
EXAM DESCRIPTION: US - UPPER EXTREMITY VENOUS UNILATE - 09/22/2023 2:59 pm CLINICAL HISTORY: Right upper extremity swelling COMPARISON: None. FINDINGS: PICC line in place Echogenic material consistent with acute thrombus is present within the right axillary and right basi lic veins. The veins are noncompressible The right internal jugular, subclavian, brachial, cephalic, radial and ulnar veins demonstrate phasi c signal. The veins are generally compressible. Doppler demonstrates good flow Grayscale, color and spectral analysis performed on all vessels IMPRESSION: Acute thrombus right axillary and basilic veins
--- NOTE | 2023-09-22 18:16 | RAD REPORT ---
EXAM DESCRIPTION: RAD - Chest Single View - 09/22/2023 3:53 am CLINICAL HISTORY: The patient is 88 years old and is Female; Abdominal Distention TECHNIQUE: Frontal view of the abdomen/pelvis with upright view of the abdomen. COMPARISON: No relevant prior studies available. FINDINGS: Lower thorax: Blunting of the left costophrenic angle which may indicate left pleural ef fusion. Scattered atelectasis in the lungs bilaterally. Intraperitoneal space: Postsurgical changes in the abdomen. No free air. Gastrointestinal tract: Unremarkable. No dilation. Bones/joints: Degenerative changes in the hips. Disc space narrowing with degenerative endplate changes in the spine. Vasculature: Aortic calcification. * A single impression for all exams can be found at the end of this report EXAM DESCRIPTION: XR Chest, 1 View CLINICAL HISTORY: The patient is 88 years old and is Female; Abdominal Distention TECHNIQUE: Frontal view of the chest. COMPARISON: No relevant prior studies available. FINDINGS: Lungs: Left basilar atelectasis. Pleural space: Blunting of the left costophrenic angle which may indicate left pleural effusion. No pneumothorax. Heart: Unremarkable. Mediastinum: Unremarkable. Bones/joints: No acute findings. Tubes, lines and devices: Right PICC with tip in the SVC. Upper abdomen: Postsurgical changes in the upper abdomen. Elevation of the right hemidiaphragm. * A single impression for all exams can be found at the end of this report IMPRESSION: XR Abdomen, 2 Views: No acute findings in the abdomen or pelvis. XR Chest, 1 View: Blunting of the left costophrenic angle which may indicate left pleural effusion. Electronically signed by: Prosper Andrea MD 09/22/2023 4:29 AM CDT Due to temporary technical issues with the PACS/Fluency reporting system, reports are being signed by the in house radiologists without review as a courtesy to insure prompt reporting. The interpreting radiologist is fully responsible for the content of the report.
--- NOTE | 2023-09-22 18:19 | RAD REPORT ---
EXAM DESCRIPTION: RAD - Abdomen 1 View (KUB) - 09/22/2023 3:53 am CLINICAL HISTORY: The patient is 88 years old and is Female; Abdominal Distention TECHNIQUE: Frontal view of the abdomen/pelvis with upright view of the abdomen. COMPARISON: No relevant prior studies available. FINDINGS: Lower thorax: Blunting of the left costophrenic angle which may indicate left pleural ef fusion. Scattered atelectasis in the lungs bilaterally. Intraperitoneal space: Postsurgical changes in the abdomen. No free air. Gastrointestinal tract: Unremarkable. No dilation. Bones/joints: Degenerative changes in the hips. Disc space narrowing with degenerative endplate changes in the spine. Vasculature: Aortic calcification. * A single impression for all exams can be found at the end of this report EXAM DESCRIPTION: XR Chest, 1 View CLINICAL HISTORY: The patient is 88 years old and is Female; Abdominal Distention TECHNIQUE: Frontal view of the chest. COMPARISON: No relevant prior studies available. FINDINGS: Lungs: Left basilar atelectasis. Pleural space: Blunting of the left costophrenic angle which may indicate left pleural effusion. No pneumothorax. Heart: Unremarkable. Mediastinum: Unremarkable. Bones/joints: No acute findings. Tubes, lines and devices: Right PICC with tip in the SVC. Upper abdomen: Postsurgical changes in the upper abdomen. Elevation of the right hemidiaphragm. * A single impression for all exams can be found at the end of this report IMPRESSION: XR Abdomen, 2 Views: No acute findings in the abdomen or pelvis. XR Chest, 1 View: Blunting of the left costophrenic angle which may indicate left pleural effusion. Electronically signed by: Prosper Andrea MD 09/22/2023 4:29 AM CDT Due to temporary technical issues with the PACS/Fluency reporting system, reports are being signed by the in house radiologists without review as a courtesy to insure prompt reporting. The interpreting radiologist is fully responsible for the content of the report.
[2023-09-22] MEDS: ENOXAPARIN 80 MG/0.8 ML SQ SCH (21:43)
[2023-09-23] MEDS: METRONIDAZOLE 500mg IVPB 500 MG/100 ML BAG IV SCH ×2 (00:10→08:31)
[2023-09-23] MEDS: PIPER TAZO 3.375 GM in NA CHLORIDE 0.9% 100 ML IV SCH ×2 (01:07→08:31)
[2023-09-23] MEDS: HYDROMORPHONE HCL 0.5 MG/0.5 ML INJ IV PRN ×2 (02:00→21:05)
[2023-09-23] MEDS ORDERED: HYDROMORPHONE HCL 0.5 MG/0.5 ML INJ IV ONE (02:24)
[2023-09-23 04:50] LABS: Hematocrit 26.9 % (36.0-45.0); Lymphocytes % 4.2 % (15.3-44.8); MCV 84.4 fL (80-100); MPV 8.9 fL (7.6-11.3); Platelets 132 thou/uL (152-406); RBC Red Blood Cell Count 3.19 M/uL (3.86-4.86)
[2023-09-23 05:04] VITALS: BMI 23.7
[2023-09-23 05:08] LABS: Albumin 2.5 g/dL (3.4-5.0); Magnesium 2.1 mg/dL (1.6-2.4); Potassium 3.7 mEq/L (3.5-5.1); Protein, Total 5.4 g/dL (6.4-8.2)
[2023-09-23] MEDS ORDERED: POTASSIUM CL SA 10 MEQ TAB PO ONE (07:24)
--- NOTE | 2023-09-23 08:08 | RAD REPORT ---
EXAM DESCRIPTION: RAD - Chest Single View - 09/23/2023 7:59 am CLINICAL HISTORY: wheezing COMPARISON: Abdomen 1 View (KUB) dated 09/23/2023; Abdomen 1 View (KUB) dated 09/22/2023; Chest Single View dated 09/22/2023; Chest Single View dated 09/19/2023; Abdomen Pelvis W Contrast dated 09/19/20 FINDINGS: Lines: Right subclavian approach PICC with tip overlying the distal SVC. Lungs: Mild airspace disease in the right lung base. Pleural: No significant pleural effusions or pneumothorax. Cardiac: The heart size is within normal limits. Mediastinum: Within normal limits. Bones: No acute fractures. Other: None IMPRESSION: Airspace disease at the right lung base could represent atelectasis and/or pneumonitis s uch as from aspiration given the time course of development. Early pneumonia less likely.
[2023-09-23] MEDS: AMIODARONE HCL 900 MG in Dextrose 5%-Water 482 ML IV SCH (08:31)
[2023-09-23] MEDS: ENOXAPARIN 80 MG/0.8 ML SQ SCH (08:31)
[2023-09-23] MEDS: Mupirocin NASAL 2 APPL/1 GM TUBE NAS SCH ×2 (08:32→20:01)
[2023-09-23] MEDS ORDERED: KCL 20 MEQ/100 mL IVPB 20 MEQ/100 ML BAG IV SCH (09:00)
--- NOTE | 2023-09-23 10:38 | P.PN ---
Subjective Date of Service: 09/23/23 Chief Complaint: Abdominal pain Status post exploratory laparotomy 09/19. Urine output significantly improved. Patient developed A-fib RVR started on amiodarone drip. She converted to sinus rhythm overnight. Blood pressure relatively stable after Levophed drip was discontinued Patient is more alert and interactive today Leukocytosis is worse. No recorded fever. Physical Examination - Vital Signs Temperature: 97.6 F Blood Pressure: 151/67 Pulse: 79 Respirations: 12 Pulse Ox (%): 97 Assessment And Plan - Plan Physical Exam General: Awake and interactive, in no apparent distress, Oriented x3 Neck: Supple, JVD not distended Respiratory: Clear to auscultation bilaterally, Normal air movement Cardiovascular: No edema, Normal pulses, Regular rate/rhythm Gastrointestinal: Normal bowel sound, right ileostomy, dressed surgical wound. EDI drain. Musculoskeletal: No swelling Neurological: No focal motor deficit. Assessment and plan Acute appendicitis with perforation and intra-abdominal abscess/mesenteric mass/intra-abdominal adhesions Status post exploratory laparotomy with colon resection, ileostomy, adhesiolysis, biopsy of mesenteric mass, biopsy of liver mass, appendectomy and abscess drainage by Dr. Sparrow. Multiple intra-abdominal metastatic disease-adenocarcinoma of colon per biopsy result Leukocytosis trending up. Change antibiotics to IV meropenem Analgesics as needed, antiemetics. Suspected aspiration pneumonia. N.p.o. today. D5 NS. PICC line placed but now associated with axillary and basilic vein thrombosis. Remove PICC line. Dr. Sparrow is following. Poor prognosis. Patient is DNR. Recommending hospice. Hypovolemic shock Resolved Status post isotonic boluses. Off Levophed Continue IV hydration. ANTHONY/metabolic acidosis Likely prerenal, possible intra-abdominal third spacing. Status post IV Ringer's lactate and normal saline boluses. Nephrology is following. Continue IV hydration and monitor urine output. Patient is on bicarb drip for metabolic acidosis. Monitor renal function. Acute blood loss anemia Status post 1 unit PRBC transfusion Hemoglobin has been relatively Continue to monitor H&H A-fib with RVR Cardiology input appreciated Echocardiogram results reviewed On amiodarone drip. Patient spontaneously converted to sinus rhythm. Hypertension Antihypertensives are on hold Hyperlipidemia N.p.o. Resume appropriate home medications once diet is resumed. Aspiration pneumonia IV meropenem Speech therapy consult. Keep n.p.o. for now. DNR N.p.o. Discharge Plan: Home DVT prophylaxis: SCD
--- NOTE | 2023-09-23 13:06 | RAD REPORT ---
EXAM DESCRIPTION: RAD - Abdomen 1 View (KUB) - 09/23/2023 3:01 am CLINICAL HISTORY: The patient is 88 years old and is Female; pain ribcage TECHNIQUE: Frontal supine view of the abdomen/pelvis. COMPARISON: September 22, 2023. FINDINGS: Lower thorax: Blunting of the left costophrenic angle which may indicate left pleural ef fusion. Intraperitoneal space: Postsurgical changes in the abdomen. Gastrointestinal tract: Unremarkable. No dilation. Bones/joints: Disc space narrowing with degenerative endplate changes in the spine. Vasculature: Aortic calcification. IMPRESSION: No acute findings in the abdomen/pelvis. Electronically signed by: Prosper Andrea MD 09/23/2023 3:15 AM CDT Due to temporary technical issues with the PACS/Fluency reporting system, reports are being signed by the in house radiologists without review as a courtesy to insure prompt reporting. The interpreting radiologist is fully responsible for the content of the report.
--- NOTE | 2023-09-23 15:57 | P.PN ---
Date of Service: 09/23/23 Vital Signs Temp Pulse Resp BP Pulse Ox 97.2 F 86 21 H 167/70 H 98 09/23/23 12:00 09/23/23 15:00 09/23/23 15:00 09/23/23 15:00 09/23/23 15:00 Medications Enoxaparin Sodium (Enoxaparin 80 Mg/0.8 Ml) 70 mg SQ DAILY [facility] Last Admin: 09/23/23 08:31 Dose: 70 mg Home Med (Latanoprost 0.005% Eye Drops) 0 ea OPTH BEDTIME PATSY Hydromorphone HCl (Hydromorphone Hcl 0.5 Mg/0.5 Ml Inj) 0.5 mg IV Q3H PRN PRN Reason: Pain scale 8-10 (Severe) Last Admin: 09/23/23 02:00 Dose: 0.5 mg Norepinephrine/Dextrose (Levophed 4 Mg/250 Ml-D5w) 4 mg in 250 mls @ 21.942 mls/hr IV TITR PATSY; Protocol Last Titration: 09/21/23 12:45 Dose: 0 mcg/kg/min, 0 mls/hr Amiodarone HCl 900 mg/ (Dextrose) 500 mls @ 16.5 mls/hr IV Q24H PATSY Last Admin: 09/23/23 08:31 Dose: 500 mls Meropenem 1,000 mg/ Sodium (Chloride) 100 mls @ 200 mls/hr IV Q8HR PATSY Metoprolol Tartrate (Metoprolol Tartrate 5 Mg/5 Ml Inj) 5 mg IV Q6H PRN PRN Reason: Titrate to SBP (MUST DEFINE) Last Admin: 09/22/23 06:04 Dose: 5 mg Mupirocin (Mupirocin Nasal 2 Appl/1 Gm Tube) 1 appl BERENICE BID PATSY Stop: 09/24/23 09:01 Last Admin: 09/23/23 08:32 Dose: 1 appl Ondansetron HCl (Ondansetron 4 Mg/2 Ml Vial) 4 mg IV Q6HP PRN PRN Reason: NAUSEA / VOMITING Assessment/ Plan: Nephrology No dyspnea No chest pain Fatigue and weakness No acute events overnight Vitals, medications, blood work and imaging reviewed in the chart. General: Oriented x3, Cooperative HEENT: Atraumatic Neck: Supple Respiratory: Crackles/rales (Right) Cardiovascular: LE Edema 1-2+, Regular rate/rhythm Gastrointestinal: Non-distended, Tenderness Musculoskeletal: No clubbing, No contractures Integumentary: No rashes, No cyanosis Neurological: Normal speech Urinary: Patel catheter Blood work reviewed in the chart. Imagings Data: [facility] CLINICAL HISTORY: picc line placement COMPARISON: Chest Single View dated 04/05/2022; Abdomen 1 View (KUB) dated 01/22/2022; Chest Single View dated 01/04/2022; Chest Single View dated 08/03/2021; Abdomen Pelvis W Contrast dated 09/19/2023; Thorax W/ Con dated 07/14/2023; Thorax Wo Con dated 06/21/2022; Thorax Wo Con dated 12/27/2022 TECHNIQUE: Portable AP view of the chest. FINDINGS: Right arm PICC in place, with catheter tip at the superior cavoatrial junction. Enteric tube courses along the distal stomach. Somewhat linear peripheral right lung opacity, appears to be along middle lobe, stable since the prior CT. Decreased inspiratory effort. No new focal airspace opacities. No pneumothorax or effusion. The cardiomediastinal contours are unremarkable. IMPRESSION: Stable right middle lobe linear opacity since the prior CT, favored to represent scarring or atelectasis. EXAM DESCRIPTION: CT Abdomen and Pelvis With Intravenous Contrast CLINICAL HISTORY: The patient is 88 years old and is Female; llq abdomen pain TECHNIQUE: Axial computed tomography images of the abdomen and pelvis with intravenous contrast. Sagittal and coronal reformatted images were created and reviewed. This CT exam was performed using one or more of the following dose reduction techniques: automated exposure control, adjustment of the mA and/or kV according to patient size, and/or use of iterative reconstruction technique. COMPARISON: CT abdomen and pelvis with contrast March 30, 2020 FINDINGS: Lung bases: Bibasilar atelectasis. ABDOMEN: Liver: Multiple cysts in the liver measuring up to 1.3 cm. Gallbladder and bile ducts: Gallbladder is surgically absent. Mild intrahepatic and extrahepatic biliary dilatation which may be due to prior cholecystectomy. Pancreas: Slightly hypoattenuating and possibly cystic appearance to the pancreatic head, similar to prior. No ductal dilation. Spleen: Calcified granuloma in the spleen. Adrenals: Unremarkable. No mass. Kidneys and ureters: Multiple simple appearing renal cysts bilaterally measuring up to 7 cm in the left kidney. No follow-up imaging is recommended. No hydronephrosis. Stomach and bowel: Nodular soft tissue densities in the right lower quadrant adjacent to the colon measuring up to 3.3 cm. Colonic diverticulosis. No obstruction. No mucosal thickening. PELVIS: Appendix: Dilated luminal structure in the right lower quadrant measuring up to 2 cm in diameter with mild adjacent stranding. Bladder: Unremarkable. Reproductive: Unremarkable as visualized. ABDOMEN and PELVIS: Intraperitoneal space: See below. Bones/joints: Cysts with bony expansion of the sacral neural foramina, similar to prior. Disc space narrowing with degenerative endplate changes in the spine. 7 mm of anterolisthesis of L5 on S1. No acute fracture. No dislocation. Soft tissues: Clips in the right abdomen. Vasculature: Scattered atherosclerotic vascular calcifications. No abdominal aortic aneurysm. Lymph nodes: Unremarkable. No enlarged lymph nodes. IMPRESSION: 1. Dilated luminal structure in the right lower quadrant measuring up to 2 cm in diameter with mild adjacent stranding. Findings are concerning for acute appendicitis. 2. Nodular soft tissue densities in the right lower quadrant adjacent to the colon measuring up to 3.3 cm. Finding is concerning for metastatic disease. Correlate with any history of malignancy. 3. Gallbladder is surgically absent. 4. Mild intrahepatic and extrahepatic biliary dilatation which may be due to prior cholecystectomy. 5. Slightly hypoattenuating and possibly cystic appearance to the pancreatic head, similar to prior. 6. Colonic diverticulosis. LEFT VENTRICULAR WALL MOTION: NORMAL DOPPLER/COLOR FLOW: SEE BELOW COMMENTS: 1. NORMAL LEFT VENTRICULAR EJECTION FRACTION 50-55% 2. MODERATE CONCENTRIC LEFT VENTRICULAR HYPERTROPHY 3. MODERATE DIASTOLIC DYSFUNCTION 4. MILD MITRAL REGURGITATION, AORTIC INSUFFICIENCY, PULMONIC INSUFFICIENCY Conclusions/Impression: Stage II ANTHONY concerning for ATN in the setting of hypotension & IVC versus PreRenal Azotemia CKD II with Proteinuria -No NSAIDs Acute NAG Metabolic Acidosis, resolved BL Renal Cysts -No intervention HTN with CHF/ CKD -Start Metoprolol 25mg BID Diastolic CHF, chronic LVH -Daily weight Hyperglycemia -RISS prn Severe Hypoalbuminemia -Recommend TPN while NPO Anemia in chronic illness -Monitor H&H -Transfuse PRBC prn -Retacrit prn Hx Vitamin D3 Deficiency -Ergo prn Acute appendicitis with perforation and intra-abdominal abscess/mesenteric mass/intra-abdominal adhesions -Continue Abx -NPO -Follow up with surgery -Biopsy consistent with metastatic colon cancer Hospitalist note reviewed Case reviewed with Dr. Wilkerson. Poor prognosis due to metastatic colon cancer and may benefit from hospice. Greater than 30min patient care
[2023-09-23] MEDS: Meropenem 1,000 MG in NA CHLORIDE 0.9% 100 ML IV SCH (16:23)
[2023-09-23] MEDS: METOPROLOL TAR 25 MG TAB PO SCH (16:23)
[2023-09-23] MEDS: METOPROLOL TARTRATE 5 MG/5 ML INJ IV PRN (18:22)
[2023-09-23] MEDS: LATANOPROST 0.005% EYE DROPS OPTH SCH (20:02)
[2023-09-23] MEDS ORDERED: GUAIFENESIN/CODEINE 5ML UCUP PO PRN (20:59)
[2023-09-23] MEDS ORDERED: BENZONATATE 100 MG CAP PO PRN (20:59)
[2023-09-23] MEDS ORDERED: LATANOPROST 0.005% 2.5ML OPTH OPTH SCH (21:00)
--- NOTE | 2023-09-23 23:23 | PN ---
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 Subjective: The patient is awake. The family is at bedside. We discussed with them the pathology p reviously. They the decision to put in hospice with no heroic measures. She is DNR. The y want to take her home. The abdomen is intact with the ostomy viable. Plan: Comfort care. They understand the situation. I provided a copy of the pathology for the fami ly member to have copies of that and wishing the best for family. JULIA/KATELIN Voice ID: [id number] Report ID: [id number]
[2023-09-24] MEDS: Meropenem 1,000 MG in NA CHLORIDE 0.9% 100 ML IV SCH ×3 (00:19→16:32)
[2023-09-24 04:45] LABS: Hematocrit 31.6 % (36.0-45.0); Lymphocytes % 4.1 % (15.3-44.8); MPV 8.4 fL (7.6-11.3); Platelets 145 thou/uL (152-406); RBC Red Blood Cell Count 3.72 M/uL (3.86-4.86)
[2023-09-24 05:03] LABS: Albumin 2.4 g/dL (3.4-5.0); Bilirubin Total 0.8 mg/dL (0.2-1.0); Magnesium 2.2 mg/dL (1.6-2.4); Protein, Total 5.6 g/dL (6.4-8.2)
[2023-09-24] MEDS: METOPROLOL TAR 25 MG TAB PO SCH ×2 (06:00→16:32)
[2023-09-24] MEDS: METOPROLOL TARTRATE 5 MG/5 ML INJ IV PRN ×2 (06:54→13:45)
[2023-09-24] MEDS: Mupirocin NASAL 2 APPL/1 GM TUBE NAS SCH (09:07)
[2023-09-24] MEDS: AMIODARONE HCL 900 MG in Dextrose 5%-Water 482 ML IV SCH (09:07)
[2023-09-24] MEDS: ENOXAPARIN 80 MG/0.8 ML SQ SCH (09:07)
--- NOTE | 2023-09-24 11:09 | P.PN ---
Subjective Date of Service: 09/24/23 Chief Complaint: Abdominal pain Status post exploratory laparotomy 09/19. Urine output significantly improved. Currently in sinus rhythm Patient is awake and interactive. Staff report patient aspirated on anything she tries to swallow Leukocytosis continues to worsen. No recorded fever. Physical Examination - Vital Signs Temperature: 97.8 F Blood Pressure: 153/73 Pulse: 80 Respirations: 23 Pulse Ox (%): 99 Assessment And Plan - Plan Physical Exam General: Awake and interactive, in no apparent distress, Oriented x3 Neck: Supple, JVD not distended Respiratory: Bilateral crackles, normal air movement Cardiovascular: No edema, Normal pulses, Regular rate/rhythm Gastrointestinal: Normal bowel sound, right ileostomy, dressed surgical wound. EDI drain. Musculoskeletal: No swelling Neurological: No focal motor deficit. Assessment and plan Acute appendicitis with perforation and intra-abdominal abscess/mesenteric mass/intra-abdominal adhesions Status post exploratory laparotomy with colon resection, ileostomy, adhesiolysis, biopsy of mesenteric mass, biopsy of liver mass, appendectomy and abscess drainage by Dr. Sparrow. Multiple intra-abdominal metastatic disease-adenocarcinoma of colon per biopsy result Leukocytosis trending up. Change antibiotics to IV meropenem Analgesics as needed, antiemetics. Suspected aspiration pneumonia. N.p.o. today. D5 NS. PICC line placed but now associated with axillary and basilic vein thrombosis. PICC line removed. Dr. Sparrow is following. Poor prognosis. Patient is DNR. Recommending hospice. Social service consulted for hospice Hypovolemic shock Resolved Status post isotonic boluses. Off Levophed Continue IV hydration. ANTHONY/metabolic acidosis Likely prerenal, possible intra-abdominal third spacing. Status post IV Ringer's lactate and normal saline boluses. Nephrology is following. ANTHONY and metabolic acidosis resolved Continue IV hydration and monitor urine output. Monitor renal function. Acute blood loss anemia Status post 1 unit PRBC transfusion Hemoglobin has been relatively Continue to monitor H&H A-fib with RVR Cardiology input appreciated Echocardiogram results reviewed. Normal EF. Still on amiodarone drip. Patient cannot tolerate. She had A-fib last night. Currently in sinus rhythm. Hypertension Antihypertensives are on hold Hyperlipidemia N.p.o. Resume appropriate home medications once diet is resumed. Aspiration pneumonia IV meropenem Speech therapy consulted. Keep n.p.o. for now. IV fluid maintenance with D5 NS. Upper extremity DVT On full dose Lovenox. DNR N.p.o. Discharge Plan: Home DVT prophylaxis: SCD Hospice discussed with patient and family.
[2023-09-24] MEDS: D5 0.9 NS 1,000 ML IV SCH (11:53)
[2023-09-24] MEDS: HYDROMORPHONE HCL 0.5 MG/0.5 ML INJ IV PRN (19:09)
[2023-09-24] MEDS: LATANOPROST 0.005% EYE DROPS OPTH SCH (19:10)
[2023-09-25] MEDS: Meropenem 1,000 MG in NA CHLORIDE 0.9% 100 ML IV SCH ×2 (01:03→08:44)
[2023-09-25] MEDS: D5 0.9 NS 1,000 ML IV SCH ×2 (01:04→08:44)
[2023-09-25 05:20] LABS: Absolute Lymphocytes (CBC) 0.8 K/uL (0.7-4.9); Hematocrit 29.2 % (36.0-45.0); MCV 84.5 fL (80-100); MPV 8.7 fL (7.6-11.3); Platelets 171 thou/uL (152-406); RBC Red Blood Cell Count 3.46 M/uL (3.86-4.86)
[2023-09-25 05:45] LABS: Albumin 2.1 g/dL (3.4-5.0); Bilirubin Total 0.5 mg/dL (0.2-1.0); Potassium 3.1 mEq/L (3.5-5.1); Protein, Total 5.4 g/dL (6.4-8.2)
[2023-09-25 05:51] LABS: Phosphorus 0.9 mg/dL (2.5-4.9)
[2023-09-25] MEDS: METOPROLOL TAR 25 MG TAB PO SCH (06:00)
[2023-09-25] MEDS: AMIODARONE HCL 900 MG in Dextrose 5%-Water 482 ML IV SCH (07:30)
--- NOTE | 2023-09-25 08:03 | P.DS ---
Admission Date: 09/19/23 Discharge Date: 09/25/23 Disposition: HOSPICE-HOME Discharge Condition: FAIR Reason for Admission: Abdominal pain Brief History of Present Illness: 88-year-old female with a past medical history of hypertension, hyperlipidemia, lung cancer, in remission, bowel problems, presents to the emergency room with right lower quadrant pain. She reports symptoms started 1 week ago. She reports symptoms are constant. She reports right lower quadrant pain is progressively getting worse. She denies nausea vomiting diarrhea, fever. CT EXAM: CTAbdomen and Pelvis With Intravenous Contrast COMPARISON: CT abdomen and pelvis with contrast March 30, 2020 FINDINGS: Lung bases: Bibasilar atelectasis. ABDOMEN: Liver: Multiple cysts in the liver measuring up to 1.3 cm. Gallbladder and bile ducts: Gallbladder is surgically absent. Mild intrahepatic and extrahepatic biliary dilatation which may be due to prior cholecystectomy. Pancreas: Slightly hypoattenuating and possibly cystic appearance to the pancreatic head, similar to prior. No ductal dilation. Spleen: Calcified granuloma in the spleen. Adrenals: Unremarkable. No mass. Kidneys and ureters: Multiple simple appearing renal cysts bilaterally measuring up to 7 cm in the left kidney. No follow-up imaging is recommended. No hydronephrosis. Stomach and bowel: Nodular soft tissue densities in the right lower quadrant adjacent to the colon measuring up to 3.3 cm. Colonic diverticulosis. No obstruction. No mucosal thickening. PELVIS: Appendix: Dilated luminal structure in the right lower quadrant measuring up to 2 cm in diameter with mild adjacent stranding. Bladder: Unremarkable. Reproductive: Unremarkable as visualized. ABDOMEN and PELVIS: Intraperitoneal space: See below. Bones/joints: Cysts with bony expansion of the sacral neural foramina, similar to prior. Disc space narrowing with degenerative endplate changes in the spine. 7 mm of anterolisthesis of L5 on S1. No acute fracture. No dislocation. Soft tissues: Clips in the right abdomen. Laboratory evaluation no leukocytosis normocytic anemia 10.2 31.0, potassium, electrolytes within normal limits hypoalbumin 3.0 UA positive for leukoesterase greater than 500 Patient admitted for appendicitis. Hospital Course: Acute appendicitis with perforation and intra-abdominal abscess/mesenteric mass/intra-abdominal adhesions Status post exploratory laparotomy with colon resection, ileostomy, adhesiolysis, biopsy of mesenteric mass, biopsy of liver mass, appendectomy and abscess drainage by Dr. Sparrow. Multiple intra-abdominal metastatic disease-adenocarcinoma of colon per biopsy result Leukocytosis trending up. Change antibiotics to IV meropenem Analgesics as needed, antiemetics. Suspected aspiration pneumonia. N.p.o. today. D5 NS. PICC line placed but now associated with axillary and basilic vein thrombosis. PICC line removed. Dr. Sparrow is following. Poor prognosis. Patient is DNR. Patient and family opted for hospice. Social service consulted for hospice. Patient has been accepted for home with hospice Hypovolemic shock Resolved Status post isotonic boluses. Off Levophed Continue IV hydration. ANTHONY/metabolic acidosis Likely prerenal, possible intra-abdominal third spacing. Status post IV Ringer's lactate and normal saline boluses. Nephrology is following. ANTHONY and metabolic acidosis resolved Continue IV hydration and monitor urine output. Monitor renal function. Acute blood loss anemia Status post 1 unit PRBC transfusion Hemoglobin has been relatively Continue to monitor H&H A-fib with RVR Cardiology input appreciated Echocardiogram results reviewed. Normal EF. Still on amiodarone drip. Patient cannot tolerate. She had A-fib last night. Currently in sinus rhythm. Hypertension Antihypertensives are on hold Hyperlipidemia N.p.o. Resume appropriate home medications once diet is resumed. Aspiration pneumonia IV meropenem Speech therapy consulted. Keep n.p.o. for now. IV fluid maintenance with D5 NS. Upper extremity DVT On full dose Lovenox. Vital Signs/Physical Exam: Temp Pulse Resp BP Pulse Ox 97.2 F 67 16 166/81 H 94 09/25/23 00:00 09/25/23 06:00 09/25/23 06:00 09/25/23 06:00 09/25/23 06:00 General: Other (Awake) Neck: JVD not distended Respiratory: Clear to auscultation bilaterally, Normal air movement Gastrointestinal: Normal bowel sounds, Soft and benign, Non-distended Musculoskeletal: No swelling (Midnight abdominal surgical wound-clean and healing.) Integumentary: No rashes Neurological: Other (No focal motor deficit.) Laboratory Data at Discharge: WBC 14.10 thou/uL (4.3-10.9) H 09/25/23 05:01 Hgb 9.5 g/dL (12.0-15.0) L D 09/25/23 05:01 Hct 29.2 % (36.0-45.0) L 09/25/23 05:01 Plt Count 171 thou/uL (152-406) 09/25/23 05:01 APTT Cancelled 09/22/23 21:30 Sodium 146 mEq/L (136-145) H 09/25/23 05:01 Potassium 3.1 mEq/L (3.5-5.1) L D 09/25/23 05:01 BUN 15 mg/dL (7-18) 09/25/23 05:01 Creatinine 0.59 mg/dL (0.55-1.02) 09/25/23 05:01 Glucose 191 mg/dL (74-106) H 09/25/23 05:01 Uric Acid 4.9 mg/dL (2.6-6.0) 09/22/23 04:01 Phosphorus 0.9 mg/dL (2.5-4.9) L* 09/25/23 05:01 Magnesium 2.0 mg/dL (1.6-2.4) 09/25/23 05:01 Total Bilirubin 0.5 mg/dL (0.2-1.0) 09/25/23 05:01 AST 141 U/L (15-37) H 09/25/23 05:01 ALT 126 U/L (13-56) H 09/25/23 05:01 Alkaline Phosphatase 68 U/L (45-117) 09/25/23 05:01 Lipase 47 U/L (13-75) 09/19/23 00:46 Home Medications: Latanoprost [Xalatan] 1 drop OP BEDTIME 09/22/23 Followup: Quinton Eddy DO [Primary Care Provider] - Time spent managing pt's care (in minutes): 35
[2023-09-25] MEDS: ENOXAPARIN 80 MG/0.8 ML SQ SCH (08:45)
[2023-09-25 09:26] VITALS: O2SAT 95
[2023-09-25 10:07] VITALS: BP 169/69; TEMP 97.9
[2023-09-25] MEDS ORDERED: POTASSIUM PHOS 10 MM in NA CHLORIDE 0.9% 250 ML IV ONE (10:16)
--- NOTE | 2023-09-25 10:25 | P.PN ---
Date of Service: 09/25/23 Vital Signs Temp Pulse Resp BP Pulse Ox 97.9 F 78 22 H 169/69 H 96 09/25/23 08:00 09/25/23 10:00 09/25/23 10:00 09/25/23 10:00 09/25/23 10:00 Medications Benzonatate (Benzonatate 100 Mg Cap) 100 mg PO TID PRN PRN Reason: COUGH Enoxaparin Sodium (Enoxaparin 80 Mg/0.8 Ml) 70 mg SQ DAILY [facility] Last Admin: 09/25/23 08:45 Dose: Not Given Guaifenesin/Codeine Phosphate (Guaifenesin/Codeine 5ml Ucup) 5 ml PO QID PRN PRN Reason: COUGH Home Med (Latanoprost 0.005% Eye Drops) 0 ea OPTH BEDTIME [facility] Last Admin: 09/24/23 19:10 Dose: 1 ea Hydromorphone HCl (Hydromorphone Hcl 0.5 Mg/0.5 Ml Inj) 0.5 mg IV Q3H PRN PRN Reason: Pain scale 8-10 (Severe) Last Admin: 09/24/23 19:09 Dose: 0.5 mg Norepinephrine/Dextrose (Levophed 4 Mg/250 Ml-D5w) 4 mg in 250 mls @ 21.942 mls/hr IV TITR [facility]; Protocol Last Titration: 09/21/23 12:45 Dose: 0 mcg/kg/min, 0 mls/hr Amiodarone HCl 900 mg/ (Dextrose) 500 mls @ 16.5 mls/hr IV Q24H [facility] Last Admin: 09/25/23 07:30 Dose: Not Given Meropenem 1,000 mg/ Sodium (Chloride) 100 mls @ 200 mls/hr IV Q8HR [facility] Last Admin: 09/25/23 08:44 Dose: Not Given Dextrose/Sodium Chloride (D5w Ns 1-Liter Bag) 1,000 mls @ 75 mls/hr IV .[id number] [facility] Last Admin: 09/25/23 08:44 Dose: Not Given Metoprolol Tartrate (Metoprolol Tar 25 Mg Tab) 25 mg PO BID 6AM 6PM [facility] Last Admin: 09/25/23 06:00 Dose: Not Given Metoprolol Tartrate (Metoprolol Tartrate 5 Mg/5 Ml Inj) 5 mg IV Q1H PRN PRN Reason: HR greater than 120 Last Admin: 09/24/23 13:45 Dose: 5 mg Ondansetron HCl (Ondansetron 4 Mg/2 Ml Vial) 4 mg IV Q6HP PRN PRN Reason: NAUSEA / VOMITING Assessment/ Plan: Nephrology No dyspnea No chest pain Fatigue and weakness No acute events overnight Vitals, medications, blood work and imaging reviewed in the chart. General: Oriented x3, Cooperative HEENT: Atraumatic Neck: Supple Respiratory: Crackles/rales (Right) Cardiovascular: LE Edema 1-2+, Regular rate/rhythm Gastrointestinal: Non-distended, Tenderness Musculoskeletal: No clubbing, No contractures Integumentary: No rashes, No cyanosis Neurological: Normal speech Urinary: Patel catheter Blood work reviewed in the chart. Imagings Data: EXAM DESCRIPTION: RADChest Single View09/19/2023 8:31 pm CLINICAL HISTORY: picc line placement COMPARISON: Chest Single View dated 04/05/2022; Abdomen 1 View (KUB) dated 01/22/2022; Chest Single View dated 01/04/2022; Chest Single View dated 08/03/2021; Abdomen Pelvis W Contrast dated 09/19/2023; Thorax W/ Con dated 07/14/2023; Thorax Wo Con dated 06/21/2022; Thorax Wo Con dated 12/27/2022 TECHNIQUE: Portable AP view of the chest. FINDINGS: Right arm PICC in place, with catheter tip at the superior cavoatrial junction. Enteric tube courses along the distal stomach. Somewhat linear peripheral right lung opacity, appears to be along middle lobe, stable since the prior CT. Decreased inspiratory effort. No new focal airspace opacities. No pneumothorax or effusion. The cardiomediastinal contours are unremarkable. IMPRESSION: Stable right middle lobe linear opacity since the prior CT, favored to represent scarring or atelectasis. EXAM DESCRIPTION: CT Abdomen and Pelvis With Intravenous Contrast CLINICAL HISTORY: The patient is 88 years old and is Female; llq abdomen pain TECHNIQUE: Axial computed tomography images of the abdomen and pelvis with intravenous contrast. Sagittal and coronal reformatted images were created and reviewed. This CT exam was performed using one or more of the following dose reduction techniques: automated exposure control, adjustment of the mA and/or kV according to patient size, and/or use of iterative reconstruction technique. COMPARISON: CT abdomen and pelvis with contrast March 30, 2020 FINDINGS: Lung bases: Bibasilar atelectasis. ABDOMEN: Liver: Multiple cysts in the liver measuring up to 1.3 cm. Gallbladder and bile ducts: Gallbladder is surgically absent. Mild intrahepatic and extrahepatic biliary dilatation which may be due to prior cholecystectomy. Pancreas: Slightly hypoattenuating and possibly cystic appearance to the pancreatic head, similar to prior. No ductal dilation. Spleen: Calcified granuloma in the spleen. Adrenals: Unremarkable. No mass. Kidneys and ureters: Multiple simple appearing renal cysts bilaterally measuring up to 7 cm in the left kidney. No follow-up imaging is recommended. No hydronephrosis. Stomach and bowel: Nodular soft tissue densities in the right lower quadrant adjacent to the colon measuring up to 3.3 cm. Colonic diverticulosis. No obstruction. No mucosal thickening. PELVIS: Appendix: Dilated luminal structure in the right lower quadrant measuring up to 2 cm in diameter with mild adjacent stranding. Bladder: Unremarkable. Reproductive: Unremarkable as visualized. ABDOMEN and PELVIS: Intraperitoneal space: See below. Bones/joints: Cysts with bony expansion of the sacral neural foramina, similar to prior. Disc space narrowing with degenerative endplate changes in the spine. 7 mm of anterolisthesis of L5 on S1. No acute fracture. No dislocation. Soft tissues: Clips in the right abdomen. Vasculature: Scattered atherosclerotic vascular calcifications. No abdominal aortic aneurysm. Lymph nodes: Unremarkable. No enlarged lymph nodes. IMPRESSION: 1. Dilated luminal structure in the right lower quadrant measuring up to 2 cm in diameter with mild adjacent stranding. Findings are concerning for acute appendicitis. 2. Nodular soft tissue densities in the right lower quadrant adjacent to the colon measuring up to 3.3 cm. Finding is concerning for metastatic disease. Correlate with any history of malignancy. 3. Gallbladder is surgically absent. 4. Mild intrahepatic and extrahepatic biliary dilatation which may be due to prior cholecystectomy. 5. Slightly hypoattenuating and possibly cystic appearance to the pancreatic head, similar to prior. 6. Colonic diverticulosis. LEFT VENTRICULAR WALL MOTION: NORMAL DOPPLER/COLOR FLOW: SEE BELOW COMMENTS: 1. NORMAL LEFT VENTRICULAR EJECTION FRACTION 50-55% 2. MODERATE CONCENTRIC LEFT VENTRICULAR HYPERTROPHY 3. MODERATE DIASTOLIC DYSFUNCTION 4. MILD MITRAL REGURGITATION, AORTIC INSUFFICIENCY, PULMONIC INSUFFICIENCY Conclusions/Impression: Stage II ANTHONY concerning for ATN in the setting of hypotension & IVC versus PreRenal Azotemia CKD I with Proteinuria -No NSAIDs Acute NAG Metabolic Acidosis, resolved BL Renal Cysts -No intervention HTN with CHF/ CKD -Continue Metoprolol 25mg BID Diastolic CHF, chronic LVH -Daily weight Hyperglycemia -RISS prn Severe Hypoalbuminemia -Recommend TPN while NPO Anemia in chronic illness -Monitor H&H -Transfuse PRBC prn -Retacrit prn Hx Vitamin D3 Deficiency -Ergo prn Acute appendicitis with perforation and intra-abdominal abscess/mesenteric mass/intra-abdominal adhesions -Continue Abx -NPO -Follow up with surgery -Biopsy consistent with metastatic colon cancer Hospitalist note reviewed Case reviewed with Dr. Wilkerson. Poor prognosis due to metastatic colon cancer; plan for hospice.
--- NOTE | 2023-09-25 12:32 | PN ---
Date of Progress Note: 09/25/2023 Diagnosis: Metastatic colon cancer. The patient is awake, alert. She discussed that with the family she does not want any more hemorrhoi d treatment. She wants to go home on hospice. I understand the situation. The cancer has spread al l over the abdomen, liver, mesentery, intestines, diaphragm, and she just want to spend time with her family. So, today we removed the EDI drains and she wants to go home on hospice which is best suited to the family to end this difficult time. They are always welcome to come back to the office to get the lloyd out in about a week from now. JULIA/KATELIN Voice ID: [id number] Report ID: [id number]
== END 2023-09-25 11:20 | disposition hospice, home (50) | DRG 329 ==
LOC: ER 23:28 → ERHOLD 09-19 06:11 → 3RD-ICU 09-19 17:41
PROVIDERS: ADMIT Internal Medicine; ATTEND Internal Medicine
PROC: 02HV33Z Insertion of Infusion Device into Superior Vena Cava, Percutaneous Approach (ICD-10-PCS; 2023-09-19)
PROC: 3E0436Z Introduction of Nutritional Substance into Central Vein, Percutaneous Approach (ICD-10-PCS; 2023-09-19)
PROC: 0DBB0ZZ Excision of Ileum, Open Approach (ICD-10-PCS; principal; 2023-09-20)
PROC: 0DTJ0ZZ Resection of Appendix, Open Approach (ICD-10-PCS; 2023-09-20)
PROC: 0DTF0ZZ Resection of Right Large Intestine, Open Approach (ICD-10-PCS; 2023-09-20)
PROC: 0DNW0ZZ Release Peritoneum, Open Approach (ICD-10-PCS; 2023-09-20)
PROC: 0FB00ZX Excision of Liver, Open Approach, Diagnostic (ICD-10-PCS; 2023-09-20)
PROC: 0DBV0ZX Excision of Mesentery, Open Approach, Diagnostic (ICD-10-PCS; 2023-09-20)
PROC: 30233N1 Transfusion of Nonautologous Red Blood Cells into Peripheral Vein, Percutaneous Approach (ICD-10-PCS; 2023-09-20)
DX: K35.32 Acute appendicitis with perforation, localized peritonitis, and gangrene, without abscess (principal); J69.0 Pneumonitis due to inhalation of food and vomit; R57.1 Hypovolemic shock; K63.0 Abscess of intestine; N30.00 Acute cystitis without hematuria; N17.9 Acute kidney failure, unspecified; I50.32 Chronic diastolic (congestive) heart failure; E87.20 Acidosis, unspecified; D62 Acute posthemorrhagic anemia; T82.868A Thrombosis due to vascular prosthetic devices, implants and grafts, initial encounter; I13.0 Hypertensive heart and chronic kidney disease with heart failure and stage 1 through stage 4 chronic kidney disease, or unspecified chronic kidney disease; C78.5 Secondary malignant neoplasm of large intestine and rectum; I82.621 Acute embolism and thrombosis of deep veins of right upper extremity; N18.9 Chronic kidney disease, unspecified; D63.1 Anemia in chronic kidney disease; D63.8 Anemia in other chronic diseases classified elsewhere; N28.1 Cyst of kidney, acquired; I48.91 Unspecified atrial fibrillation; I95.81 Postprocedural hypotension; K66.0 Peritoneal adhesions (postprocedural) (postinfection); E83.51 Hypocalcemia; E88.09 Other disorders of plasma-protein metabolism, not elsewhere classified; E78.00 Pure hypercholesterolemia, unspecified; R73.9 Hyperglycemia, unspecified; Z66 Do not resuscitate; Z51.5 Encounter for palliative care; Z78.1 Physical restraint status; Z88.0 Allergy status to penicillin; Z90.49 Acquired absence of other specified parts of digestive tract; Z79.82 Long term (current) use of aspirin; Z86.73 Personal history of transient ischemic attack (TIA), and cerebral infarction without residual deficits; Z90.710 Acquired absence of both cervix and uterus; Z85.118 Personal history of other malignant neoplasm of bronchus and lung; Z86.711 Personal history of pulmonary embolism; Z79.899 Other long term (current) drug therapy; Y84.8 Other medical procedures as the cause of abnormal reaction of the patient, or of later complication, without mention of misadventure at the time of the procedure
CPT/HCPCS: 31720; 36415; 36569; 71045; 74018; 74177; 80048; 80053; 81001; 82043; 82330; 82435; 82533; 82550; 82570; 82805; 83605; 83690; 83735; 84100; 84132; 84156; 84300; 84439; 84443; 84484; 84550; 85014; 85018; 85025; 86850; 86900; 86901; 86920; 88305; 88307; 88309; 93005; 93306; 93971; 94010; 97110; 97161; 97530; 99285; A4216; J0171; J0282; J0744; J1100; J1170; J2001; J2185; J2270; J2371; J2405; J2543; J2704; J3010; J3475; J3480; J7030; J7040; J7042; J7050; J7060; J7120; P9016; P9047; Q9967